=== PATIENT | female | born 1965 | race Caucasian/White ===

== ENCOUNTER 2017-02-10 16:01 | Inpatient (IN) | payer OTHER ==
--- NOTE | 2017-02-10 16:21 | PDOC ---
History of Present Illness <Tevin Raphael - Last Filed: 02/10/17 23:22> - General History Source: Patient Exam Limitations: Clinical Condition - History of Present Illness Initial Comments: 02/10/17 16:21 Patient is a limited historian and answers "yes" to most questions; majority of HPI obtained from nursing staff at [facility]. Patient is a 51 y.o. female with a PMH of Schizophrenia, HTN, AFib, CHF, s/p AICD, Hypothroidism and GERD who presents to our facility today from [facility] with a concern for LE DVT. Nursing staff notes that patient is currently recieving treatment for B/L LE cellulitis (currently on Vancomycin, failed Ceftriaxone therapy) and today on physical exam it was noted that the patient's LLE was cool to touch and patient left 1st toe was purple in color. Nursing staff also notes that patient has expressed some confusion ( including asking repeatedly whether she is ) over the last 24 hour period that is different from her baseline. Staff also notes h/o unwitnessed fall yesterday (02/09) after being asked about bruises appreciated on patient's B/L UE. <iLnda Covington - Last Filed: 02/11/17 10:42> - General Chief Complaint: Wound Infection Stated Complaint: POSSIBLE DVT Time Seen by Provider: 02/10/17 16:15 Past History <Tevin Raphael - Last Filed: 02/10/17 23:22> - Past Medical History Cardiac Disorders: Yes (a fib, hypertensive heart disease) Psychiatric Problems: Yes (bipolar,schizophrenic) Thyroid Disease: Yes (hypo) - Surgical History Abdominal Surgery: Yes ("some kind of tummy surgery") Cardiac Surgery: Yes (defibrillator) - Psycho/Social/Smoking Cessation Hx Suicidal Ideation: No Smoking History: Former smoker Have you smoked in the past 12 months: No Hx Alcohol Use: No Drug/Substance Use Hx: No Substance Use Type: None Hx Substance Use Treatment: No <Linda Covington - Last Filed: 02/11/17 10:42> - Past Medical History Allergies/Adverse Reactions: Allergies Allergy/AdvReac Type Severity Reaction Status Date / Time haloperidol Allergy Verified 02/10/17 16:05 risperidone Allergy Verified 02/10/17 16:05 Home Medications: Ambulatory Orders Levothyroxine [Synthroid -] 125 mcg PO DAILY 07/11/15 Metoprolol Succinate [Toprol XL -] 25 mg PO DAILY #30 tab.sr.24h 07/12/15 Acetaminophen [Tylenol] 650 mg PO QID PRN 02/10/17 Ammonium Lactate 1 ml TP BID 02/10/17 Betamethasone Valerate [Valisone] 1 applic TP DAILY 02/10/17 Divalproex Sodium [Depakote] 250 mg PO BID 02/10/17 Ergocalciferol (Vitamin D2) [Vitamin D2] 50,000 unit PO DAILY 02/10/17 Furosemide [Lasix -] 20 mg PO DAILY 02/10/17 Nystatin Cream [Mycostatin] 1 applic TP BID 02/10/17 Sertraline HCl [Zoloft] 25 mg PO DAILY 02/10/17 Topiramate [Topamax] 25 mg PO BID 02/10/17 Vancomycin [Vancocin] 500 mg IV DAILY 02/10/17 Review of Systems - Review of Systems Able to Perform ROS?: No Comments:: 02/11/17 09:49 Patient's clinical condition prevents proper ROS. Patient responds "yes" to all ROS questions. <Linda Covington - Last Filed: 02/11/17 10:42> *Physical Exam - Vital Signs Last Vital Signs Temp Pulse Resp BP Pulse Ox 97.3 F L 72 18 98/73 97 02/10/17 16:18 02/10/17 19:21 02/10/17 19:21 02/10/17 19:21 02/10/17 19:21 <Tevin Raphael - Last Filed: 02/10/17 23:22> - Physical Exam General Appearance: Yes: Nourished, Appropriately Dressed HEENT: positive: EOMI Neck: positive: Normal Thyroid, Supple Respiratory/Chest: positive: Lungs Clear, Normal Breath Sounds Cardiovascular: positive: S1, S2, Irregular Gastrointestinal/Abdominal: positive: Soft, Decreased BS Extremity: positive: Coldness (LLE cool to touch), Other (Delayed capillary refill; purple discoloration of L 1st phlange) Integumentary: positive: Bruising (B/L UE ecchymosis) Neurologic: positive: Alert, Disoriented (Patient A&O x 2, able to self-identify , identify she is at the hospital however is not able to correctly identify the date ), Other (Motor Strength 4/5 in UE B/L, patient not cooperative/clinical condition prevents evaluation of LE strength ) <Linda Covington - Last Filed: 02/11/17 10:42> ED Treatment Course - LABORATORY CBC & Chemistry Diagram: 02/10/17 17:35 02/10/17 18:53 - ADDITIONAL ORDERS Additional order review: Laboratory Results 02/10/17 02/10/17 02/10/17 18:53 18:30 17:40 INR PTT (Actin FS) Sodium 137 Cancelled Potassium 3.8 Cancelled Chloride 102 Cancelled Carbon Dioxide 23 Cancelled Anion Gap 12 Cancelled BUN 24 H D Cancelled Creatinine 0.8 D Cancelled Creat Clearance w eGFR > 60 Cancelled Random Glucose 72 L Cancelled Calcium 8.6 Cancelled Total Bilirubin 2.1 H D Cancelled AST 84 H D Cancelled ALT 32 D Cancelled Alkaline Phosphatase 181 H D Cancelled Total Protein 5.7 L D Cancelled Albumin 2.6 L D Cancelled Valproic Acid 54.269 02/10/17 17:19 INR 1.39 H PTT (Actin FS) 32.7 Sodium Potassium Chloride Carbon Dioxide Anion Gap BUN Creatinine Creat Clearance w eGFR Random Glucose Calcium Total Bilirubin AST ALT Alkaline Phosphatase Total Protein Albumin Valproic Acid 02/10/17 17:35 RBC 5.30 H D MCV 89.4 MCHC 31.5 L RDW 21.5 H D MPV 11.4 H Neutrophils % 72.9 D Lymphocytes % 9.0 D Monocytes % 17.2 H Eosinophils % 0.3 Basophils % 0.6 - RADIOLOGY Radiology Studies Ordered: Category Date Time Status ABDOMEN CTA AOR & BLE RUNOFF [CT] Stat CT Scan 02/10/17 20:12 Taken - Medications Given in the ED: ED Medications Discontinued Medications Generic Name Dose Route Start Last Admin Trade Name Freq PRN Reason Stop Dose Admin Heparin Sodium (Porcine) 5,000 unit 02/10/17 22:58 02/10/17 23:16 Heparin - IVPUSH 02/10/17 22:59 5,000 unit ONCE ONE Administration Sodium Chloride 500 mls @ 500 mls/hr 02/10/17 21:34 02/10/17 21:59 Normal Saline - IV 02/10/17 22:33 500 mls/hr ASDIR STA Administration <Ijeoma,Tevin - Last Filed: 02/10/17 23:22> - LABORATORY CBC & Chemistry Diagram: 02/11/17 04:00 02/11/17 04:00 <Linda Covington - Last Filed: 02/11/17 10:42> Medical Decision Making - Medical Decision Making 02/10/17 17:12 Patient is a 51 y.o. female who presents from extended care facility for concern for DVT. On PE, patient has L 5th phalanx purple discoloration, delayed cappillary refill and cool LLE. Moreover, patient appears confused, as per [facility], patient is not at mental baseline and has a h/o unwitnessed fall yesterday (02/09). PLAN 1. Doppler of B/L LE 2. CT Head 3. Depakote level - r/o possible seizure --> fall 02/10/17 18:50 Doppler (-) for DVT, CT Angio ordered. CT head, labs pending. Patient signed out to Dr. Raphael. <Linda Covington - Last Filed: 02/11/17 10:42> *DC/Admit/Observation/Transfer - Discharge Dispostion Admit: Yes <Tevin Raphael - Last Filed: 02/10/17 23:22> <Linda Covington - Last Filed: 02/11/17 10:42> Diagnosis at time of Disposition: Arterial insufficiency of lower extremity
[2017-02-10 17:29] LABS: BASOPHIL 0.6 % (0-2.0); EOSINOPHIL 0.3 % (0-4.5); MCH 28.2 pg (25.7-33.7); MCHC 31.5 g/dl (32.0-36.0); MEAN CELL VOLUME 89.4 fl (80-96); MEAN PLT VOLUME 11.4 fl (7.5-11.1); NEUTROPHILS 72.9 % (42.8-82.8); PLATELET COUNT 142 K/MM3 (134-434); RDW 21.5 % (11.6-15.6); WHITE BLOOD COUNT 6.2 K/mm3 (4.0-10.0)
[2017-02-10 17:41] LABS: INR 1.39 (0.82-1.09); PROTHROMBIN TIME (PATIENT) 15.4 SEC (9.98-11.88)
[2017-02-10 17:44] LABS: ACTIVATED PTT 32.7 SECONDS (26.9-34.4)
[2017-02-10 19:00] LABS: ANISOCYTOSIS 2+; HYPOCHROMIA 2+; PLATELET ESTIMATE DECREASED (NORMAL)
[2017-02-10 19:28] LABS: ALBUMIN 2.6 g/dl (3.4-5.0); ALK PHOS 181 U/L (45-117); ANION GAP 12 (8-16); BILIRUBIN,TOTAL 2.1 mg/dL (0.2-1.0); CALCIUM 8.6 mg/dL (8.5-10.1); CO2 23 mmol/L (21-32); CREATININE 0.8 mg/dL (0.55-1.02); GLUCOSE,RANDOM 72 mg/dL (74-106); SGOT/AST 84 U/L (15-37); SGPT/ALT 32 U/L (12-78); TOT PROT 5.7 g/dl (6.4-8.2)
[2017-02-10] MEDS ORDERED: SODIUM CHLORIDE 500 ML IV STA (21:34)
[2017-02-10] MEDS ORDERED: HEPARIN NA (PORCINE) 5,000 UNITS/ML 1ML VIAL IVPUSH ONE (22:58)
[2017-02-10] MEDS ORDERED: HEPARIN INFUSION - 500 ML IVPB SCH (23:00)
[2017-02-10] MEDS ORDERED: HEPARIN NA (PORCINE) 5,000 UNITS/ML 1ML VIAL ONE (23:12)
[2017-02-10] MEDS ORDERED: HEPARIN INFUSION - 500 ML IVPB ONE (23:12)
--- NOTE | 2017-02-11 00:22 | HP ---
Admitting History and Physical - Admission History of Present Illness: 51yo F from [facility], with history of Schizophrenia, hypothyroidism, dilated cardiomyopathy s/p AICD placement, A. fib, and HTN, who was sent to the ED due to complaint of leg pain and concern for DVT. Pt is poor historian and is almost non-verbal most likely due to her schizophrenia medication. She is also uncooperative with following orders, but is alert and not in distress. Pt had CT head in the ED which stated no acute intracranial pathology. CTA runoff was done as below. ER course notable for: 1) Head CT - Mod volume loss and mild chronic microvascular ischemic changes with no evidence of acute intracranial pathology 2) Duplex b/l legs - No evidence of DVT 3) Abdominal CTA runoff - official read pending; by my read - apparent R leg occlusions located in the proximal peroneal, anterior tibial and posterior tibial arteries, apparent L leg occlusions located in the mid anterior tibial artery, mid fibular artery and distal post. tibial artery 4) Heparin gtt initiated 5) Dr. Hoang of vascular surgery contacted 6) EKG - Atrial paced rhythm with appropriate ventricular response. 7) Valproic acid lvl WNL History Source: Medical Record Limitations to Obtaining History: Clinical Condition - Past Medical History Cardiovascular: Yes: AFIB, CHF, HTN Gastrointestinal: Yes: GERD ...LMP: 06/09/15 Psych: Yes: Bipolar, Schizophrenia Endocrine: Yes: Hypothyroidism - Past Surgical History Past Surgical History: Yes: AICD - Smoking History Smoking history: Former smoker Have you smoked in the past 12 months: No - Alcohol/Substance Use Hx Alcohol Use: No History of Substance Use: reports: None - Social History History of Recent Travel: No Home Medications - Allergies Allergies/Adverse Reactions: Allergies Allergy/AdvReac Type Severity Reaction Status Date / Time haloperidol Allergy Verified 02/10/17 16:05 risperidone Allergy Verified 02/10/17 16:05 - Home Medications Home Medications: Ambulatory Orders Levothyroxine [Synthroid -] 125 mcg PO DAILY 07/11/15 Metoprolol Succinate [Toprol XL -] 25 mg PO DAILY #30 tab.sr.24h 07/12/15 Acetaminophen [Tylenol] 650 mg PO QID PRN 02/10/17 Ammonium Lactate 1 ml TP BID 02/10/17 Betamethasone Valerate [Valisone] 1 applic TP DAILY 02/10/17 Divalproex Sodium [Depakote] 250 mg PO BID 02/10/17 Ergocalciferol (Vitamin D2) [Vitamin D2] 50,000 unit PO DAILY 02/10/17 Furosemide [Lasix -] 20 mg PO DAILY 02/10/17 Nystatin Cream [Mycostatin] 1 applic TP BID 02/10/17 Sertraline HCl [Zoloft] 25 mg PO DAILY 02/10/17 Topiramate [Topamax] 25 mg PO BID 02/10/17 Vancomycin [Vancocin] 500 mg IV DAILY 02/10/17 Physical Examination Vital Signs: Vital Signs Temperature 97.3 F L 02/10/17 16:18 Pulse Rate 72 02/10/17 19:21 Respiratory Rate 18 02/10/17 19:21 Blood Pressure 98/73 02/10/17 19:21 O2 Sat by Pulse Oximetry (%) 97 02/10/17 19:21 Constitutional: Yes: No Distress, Other (Slightly verbal with gaze that stares off) Eyes: Yes: Conjunctiva Clear, EOM Intact, PERRL Cardiovascular: Yes: Regular Rate and Rhythm. No: Murmur Respiratory: Yes: Regular, CTA Bilaterally. No: Rales, Rhonchi, SOB, Wheezes Gastrointestinal: Yes: Soft, Distention (slight), Hypoactive Bowel Sounds, Other (No bruits auscultated). No: Hepatomegaly, Splenomegaly, Tenderness Extremities: Yes: Other (B/l cool with R>L and extensive erythema bilaterally. Dorsalis pedis pulse very weak on L leg, not felt on R. Posterior tibial pulses not felt b/l. Cap refill >2seconds bilaterally. Bullae noted on anterior R leg without any discharge.) Neurological: Yes: Alert Psychiatric: Yes: Alert Imaging - Results Cat Scan: Image Reviewed EKG: Image Reviewed Assessment/Plan 51yo F with pmhx of 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 CTA runoff showing multiple occlusive areas in b/l arteries. Head CT acutely negative. 1) Arterial insufficiency --CTA shows multiple occlusions b/l --Distal b/l extremities cold, cap refill >2, and pulses absent with exception of trace weak L dorsalis pedis --Vascular surgery consulted --Heparin gtt continued --Follow PTT 2) Schizophrenia --Most likely catatonic state due to medication --Valproic acid level WNL --Pt is almost nonverbal and uncooperative, but is alert --Head CT negative for acute intracranial pathology --Continued home Depakote 250mg PO BID --Continued home Topamax 25mg PO qDaily --Will most likely need optimization with outpatient f/u 3) Dilated cardiomyopathy --S/P AICD working appropriately --Most recent Echo June 2016 --EF of 21% --Severe global hypokinesis --Mod dilated LV --Continued home Toprol XL 25mg PO qdaily --Continued home Lasix 20mg PO qdaily 4) Abdominal Distention --KUB ordered; will f/u --Hypoactive BS noted on exam --Most likely constipation 5) Atopic Dermatitis --Continued home nystatin cream for application on abdominal areas 6)Hypothyroidism --Continued home Synthroid 125mcg PO qDaily --TSH, Free T4 ordered for AM labs FEN: Fluids: None currently Electrolyte abnormalities: None Nutrition: NPO for now DISPO: Admit to M/S; follow with vascular for management plan Visit type - Emergency Visit Emergency Visit: Yes ED Registration Date: 02/10/17 Care time: The patient presented to the Emergency Department on the above date and was hospitalized for further evaluation of their emergent condition. - New Patient This patient is new to me today: Yes Date on this admission: 02/11/17 - Critical Care Critical Care patient: No
[2017-02-11] MEDS ORDERED: LORazepam 2 MG/ML SDV VIAL ONE ×2 (02:55→05:53)
--- NOTE | 2017-02-11 03:18 | RAPID ---
Physical Examination Vital Signs: Vital Signs Temperature 98.3 F 02/11/17 00:55 Pulse Rate 60 02/11/17 00:55 Respiratory Rate 16 02/11/17 00:55 Blood Pressure 98/60 02/11/17 00:55 O2 Sat by Pulse Oximetry (%) 96 02/11/17 01:04 Findings/Remarks: Overhead Rapid response @ 0300h Arrived on scene and was briefed by staff about patient exhibiting a generalized tonic-clonic seizure Pt was placed on NRB mask with pulse oximetry and BP recording vitals Ativan 2mg IVPush was administered to pt After 5 minutes patient's tonic-clonic manifestations ceased Pt was not responsive due to post-ictal state Pulse and breathing intact post-seizure Throughout pt's SpO2 was maintained at 94% and above with NRB mask Vitals stable throughout Pt maintaining airway throughout event History of seizures could not be ascertained from previous hospital notes; group home records will need to be parsed. Neurological: Yes: Seizure (Tonic-clonic motions in arms and legs. Facial nerve twitching noted.) Rapid Response - Rapid Response Assessment: 1) Generalized Tonic-clonic seizure --Ativan 2mg IVPush given during seizing event --Head CT noncontrast STAT ordered --Ativan 2mg IVPush PRN on standby if needed with transporting to radiology --Continuous cardiac monitoring and transfer to proper floor monitoring care ordered --F/U with group home records for previous history --Pt already on Depakote due to schizophrenia Will obtain Depakote level with AM labs --Holding heparin Gtt until Head CT comes back --IF CT negative for acute intracranial pathology once again will play back heparin gtt --If patient continues to have seizure events; will have a low index towards intubation to safely maintain airway in future
--- NOTE | 2017-02-11 03:25 | PN ---
Teaching Attending Note Name of Resident: Hugh Carvajal ATTENDING PHYSICIAN STATEMENT I saw and evaluated the patient. I reviewed the resident's note and discussed the case with the resident. I agree with the resident's findings and plan as documented. SUBJECTIVE: 51 year old female that presents from [facility] for evaluation of suspected DVT of LE . Has underlying bipolar disorder and schizophrenia and appears to be very poor historian. Her baseline cognitive status is not well described in available records. She complains of " pain everywhere" . No documented fever . Physical exam in the ED revealed decreased LE arterial pulses and CTA runoff showing multiple occlusive areas in b/l LE arteries. Vascular surgery was consulted and heparin drip initiated . PMH ischemic cardiomyopathy with severely reduced EF Afib HTN Bipolar Disorder Schitzophrenia Hypothyroidism AICD Active Medications Divalproex Sodium (Depakote -) 250 mg PO BID ANNA Ergocalciferol (Drisdol -) 50,000 unit PO DAILY ANNA Furosemide (Lasix -) 20 mg PO DAILY ANNA Heparin Sodium/Dextrose (Heparin Infusion -) 500 mls @ 20 mls/hr IVPB TITR ANNA ; 1,000 UNITS/HR PRN Reason: Protocol Last Admin: 02/10/17 23:16 Dose: 20 mls/hr Levothyroxine Sodium (Synthroid -) 125 mcg PO DAILY@0700 ANNA Lorazepam (Ativan Injection -) 2 mg IVPUSH Q6H PRN PRN Reason: seizure Stop: 02/12/17 09:59 Metoprolol Succinate (Toprol Xl -) 25 mg PO DAILY ANNA Non-Formulary Medication (Ammonium Lactate [Ammonium Lactate]) 1 ml TP BID ANNA Non-Formulary Medication (Betamethasone Valerate [Valisone 0.1% Lotion -]) 1 applic TP DAILY ANNA Nystatin (Mycostatin Ointment -) 1 applic TP BID ANNA Sertraline HCl (Zoloft -) 25 mg PO DAILY ANNA Topiramate (Topamax -) 25 mg PO BID ANNA OBJECTIVE: Vital Signs Temperature 98.3 F 02/11/17 00:55 Pulse Rate 60 02/11/17 00:55 Respiratory Rate 16 02/11/17 00:55 Blood Pressure 98/60 02/11/17 00:55 O2 Sat by Pulse Oximetry (%) 96 02/11/17 01:04 HEENT : perrl , OP dry CVS : S1 S2 + , no MRG , positive edema of LE and abdominal wall , 2 + RS : decreased AE b/l bases, no ronchi no rales ABD: distended, BS are + EXT : unable to palpate post tib pulses and below, b/l chronic LE ulcers and hypotrophic skin changes , peripheral cyanosis and mottling of b/l toes SKIN : b/l LE erythema, abdominal wall erythema, right groin fungal skin rash and maceration CBC, BMP 02/10/17 17:35 02/10/17 18:53 ECHO with severely reduced left ventricular systolic function. Severe global hypokinesis of the left ventricle, left ventricle is moderately dilated, left atrium is moderately dilated, mild to moderate tricuspid regurg, moderate pulmonary hypertension, no pericardial effusion. ASSESSMENT AND PLAN: 1. Acute B/L LE arterial occlusion - arterial embolic v/s thrombosis, patient with history of severe cardiomyopathy and AFIB that was not on anticoagulation - heparin drip initiated - vascular reperfusion per vascular surgery - ECHO 2. Ischemic cardiomyopathy with high risk of acute exacerbation in this clinical setting - I & O - c/w lasix - avoid fluid overload , needs negative balance considering edema - c/w metoprolol - ECHO - AICD interrogation 3. Bipolar disorder - low theraputic levels of depakote - increase depakote to TID and recheck levels . 4. Functional quadriplegia of unknown duration - PT when stable Addendum Rapid response called due to an episode of gen tonic clonic seizure at 3:00 on 2mg stat ativan was administered VS remained stable maintaining airway Heparin drip is placed on hold pending CT brain results will follow
[2017-02-11] MEDS ORDERED: MIDAZOLAM HCL 2 MG/2 ML SINGLE DOSE VIAL IVPUSH ONE ×2 (03:51→05:10)
[2017-02-11 04:07] LABS: ARTERIAL BLD GAS O2 SATURATION 81.8 % (90-98.9); ARTERIAL BLOOD GAS BASE EXCESS -4.7 meq/l (-2-2); ARTERIAL BLOOD GAS HCO3 24.6 meq/L (22-26)
[2017-02-11 04:08] LABS: ALLENS TEST POSITIVE; ART PUNCT SITE RIGHT BRACHIAL; ARTERIAL BLOOD GAS pH 7.21 (7.35-7.45); LPM/O2% 100%; PT. ON O2? YES; TYPE OF O2 NONREBREATHER
[2017-02-11 04:09] LABS: ARTERIAL BLOOD GAS PO2 60.3 mmHg (80-100)
--- NOTE | 2017-02-11 04:15 | CONSULT ---
Consult - text type - Consultation Consultation Note: PULM/CCM Pt seen and examined in ICU Hx obtained from medical record. CC: AMS, seizure HPI: Briefly Ms Dailey is a 51 y/o woman, resident on [facility] with hx of Schizophrenia, seizure disorder, HTN, AFib, CHF, s/p AICD/biV pacer, Hypothroidism and GERD who presented to ED yesterday with LE swelling and pain c /f DVT. In ED pt was awake but poorly responsive, only C/o pain everywhere. Was noted to have cool bilateral LE with very weak peripheral pulses, edema and poor cap refill-->CTA runoff showing multiple occlusive areas in b/l LE arteries. Vascular was consulted and there was tentative plan for surgery today. CT head was performed due to AMS which was without acute pathology. Labs were notable for new elevated Tbili and alk phos, low therapeutic VPA level , no WBC, normal h/H, and slightly elevate INR 1.3. She was admitted to floor. Over night [employer] was called when pt found having tonic-clonic sz. Was given Ativan 2mg with resolution, repeat head CT was again without apparent infarct or bleed (read pending). She was brought to ICU where she cont to have repeated sz, without regaining mental status c/w status epilepticus. She was not protecting her airway or having effective ventilation (7.2/60) and so was intubated. EEG was ordered. Neuro and cards were consulted. Abd US was ordered for elevated bilis. Past Medical History Cardio/Vascular AFIB,CHF,HTN Gastrointestinal GERD Psych Bipolar,Schizophrenia Endocrine Hypothyroidism Past Surgical History Past Surgical History AICD Smoking History Smoking history Former smoker Alcohol/Substance Use Hx Alcohol Use No History of Substance Use None Social History History of Recent Travel No Home Medications Medication Instructions Recorded Levothyroxine [Synthroid -] 125 mcg PO DAILY 07/11/15 Metoprolol Succinate [Toprol XL -] 25 mg PO DAILY #30 tab.sr.24h 07/12/15 Acetaminophen [Tylenol] 650 mg PO QID PRN 02/10/17 Ammonium Lactate 1 ml TP BID 02/10/17 Betamethasone Valerate [Valisone] 1 applic TP DAILY 02/10/17 Divalproex Sodium [Depakote] 250 mg PO BID 02/10/17 Ergocalciferol (Vitamin D2) 50,000 unit PO DAILY 02/10/17 [Vitamin D2] Furosemide [Lasix -] 20 mg PO DAILY 02/10/17 Nystatin Cream [Mycostatin] 1 applic TP BID 02/10/17 Sertraline HCl [Zoloft] 25 mg PO DAILY 02/10/17 Topiramate [Topamax] 25 mg PO BID 02/10/17 Vancomycin [Vancocin] 500 mg IV DAILY 02/10/17 Active Medications Divalproex Sodium (Depakote -) 250 mg PO BID [facility] Ergocalciferol (Drisdol -) 50,000 unit PO DAILY [facility] Fentanyl (Sublimaze Injection -) 100 mcg IVPUSH ONCE ONE Stop: 02/11/17 04:46 Furosemide (Lasix -) 20 mg PO DAILY [facility] Heparin Sodium/Dextrose (Heparin Infusion -) 500 mls @ 20 mls/hr IVPB TITR ANNA ; 1,000 UNITS/HR PRN Reason: Protocol Last Admin: 02/10/17 23:16 Dose: 20 mls/hr Levothyroxine Sodium (Synthroid -) 125 mcg PO DAILY@0700 [facility] Metoprolol Succinate (Toprol Xl -) 25 mg PO DAILY [facility] Midazolam HCl (Versed -) 2 mg IVPUSH ONCE ONE Stop: 02/11/17 03:52 Non-Formulary Medication (Ammonium Lactate [Ammonium Lactate]) 1 ml TP BID [facility] Non-Formulary Medication (Betamethasone Valerate [Valisone 0.1% Lotion -]) 1 applic TP DAILY [facility] Nystatin (Mycostatin Ointment -) 1 applic TP BID [facility] Sertraline HCl (Zoloft -) 25 mg PO DAILY [facility] Topiramate (Topamax -) 25 mg PO BID [facility] Vital Signs Temp 98.3 F 02/11/17 00:55 Pulse 60 02/11/17 00:55 Resp 16 02/11/17 00:55 BP 98/60 02/11/17 00:55 Pulse Ox 96 02/11/17 01:04 Intake & Output 02/10/17 02/10/17 02/11/17 11:59 23:59 11:59 Weight 87.997 kg Other: Voiding Method Diaper Height 5 ft 2 in Body Mass Index (BMI) 35.4 Weight Measurement Method Est/Stated by Patient ROS: unable due to clinical status CXR: enlarge cardiac silholette, no infiltrate, ETT in good position PE: Gen: chronically ill appearing mid age woman actively seizing HEENT: PERRL dilated at 6mm, R gaze deviation PULM: scattered crackles, no wheezes, equal rise with MV, AICD L chest CV: tachy, regular. ABD: obese, soft, +BS EXT: cool, discolored, blistered LE with doppler DP bilat, chronic changes c/w PAD NEURO: unconscious, seizing A/ 51 y/o woman with MMP (sz, CHF, psych) now in ICU with status epilepticus, respiratory failure, new hyperbilirubinemia P/ Neuro: status epilepticus -stat EEG -Neuro consult -versed bolus, gtt if more seizure -cont PO agents for now - intubated for airway protection -check ammonia level PULM:acute hypercapneic resp failure in setting of status epilepticus and medications -Full vent support, LTV vent strategies -vent bundle -wean fio2 and peep as tolerated -CXR clear, no infiltrate CV: dilated cardiomyopathy and CHF, AICD/pacer -serial trop -check BNP -diuresis when stabilized -daily EKG -cards consult -TFT GI: elevated alk phos and Tbili, suggestive of congestive hepatopathy -Abd US -repeat LFTs -NGT Vascular: PAD with occlusive findings on CTA -vascular Dr Hoang following -restart hep gtt, goal low therapeutic Prophy: pepcid, hep gtt Jesus Alberto Orourke ACNP [id number] 35min CCT, no including procedures. Critical Care Total Critical Care Time (in minutes): 35 Critical Care Statement: The care of this patient involved high complexity decision making to prevent further life threatening deterioration of the patient 's condition and/or to evaluate & treat vital organ system(s) failure or risk of failure.
[2017-02-11] MEDS ORDERED: MIDAZOLAM HCL 5 MG/1 ML Single Dose Vial ONE ×2 (04:25→04:32)
--- NOTE | 2017-02-11 04:39 | PROC ---
Intubation - Intubation Reason for Intubation: Respiratory Failure, Airway Protection Time of Intubation: 04:39 Intubation Method: orotracheal Blade used: Mac Tube Size (cm): 7.5 Tube position @ lip (cm): 21 Tube position confirmed by: Direct visualization, CO2 detector, Breath sounds Breath Sounds after Intubation: equal Post Intubation Xray: Yes (ordered)
[2017-02-11 04:51] LABS: BASOPHIL 0.5 % (0-2.0); EOSINOPHIL 0.3 % (0-4.5); MCH 28.5 pg (25.7-33.7); MCHC 31.8 g/dl (32.0-36.0); MEAN CELL VOLUME 89.4 fl (80-96); MEAN PLT VOLUME 10.3 fl (7.5-11.1); NEUTROPHILS 83.7 % (42.8-82.8); PLATELET COUNT 150 K/MM3 (134-434); WHITE BLOOD COUNT 5.3 K/mm3 (4.0-10.0)
[2017-02-11] MEDS ORDERED: ROCURONIUM BROMIDE 50 MG/5 ML VIAL IVPUSH ONE (04:52)
[2017-02-11 04:58] LABS: INR 1.32 (0.82-1.09); PROTHROMBIN TIME (PATIENT) 14.6 SEC (9.98-11.88)
[2017-02-11 05:07] LABS: ALBUMIN 3.1 g/dl (3.4-5.0); AMYLASE 87 U/L (25-115); ANION GAP 13 (8-16); BILIRUBIN,DIRECT 1.5 mg/dL (0.0-0.2); BILIRUBIN,TOTAL 2.4 mg/dL (0.2-1.0); CALCIUM 8.5 mg/dL (8.5-10.1); CO2 26 mmol/L (21-32); GLUCOSE,RANDOM 90 mg/dL (74-106); MAGNESIUM 2.1 mg/dL (1.8-2.4); PHOSPHOROUS 3.5 mg/dL (2.5-4.9); TOT PROT 6.6 g/dl (6.4-8.2)
[2017-02-11 05:10] LABS: CPK 83 IU/L (26-192); TROPONIN I < 0.02 ng/ml (0.00-0.05)
[2017-02-11] MEDS ORDERED: MIDAZOLAM HCL 5 MG/1 ML Single Dose Vial IVPUSH PRN (05:12)
[2017-02-11 05:20] LABS: ACTIVATED PTT 119.7 SECONDS (26.9-34.4)
[2017-02-11 05:31] LABS: ALLENS TEST POSITIVE; ART PUNCT SITE LEFT RADIAL; ARTERIAL BLD GAS O2 SATURATION 99.6 % (90-98.9); ARTERIAL BLOOD GAS BASE EXCESS -0.6 meq/l (-2-2); ARTERIAL BLOOD GAS HCO3 23.2 meq/L (22-26); ARTERIAL BLOOD GAS pH 7.43 (7.35-7.45); LPM/O2% 60%; PT. ON O2? YES; TYPE OF O2 MECH VENT
[2017-02-11 05:32] LABS: MECH. VENT. YES; PT'S TEMP 96.4; VENT RATE 20; VT/PRESS 400
[2017-02-11] MEDS ORDERED: DIVALPROEX SODIUM 250 MG TABLET E.C. (FP) PO SCH ×2 (06:00→10:00)
[2017-02-11] MEDS: MIDAZOLAM 100 MG in SODIUM CHLORIDE 100 ML IVPB SCH (06:33)
--- NOTE | 2017-02-11 06:41 | PROC ---
Central Line Insertion Indication: Poor Venous Access, Vasopressor Risks and Benefits Explained: Yes Consent on Chart: Yes (Mom by phone) Central Line: Triple Lumen Catheter Anesthesia: 1% Lidocaine Sterile Technique: Yes Ultrasound Guided Assistance: Yes Position: Right Internal Jugular Post Insertion: Yes: Bilateral Breath Sounds, Chest X-Ray Ordered Sterile Dressing Applied: Yes
[2017-02-11] MEDS ORDERED: levETIRAcetam 500 MG/5 ML INJECTION VIAL IVPB ONE (06:43)
[2017-02-11 06:52] VITALS: BMI 34.0
[2017-02-11] MEDS ORDERED: PNEUMOC 13-VAL CONJ-DIP CRM/PF 0.5 ML DISP.SYRIN IM ONE (06:52)
[2017-02-11] MEDS: NYSTATIN 100000 UNIT/GM TOPICAL OINTMENT 15 GM TUBE TP SCH ×3 (07:26→22:15)
[2017-02-11] MEDS ORDERED: POTASSIUM CHLORIDE 20 MEQ PREMIX IVPB 100 ML IVPB ONE (07:35)
--- NOTE | 2017-02-11 08:21 | CON.NEURO ---
Consult Consult Specialty:: NEUROLOGY-LILIYA PARIKH - History of Present Illness Chief Complaint: Status Epilepticus History of Present Illness: HPI: Ms Dailey is a 51 y/o woman, resident on [facility] with hx of Schizophrenia, seizure disorder, HTN, AFib, CHF, s/p AICD/biV pacer, Hypothroidism and GERD who presented to ED yesterday with LE swelling and pain c /f DVT. In ED pt was awake but poorly responsive, only C/o pain everywhere. Was noted to have cool bilateral LE with very weak peripheral pulses, edema and poor cap refill-->CTA runoff showing multiple occlusive areas in b/l LE arteries. Vascular was consulted and there was tentative plan for surgery today. CT head was performed due to AMS which was without acute pathology. Labs were notable for new elevated Tbili and alk phos, low therapeutic VPA level , no WBC, normal h/H, and slightly elevate INR 1.3. She was admitted to floor. Over night MOP MAKER was called when pt found having tonic-clonic sz. Was given Ativan 2mg with resolution, repeat head CT was again without apparent infarct or bleed (read pending). She was brought to ICU where she cont to have repeated sz, without regaining mental status c/w status epilepticus. She was not protecting her airway or having effective ventilation (7.2/60) and so was intubated. EEG was ordered. Neuro and cards were consulted. Abd US was ordered for elevated bilis. Pt. was given another total of 4 mgs of Ativan but without effect, she was than placed on Midazolam drip now at 5mg/hour. She is being loaded with Keppra 1000mg now and bering given Depakote thru her NGT. Also given Midazolam ivpx2. Pt. is unable to relate hx. Its not clear whether she has a hx. of seizures in the past as per ICU staff. Past Medical History Cardio/Vascular AFIB,CHF,HTN Gastrointestinal GERD Psych Bipolar,Schizophrenia Endocrine Hypothyroidism Past Surgical History Past Surgical History AICD - History Source History Provided By: Medical Record, Transfer Record Limitations to Obtaining History: Unresponsive - Past Medical History Cardio/Vascular: Yes: AFIB, CHF, HTN Gastrointestinal: Yes: GERD ...LMP: 06/09/15 Psych: Yes: Bipolar, Schizophrenia Endocrine: Yes: Hypothyroidism - Past Surgical History Past Surgical History: Yes: AICD - Alcohol/Substance Use Hx Alcohol Use: No History of Substance Use: reports: None - Smoking History Smoking history: Former smoker Have you smoked in the past 12 months: No - Social History History of Recent Travel: No Home Medications - Allergies Allergies/Adverse Reactions: Allergies Allergy/AdvReac Type Severity Reaction Status Date / Time haloperidol Allergy Verified 02/10/17 16:05 risperidone Allergy Verified 02/10/17 16:05 - Home Medications Home Medications: Ambulatory Orders Levothyroxine [Synthroid -] 125 mcg PO DAILY 07/11/15 Metoprolol Succinate [Toprol XL -] 25 mg PO DAILY #30 tab.sr.24h 07/12/15 Acetaminophen [Tylenol] 650 mg PO QID PRN 02/10/17 Ammonium Lactate 1 ml TP BID 02/10/17 Betamethasone Valerate [Valisone] 1 applic TP DAILY 02/10/17 Divalproex Sodium [Depakote] 250 mg PO BID 02/10/17 Ergocalciferol (Vitamin D2) [Vitamin D2] 50,000 unit PO DAILY 02/10/17 Furosemide [Lasix -] 20 mg PO DAILY 02/10/17 Nystatin Cream [Mycostatin] 1 applic TP BID 02/10/17 Sertraline HCl [Zoloft] 25 mg PO DAILY 02/10/17 Topiramate [Topamax] 25 mg PO BID 02/10/17 Vancomycin [Vancocin] 500 mg IV DAILY 02/10/17 Physical Exam-Neuro Vital Signs: Vital Signs Temperature 96.6 F L 02/11/17 06:14 Pulse Rate 70 02/11/17 07:00 Respiratory Rate 20 02/11/17 07:00 Blood Pressure 94/71 02/11/17 07:00 O2 Sat by Pulse Oximetry (%) 100 02/11/17 05:00 Labs: CBC, BMP 02/11/17 04:00 02/11/17 04:00 INR, PTT INR 1.32 (0.82-1.09) H 02/11/17 04:00 Fibrinogen 186.0 mg/dL (238-498) L 02/11/17 04:00 - Neuro Exam Level Of Consciousness: Yes: Comatose (Intubated/vented) Eyes: Yes: MAHAD (Eyes deviated tonically to the left, pupils- right 2 mm, reactive to light, left 3mm reactive to light.) Dominant Hand: Right Cranial Nerves II-XII Intact: No (Bilateral frontal rhythmic movements of eyebrow elevation.) DTR's: 0 Left Brachioradialis, 0 Right Brachioradialis, 0 Left Achilles, 0 Right Achilles, 1+ Left Bicep, 1+ Right Bicep, 1+ Left Tricep, 1+ Right Tricep Babinski: Present (Bilateral upgoing toes) Response to light touch: Abnormal (No response to deep pain in all 4 ext. and sternal rub(on Propophol)) Motor Strength: 0/5: Left Arm, Right Arm, Left Leg, Right Leg (Pt. is comatose, , has increased tone in both UEs somewhat.) Imaging - Results Chest X-ray: Report Reviewed (CT head x 2 last night without evidence of acute infarct/hge.) Assessment/Plan Pt. in convulsive SE, after vigorous treatment with benzodiazepines she remains in SE at this time given facial movements and eye deviation, there is likely a left frontal seizure focus driving eyes to right and or SE due to metabolic abn/ infection. Suggest: 1) Would cont. Midazolam infusion at 5mg/hr. 2) Keppra 1000mg IVSS X1 now(being given) and than 1000mg twice daily 3) D/C Depakote-would load with Depacon 1000mg ivss x1 now only and decide maintenance dose later. She has compromised hepatic function. May need to consider Phenobarbital if her status is not breaking. 4) EEG, Ammonia level Will follow with you, Thank you, Hailey Rush MD
[2017-02-11] MEDS: KCL 10 MEQ IVPB 100 ML IVPB SCH ×2 (08:28→09:29)
[2017-02-11] MEDS: LEVOTHYROXINE NA 125 MCG TABLET (FP) PO SCH (08:32)
[2017-02-11] MEDS ORDERED: PNEUMOCOCCAL 23 VACCINE 0.5 ML VIAL IM ONE (09:00)
[2017-02-11] MEDS ORDERED: VALPROATE SODIUM 500 MG/5 ML VIAL IVPB ONE (09:00)
[2017-02-11] MEDS ORDERED: SERTRALINE HCL 25 MG TABLET (FP) PO SCH (10:00)
[2017-02-11] MEDS ORDERED: AMMONIUM LACTATE TP SCH (10:00)
[2017-02-11] MEDS ORDERED: METOPROLOL SUCCINATE 25 MG TAB.SR.24H (FP) PO SCH (10:00)
[2017-02-11] MEDS ORDERED: TOPIRAMATE 25 MG TABLET (FP) PO SCH (10:00)
[2017-02-11] MEDS ORDERED: ERGOCALCIFEROL (VITAMIN D2) 50,000 UNIT CAPSULE (FP) PO SCH (10:00)
--- NOTE | 2017-02-11 10:45 | PN ---
Progress Note (short form) - Note Progress Note: Pt seen and examined by myself and Dr. perez, full consult to follow but pulses with doppler +2DP/PT b/l. May discontinue IV heparin.
--- NOTE | 2017-02-11 10:52 | EKG ---
Test Reason : Blood Pressure : / mmHG Vent. Rate : 073 BPM Atrial Rate : 073 BPM P-R Int : 160 ms QRS Dur : 142 ms QT Int : 518 ms P-R-T Axes : 058 -38 024 degrees QTc Int : 570 ms Atrial-sensed ventricular-paced rhythm Biventricular pacemaker detected ABNORMAL ECG WHEN COMPARED WITH ECG OF 11-JUL-2015 02:34, VENT. RATE HAS DECREASED BY 13 BPM Confirmed by IRENE APRIKH, RICO ([id number]) on 02/11/2017 10:52:36 AM Referred By: Confirmed By:RICO BONILLA MD
[2017-02-11] MEDS ORDERED: PT OWN MED DRAWER 7, Y5N ONE ×2 (11:47→13:02)
[2017-02-11] MEDS: FUROSEMIDE 20 MG TABLET (FP) PO SCH (12:44)
[2017-02-11] MEDS: METOPROLOL TARTRATE 25 MG TABLET (FP) PO SCH ×2 (13:35→22:14)
--- NOTE | 2017-02-11 13:56 | CON.CARD ---
Cardiology Consult (text) - Consultation Consultation Note: Made aware that patient's fastener technologist is Dr. Sanchez. Notified team and consult will be changed over to Dr. Sanchez.
--- NOTE | 2017-02-11 13:58 | CONSULT ---
- Consultation REQUESTING PROVIDER: Dr. Hoang CONSULT REQUEST: We have been asked to surgically evaluate this patient for lower ext pain/coolness. PCP:Marija Godinez HISTORY OF PRESENT ILLNESS: 51yo F from [facility] for the evulation of leg pain and possilbe DVT. Her lower ext were noted to be cool and a CTA was completed. She developed seizures and was intuated and placed on a versed drip. The pt was intubated at the time of exam and on sedation so the history was taken from the chart. Upon admission the patient was started on a IV heparin drip. PMHx: schizophrenia, hypotyroidism, dilated cardiomyopathy , a fib, HTN PSHx: AICD Home Medications Medication Instructions Recorded Levothyroxine [Synthroid -] 125 mcg PO DAILY 07/11/15 Metoprolol Succinate [Toprol XL -] 25 mg PO DAILY #30 tab.sr.24h 07/12/15 Acetaminophen [Tylenol] 650 mg PO QID PRN 02/10/17 Ammonium Lactate 1 ml TP BID 02/10/17 Betamethasone Valerate [Valisone] 1 applic TP DAILY 02/10/17 Divalproex Sodium [Depakote] 250 mg PO BID 02/10/17 Ergocalciferol (Vitamin D2) 50,000 unit PO DAILY 02/10/17 [Vitamin D2] Furosemide [Lasix -] 20 mg PO DAILY 02/10/17 Nystatin Cream [Mycostatin] 1 applic TP BID 02/10/17 Sertraline HCl [Zoloft] 25 mg PO DAILY 02/10/17 Topiramate [Topamax] 25 mg PO BID 02/10/17 Vancomycin [Vancocin] 500 mg IV DAILY 02/10/17 Allergies Allergy/AdvReac Type Severity Reaction Status Date / Time haloperidol Allergy Verified 02/10/17 16:05 risperidone Allergy Verified 02/10/17 16:05 REVIEW OF SYSTEMS: unable to obtain because of sedation/intubation PHYSICAL EXAM: GENERAL: nonarousable/intubated HEAD: Normal with no signs of trauma. NECK: Normal ROM, supple without lymphadenopathy, JVD, or masses. LUNGS: Clear to auscultation bilat anteriorly. No wheezes, and no crackles. HEART: Regular rate and rhythm. No murmurs ABDOMEN: Soft, nontender, not distended. MUSCULOSKELETAL:No bony deformities or tenderness. UPPER EXTREMITIES: 2+ pulses, warm, well-perfused. No cyanosis. Cap refill <2 seconds. No peripheral edema. LOWER EXTREMITIES: 2+ pulses DP/PT with doppler but not with palpation, toes cool to touch chronic venous stasis changes, cap refill slightly delayed. b/l without open skin areas. NEUROLOGICAL: non-arousable, seizure activity SKIN: Warm, dry, normal turgor, no rashes or lesions noted. Vital Signs Temperature 97.5 F L 02/11/17 13:00 Pulse Rate 76 02/11/17 13:00 Respiratory Rate 20 02/11/17 13:00 Blood Pressure 92/70 02/11/17 12:00 O2 Sat by Pulse Oximetry (%) 100 02/11/17 09:00 Lab Results WBC 5.3 K/mm3 (4.0-10.0) 02/11/17 04:00 RBC 5.51 M/mm3 (3.60-5.2) H 02/11/17 04:00 Hgb 15.7 GM/dL (10.7-15.3) H 02/11/17 04:00 Hct 49.3 % (32.4-45.2) H 02/11/17 04:00 MCV 89.4 fl (80-96) 02/11/17 04:00 MCHC 31.8 g/dl (32.0-36.0) L 02/11/17 04:00 RDW 21.0 % (11.6-15.6) H 02/11/17 04:00 Plt Count 150 K/MM3 (134-434) 02/11/17 04:00 Sodium 139 mmol/L (136-145) 02/11/17 04:00 Potassium 3.3 mmol/L (3.5-5.1) L 02/11/17 04:00 Chloride 100 mmol/L (98-107) 02/11/17 04:00 Carbon Dioxide 26 mmol/L (21-32) 02/11/17 04:00 Anion Gap 13 (8-16) 02/11/17 04:00 BUN 23 mg/dL (7-18) H 02/11/17 04:00 Creatinine 1.0 mg/dL (0.55-1.02) D 02/11/17 04:00 Random Glucose 90 mg/dL (74-106) D 02/11/17 04:00 Calcium 8.5 mg/dL (8.5-10.1) 02/11/17 04:00 INR 1.32 (0.82-1.09) H 02/11/17 04:00 CTA- 02/11: common femoral/SFA/Poplitel and three vessels open to the ankle Vascular study: No evidnece of DVT to b/l lower ext A/P: 51 yo female with no evidence of ischemia to lower limbs, she remains slightly hypotensive and when examined was on IV heparin with a PTT value of 119. CT scan without any evidence of ischemia and three vessel runoff to the ankle b/l. Duplex-no DVT Pt seen this am with Dr. Hoang and will no longer need IV heparin since distal pulses intact. No evidence of ischemia clinically or on CTA. Reconsut as needed. Visit type - Case Type Case Type: ED Admission - Emergency Emergency Visit: Yes ED Registration Date: 02/10/17 Care time: The patient presented to the Emergency Department on the above date and was hospitalized for further evaluation of their emergent condition. - New patient This patient is new to me today: Yes Date on this admission: 02/11/17 - Critical Care Critical Care patient: No
--- NOTE | 2017-02-11 14:06 | MSN ---
Progress Note (SOAP) - Subjective Chief Complaint: Seizures History of Present Illness: At present pt is no longer experiencing eye twitching, limb jerking, or other signs of seizure. She is nonverbal and no further subjective history could be obtained. - Current Medications Current Medications: Active Medications Betamethasone Valerate (Valisone 0.1% Cream -) 1 applic TP DAILY [facility] Chlorhexidine Gluconate (Hibiclens For Decolonization -) 1 applic TP HS ANNA Fentanyl (Sublimaze Injection -) 50 mcg IVPUSH Q1H PRN PRN Reason: PAIN Stop: 02/12/17 05:29 Furosemide (Lasix -) 20 mg PO DAILY [facility] Last Admin: 02/11/17 12:44 Dose: 20 mg Midazolam HCl 100 mg/ Sodium (Chloride) 100 mls @ 5 mls/hr IVPB TITR ANNA; 5 MG/ HR PRN Reason: Protocol Last Titration: 02/11/17 09:29 Dose: 6 mg/hr Lactic Acid (Lac-Hydrin 12) 1 applic TP DAILY PRN PRN Reason: WOUND CARE Levothyroxine Sodium (Synthroid -) 125 mcg PO DAILY@0700 [facility] Last Admin: 02/11/17 08:32 Dose: 125 mcg Metoprolol Tartrate (Lopressor -) 12.5 mg PO BID [facility] Last Admin: 02/11/17 13:35 Dose: 12.5 mg Midazolam HCl (Versed -) 5 mg IVPUSH Q1H PRN PRN Reason: AGITATION Mupirocin (Bactroban Ointment (For Decolonization) -) 1 applic NS BID [facility] Stop: 02/16/17 21:59 Nystatin (Mycostatin Ointment -) 1 applic TP BID [facility] Last Admin: 02/11/17 13:00 Dose: 1 applic - Objective Vital Signs: Vital Signs Temperature 97.5 F L 02/11/17 13:00 Pulse Rate 76 02/11/17 13:00 Respiratory Rate 20 02/11/17 13:00 Blood Pressure 92/70 02/11/17 12:00 O2 Sat by Pulse Oximetry (%) 100 02/11/17 09:00 Constitutional: Yes: Obese Eyes: Yes: WNL, Conjunctiva Clear HENT: Yes: WNL, Atraumatic, Normocephalic Neck: Yes: Supple, Trachea Midline Cardiovascular: Yes: Tachycardia. No: Pulse Irregular, Bruit, JVD, Murmur Respiratory: Yes: Intubated, Mechanically Ventilated. No: Cough, Rales, Rhonchi Gastrointestinal: Yes: Normal Bowel Sounds, Soft, Abdomen, Obese, Distention ...Rectal Exam: Yes: Deferred Genitourinary: Yes: Garcia Present Musculoskeletal: Yes: WNL Extremities: Yes: Other (B/L lower legs edematous and indurated with venous stasis changes. B/L feet are cool to touch with 1+ pulses heard on doppler, toes are pale but not cyanotic or necrotic. ) Peripheral Pulses WNL: No Peripheral Pulses: Left Doralis Pedis: 1+, Right Dorsalis Pedis: 1+ Wound/Incision: Yes: Other (Central line site CDI) Neurological: Yes: Seizure, Other (Pt nonresponsive, does not follow commands.) . No: Facial Droop, Tremors Psychiatric: Yes: Other (Pt nonresponsive, does not follow commands.) Labs Lab Results: CBC, BMP 02/11/17 04:00 02/11/17 04:00 Imaging - Results Chest X-ray: Report Reviewed, Image Reviewed Cat Scan: Report Reviewed, Image Reviewed Ultrasound: Report Reviewed EKG: Report Reviewed Assessment/Plan #Seizures - Pt no longer actively seizing at this time - Ativan for future episodes of status epilepticus. 1000mg Keppra loading dose given. Pt switched from Depakote to Depacon. Continue topamax. Per neuro recommendations, consider phenobarbital if current treatment fails. Avoid fosphenytoin due to elevated liver enzymes. - Neuro consult appreciated. - Await EEG results. Head CT normal. - Await UTox, prolactin, repeat lactate . #Arterial Insufficiency - Vascular consult appreciated. Vascular surgery does not believe patient needs immediate intervention, pulses are appreciated via doppler, no signs of acute limb ischemia. - DVT negative. CTA w runoff shows no stenotic lesions. #Schizophrenia/Bipolar disorder - Continue patient on Depacon. #Hypothyroidism - T4 was normal, TSH elevated at 47. May be euthyroid sick state. Repeat free T3 and T4. - Continue pt's normal dose of synthyroid #Dilated cardiomyopathy s/p AICD - Continue pt's home cardiac medications - Echo showed EF of 24%, compare to previous of 21%. - Cardio consult appreciated. #Transaminitis - Awaiting ammonia level - Await UTox #AFib - Continue ASA, otherwise no anticoagulation at present due to seizures and bleeding risk. #HTN - Continue Toprol.
[2017-02-11 15:05] LABS: URINE MARIJUANA THC NEGATIVE ng/ml (CUTOFF=50)
[2017-02-11] MEDS: HEPARIN NA (PORCINE) 5,000 UNITS/ML 1ML VIAL SQ SCH ×2 (15:53→22:14)
--- NOTE | 2017-02-11 16:21 | PN ---
Progress Note, Physician Chief Complaint: seizures History of Present Illness: Patient intubated and sedated on versed drip. Patient continues to have focal seizures while on versed. - Current Medication List Current Medications: Active Medications Betamethasone Valerate (Valisone 0.1% Cream -) 1 applic TP DAILY [facility] Chlorhexidine Gluconate (Hibiclens For Decolonization -) 1 applic TP HS [facility] Fentanyl (Sublimaze Injection -) 50 mcg IVPUSH Q1H PRN PRN Reason: PAIN Stop: 02/12/17 05:29 Furosemide (Lasix -) 20 mg PO DAILY [facility] Last Admin: 02/11/17 12:44 Dose: 20 mg Heparin Sodium (Porcine) (Heparin -) 5,000 unit SQ TID [facility] Last Admin: 02/11/17 15:53 Dose: 5,000 unit Midazolam HCl 100 mg/ Sodium (Chloride) 100 mls @ 5 mls/hr IVPB TITR ANNA; 5 MG/ HR PRN Reason: Protocol Last Titration: 02/11/17 09:29 Dose: 6 mg/hr Lactic Acid (Lac-Hydrin 12) 1 applic TP DAILY PRN PRN Reason: WOUND CARE Levetiracetam (Keppra Injection -) 1,000 mg IVPB BID [facility] Levothyroxine Sodium (Synthroid -) 125 mcg PO DAILY@0700 [facility] Last Admin: 02/11/17 08:32 Dose: 125 mcg Metoprolol Tartrate (Lopressor -) 12.5 mg PO BID [facility] Last Admin: 02/11/17 13:35 Dose: 12.5 mg Midazolam HCl (Versed -) 5 mg IVPUSH Q1H PRN PRN Reason: AGITATION Mupirocin (Bactroban Ointment (For Decolonization) -) 1 applic NS BID [facility] Stop: 02/16/17 21:59 Nystatin (Mycostatin Ointment -) 1 applic TP BID [facility] Last Admin: 02/11/17 13:00 Dose: 1 applic - Objective Vital Signs: Vital Signs Temperature 98.0 F 02/11/17 16:00 Pulse Rate 75 02/11/17 16:00 Respiratory Rate 20 02/11/17 16:00 Blood Pressure 88/69 02/11/17 16:00 O2 Sat by Pulse Oximetry (%) 100 02/11/17 09:00 Constitutional: Yes: Other (intubated and sedated) Eyes: Yes: Conjunctiva Clear, Other (pinpoint pupils reactive to light) HENT: Yes: Atraumatic, Normocephalic Neck: Yes: Supple, Trachea Midline Cardiovascular: Yes: Regular Rate and Rhythm, S1, S2. No: JVD, Gallop, Murmur, Rub Respiratory: Yes: Regular, CTA Bilaterally Gastrointestinal: Yes: Normal Bowel Sounds, Soft, Other (no grimace on abdominal palpation) Neurological: Yes: Other (unable to perform rocio to clinical status) Labs: CBC, BMP 02/11/17 04:00 02/11/17 04:00 INR, PTT INR 1.32 (0.82-1.09) H 02/11/17 04:00 Fibrinogen 186.0 mg/dL (238-498) L 02/11/17 04:00 Problem List - Problems (1) Chronic congestive heart failure Code(s): I50.9 - HEART FAILURE, UNSPECIFIED Qualifiers: Congestive heart failure type: unspecified congestive heart failure type Qualified Code(s): I50.9 - Heart failure, unspecified (2) Hypertension Code(s): I10 - ESSENTIAL (PRIMARY) HYPERTENSION Qualifiers: Hypertension type: essential hypertension Qualified Code(s): I10 - Essential (primary) hypertension (3) Schizophrenia, paranoid, chronic Code(s): F20.0 - PARANOID SCHIZOPHRENIA (4) Seizure Code(s): R56.9 - UNSPECIFIED CONVULSIONS (5) Rash Code(s): R21 - RASH AND OTHER NONSPECIFIC SKIN ERUPTION (6) Peripheral arterial disease Code(s): I73.9 - PERIPHERAL VASCULAR DISEASE, UNSPECIFIED Assessment/Plan 51 yo f brought down to the ICU in status epilepticus Neuro: -new onset seizure disorder; eitology unclear at this time -neurology onboard -loaded keppra 1g IV; will continue w/ 1g IV BID -loaded depacon 1g IV; maintanece dose to be decided -Versed gtt at 8mls/hr; titrate to control breakthrough focal seizures -consider phenobarbital if seizures persist -depakote lvl in am -f/u utox, ua, ucx -f/u EEG read Cardio: -PMH afib; in NSR currently -lopressor 12.5mg BID through NGT -PMH CHF s/p PPM -echo from today shows large left ventricle and global hypokinesis -careful with fluids -Consult dr chaudhry for cardio Abdominal: -Patient with elevated LFTs -f/u u/s abdomen FEN: -no fluids indicated at this time -potassium 3.3; repleted -NPO except meds PPTX: -Protonix 40mg IV -Hep SQ for DVT prophy Dispo: -continue to monitor in ICU -critical care time 60 mins Lines/tubes: -Right arm IV inserted 02/09 -Left EJ IV insterted 02/09 -baez inserted 02/11 -right CVC 02/11
--- NOTE | 2017-02-11 16:23 | PN ---
Physical Exam: SUBJECTIVE: Patient seen and examined Patient still intubated. She is currently on a versed drip. Patient has continuously seized while on the drip. OBJECTIVE: Vital Signs Period Temp Pulse Resp BP Sys/Centeno Pulse Ox Last 24 Hr 96.6 F-98.3 F 60-120 16-30 88-111/60-91 96-100 GENERAL: The patient is intubated and sedated with twitching of the face-- myoclonic HEAD: Normal with no signs of trauma. EYES: PERRL, extraocular movements intact, sclera anicteric, conjunctiva clear. No ptosis. ENT: oropharynx clear without exudates, moist mucous membranes. NECK: Trachea midline, full range of motion, supple. LUNGS: Breath sounds equal, clear to auscultation bilaterally, HEART: Regular rate and rhythm, S1, S2 without murmur, rub or gallop. ABDOMEN: Soft, nontender, nondistended, normoactive bowel sounds, no guarding, no rebound, no hepatosplenomegaly, no masses. EXTREMITIES: poor distal pulses on DP, cold feet, +DP pulses with doppler Laboratory Results - last 24 hr 02/11/17 02/11/17 02/11/17 03:31 04:00 04:00 WBC Cancelled Corrected WBC (auto) Cancelled RBC Cancelled Hgb Cancelled Hct Cancelled MCV Cancelled MCH Cancelled MCHC Cancelled RDW Cancelled Plt Count Cancelled MPV Cancelled Add Manual Diff Cancelled Neutrophils % Lymphocytes % Monocytes % Eosinophils % Basophils % Differential Comment Cancelled Platelet Estimate Cancelled Platelet Comment Cancelled Normal RBC Morphology Cancelled RBC Morphology Cancelled INR PTT (Actin FS) Cancelled Fibrinogen Puncture Site Patient Temperature ABG pH ABG pCO2 at Pt Temp ABG pO2 at Pt Temp ABG HCO3 ABG O2 Sat (Measured) ABG O2 Content ABG Base Excess Bob Test O2 Delivery Device Oxygen Flow Rate Vent Mode Vent Rate Mechanical Rate PEEP Pressure Support Vent Sodium Potassium Chloride Carbon Dioxide Anion Gap BUN Creatinine POC Glucometer [id number] Random Glucose Lactic Acid Calcium Phosphorus Magnesium Total Bilirubin Direct Bilirubin AST ALT Alkaline Phosphatase Ammonia Creatine Kinase Troponin I B-Natriuretic Peptide Total Protein Albumin Total Amylase TSH Free T4 Urine HCG, Qual Opiates Screen Methadone Screen Barbiturate Screen Phencyclidine Screen Ur Amphetamines Screen MDMA (Ecstasy) Screen Benzodiazepines Screen Cocaine Screen U Marijuana (THC) Screen 02/11/17 02/11/17 02/11/17 04:00 04:00 04:00 WBC Corrected WBC (auto) RBC Hgb Hct MCV MCH MCHC RDW Plt Count MPV Add Manual Diff Neutrophils % Lymphocytes % Monocytes % Eosinophils % Basophils % Differential Comment Platelet Estimate Platelet Comment Normal RBC Morphology RBC Morphology INR PTT (Actin FS) Fibrinogen Puncture Site Right brachial Patient Temperature ABG pH 7.21 L* ABG pCO2 at Pt Temp 63.6 H* ABG pO2 at Pt Temp 60.3 L ABG HCO3 24.6 ABG O2 Sat (Measured) 81.8 L ABG O2 Content 18.2 ABG Base Excess -4.7 L Bob Test Positive O2 Delivery Device Nonrebreather Oxygen Flow Rate 100% Vent Mode Vent Rate Mechanical Rate PEEP 0.0 Pressure Support Vent Sodium Cancelled Potassium Cancelled Chloride Cancelled Carbon Dioxide Cancelled Anion Gap Cancelled BUN Cancelled Creatinine Cancelled POC Glucometer Random Glucose Cancelled Lactic Acid Calcium Cancelled Phosphorus Magnesium Total Bilirubin Direct Bilirubin AST ALT Alkaline Phosphatase Ammonia Creatine Kinase Troponin I B-Natriuretic Peptide Total Protein Albumin Total Amylase TSH 47.00 H Free T4 1.24 Urine HCG, Qual Opiates Screen Methadone Screen Barbiturate Screen Phencyclidine Screen Ur Amphetamines Screen MDMA (Ecstasy) Screen Benzodiazepines Screen Cocaine Screen U Marijuana (THC) Screen 02/11/17 02/11/17 02/11/17 04:00 04:00 04:00 WBC 5.3 Corrected WBC (auto) RBC 5.51 H Hgb 15.7 H Hct 49.3 H MCV 89.4 MCH 28.5 MCHC 31.8 L RDW 21.0 H Plt Count 150 MPV 10.3 Add Manual Diff Neutrophils % 83.7 H Lymphocytes % 10.2 Monocytes % 5.3 Eosinophils % 0.3 Basophils % 0.5 Differential Comment Platelet Estimate Platelet Comment Normal RBC Morphology RBC Morphology INR PTT (Actin FS) Fibrinogen Puncture Site Patient Temperature ABG pH ABG pCO2 at Pt Temp ABG pO2 at Pt Temp ABG HCO3 ABG O2 Sat (Measured) ABG O2 Content ABG Base Excess Bob Test O2 Delivery Device Oxygen Flow Rate Vent Mode Vent Rate Mechanical Rate PEEP Pressure Support Vent Sodium 139 Potassium 3.3 L Chloride 100 Carbon Dioxide 26 Anion Gap 13 BUN 23 H Creatinine 1.0 D POC Glucometer Random Glucose 90 D Lactic Acid 2.4 H* Calcium 8.5 Phosphorus 3.5 Magnesium 2.1 Total Bilirubin Direct Bilirubin AST ALT Alkaline Phosphatase Ammonia Creatine Kinase 83 Troponin I < 0.02 B-Natriuretic Peptide Total Protein Albumin Total Amylase 87 TSH Free T4 Urine HCG, Qual Opiates Screen Methadone Screen Barbiturate Screen Phencyclidine Screen Ur Amphetamines Screen MDMA (Ecstasy) Screen Benzodiazepines Screen Cocaine Screen U Marijuana (THC) Screen 02/11/17 02/11/17 02/11/17 04:00 04:00 05:15 WBC Corrected WBC (auto) RBC Hgb Hct MCV MCH MCHC RDW Plt Count MPV Add Manual Diff Neutrophils % Lymphocytes % Monocytes % Eosinophils % Basophils % Differential Comment Platelet Estimate Platelet Comment Normal RBC Morphology RBC Morphology INR 1.32 H PTT (Actin FS) 119.7 H D Fibrinogen 186.0 L Puncture Site Left radial Patient Temperature 96.4 ABG pH 7.43 D ABG pCO2 at Pt Temp 35.2 D ABG pO2 at Pt Temp 123.0 H D ABG HCO3 23.2 ABG O2 Sat (Measured) 99.6 H* ABG O2 Content 20.1 ABG Base Excess -0.6 Bob Test Positive O2 Delivery Device Mech vent Oxygen Flow Rate 60% Vent Mode A/c Vent Rate 20 Mechanical Rate Yes PEEP 8.0 Pressure Support Vent 400 Sodium Potassium Chloride Carbon Dioxide Anion Gap BUN Creatinine POC Glucometer Random Glucose Lactic Acid Calcium Phosphorus Magnesium Total Bilirubin 2.4 H Direct Bilirubin 1.5 H AST 88 H ALT 35 Alkaline Phosphatase 197 H Ammonia Creatine Kinase Troponin I B-Natriuretic Peptide 2733.06 H Total Protein 6.6 Albumin 3.1 L Total Amylase TSH Free T4 Urine HCG, Qual Opiates Screen Methadone Screen Barbiturate Screen Phencyclidine Screen Ur Amphetamines Screen MDMA (Ecstasy) Screen Benzodiazepines Screen Cocaine Screen U Marijuana (THC) Screen 02/11/17 02/11/17 02/11/17 12:45 14:00 14:00 WBC Corrected WBC (auto) RBC Hgb Hct MCV MCH MCHC RDW Plt Count MPV Add Manual Diff Neutrophils % Lymphocytes % Monocytes % Eosinophils % Basophils % Differential Comment Platelet Estimate Platelet Comment Normal RBC Morphology RBC Morphology INR PTT (Actin FS) Fibrinogen Puncture Site Patient Temperature ABG pH ABG pCO2 at Pt Temp ABG pO2 at Pt Temp ABG HCO3 ABG O2 Sat (Measured) ABG O2 Content ABG Base Excess Bob Test O2 Delivery Device Oxygen Flow Rate Vent Mode Vent Rate Mechanical Rate PEEP Pressure Support Vent Sodium Potassium Chloride Carbon Dioxide Anion Gap BUN Creatinine POC Glucometer Random Glucose Lactic Acid 1.8 Calcium Phosphorus Magnesium Total Bilirubin Direct Bilirubin AST ALT Alkaline Phosphatase Ammonia 34.6 H Creatine Kinase Troponin I B-Natriuretic Peptide Total Protein Albumin Total Amylase TSH Free T4 Urine HCG, Qual Negative Opiates Screen Methadone Screen Barbiturate Screen Phencyclidine Screen Ur Amphetamines Screen MDMA (Ecstasy) Screen Benzodiazepines Screen Cocaine Screen U Marijuana (THC) Screen 02/11/17 14:00 WBC Corrected WBC (auto) RBC Hgb Hct MCV MCH MCHC RDW Plt Count MPV Add Manual Diff Neutrophils % Lymphocytes % Monocytes % Eosinophils % Basophils % Differential Comment Platelet Estimate Platelet Comment Normal RBC Morphology RBC Morphology INR PTT (Actin FS) Fibrinogen Puncture Site Patient Temperature ABG pH ABG pCO2 at Pt Temp ABG pO2 at Pt Temp ABG HCO3 ABG O2 Sat (Measured) ABG O2 Content ABG Base Excess Bob Test O2 Delivery Device Oxygen Flow Rate Vent Mode Vent Rate Mechanical Rate PEEP Pressure Support Vent Sodium Potassium Chloride Carbon Dioxide Anion Gap BUN Creatinine POC Glucometer Random Glucose Lactic Acid Calcium Phosphorus Magnesium Total Bilirubin Direct Bilirubin AST ALT Alkaline Phosphatase Ammonia Creatine Kinase Troponin I B-Natriuretic Peptide Total Protein Albumin Total Amylase TSH Free T4 Urine HCG, Qual Opiates Screen Negative Methadone Screen Negative Barbiturate Screen Negative Phencyclidine Screen Negative Ur Amphetamines Screen Negative MDMA (Ecstasy) Screen Negative Benzodiazepines Screen Positive Cocaine Screen Negative U Marijuana (THC) Screen Negative Active Medications Generic Name Dose Route Start Last Admin Trade Name Freq PRN Reason Stop Dose Admin Betamethasone Valerate 1 applic 02/12/17 10:00 Valisone 0.1% Cream - TP DAILY ANNA Chlorhexidine Gluconate 1 applic 02/11/17 22:00 Hibiclens For Decolonization - TP HS ANNA Fentanyl 50 mcg 02/11/17 05:18 Sublimaze Injection - IVPUSH 02/12/17 05:29 Q1H PRN PAIN Furosemide 20 mg 02/11/17 10:00 02/11/17 12:44 Lasix - PO 20 mg DAILY ANNA Administration Heparin Sodium (Porcine) 5,000 unit 02/11/17 14:30 02/11/17 15:53 Heparin - SQ 5,000 unit TID ANNA Administration Midazolam HCl 100 mg/ Sodium 100 mls @ 5 mls/hr 02/11/17 05:45 08/24/17 09:29 Chloride IVPB 6 mg/hr TITR ANNA Titration Protocol 5 MG/HR Lactic Acid 1 applic 02/11/17 13:05 Lac-Hydrin 12 TP DAILY PRN WOUND CARE Levetiracetam 1,000 mg 02/11/17 22:00 Keppra Injection - IVPB BID ANNA Levothyroxine Sodium 125 mcg 02/11/17 07:00 02/11/17 08:32 Synthroid - PO 125 mcg DAILY@0700 ANNA Administration Metoprolol Tartrate 12.5 mg 02/11/17 13:30 02/11/17 13:35 Lopressor - PO 12.5 mg BID ANNA Administration Midazolam HCl 5 mg 02/11/17 05:12 Versed - IVPUSH Q1H PRN AGITATION Mupirocin 1 applic 02/11/17 22:00 Bactroban Ointment (For Decolonization) - NS 02/16/17 21:59 BID ANNA Nystatin 1 applic 02/11/17 01:00 02/11/17 13:00 Mycostatin Ointment - TP 1 applic BID ANNA Administration ASSESSMENT/PLAN: 51yo F with pmhx of 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 CTA runoff showing multiple occlusive areas in b/l arteries. Head CT acutely negative. #New onset seizure disorder, 2/2 to unknown etiology -loaded keppra 1g IV; will continue w/ 1g IV BID -loaded depacon 1g IV; maintanece dose to be decided -Midazolam drip at 5mg/hr; titrate to control breakthrough focal seizures -Lacosamide 100 mg iv bid -Depakote level in the morning -ABG in the morning -Utox negative -f/u UA, ucx -f/u EEG -Neurology consulted, Dr. Rush # Arterial insufficiency --CTA shows patent vessels --Distal b/l extremities cold, cap refill >2, and pulses absent, but present with doppler --Vascular surgery consulted, Dr. Hoang --Heparin gtt stopped # Dilated cardiomyopathy --S/P AICD working appropriately --Most recent Echo June 2016 --EF of 21% --Severe global hypokinesis --Mod dilated LV --Continued home Toprol XL 12.5 mg po bid through ng --Cardiology consult Dr. Hoover/Daniel --Be careful with IVF # hx of Atrial Fibrilattion -Toporol xl 12.5 mg po bid through ng # Abdominal Distention with transaminitis --f/u u/s abdomen --repeat am labs # Atopic Dermatitis --Continued home nystatin cream for application on abdominal areas --Ammonium lactate lotion --Betamethasone 0.1% cream # Hypothyroidism --Continued home Synthroid 125mcg PO qDaily FEN: Fluids: None currently Electrolyte abnormalities: hypokalemia Nutrition: NPO ppx: -Heparin 5000 units sq tid -protonix drip Visit type - Emergency Visit Emergency Visit: Yes ED Registration Date: 02/10/17 Care time: The patient presented to the Emergency Department on the above date and was hospitalized for further evaluation of their emergent condition. - New Patient This patient is new to me today: Yes Date on this admission: 02/11/17 - Critical Care Critical Care patient: Yes Total Critical Care Time (in minutes): 45 Critical Care Statement: The care of this patient involved high complexity decision making to prevent further life threatening deterioration of the patient 's condition and/or to evaluate & treat vital organ system(s) failure or risk of failure.
[2017-02-11] MEDS ORDERED: Lacosamide 200 MG/20 ML VIAL IVPB ONE (16:45)
--- NOTE | 2017-02-11 16:53 | PN ---
Teaching Attending Note Name of Resident: Jamey Mckeon ATTENDING PHYSICIAN STATEMENT I saw and evaluated the patient. I reviewed the resident's note and discussed the case with the resident. I agree with the resident's findings and plan as documented. SUBJECTIVE:intubated OBJECTIVE: Last Vital Signs Temp Pulse Resp BP Pulse Ox 98.0 F 75 20 88/69 100 02/11/17 16:00 02/11/17 16:00 02/11/17 16:00 02/11/17 16:00 02/11/17 09:00 Intake & Output 02/08/17 02/09/17 02/10/17 02/11/17 23:59 23:59 23:59 23:59 Intake Total 15 Output Total 400 Balance -385 Weight 194 lb 186 lb 6.4 oz General mycolonic twitching of the face CV S1 S2 + no murmur Lungs Coarse breath sounds anteriorly Abdomen soft NT/nD Extremities feet cool. +DP pulse B/L with doppler ASSESSMENT AND PLAN: 51yo F with PMH schizphrenia, hypothyroid, dilated cardiomyopathy s/p AICD, HTN and afib presented to the ER with B/L LE pain and concern for acute arterial ischemia. 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 1. Status epileptics-transferred to MICU. continuing to have myotonic twitching. loaded with keppra and now depakene infusing. will increase versed ggt to suppress. EEG. utox pending. neuro consulted on board. will need MRI once medically stable for imaging. will need to consider LP. 2. Acute Respiratory failure- intubated for airway protection. vent management per MICU. 3. acute arterial ischemia- pre-pendleton reading for CTA showing no flow B/L. pulses are appreciated with doppler. toes are not discolored as initially reported. d/ w vascular surgery who agrees. will d/c heparin ggt 4. Elevated TSH- likely sick euthyroid syndrome. T4 WNL. T3 pending. 5. lactic acidosis- due to tonic activity. on IVF. repeat 6. Hypotension- no longer hypotensive. was on levophed. now off pressors. monitor closely. 7. Cardiomyopathy s/p AICD- no signs of volume overload. echo pending. cardio consulted 8. Transaminitis- will need to monitor while on depakene. likely due to hypoperfusion. monitor. 9. MICU monitoring The care of this patient involved high complexity decision making to prevent further life threatening deterioration of the patient's condition and/or to evaluate & treat vital organ system(s) failure or risk of failure. 42 minutes critical care time
[2017-02-11] MEDS ORDERED: PROPOFOL 100 ML ONE (17:54)
[2017-02-11] MEDS ORDERED: VASOPRESSIN 20 UNITS/ML VIAL IV ONE (17:55)
[2017-02-11] MEDS: PROPOFOL 100 ML IVPB SCH (18:13)
[2017-02-11] MEDS ORDERED: NOREPINEPHRINE BITARTRATE 4 MG/4 ML ML IV ONE (18:15)
[2017-02-11 18:43] LABS: URINE APPEARANCE SLCLOUDY; URINE BILIRUBIN NEGATIVE (NEGATIVE); URINE BLOOD 2+ (NEGATIVE); URINE COLOR AMBER; URINE GLUCOSE (UA) NEGATIVE (NEGATIVE); URINE KETONE 1+ (NEGATIVE); URINE LEUK ESTERASE NEGATIVE (NEGATIVE); URINE NITRITE NEGATIVE (NEGATIVE); URINE UROBILINOGEN 4.0 E.U/dl mg/dL (0.2-1.0)
[2017-02-11 18:49] LABS: URINE PROTEIN 1+ (NEGATIVE)
[2017-02-11 18:51] LABS: CALCIUM OXALATE CRYSTALS FEW /hpf (NONE SEEN); URINE MUCUS RARE; URINE RBC 10 /hpf (0-3); URINE WBC 6 /hpf (3-5)
[2017-02-11] MEDS: NOREPINEPHRINE BITARTRATE 4,000 MCG in DEXTROSE 5%-WATER - 496 ML IV SCH (19:03)
--- NOTE | 2017-02-11 19:11 | CONSULT ---
Consult - text type - Consultation Consultation Note: Cardiology 51 y/o woman, resident on [facility] with hx of Schizophrenia, seizure disorder , HTN, CHF, s/p AICD/biV pacer, Hypothroidism and GERD who presented to ED yesterday with LE swelling and pain c/f DVT. In ED pt was awake but poorly responsive, only C/o pain everywhere. Was noted to have cool bilateral LE with very weak peripheral pulses, edema and poor cap refill-->CTA runoff showing multiple occlusive areas in b/l LE arteries. Vascular was consulted and there was tentative plan for surgery today. Over night COMMUNICATIONS FIELD TECHNICIAN was called when pt found having tonic-clonic sz. She was brought to ICU where she continued to have repeated sz, without regaining mental status c/w status epilepticus. She was intubated. Past Medical History CHF, HTN; GERD; Bipolar, Schizophrenia; Hypothyroidism PE: BP 100/70 to 90/65 NSR; v-paced normal cardiac exam distant breath sounds abdomen soft leg edema and erythema CXR CHF EKG AsVp, PVC's Impression: seizures; status epilepticus intubated vascular emergency severe non-ischemic cardiomyopathy; C recently normal coronaries BiV-ICD acute mild systolic CHF shock-hypotensive, needs to be further evaluated; lactate mildly elevated Rec: Diurese when BP stabilizes, as tolerated serial troponins continued cardiac follow-up BP to be monitored closely, for pressor support
[2017-02-11] MEDS ORDERED: Lacosamide 200 MG/20 ML VIAL IVPB SCH (22:00)
[2017-02-11] MEDS ORDERED: levETIRAcetam 500 MG/5 ML INJECTION VIAL IVPB SCH (22:00)
[2017-02-11] MEDS: CHLORHEXIDINE GLUCONATE 4% CLEANSER FOR DECOLONIZATION TP SCH (22:14)
[2017-02-11] MEDS: MUPIROCIN 2% TOPICAL OINTMENT FOR DECOLONIZATION NS SCH (23:06)
[2017-02-12] MEDS: Lacosamide 200 MG/20 ML VIAL IVPB SCH ×2 (00:28→09:03)
[2017-02-12] MEDS: MIDAZOLAM 100 MG in SODIUM CHLORIDE 100 ML IVPB SCH ×2 (01:13→21:49)
[2017-02-12] MEDS ORDERED: NOREPINEPHRINE BITARTRATE 4 MG/4 ML ML IV ONE ×3 (01:50→21:11)
[2017-02-12] MEDS ORDERED: Lacosamide 200 MG/20 ML VIAL IVPB SCH (04:00)
[2017-02-12] MEDS: PROPOFOL 100 ML IVPB SCH ×2 (04:00→19:00)
[2017-02-12] MEDS: HEPARIN NA (PORCINE) 5,000 UNITS/ML 1ML VIAL SQ SCH ×3 (06:11→21:13)
[2017-02-12 06:13] LABS: BASOPHIL 0.1 % (0-2.0); MCH 28.7 pg (25.7-33.7); MCHC 32.7 g/dl (32.0-36.0); MEAN CELL VOLUME 87.8 fl (80-96); MEAN PLT VOLUME 10.3 fl (7.5-11.1); NEUTROPHILS 82.1 % (42.8-82.8); PLATELET COUNT 148 K/MM3 (134-434); RDW 20.6 % (11.6-15.6); WHITE BLOOD COUNT 5.9 K/mm3 (4.0-10.0)
[2017-02-12] MEDS: LEVOTHYROXINE NA 125 MCG TABLET (FP) PO SCH (06:14)
[2017-02-12 06:25] LABS: INR 1.22 (0.82-1.09); PROTHROMBIN TIME (PATIENT) 13.5 SEC (9.98-11.88)
[2017-02-12 06:43] LABS: ALBUMIN 2.5 g/dl (3.4-5.0); ANION GAP 12 (8-16); BILIRUBIN,TOTAL 1.9 mg/dL (0.2-1.0); CALCIUM 8.3 mg/dL (8.5-10.1); CO2 26 mmol/L (21-32); CREATININE 0.9 mg/dL (0.55-1.02); GLUCOSE,RANDOM 96 mg/dL (74-106); PHOSPHOROUS 3.1 mg/dL (2.5-4.9); SGOT/AST 68 U/L (15-37); SGPT/ALT 24 U/L (12-78); TOT PROT 5.4 g/dl (6.4-8.2)
[2017-02-12 06:44] LABS: ALK PHOS 150 U/L (45-117)
[2017-02-12 07:44] LABS: ARTERIAL BLOOD GAS HCO3 23.2 meq/L (22-26)
[2017-02-12 07:45] LABS: ALLENS TEST POSITIVE; ART PUNCT SITE RIGHT RADIAL; LPM/O2% 60%; MECH. VENT. ESPRIT; PT. ON O2? YES; TYPE OF O2 MEC.VENT; VT/PRESS 400
[2017-02-12 07:46] LABS: ARTERIAL BLOOD GAS pH 7.49 (7.35-7.45); VENT RATE 20
[2017-02-12] MEDS ORDERED: PROPOFOL 100 ML ONE (08:39)
[2017-02-12] MEDS: levETIRAcetam 500 MG/5 ML INJECTION VIAL IVPB SCH ×2 (09:04→21:12)
[2017-02-12] MEDS: METOPROLOL TARTRATE 25 MG TABLET (FP) PO SCH (09:05)
[2017-02-12] MEDS: FUROSEMIDE 20 MG TABLET (FP) PO SCH (09:05)
--- NOTE | 2017-02-12 09:08 | PN ---
Progress Note, Physician Chief Complaint: SE History of Present Illness: Ms Dailey is a 51 y/o woman, resident on [facility] with hx of Schizophrenia, seizure disorder, HTN, AFib, CHF, s/p AICD/biV pacer, Hypothroidism and GERD who presented to ED yesterday with LE swelling and pain c/f DVT. In ED pt was awake but poorly responsive, only C/o pain everywhere. Was noted to have cool bilateral LE with very weak peripheral pulses, edema and poor cap refill-->CTA runoff showing multiple occlusive areas in b/l LE arteries. VASCULAR W/U -VE FOR dvt. F/U: Pt s/p int/ sedation ; on MV; last seizure yesterday pm. PE: Pupils round symmetric , sluggish reaction to LT , face symmetric , no gaze preference ; exts flaccid , no spasticity. A/P: #? New onset seizure w SE , last seizure yesterday pm ;ON KEPPRA 1000 MG BID, VERSED, PROPOFOL , VIMPAT 100 MG BID ; was loaded w depacone , depakote level 56.9 . -increase keppra 1500 mg bid -start depacone 500 mg bid -latanya off propofol and versed gradually if stable per critical care -conside loading w phenobarbital if continues seizing -will reevaluate off sedation -SEIZURE PRECAUTIONS -NEUROCHECK q4 hours -repeat EEG # h/o afib , now SNR ECHO : dilated CMP , EF 21% Health maintenance per primary team . Solomon Rebolledo M.D. - Current Medication List Current Medications: Active Medications Betamethasone Valerate (Valisone 0.1% Cream -) 1 applic TP DAILY ANNA Chlorhexidine Gluconate (Hibiclens For Decolonization -) 1 applic TP HS ANNA Last Admin: 02/11/17 22:14 Dose: 1 applic Furosemide (Lasix -) 20 mg PO DAILY ANNA Last Admin: 02/11/17 12:44 Dose: 20 mg Heparin Sodium (Porcine) (Heparin -) 5,000 unit SQ TID ANNA Last Admin: 02/12/17 06:11 Dose: 5,000 unit Midazolam HCl 100 mg/ Sodium (Chloride) 100 mls @ 5 mls/hr IVPB TITR ANNA; 5 MG/ HR PRN Reason: Protocol Last Titration: 02/12/17 09:02 Dose: 0 mg/hr Pantoprazole Sodium (Protonix 40mg Ivpb (Pre-Docked)) 100 mls @ 200 mls/hr IVPB DAILY [facility] Norepinephrine Bitartrate 4, (000 mcg/ Dextrose) 500 mls @ 37.5 mls/hr IV TITR ANNA; 5 MCG/MIN PRN Reason: Protocol Last Admin: 02/11/17 19:03 Dose: 37.5 mls/hr Propofol (Diprivan -) 100 mls @ 2.537 mls/hr IVPB TITR ANNA; 5 MCG/KG/MIN PRN Reason: Protocol Last Titration: 02/12/17 09:02 Dose: 0 mcg/kg/min Lacosamide (Vimpat Injection -) 100 mg IVPB BID [facility] Last Admin: 02/12/17 00:28 Dose: 100 mg Lactic Acid (Lac-Hydrin 12) 1 applic TP DAILY PRN PRN Reason: WOUND CARE Levetiracetam (Keppra Injection -) 1,500 mg IVPB BID [facility] Levothyroxine Sodium (Synthroid -) 125 mcg PO DAILY@0700 [facility] Last Admin: 02/12/17 06:14 Dose: 125 mcg Metoprolol Tartrate (Lopressor -) 12.5 mg PO BID [facility] Last Admin: 02/11/17 22:14 Dose: Not Given Midazolam HCl (Versed -) 5 mg IVPUSH Q1H PRN PRN Reason: AGITATION Mupirocin (Bactroban Ointment (For Decolonization) -) 1 applic NS BID [facility] Stop: 02/16/17 21:59 Last Admin: 02/11/17 23:06 Dose: 1 applic Nystatin (Mycostatin Ointment -) 1 applic TP BID [facility] Last Admin: 02/11/17 22:15 Dose: 1 applic Valproate Sodium (Depacon Injection -) 500 mg IVPB BID [facility] - Objective Vital Signs: Vital Signs Temperature 99 F 02/12/17 07:00 Pulse Rate 92 H 02/12/17 07:00 Respiratory Rate 20 02/12/17 07:00 Blood Pressure 95/66 02/12/17 07:00 O2 Sat by Pulse Oximetry (%) 100 02/11/17 22:00 Labs: CBC, BMP 02/12/17 05:20 02/12/17 05:20 INR, PTT INR 1.22 (0.82-1.09) H 02/12/17 05:20 Fibrinogen 186.0 mg/dL (238-498) L 02/11/17 04:00
[2017-02-12] MEDS: PANTOPRAZOLE SODIUM 100 ML IVPB SCH (09:48)
[2017-02-12] MEDS: VALPROATE SODIUM 500 MG/5 ML VIAL IVPB SCH ×2 (09:48→21:12)
[2017-02-12] MEDS: MUPIROCIN 2% TOPICAL OINTMENT FOR DECOLONIZATION NS SCH ×2 (09:58→21:17)
[2017-02-12] MEDS: NYSTATIN 100000 UNIT/GM TOPICAL OINTMENT 15 GM TUBE TP SCH ×2 (09:59→21:22)
[2017-02-12] MEDS: AMMONIUM LACTATE 12% LOTION 225 GM BOTTLE TP PRN ×2 (10:03→21:21)
--- NOTE | 2017-02-12 10:57 | PN ---
Physical Exam: SUBJECTIVE: Patient seen and examined Patient currently intubated. Patient stopped seizing yesterday OBJECTIVE: Vital Signs Period Temp Pulse Resp BP Sys/Cneteno Pulse Ox Last 24 Hr 97.5 F-99.6 F 72-97 14-24 81-109/57-78 60-100 GENERAL: The patient is intubated and sedated with twitching of the face-- myoclonic HEAD: Normal with no signs of trauma. EYES: PERRL, extraocular movements intact, sclera anicteric, conjunctiva clear. No ptosis. ENT: oropharynx clear without exudates, moist mucous membranes. NECK: Trachea midline, full range of motion, supple. LUNGS: Breath sounds equal, clear to auscultation bilaterally, HEART: Regular rate and rhythm, S1, S2 without murmur, rub or gallop. ABDOMEN: Soft, nontender, nondistended, normoactive bowel sounds, no guarding, no rebound, no hepatosplenomegaly, no masses. EXTREMITIES: poor distal pulses on DP, cold feet, +DP pulses with doppler Laboratory Results - last 24 hr 02/11/17 02/11/17 02/11/17 12:25 12:45 14:00 WBC RBC Hgb Hct MCV MCH MCHC RDW Plt Count MPV Neutrophils % Lymphocytes % Monocytes % Eosinophils % Basophils % INR PTT (Actin FS) Puncture Site ABG pH ABG pCO2 at Pt Temp ABG pO2 at Pt Temp ABG HCO3 ABG O2 Sat (Measured) ABG O2 Content ABG Base Excess Bob Test O2 Delivery Device Oxygen Flow Rate Vent Mode Vent Rate Mechanical Rate PEEP Pressure Support Vent Sodium Potassium Chloride Carbon Dioxide Anion Gap BUN Creatinine Creat Clearance w eGFR Random Glucose Lactic Acid 1.8 Calcium Phosphorus Magnesium Total Bilirubin AST ALT Alkaline Phosphatase Ammonia Total Protein Albumin Urine Color Cassie Urine Appearance Slcloudy Urine pH 5.0 Ur Specific [place] 1.010 Urine Protein 1+ H Urine Glucose (UA) Negative Urine Ketones 1+ H Urine Blood 2+ H Urine Nitrite Negative Urine Bilirubin Negative Urine Urobilinogen 4.0 e.u/dl H Ur Leukocyte Esterase Negative Urine RBC 10 Urine WBC 6 Calcium Oxalate Crystal Few Urine Mucus Rare Urine HCG, Qual Negative Opiates Screen Methadone Screen Barbiturate Screen Valproic Acid Phencyclidine Screen Ur Amphetamines Screen MDMA (Ecstasy) Screen Benzodiazepines Screen Cocaine Screen U Marijuana (THC) Screen 02/11/17 02/11/17 02/12/17 14:00 14:00 05:20 WBC RBC Hgb Hct MCV MCH MCHC RDW Plt Count MPV Neutrophils % Lymphocytes % Monocytes % Eosinophils % Basophils % INR PTT (Actin FS) Puncture Site ABG pH ABG pCO2 at Pt Temp ABG pO2 at Pt Temp ABG HCO3 ABG O2 Sat (Measured) ABG O2 Content ABG Base Excess Bob Test O2 Delivery Device Oxygen Flow Rate Vent Mode Vent Rate Mechanical Rate PEEP Pressure Support Vent Sodium Potassium Chloride Carbon Dioxide Anion Gap BUN Creatinine Creat Clearance w eGFR Random Glucose Lactic Acid Calcium Phosphorus Magnesium Total Bilirubin AST ALT Alkaline Phosphatase Ammonia 34.6 H Total Protein Albumin Urine Color Urine Appearance Urine pH Ur Specific [place] Urine Protein Urine Glucose (UA) Urine Ketones Urine Blood Urine Nitrite Urine Bilirubin Urine Urobilinogen Ur Leukocyte Esterase Urine RBC Urine WBC Calcium Oxalate Crystal Urine Mucus Urine HCG, Qual Opiates Screen Negative Methadone Screen Negative Barbiturate Screen Negative Valproic Acid 65.960 Phencyclidine Screen Negative Ur Amphetamines Screen Negative MDMA (Ecstasy) Screen Negative Benzodiazepines Screen Positive Cocaine Screen Negative U Marijuana (THC) Screen Negative 02/12/17 02/12/17 02/12/17 05:20 05:20 05:20 WBC 5.9 RBC 4.57 Hgb 13.1 D Hct 40.1 D MCV 87.8 MCH 28.7 MCHC 32.7 RDW 20.6 H Plt Count 148 MPV 10.3 Neutrophils % 82.1 Lymphocytes % 8.4 Monocytes % 9.4 Eosinophils % 0.0 D Basophils % 0.1 INR PTT (Actin FS) 28.5 D Puncture Site ABG pH ABG pCO2 at Pt Temp ABG pO2 at Pt Temp ABG HCO3 ABG O2 Sat (Measured) ABG O2 Content ABG Base Excess Bob Test O2 Delivery Device Oxygen Flow Rate Vent Mode Vent Rate Mechanical Rate PEEP Pressure Support Vent Sodium 137 Potassium 3.5 Chloride 99 Carbon Dioxide 26 Anion Gap 12 BUN 22 H Creatinine 0.9 Creat Clearance w eGFR > 60 Random Glucose 96 Lactic Acid Calcium 8.3 L Phosphorus 3.1 Magnesium 2.0 Total Bilirubin 1.9 H D AST 68 H D ALT 24 D Alkaline Phosphatase 150 H D Ammonia Total Protein 5.4 L Albumin 2.5 L Urine Color Urine Appearance Urine pH Ur Specific [place] Urine Protein Urine Glucose (UA) Urine Ketones Urine Blood Urine Nitrite Urine Bilirubin Urine Urobilinogen Ur Leukocyte Esterase Urine RBC Urine WBC Calcium Oxalate Crystal Urine Mucus Urine HCG, Qual Opiates Screen Methadone Screen Barbiturate Screen Valproic Acid Phencyclidine Screen Ur Amphetamines Screen MDMA (Ecstasy) Screen Benzodiazepines Screen Cocaine Screen U Marijuana (THC) Screen 02/12/17 02/12/17 02/12/17 05:20 05:20 07:35 WBC RBC Hgb Hct MCV MCH MCHC RDW Plt Count MPV Neutrophils % Lymphocytes % Monocytes % Eosinophils % Basophils % INR 1.22 H PTT (Actin FS) Puncture Site Right radial ABG pH 7.49 H ABG pCO2 at Pt Temp 30.6 L ABG pO2 at Pt Temp 162.0 H* ABG HCO3 23.2 ABG O2 Sat (Measured) 100.0 H* ABG O2 Content 18.4 ABG Base Excess 1.0 Bob Test Positive O2 Delivery Device Mec.vent Oxygen Flow Rate 60% Vent Mode A/c Vent Rate 20 Mechanical Rate Esprit PEEP 8.0 Pressure Support Vent 400 Sodium Potassium Chloride Carbon Dioxide Anion Gap BUN Creatinine Creat Clearance w eGFR Random Glucose Lactic Acid 2.0 Calcium Phosphorus Magnesium Total Bilirubin AST ALT Alkaline Phosphatase Ammonia Total Protein Albumin Urine Color Urine Appearance Urine pH Ur Specific [place] Urine Protein Urine Glucose (UA) Urine Ketones Urine Blood Urine Nitrite Urine Bilirubin Urine Urobilinogen Ur Leukocyte Esterase Urine RBC Urine WBC Calcium Oxalate Crystal Urine Mucus Urine HCG, Qual Opiates Screen Methadone Screen Barbiturate Screen Valproic Acid Phencyclidine Screen Ur Amphetamines Screen MDMA (Ecstasy) Screen Benzodiazepines Screen Cocaine Screen U Marijuana (THC) Screen Active Medications Generic Name Dose Route Start Last Admin Trade Name Sanjuana PRN Reason Stop Dose Admin Betamethasone Valerate 1 applic 02/12/17 10:00 Valisone 0.1% Cream - TP DAILY ANNA Chlorhexidine Gluconate 1 applic 02/11/17 22:00 02/11/17 22:14 Hibiclens For Decolonization - TP 1 applic HS ANNA Administration Furosemide 20 mg 02/11/17 10:00 02/12/17 09:05 Lasix - PO 20 mg DAILY ANNA Administration Heparin Sodium (Porcine) 5,000 unit 02/11/17 14:30 02/12/17 06:11 Heparin - SQ 5,000 unit TID ANNA Administration Midazolam HCl 100 mg/ Sodium 100 mls @ 5 mls/hr 02/11/17 05:45 02/12/17 09:11 Chloride IVPB 6 mg/hr TITR ANNA Titration Protocol 5 MG/HR Pantoprazole Sodium 100 mls @ 200 mls/hr 02/12/17 10:00 02/12/17 09:48 Protonix 40mg Ivpb (Pre-Docked) IVPB 200 mls/hr DAILY ANNA Administration Norepinephrine Bitartrate 4, 500 mls @ 37.5 mls/hr 02/11/17 18:00 02/11/17 19: 03 000 mcg/ Dextrose IV 37.5 mls/hr TITR ANNA Administration Protocol 5 MCG/MIN Propofol 100 mls @ 2.537 mls/hr 02/11/17 18:00 02/12/17 09:02 Diprivan - IVPB 0 mcg/kg/min TITR ANNA Titration Protocol 5 MCG/KG/MIN Lacosamide 100 mg 02/12/17 00:00 02/12/17 09:03 Vimpat Injection - IVPB 100 mg BID ANNA Administration Lactic Acid 1 applic 02/11/17 13:05 02/12/17 10:03 Lac-Hydrin 12 TP 1 applic DAILY PRN Administration WOUND CARE Levetiracetam 1,500 mg 02/12/17 09:01 02/12/17 09:04 Keppra Injection - IVPB 1,500 mg BID ANNA Administration Levothyroxine Sodium 125 mcg 02/11/17 07:00 02/12/17 06:14 Synthroid - PO 125 mcg DAILY@0700 ANNA Administration Metoprolol Tartrate 12.5 mg 02/11/17 13:30 02/12/17 09:05 Lopressor - PO 12.5 mg BID ANNA Administration Midazolam HCl 5 mg 02/11/17 05:12 Versed - IVPUSH Q1H PRN AGITATION Mupirocin 1 applic 02/11/17 22:00 02/12/17 09:58 Bactroban Ointment (For Decolonization) - NS 02/16/17 21:59 1 applic BID ANNA Administration Nystatin 1 applic 02/11/17 01:00 02/12/17 09:59 Mycostatin Ointment - TP 1 applic BID ANNA Administration Valproate Sodium 500 mg 02/12/17 10:00 02/12/17 09:48 Depacon Injection - IVPB 500 mg BID ANNA Administration ASSESSMENT/PLAN: 51yo F with pmhx of 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 CTA runoff showing multiple occlusive areas in b/l arteries. Head CT acutely negative. #New onset seizure disorder, 2/2 to unknown etiology -Currently seizure free -Increased keppra to 1500 mg BID -Increase depacone 500 mg bid -Versed drip stopped -Lacosamide 100 mg iv bid -Utox negative -UA negative -First EEG suggests metabolic encephalopathy -Will consider MRI brain once stable and possible LP -IF PATIENT SEIZES, CONSIDER PHENOBARBITAL -Neurology consulted, Dr. Rush #Acute respiratory failure -Intubated for airway protection -Continue vent support per ICU # Arterial insufficiency --CTA shows patent vessels --Distal b/l extremities cold, cap refill >2, and pulses absent, but present with doppler --Vascular surgery consulted, Dr. Hoang --Heparin gtt stopped # Dilated cardiomyopathy --S/P AICD working appropriately --Most recent Echo June 2016 --EF of 21% --Severe global hypokinesis --Mod dilated LV --Echo reveals thrombus in RV. Will discuss with cardio regarding KAN --Continued home Toprol XL 12.5 mg po bid through ng --Cardiology consult Dr. Hoover/Daniel --Be careful with IVF # hx of Atrial Fibrillation -Toporol xl 12.5 mg po bid through ng # Abdominal Distention with transaminitis --continue to monitor # Atopic Dermatitis --Continued home nystatin cream for application on abdominal areas --Ammonium lactate lotion --Betamethasone 0.1% cream # Hypothyroidism --Continued home Synthroid 125mcg PO qDaily FEN: Fluids: None currently Electrolyte abnormalities: hypokalemia Nutrition: NPO ppx: -Heparin 5000 units sq tid -protonix drip Visit type - Emergency Visit Emergency Visit: Yes ED Registration Date: 02/10/17 Care time: The patient presented to the Emergency Department on the above date and was hospitalized for further evaluation of their emergent condition. - New Patient This patient is new to me today: No - Critical Care Critical Care patient: Yes Total Critical Care Time (in minutes): 45 Critical Care Statement: The care of this patient involved high complexity decision making to prevent further life threatening deterioration of the patient 's condition and/or to evaluate & treat vital organ system(s) failure or risk of failure.
[2017-02-12] MEDS: BETAMETHASONE VALERATE 0.1% CREAM 15 GM TUBE TP SCH (11:29)
--- NOTE | 2017-02-12 11:40 | PN ---
Teaching Attending Note Name of Resident: Bala Herndon ATTENDING PHYSICIAN STATEMENT I saw and evaluated the patient. I reviewed the resident's note and discussed the case with the resident. I agree with the resident's findings and plan as documented. SUBJECTIVE: Pt seen and examined in the ICU. Remains intubated, sedated on propofol, versed gtts. On levophed gtt for hemodynamic support. No further seizure activity noted today. OBJECTIVE: Last Vital Signs Temp Pulse Resp BP Pulse Ox 99 F 93 H 14 95/66 100 02/12/17 07:00 02/12/17 09:35 02/12/17 10:44 02/12/17 07:00 02/12/17 10:43 Intake & Output 02/09/17 02/10/17 02/11/17 02/12/17 23:59 23:59 23:59 23:59 Intake Total 833.5 1366.4 Output Total 400 300 Balance 433.5 1066.4 Weight 194 lb 186 lb 6.4 oz 193 lb 9.6 oz Gen: intubated, sedated Heart: RRR Lung: scattered rhonchi Abd: soft, nontender Ext: + edema CBC, BMP 02/12/17 05:20 02/12/17 05:20 Active Medications Betamethasone Valerate (Valisone 0.1% Cream -) 1 applic TP DAILY ANNA Last Admin: 02/12/17 11:29 Dose: 1 applic Chlorhexidine Gluconate (Hibiclens For Decolonization -) 1 applic TP HS ANNA Last Admin: 02/11/17 22:14 Dose: 1 applic Furosemide (Lasix -) 20 mg PO DAILY ANNA Last Admin: 02/12/17 09:05 Dose: 20 mg Heparin Sodium (Porcine) (Heparin -) 5,000 unit SQ TID ANNA Last Admin: 02/12/17 06:11 Dose: 5,000 unit Midazolam HCl 100 mg/ Sodium (Chloride) 100 mls @ 5 mls/hr IVPB TITR ANNA; 5 MG/ HR PRN Reason: Protocol Last Titration: 02/12/17 09:11 Dose: 6 mg/hr Pantoprazole Sodium (Protonix 40mg Ivpb (Pre-Docked)) 100 mls @ 200 mls/hr IVPB DAILY ANNA Last Admin: 02/12/17 09:48 Dose: 200 mls/hr Norepinephrine Bitartrate 4, (000 mcg/ Dextrose) 500 mls @ 37.5 mls/hr IV TITR ANNA; 5 MCG/MIN PRN Reason: Protocol Last Admin: 02/11/17 19:03 Dose: 37.5 mls/hr Propofol (Diprivan -) 100 mls @ 2.537 mls/hr IVPB TITR ANNA; 5 MCG/KG/MIN PRN Reason: Protocol Last Titration: 02/12/17 09:02 Dose: 0 mcg/kg/min Lacosamide (Vimpat Injection -) 100 mg IVPB BID [facility] Last Admin: 02/12/17 09:03 Dose: 100 mg Lactic Acid (Lac-Hydrin 12) 1 applic TP DAILY PRN PRN Reason: WOUND CARE Last Admin: 02/12/17 10:03 Dose: 1 applic Levetiracetam (Keppra Injection -) 1,500 mg IVPB BID [facility] Last Admin: 02/12/17 09:04 Dose: 1,500 mg Levothyroxine Sodium (Synthroid -) 125 mcg PO DAILY@0700 [facility] Last Admin: 02/12/17 06:14 Dose: 125 mcg Metoprolol Tartrate (Lopressor -) 12.5 mg PO BID [facility] Last Admin: 02/12/17 09:05 Dose: 12.5 mg Midazolam HCl (Versed -) 5 mg IVPUSH Q1H PRN PRN Reason: AGITATION Mupirocin (Bactroban Ointment (For Decolonization) -) 1 applic NS BID [facility] Stop: 02/16/17 21:59 Last Admin: 02/12/17 09:58 Dose: 1 applic Nystatin (Mycostatin Ointment -) 1 applic TP BID [facility] Last Admin: 02/12/17 09:59 Dose: 1 applic Valproate Sodium (Depacon Injection -) 500 mg IVPB BID [facility] Last Admin: 02/12/17 09:48 Dose: 500 mg ASSESSMENT AND PLAN: Status Epileptics Acute Respiratory Failure Acute on Chronic Systolic Heart Failure Lactic Acidosis resolved s/p ICD Elevated LFTs Hypothyroidism - antiepileptics per neuro - titrate levophed gtt to maintain MAP >65 - f/u EEG - lighten sedation if no seizure activity noted on EEG - start enteral feeds - resume lasix when hemodynamically stable - DVT/GI prophylaxis - continue ICU monitoring critical care time spent in reviewing chart, evaluating patient and formulating plan 35 min
--- NOTE | 2017-02-12 13:59 | PN ---
Teaching Attending Note Name of Resident: Adrianna Mera ATTENDING PHYSICIAN STATEMENT I saw and evaluated the patient. I reviewed the resident's note and discussed the case with the resident. I agree with the resident's findings and plan as documented. SUBJECTIVE:intubated/sedated OBJECTIVE: Last Vital Signs Temp Pulse Resp BP Pulse Ox 98.5 F 89 14 104/79 100 02/12/17 13:09 02/12/17 13:09 02/12/17 13:09 02/12/17 13:09 02/12/17 10:43 Intake & Output 02/09/17 02/10/17 02/11/17 02/12/17 23:59 23:59 23:59 23:59 Intake Total 833.5 1366.4 Output Total 400 300 Balance 433.5 1066.4 Weight 194 lb 186 lb 6.4 oz 193 lb 9.6 oz General intubated/sedated CV S1 S2 + no murmur Lungs Coarse breath sounds anteriorly Abdomen soft NT/nD Extremities warm extremities. +DP pulse B/L with doppler ASSESSMENT AND PLAN: 51yo F with PMH schizphrenia, hypothyroid, dilated cardiomyopathy s/p AICD, HTN and afib presented to the ER with B/L LE pain and concern for acute arterial ischemia. [employer] called for status epilepticus where pt was intubated for airway protection on versed ggt. 1. Status epileptics-seizure free since 1699. titrate antieleptics as recommended by neuro. will attempt to titrate down propofol and other sedating medication. EEG showing encephalopathy. will need to consider MRI brain when medically stable for transport. consider LP to r/o encephalitis. 2. acute respiratory failure- intubated for protection of airway. cont full vent support. management per ICU 3. acute arterial ischemia- reading corrected no signs of arterial thrombus. 4. Elevated TSH- likely sick euthyroid syndrome. T4 WNL. T3 pending. 5. lactic acidosis- due to tonic activity. resolved 6. Cardiac thrombus- seen on AICD wire in RV. do not expect to be infectious but cannot r/o, d/w cardio about KAN 7. Hypotension- on levo. titrate to MAP >65. 8. Cardiomyopathy s/p AICD- no signs of volume overload. cardio consulted 9. Transaminitis- likely due to hypoperfusion. will need to monitor while on depakene. monitor. 10. MICU monitoring The care of this patient involved high complexity decision making to prevent further life threatening deterioration of the patient's condition and/or to evaluate & treat vital organ system(s) failure or risk of failure. 45 minutes critical care time
[2017-02-12 14:10] LABS: URINE APPEARANCE SLCLOUDY; URINE BILIRUBIN NEGATIVE (NEGATIVE); URINE BLOOD 1+ (NEGATIVE); URINE COLOR YELLOW; URINE GLUCOSE (UA) NEGATIVE (NEGATIVE); URINE KETONE NEGATIVE (NEGATIVE); URINE LEUK ESTERASE NEGATIVE (NEGATIVE); URINE NITRITE NEGATIVE (NEGATIVE); URINE PROTEIN NEGATIVE (NEGATIVE)
[2017-02-12 14:14] LABS: CALCIUM OXALATE CRYSTALS RARE /hpf (NONE SEEN); GRANULAR CASTS 1 /lpf; URINE HYALINE CAST 3 /lpf; URINE MUCUS RARE; URINE RBC 5 /hpf (0-3); URINE WBC 3 /hpf (3-5)
[2017-02-12] MEDS: KCL 10 MEQ IVPB 100 ML IVPB SCH ×3 (15:16→18:38)
--- NOTE | 2017-02-12 16:09 | PN ---
Progress Note, Physician Chief Complaint: seizures History of Present Illness: Patient intubated and sedated on versed drip. Patient continued to have breakthrough focal seizures overnight requiring administration of propofol. - Current Medication List Current Medications: Active Medications Betamethasone Valerate (Valisone 0.1% Cream -) 1 applic TP DAILY [facility] Last Admin: 02/12/17 11:29 Dose: 1 applic Chlorhexidine Gluconate (Hibiclens For Decolonization -) 1 applic TP HS [facility] Last Admin: 02/11/17 22:14 Dose: 1 applic Furosemide (Lasix -) 20 mg PO DAILY [facility] Last Admin: 02/12/17 09:05 Dose: 20 mg Heparin Sodium (Porcine) (Heparin -) 5,000 unit SQ TID [facility] Last Admin: 02/12/17 13:33 Dose: 5,000 unit Pantoprazole Sodium (Protonix 40mg Ivpb (Pre-Docked)) 100 mls @ 200 mls/hr IVPB DAILY [facility] Last Admin: 02/12/17 09:48 Dose: 200 mls/hr Norepinephrine Bitartrate 4, (000 mcg/ Dextrose) 500 mls @ 37.5 mls/hr IV TITR ANNA; 5 MCG/MIN PRN Reason: Protocol Last Admin: 02/11/17 19:03 Dose: 37.5 mls/hr Propofol (Diprivan -) 100 mls @ 2.537 mls/hr IVPB TITR ANNA; 5 MCG/KG/MIN PRN Reason: Protocol Last Titration: 02/12/17 11:00 Dose: 15 mcg/kg/min Potassium Chloride (Potassium Chloride 10 Meq Premix Ivpb -) 100 mls @ 100 mls/ hr IVPB Q60M [facility] Stop: 02/12/17 17:59 Last Admin: 02/12/17 15:16 Dose: 100 mls/hr Lacosamide (Vimpat Injection -) 100 mg IVPB BID [facility] Last Admin: 02/12/17 09:03 Dose: 100 mg Lactic Acid (Lac-Hydrin 12) 1 applic TP DAILY PRN PRN Reason: WOUND CARE Last Admin: 02/12/17 10:03 Dose: 1 applic Levetiracetam (Keppra Injection -) 1,500 mg IVPB BID [facility] Last Admin: 02/12/17 09:04 Dose: 1,500 mg Levothyroxine Sodium (Synthroid -) 125 mcg PO DAILY@0700 [facility] Last Admin: 02/12/17 06:14 Dose: 125 mcg Metoprolol Tartrate (Lopressor -) 12.5 mg PO BID [facility] Last Admin: 02/12/17 09:05 Dose: 12.5 mg Midazolam HCl (Versed -) 5 mg IVPUSH Q1H PRN PRN Reason: AGITATION Mupirocin (Bactroban Ointment (For Decolonization) -) 1 applic NS BID [facility] Stop: 02/16/17 21:59 Last Admin: 02/12/17 09:58 Dose: 1 applic Nystatin (Mycostatin Ointment -) 1 applic TP BID [facility] Last Admin: 02/12/17 09:59 Dose: 1 applic Valproate Sodium (Depacon Injection -) 500 mg IVPB BID [facility] Last Admin: 02/12/17 09:48 Dose: 500 mg - Objective Vital Signs: Vital Signs Temperature 98.5 F 02/12/17 13:09 Pulse Rate 89 02/12/17 13:09 Respiratory Rate 14 02/12/17 14:12 Blood Pressure 104/79 02/12/17 13:09 O2 Sat by Pulse Oximetry (%) 100 02/12/17 10:43 Constitutional: Yes: Other (intubated and sedated) HENT: Yes: Atraumatic, Normocephalic Neck: Yes: Supple, Trachea Midline Cardiovascular: Yes: Regular Rate and Rhythm, S1, S2. No: JVD, Gallop, Murmur, Rub Respiratory: Yes: Regular, Mechanically Ventilated, Rhonchi (scattered in all lung tapia) Gastrointestinal: Yes: Normal Bowel Sounds, Soft. No: Distention, Tenderness Neurological: Yes: Other (unable to assess secondary to clinical status) Labs: CBC, BMP 02/12/17 05:20 02/12/17 05:20 INR, PTT INR 1.22 (0.82-1.09) H 02/12/17 05:20 Fibrinogen 186.0 mg/dL (238-498) L 02/11/17 04:00 Problem List - Problems (1) Chronic congestive heart failure Code(s): I50.9 - HEART FAILURE, UNSPECIFIED Qualifiers: Congestive heart failure type: unspecified congestive heart failure type Qualified Code(s): I50.9 - Heart failure, unspecified (2) Hypertension Code(s): I10 - ESSENTIAL (PRIMARY) HYPERTENSION Qualifiers: Hypertension type: essential hypertension Qualified Code(s): I10 - Essential (primary) hypertension (3) Schizophrenia, paranoid, chronic Code(s): F20.0 - PARANOID SCHIZOPHRENIA (4) Seizure Code(s): R56.9 - UNSPECIFIED CONVULSIONS (5) Rash Code(s): R21 - RASH AND OTHER NONSPECIFIC SKIN ERUPTION (6) Peripheral arterial disease Code(s): I73.9 - PERIPHERAL VASCULAR DISEASE, UNSPECIFIED Assessment/Plan 51 yo f brought down to the ICU in status epilepticus Neuro: -new onset seizure disorder; eitology unclear at this time -neurology onboard -keppra increased to 1.5g IV BID -depacone 500mg IV BID -d/c'd versed drip as per neurology -consider phenobarbital if seizures persist as per neurology -depakote lvl WNL -utox negative -ua and ucx negative -repeat ua and utox; urine appears cloudy in baez bag -EEG shows nonspecific findings which may arise from vascular or encephalopathic process Abdominal: -Patient with elevated LFTs -u/s abdomen shows echogenic liver and ascites -ammonia mildly elevated to 34.6 FEN: -no fluids indicated at this time -potassium 3.5 today; repleted -NPO except meds PPTX: -Protonix 40mg IV -Hep SQ for DVT prophy Dispo: -continue to monitor in ICU -critical care time 60 mins Lines/tubes: -Right arm IV inserted 02/09 -baez inserted 02/11 -right CVC 02/11
--- NOTE | 2017-02-12 16:15 | EKG ---
Test Reason : Blood Pressure : / mmHG Vent. Rate : 120 BPM Atrial Rate : 120 BPM P-R Int : 000 ms QRS Dur : 138 ms QT Int : 360 ms P-R-T Axes : 041 147 067 degrees QTc Int : 508 ms Ventricular-paced rhythm Biventricular pacemaker detected ABNORMAL ECG Confirmed by MD KAITLYN, MICHELL ([id number]) on 02/12/2017 4:15:21 PM Referred By: Confirmed By:MICHELL SAHNI MD
[2017-02-12] MEDS ORDERED: MAGNESIUM SULF 50% (8.12 MEQ/2 ML-1 GM VIAL) IVPB ONE (18:36)
[2017-02-12] MEDS ORDERED: MAGNESIUM SULF 50% (8.12 MEQ/2 ML-1 GM VIAL) ONE (18:40)
--- NOTE | 2017-02-12 19:07 | PN ---
Progress Note (short form) - Note Progress Note: At 1800, the patient was noted to have be tachycardic at 104, up from 84 several minutes previously. Patient was seen and examined at bedside. Patient is intubated and sedated in no acute distress. Palpable pulses are felt in bilateral extremities. Her blood pressure is stable at 110/78 (MAP 89). Stat EKG was ordered which revealed an abnormality compared to the prior. Stat labs were ordered (CBC, CMP, Mag, Phos, troponins, ABG). Will replete lytes accordingly. Spoke to evaluation analyst; EKG may be suggestive of PVCs within the ventricularly paced rhythm. Suggested giving small push of 150mg amiodarone if patient continues to have runs of this arrhythmia. Spoke to neurologist, suggested possibility that vimpat can incite an arrhythmia - discontinued vimpat.
[2017-02-12] MEDS ORDERED: MIDAZOLAM 100 MG in SODIUM CHLORIDE 100 ML IVPB SCH (19:30)
[2017-02-12] MEDS: NOREPINEPHRINE BITARTRATE 4,000 MCG in DEXTROSE 5%-WATER - 496 ML IV SCH (19:30)
--- NOTE | 2017-02-12 19:47 | PN ---
Progress Note (short form) - Note Progress Note: CC: cardiomyopathy S: covering for patient's ob nurse Dr. Sanchez. patient started on levophed overnight for hypotension on sedation. Per nursing had recurrence of seizure today when sedation decreased. Increasing ectopy on telemetry. Current Medications Betamethasone Valerate (Valisone 0.1% Cream -) 1 applic TP DAILY [facility] Last Admin: 02/12/17 11:29 Dose: 1 applic Chlorhexidine Gluconate (Hibiclens For Decolonization -) 1 applic TP HS [facility] Last Admin: 02/11/17 22:14 Dose: 1 applic Heparin Sodium (Porcine) (Heparin -) 5,000 unit SQ TID [facility] Last Admin: 02/12/17 13:33 Dose: 5,000 unit Pantoprazole Sodium (Protonix 40mg Ivpb (Pre-Docked)) 100 mls @ 200 mls/hr IVPB DAILY [facility] Last Admin: 02/12/17 09:48 Dose: 200 mls/hr Norepinephrine Bitartrate 4, (000 mcg/ Dextrose) 500 mls @ 37.5 mls/hr IV TITR ANNA; 5 MCG/MIN PRN Reason: Protocol Last Admin: 02/11/17 19:03 Dose: 37.5 mls/hr Propofol (Diprivan -) 100 mls @ 2.537 mls/hr IVPB TITR ANNA; 5 MCG/KG/MIN PRN Reason: Protocol Last Titration: 02/12/17 11:00 Dose: 15 mcg/kg/min Lacosamide (Vimpat Injection -) 100 mg IVPB BID [facility] Last Admin: 02/12/17 09:03 Dose: 100 mg Lactic Acid (Lac-Hydrin 12) 1 applic TP DAILY PRN PRN Reason: WOUND CARE Last Admin: 02/12/17 10:03 Dose: 1 applic Levetiracetam (Keppra Injection -) 1,500 mg IVPB BID [facility] Last Admin: 02/12/17 09:04 Dose: 1,500 mg Levothyroxine Sodium (Synthroid -) 125 mcg PO DAILY@0700 [facility] Last Admin: 02/12/17 06:14 Dose: 125 mcg Midazolam HCl (Versed -) 5 mg IVPUSH Q1H PRN PRN Reason: AGITATION Mupirocin (Bactroban Ointment (For Decolonization) -) 1 applic NS BID [facility] Stop: 02/16/17 21:59 Last Admin: 02/12/17 09:58 Dose: 1 applic Nystatin (Mycostatin Ointment -) 1 applic TP BID [facility] Last Admin: 02/12/17 09:59 Dose: 1 applic Valproate Sodium (Depacon Injection -) 500 mg IVPB BID [facility] Last Admin: 02/12/17 09:48 Dose: 500 mg Vital Signs - 24 hr 02/11/17 02/11/17 02/11/17 20:00 20:31 21:00 Temperature 99 F 99.2 F Pulse Rate 97 H 96 H Respiratory 20 20 20 Rate Blood Pressure 109/78 106/75 O2 Sat by Pulse 100 Oximetry (%) 02/11/17 02/11/17 02/11/17 22:00 22:31 23:00 Temperature 99.2 F 99.3 F Pulse Rate 95 H 94 H Respiratory 20 20 20 Rate Blood Pressure 105/75 105/73 O2 Sat by Pulse 100 Oximetry (%) 02/12/17 02/12/17 02/12/17 00:00 00:44 01:00 Temperature 99.5 F Pulse Rate 94 H 94 H Respiratory 18 20 20 Rate Blood Pressure 104/71 102/71 O2 Sat by Pulse Oximetry (%) 02/12/17 02/12/17 02/12/17 02:00 02:42 03:00 Temperature 99.5 F 99.6 F Pulse Rate 94 H 93 H Respiratory 20 20 20 Rate Blood Pressure 103/69 102/70 O2 Sat by Pulse Oximetry (%) 02/12/17 02/12/17 02/12/17 04:00 05:00 05:24 Temperature 99.6 F Pulse Rate 93 H 94 H Respiratory 20 20 20 Rate Blood Pressure 103/71 101/67 O2 Sat by Pulse Oximetry (%) 02/12/17 02/12/17 02/12/17 06:00 07:00 08:00 Temperature 99 F 99 F Pulse Rate 94 H 92 H 91 H Respiratory 20 20 14 Rate Blood Pressure 90/68 95/66 96/64 O2 Sat by Pulse Oximetry (%) 02/12/17 02/12/17 02/12/17 09:00 09:35 10:00 Temperature 98.9 F Pulse Rate 93 H 93 H Respiratory 16 20 20 Rate Blood Pressure 97/68 O2 Sat by Pulse 100 Oximetry (%) 02/12/17 02/12/17 02/12/17 10:43 10:44 11:46 Temperature Pulse Rate Respiratory 14 16 Rate Blood Pressure O2 Sat by Pulse 100 Oximetry (%) 02/12/17 02/12/17 02/12/17 13:09 14:12 16:00 Temperature 98.5 F Pulse Rate 89 84 Respiratory 14 14 14 Rate Blood Pressure 104/79 96/76 O2 Sat by Pulse Oximetry (%) Intake & Output 02/10/17 02/11/17 02/12/17 02/13/17 07:59 07:59 07:59 07:59 Intake Total 15 2184.9 1817.3 Output Total 200 500 600 Balance -185 1684.9 1217.3 Weight 186 lb 6.4 oz 193 lb 9.6 oz CVP checked at bedside --> 13. intubated, sedated jvd tds, neck supple mechanical breath sounds, ventilated RRR nl s1, s2, + s3 + bs soft nt nd obese diffuse dependent edema to abdomen and UE erythema/venous stasis changes of LE + dp/pt no jaundice, diaphoresis no carotid bruits CBC, BMP 02/12/17 05:20 02/12/17 05:20 Laboratory Tests 02/11/17 02/11/17 02/11/17 04:00 04:00 04:00 INR PTT (Actin FS) Fibrinogen ABG pH ABG pCO2 at Pt Temp ABG pO2 at Pt Temp Lactic Acid Total Bilirubin AST ALT Alkaline Phosphatase Ammonia Troponin I < 0.02 B-Natriuretic Peptide Albumin TSH 47.00 H Free T4 1.24 02/11/17 02/11/17 02/11/17 04:00 04:00 12:45 INR PTT (Actin FS) 119.7 H D Fibrinogen 186.0 L ABG pH ABG pCO2 at Pt Temp ABG pO2 at Pt Temp Lactic Acid 1.8 Total Bilirubin 2.4 H AST ALT Alkaline Phosphatase Ammonia Troponin I B-Natriuretic Peptide 2733.06 H Albumin TSH Free T4 02/11/17 02/12/17 02/12/17 14:00 05:20 05:20 INR 1.22 H PTT (Actin FS) Fibrinogen ABG pH ABG pCO2 at Pt Temp ABG pO2 at Pt Temp Lactic Acid Total Bilirubin 1.9 H D AST 68 H D ALT 24 D Alkaline Phosphatase 150 H D Ammonia 34.6 H Troponin I B-Natriuretic Peptide Albumin 2.5 L TSH Free T4 02/12/17 07:35 INR PTT (Actin FS) Fibrinogen ABG pH 7.49 H ABG pCO2 at Pt Temp 30.6 L ABG pO2 at Pt Temp 162.0 H* Lactic Acid Total Bilirubin AST ALT Alkaline Phosphatase Ammonia Troponin I B-Natriuretic Peptide Albumin TSH Free T4 EKG 02/10 AsVp, PVC's tele: AsVp. intermittent ectopy/pvc's sometimes in bigeminal pattern. per her ob nurse had [facility] 10/2016 --> nl cors echo here: Severe lv dilation, sev reduced LV fn (global). mod rv dilation. mod RV dysfunction. RV pacing wire. 2.8 x 1.2 cm density in apex of RV. --> discussed with Dr. Sanchez. bright echo density at the tip of pacing wire present on prior office echo. mod annelise. 1+ mr. mod tr. rvsp 30-40. trvial pericardial effusion. + pleural effusion. CTA: pulmonary congestion, small left pleural effusion. large volume ascites. extensive subcutaneous edema/anasarca. CTA --> + arterial flow to Le. head ct no acute pathology 51 y/o woman, resident on [facility] with hx of biventricular cardiomyopathy s/ p bivICD, htn, afib (per report only), Schizophrenia, seizure disorder, Hypothroidism and GERD who presented to ED with LE swelling, coolness to touch and diminshed pulses as well as lethargy. Hospital course has been complicated by seizure/status epilepticus requiring intubation for airway protection and sedation. nonischemic biventricular cardiomyopathy s/p bivICD - patient p/w with lethargy, LE edema, cool skin, poor distal pulses, pulmonary edema, large volume ascites and anasarca noted on ct scan, --> concerning for decompensated biventricular heart failure. cvp checked today 02/12 - . - currently getting ionotropy from levophed with improvement in lft's. Given tenous clinical status, would continue levophed for now and not switch to milrinone at this time since lft's improving and patient is now warm on exam. Would give trial of IV lasix for diuresis. Close monitoring of bp, cr - holding bb and acei due to hypotension. - patient with increasing ectopy on tele. Aggressive lyte repletion. - CE's were negative on admit and according to her ob nurse recent LHC showed normal cors - according to her ob nurse her ICD was recently interrogated 10/2016. Note, echo here shows density in RV apex (couldn't exclude veg or thrombus). Discussed with Dr. Sanchez and patient had similarly described density on prior echo at his office, likely artifact from RV lead. However, if clinical concern for endocarditis or emboli arises will have low threshold to better visualize with KAN. seizure disorder - ongoing management per neuro/icu. Remains intubated and sedated for airway protection - head ct x 2 without acute pathology. afib - noted on fpc chart, but patient not on AC. In SR here. Will have to clarify with Dr. Sanchez when he returns. For now, if no evidence of afib/ flutter on tele, will not start AC. hypothyroid - mgm't of thyroid abnormalities per pmd. cct 40 min
[2017-02-12 19:50] LABS: BASOPHIL 0.3 % (0-2.0); EOSINOPHIL 0.1 % (0-4.5); MCH 28.4 pg (25.7-33.7); MCHC 32.1 g/dl (32.0-36.0); MEAN CELL VOLUME 88.4 fl (80-96); NEUTROPHILS 80.8 % (42.8-82.8); WHITE BLOOD COUNT 5.8 K/mm3 (4.0-10.0)
[2017-02-12 20:21] LABS: ALBUMIN 2.5 g/dl (3.4-5.0); ANION GAP 10 (8-16); BILIRUBIN,TOTAL 1.8 mg/dL (0.2-1.0); CALCIUM 8.1 mg/dL (8.5-10.1); CO2 26 mmol/L (21-32); CREATININE 0.9 mg/dL (0.55-1.02); GLUCOSE,RANDOM 110 mg/dL (74-106); MAGNESIUM 1.9 mg/dL (1.8-2.4); PHOSPHOROUS 2.9 mg/dL (2.5-4.9); SGOT/AST 80 U/L (15-37); SGPT/ALT 27 U/L (12-78); TOT PROT 5.9 g/dl (6.4-8.2)
[2017-02-12 20:22] LABS: ALK PHOS 166 U/L (45-117)
[2017-02-12] MEDS ORDERED: FUROSEMIDE 40 MG/4 ML INJECTABLE VIAL IVPUSH ONE (20:35)
[2017-02-12 20:47] LABS: ANISOCYTOSIS 2+; MACROCYTOSIS 1+; MEAN PLT VOLUME 10.1 fl (7.5-11.1); PLATELET COUNT 139 K/MM3 (134-434); PLATELET ESTIMATE ADEQUATE (NORMAL); POIKILOCYTOSIS 1+
[2017-02-12 20:48] LABS: OVALOCYTE 1+; TEAR DROP CELLS 1+
[2017-02-12] MEDS: CHLORHEXIDINE GLUCONATE 4% CLEANSER FOR DECOLONIZATION TP SCH (21:19)
[2017-02-12 21:24] LABS: ARTERIAL BLD GAS O2 SATURATION 99.1 % (90-98.9); ARTERIAL BLOOD GAS BASE EXCESS -0.2 meq/l (-2-2); ARTERIAL BLOOD GAS HCO3 23.7 meq/L (22-26); ARTERIAL BLOOD GAS pH 7.41 (7.35-7.45)
[2017-02-12 21:25] LABS: ALLENS TEST POSITIVE; ART PUNCT SITE RIGHT RADIAL
[2017-02-12 21:26] LABS: LPM/O2% 40%; MECH. VENT. YES; PT. ON O2? YES; TYPE OF O2 MECH VENT; VENT RATE 14; VT/PRESS 400
[2017-02-12] MEDS: FENTANYL INJECTION 500 MCG in DEXTROSE 5%-WATER - 90 ML IJ SCH (22:30)
[2017-02-13] MEDS ORDERED: NOREPINEPHRINE BITARTRATE 4 MG/4 ML ML IV ONE ×4 (01:19→23:48)
[2017-02-13] MEDS: MIDAZOLAM 100 MG in SODIUM CHLORIDE 100 ML IVPB SCH ×2 (02:00→21:40)
[2017-02-13] MEDS: FENTANYL INJECTION 500 MCG in DEXTROSE 5%-WATER - 90 ML IJ SCH ×2 (04:00→22:30)
[2017-02-13] MEDS ORDERED: LORazepam 2 MG/ML SDV VIAL ONE (05:20)
[2017-02-13 06:05] LABS: BASOPHIL 0.3 % (0-2.0); EOSINOPHIL 0.1 % (0-4.5); MCH 28.8 pg (25.7-33.7); MCHC 32.4 g/dl (32.0-36.0); MEAN CELL VOLUME 88.7 fl (80-96); NEUTROPHILS 81.4 % (42.8-82.8); PLATELET COUNT 140 K/MM3 (134-434); RDW 20.8 % (11.6-15.6); WHITE BLOOD COUNT 5.4 K/mm3 (4.0-10.0)
[2017-02-13 06:06] LABS: FREE T3 0.8 pg/mL (2.0-4.4)
--- NOTE | 2017-02-13 06:12 | PN ---
Progress Note (short form) - Note Progress Note: sedated/intubated Current Medications Generic Name Dose Route Start Last Admin Trade Name Edinq PRN Reason Stop Dose Admin Betamethasone Valerate 1 applic 02/12/17 10:00 02/12/17 11:29 Valisone 0.1% Cream - TP 1 applic DAILY [facility] Administration Chlorhexidine Gluconate 1 applic 02/11/17 22:00 02/12/17 21:19 Hibiclens For Decolonization - TP 1 applic HS [facility] Administration Heparin Sodium (Porcine) 5,000 unit 02/11/17 14:30 02/12/17 21:13 Heparin - SQ 5,000 unit TID [facility] Administration Pantoprazole Sodium 100 mls @ 200 mls/hr 02/12/17 10:00 02/12/17 09:48 Protonix 40mg Ivpb (Pre-Docked) IVPB 200 mls/hr DAILY [facility] Administration Norepinephrine Bitartrate 4, 500 mls @ 37.5 mls/hr 02/11/17 18:00 02/12/17 19: 30 000 mcg/ Dextrose IV 75 mls/hr TITR ANNA Administration Protocol 5 MCG/MIN Midazolam HCl 100 mg/ Sodium 100 mls @ 12 mls/hr 02/12/17 21:44 02/12/17 21:49 Chloride IVPB 12 mls/hr TITR ANNA Administration Protocol 12 MG/HR Fentanyl 500 mcg/ Dextrose 100 mls @ 10 mls/hr 02/12/17 22:30 02/12/17 23:00 IJ 100 mcg/hr TITR ANNA Titration 50 MCG/HR Lactic Acid 1 applic 02/11/17 13:05 02/12/17 21:21 Lac-Hydrin 12 TP 1 applic DAILY PRN Administration WOUND CARE Levetiracetam 1,500 mg 02/12/17 09:01 02/12/17 21:12 Keppra Injection - IVPB 1,500 mg BID [facility] Administration Levothyroxine Sodium 125 mcg 02/11/17 07:00 02/12/17 06:14 Synthroid - PO 125 mcg DAILY@0700 [facility] Administration Mupirocin 1 applic 02/11/17 22:00 02/12/17 21:17 Bactroban Ointment (For Decolonization) - NS 02/16/17 21:59 1 applic BID [facility] Administration Nystatin 1 applic 02/11/17 01:00 02/12/17 21:22 Mycostatin Ointment - TP 1 applic BID [facility] Administration Valproate Sodium 500 mg 02/12/17 10:00 02/12/17 21:12 Depacon Injection - IVPB 500 mg BID [facility] Administration Last Vital Signs Temp Pulse Resp BP Pulse Ox 98.9 F 87 14 94/62 100 02/13/17 02:00 02/13/17 02:00 02/13/17 05:07 02/13/17 02:00 02/12/17 22:00 Intake & Output 02/10/17 02/11/17 02/12/17 02/13/17 23:59 23:59 23:59 23:59 Intake Total 833.5 3859.7 Output Total 400 1500 Balance 433.5 2359.7 Weight 194 lb 186 lb 6.4 oz 193 lb 9.6 oz General intubated/sedated CV S1 S2 +s3 no murmur Lungs CTA B/L no whezing/rales/rhonchi anteriorly Abdomen soft NT +distention. Extremities warm extremities. +DP pulse B/L with doppler CBCD WBC 5.4 K/mm3 (4.0-10.0) 02/13/17 05:15 RBC 4.49 M/mm3 (3.60-5.2) 02/13/17 05:15 Hgb 12.9 GM/dL (10.7-15.3) 02/13/17 05:15 Hct 39.8 % (32.4-45.2) 02/13/17 05:15 MCV 88.7 fl (80-96) 02/13/17 05:15 MCHC 32.4 g/dl (32.0-36.0) 02/13/17 05:15 RDW 20.8 % (11.6-15.6) H 02/13/17 05:15 Plt Count 140 K/MM3 (134-434) 02/13/17 05:15 MPV 10.0 fl (7.5-11.1) 02/13/17 05:15 CMP Sodium 136 mmol/L (136-145) 02/12/17 18:45 Potassium 4.0 mmol/L (3.5-5.1) 02/12/17 18:45 Chloride 100 mmol/L (98-107) 02/12/17 18:45 Carbon Dioxide 26 mmol/L (21-32) 02/12/17 18:45 Anion Gap 10 (8-16) 02/12/17 18:45 BUN 18 mg/dL (7-18) 02/12/17 18:45 Creatinine 0.9 mg/dL (0.55-1.02) 02/12/17 18:45 Creat Clearance w eGFR > 60 (>60) 02/12/17 18:45 Calcium 8.1 mg/dL (8.5-10.1) L 02/12/17 18:45 Total Bilirubin 1.8 mg/dL (0.2-1.0) H 02/12/17 18:45 AST 80 U/L (15-37) H 02/12/17 18:45 ALT 27 U/L (12-78) 02/12/17 18:45 Alkaline Phosphatase 166 U/L (45-117) H 02/12/17 18:45 Total Protein 5.9 g/dl (6.4-8.2) L 02/12/17 18:45 Albumin 2.5 g/dl (3.4-5.0) L 02/12/17 18:45 ASSESSMENT AND PLAN: 51yo F with PMH schizphrenia, hypothyroid, dilated cardiomyopathy s/p AICD, HTN and afib presented to the ER with B/L LE pain and concern for acute arterial ischemia. MILK VENDOR called for status epilepticus where pt was intubated for airway protection 1. Status epileptics-sedation titrated down yesterday.seizure like activity noted and versed titrated up. propofol being held. on antieleptics per neuro. unclear enciting factor for seizure. will need to obtain MRI once medically stable. consider LP 2. acute respiratory failure- intubated for protection of airway. cont full vent support. management per ICU 3. Ventricular bigeminy- possible induced from vimpat vs propofol. on levo. avoid QT prolonging medications. cardio on board. 4. Elevated TSH- likely sick euthyroid syndrome. T4 normal T3 very low indicating may not be sick euthyroid. will repeat TSH, increase synthroid dose. 5. lactic acidosis- due to tonic activity. resolved 6. Cardiac thrombus- seen on AICD wire in RV. report from cottage attendant pt had same finding on last echo. low suspicion for infectious. no signs of embolic disease. will monitor for now. consider KAN if necessary 7.Shock with organ failure- on levo 15mcg. may need to add 2nd pressor. monitor BP closely. titrate to MAP >65. 8. Cardiomyopathy s/p AICD- cardiac enzymes neg. wide complex tachycardia on monitor. on levo. received lasix 40mg IVP once yesterday. echo reviewed. cardio on board. 9. MICU monitoring The care of this patient involved high complexity decision making to prevent further life threatening deterioration of the patient's condition and/or to evaluate & treat vital organ system(s) failure or risk of failure. 48 minutes critical care time Visit type - Emergency Visit Emergency Visit: Yes ED Registration Date: 02/10/17 Care time: The patient presented to the Emergency Department on the above date and was hospitalized for further evaluation of their emergent condition. - New Patient This patient is new to me today: No - Critical Care Critical Care patient: Yes Total Critical Care Time (in minutes): 43 Critical Care Statement: The care of this patient involved high complexity decision making to prevent further life threatening deterioration of the patient 's condition and/or to evaluate & treat vital organ system(s) failure or risk of failure. - Discharge Referral Referred to [facility] Med P.C.: No
[2017-02-13 06:21] LABS: ALBUMIN 2.5 g/dl (3.4-5.0); ANION GAP 8 (8-16); CALCIUM 7.7 mg/dL (8.5-10.1); CO2 28 mmol/L (21-32); GLUCOSE,RANDOM 151 mg/dL (74-106); PHOSPHOROUS 2.9 mg/dL (2.5-4.9); SGOT/AST 75 U/L (15-37); SGPT/ALT 23 U/L (12-78)
[2017-02-13 06:24] LABS: ALK PHOS 155 U/L (45-117); BILIRUBIN,TOTAL 1.8 mg/dL (0.2-1.0); CREATININE 0.9 mg/dL (0.55-1.02); TOT PROT 5.6 g/dl (6.4-8.2)
[2017-02-13] MEDS: HEPARIN NA (PORCINE) 5,000 UNITS/ML 1ML VIAL SQ SCH ×3 (06:34→21:22)
[2017-02-13] MEDS ORDERED: PT OWN MED DRAWER 7, Y5N ONE (08:44)
--- NOTE | 2017-02-13 08:54 | PN ---
Progress Note (short form) - Note Progress Note: PULM/CCM SUBJECTIVE: Pt seen and examined in the ICU. -Propofol stopped due to dysrhythmia -agitated but no seizing this morning OBJECTIVE: Vital Signs Temp 98.9 F 02/13/17 06:00 Pulse 108 H 02/13/17 06:00 Resp 14 02/13/17 07:33 BP 99/80 02/13/17 06:00 Pulse Ox 100 02/12/17 22:00 Intake & Output 02/12/17 02/12/17 02/13/17 11:59 23:59 11:59 Intake Total 1366.4 2493.3 1270 Output Total 300 1200 1100 Balance 1066.4 1293.3 170 Weight 87.815 kg 88.224 kg Intake: IV 1136.4 1383.3 900 Versed - 100 mg In Normal 144 48 Saline - 100 ml @ 5 MG/ HR 5 mls/hr IVPB TITR [facility] Rx#:[id number] Levophed - 4,000 Mcg In 900 1200 638 D5w - 496 ml @ 5 MCG/MIN 37.5 mls/hr IV TITR [facility] Rx#:[id number] Diprivan - 100 ml @ 5 MCG 92.4 69.3 /KG/MIN 2.537 mls/hr IVPB TITR [facility] Rx#:[id number] Versed - 100 mg In Normal 36 102 Saline - 100 ml @ 12 MG/ HR 12 mls/hr IVPB TITR [facility] Rx#:[id number] Fentanyl 30 160 IVPB 200 850 0 Tube Feeding 100 210 Tube Irrigant 30 160 160 Output: Urine 300 1200 1100 Garcia 300 1200 1100 Other: Voiding Method Indwelling Catheter Indwelling Catheter Bowel Movement No No No Weight Measurement Method Built in [facility] Built in [facility] Gen: intubated, moderately sedated, intermittently agitated HEENT: pinpoint, reactive Heart: RRR Lung: scattered rhonchi Abd: soft, + BS Ext: pitting edema, chronic PAD/venous stasis changes Neuro: CHILDS x4 to pain, does not tract or follow commands CBC, BMP 02/13/17 05:15 02/13/17 05:15 Active Medications Betamethasone Valerate (Valisone 0.1% Cream -) 1 applic TP DAILY [facility] Last Admin: 02/12/17 11:29 Dose: 1 applic Chlorhexidine Gluconate (Hibiclens For Decolonization -) 1 applic TP HS [facility] Last Admin: 02/12/17 21:19 Dose: 1 applic Heparin Sodium (Porcine) (Heparin -) 5,000 unit SQ TID [facility] Last Admin: 02/13/17 06:34 Dose: 5,000 unit Pantoprazole Sodium (Protonix 40mg Ivpb (Pre-Docked)) 100 mls @ 200 mls/hr IVPB DAILY [facility] Last Admin: 02/12/17 09:48 Dose: 200 mls/hr Norepinephrine Bitartrate 4, (000 mcg/ Dextrose) 500 mls @ 37.5 mls/hr IV TITR ANNA; 5 MCG/MIN PRN Reason: Protocol Last Titration: 02/13/17 04:30 Dose: 15 mcg/min Midazolam HCl 100 mg/ Sodium (Chloride) 100 mls @ 12 mls/hr IVPB TITR ANNA; 12 MG/HR PRN Reason: Protocol Last Titration: 02/13/17 05:00 Dose: 15 mg/hr Fentanyl 500 mcg/ Dextrose 100 mls @ 10 mls/hr IJ TITR ANNA PRN Reason: 50 MCG/HR Last Admin: 02/13/17 04:00 Dose: 20 mls/hr Lactic Acid (Lac-Hydrin 12) 1 applic TP DAILY PRN PRN Reason: WOUND CARE Last Admin: 02/12/17 21:21 Dose: 1 applic Levetiracetam (Keppra Injection -) 1,500 mg IVPB BID [facility] Last Admin: 02/12/17 21:12 Dose: 1,500 mg Levothyroxine Sodium (Synthroid -) 150 mcg PO DAILY@0700 [facility] Mupirocin (Bactroban Ointment (For Decolonization) -) 1 applic NS BID [facility] Stop: 02/16/17 21:59 Last Admin: 02/12/17 21:17 Dose: 1 applic Nystatin (Mycostatin Ointment -) 1 applic TP BID [facility] Last Admin: 02/12/17 21:22 Dose: 1 applic Valproate Sodium (Depacon Injection -) 500 mg IVPB BID [facility] Last Admin: 02/12/17 21:12 Dose: 500 mg ASSESSMENT AND PLAN: Status Epileptics Acute Respiratory Failure Acute on Chronic Systolic Heart Failure Lactic Acidosis resolved s/p ICD Elevated LFTs Hypothyroidism - antiepileptics per neuro, off propofol, remains on versed gtt, keppra po - if can get extubated would pursue MRI - titrate levophed gtt to maintain MAP >65 - repeat EEG PRN - cont enteral feeds - cont synthroid, repeat TSH next week - resume lasix when hemodynamically stable - DVT/GI prophylaxis - continue ICU monitoring Jesus Alberto Orourke ANCP [id number] 35min CCT
[2017-02-13] MEDS: VALPROATE SODIUM 500 MG/5 ML VIAL IVPB SCH ×3 (09:07→22:00)
[2017-02-13] MEDS: levETIRAcetam 500 MG/5 ML INJECTION VIAL IVPB SCH ×2 (09:07→21:23)
[2017-02-13] MEDS: PANTOPRAZOLE SODIUM 100 ML IVPB SCH (09:07)
[2017-02-13] MEDS: MUPIROCIN 2% TOPICAL OINTMENT FOR DECOLONIZATION NS SCH ×2 (09:08→21:22)
[2017-02-13] MEDS: LEVOTHYROXINE NA 150 MCG TABLET PO SCH (09:08)
[2017-02-13] MEDS: BETAMETHASONE VALERATE 0.1% CREAM 15 GM TUBE TP SCH (09:09)
[2017-02-13] MEDS: NYSTATIN 100000 UNIT/GM TOPICAL OINTMENT 15 GM TUBE TP SCH ×2 (09:09→22:00)
[2017-02-13] MEDS: AMMONIUM LACTATE 12% LOTION 225 GM BOTTLE TP PRN (09:09)
--- NOTE | 2017-02-13 12:05 | PN ---
Progress Note, Physician Chief Complaint: seizures, altered mental status History of Present Illness: Ms Dailey is a 51 y/o woman, resident on [facility] with hx of Schizophrenia, HTN , AFib, CHF, s/p AICD/biV pacer, Hypothroidism and GERD who presented to ED yesterday with LE swelling and pain c/f DVT. In ED pt was awake but poorly responsive, only C/o pain everywhere. Was noted to have cool bilateral LE with very weak peripheral pulses, edema and poor cap refill-->CTA runoff showing multiple occlusive areas in b/l LE arteries. Vascular was consulted and there was tentative plan for surgery today. CT head was performed due to AMS which was without acute pathology. Labs were notable for new elevated Tbili and alk phos, low therapeutic VPA level, no WBC, normal h/H, and slightly elevate INR 1.3. She was admitted to floor. Over night BOOT LINER MAKER was called when pt found having tonic-clonic sz. Was given Ativan 2mg with resolution, repeat head CT was again without apparent infarct or bleed (read pending). She was brought to ICU where she cont to have repeated sz, without regaining mental status c/w status epilepticus. She was not protecting her airway or having effective ventilation ( 7.2/60) and so was intubated. EEG was ordered. Neuro and cards were consulted. Abd US was ordered for elevated bilis. Pt. was given another total of 4 mgs of Ativan but without effect, she was than placed on Midazolam drip now at 5mg/ hour. She is being loaded with Keppra 1000mg now and bering given Depakote thru her NGT. Also given Midazolam ivpx2. Pt. is unable to relate hx. Its not clear whether she has a hx. of seizures in the past as per ICU staff. Initially she was assumed to have epilepsy based on her outpatient medications, but her daughter is not aware of a seizure history. Since admission she hsa been given Vimpat and this was stopped when she developed an arrhythmia. She is also on IV Valproate 500 BID and her last level was only about 65. She continues to display intermittent jerking movements and has not returned to normal consciousness though EEGs have failed to show seizure activity. - Current Medication List Current Medications: Active Medications Betamethasone Valerate (Valisone 0.1% Cream -) 1 applic TP DAILY [facility] Last Admin: 02/13/17 09:09 Dose: 1 applic Chlorhexidine Gluconate (Hibiclens For Decolonization -) 1 applic TP HS [facility] Last Admin: 02/12/17 21:19 Dose: 1 applic Heparin Sodium (Porcine) (Heparin -) 5,000 unit SQ TID [facility] Last Admin: 02/13/17 06:34 Dose: 5,000 unit Pantoprazole Sodium (Protonix 40mg Ivpb (Pre-Docked)) 100 mls @ 200 mls/hr IVPB DAILY [facility] Last Admin: 02/13/17 09:07 Dose: 200 mls/hr Norepinephrine Bitartrate 4, (000 mcg/ Dextrose) 500 mls @ 37.5 mls/hr IV TITR ANNA; 5 MCG/MIN PRN Reason: Protocol Last Titration: 02/13/17 04:30 Dose: 15 mcg/min Midazolam HCl 100 mg/ Sodium (Chloride) 100 mls @ 12 mls/hr IVPB TITR ANNA; 12 MG/HR PRN Reason: Protocol Last Titration: 02/13/17 05:00 Dose: 15 mg/hr Fentanyl 500 mcg/ Dextrose 100 mls @ 10 mls/hr IJ TITR ANNA PRN Reason: 50 MCG/HR Last Admin: 02/13/17 04:00 Dose: 20 mls/hr Lactic Acid (Lac-Hydrin 12) 1 applic TP DAILY PRN PRN Reason: WOUND CARE Last Admin: 02/13/17 09:09 Dose: 1 applic Levetiracetam (Keppra Injection -) 1,500 mg IVPB BID [facility] Last Admin: 02/13/17 09:07 Dose: 1,500 mg Levothyroxine Sodium (Synthroid -) 150 mcg PO DAILY@0700 [facility] Last Admin: 02/13/17 09:08 Dose: 150 mcg Mupirocin (Bactroban Ointment (For Decolonization) -) 1 applic NS BID [facility] Stop: 02/16/17 21:59 Last Admin: 02/13/17 09:08 Dose: 1 applic Nystatin (Mycostatin Ointment -) 1 applic TP BID [facility] Last Admin: 02/13/17 09:09 Dose: 1 applic Valproate Sodium (Depacon Injection -) 500 mg IVPB BID [facility] Last Admin: 02/13/17 09:07 Dose: 500 mg - Objective Vital Signs: Vital Signs Temperature 98.9 F 02/13/17 06:00 Pulse Rate 106 H 02/13/17 10:19 Respiratory Rate 14 02/13/17 11:51 Blood Pressure 100/78 02/13/17 08:00 O2 Sat by Pulse Oximetry (%) 98 02/13/17 10:20 Neurological: Yes: Other (Patient intubated, eyes deviated upwards, intermittent jerking of various body parts, no purposeful or semipurposeful movmenets noted.) Labs: CBC, BMP 02/13/17 05:15 02/13/17 05:15 INR, PTT INR 1.22 (0.82-1.09) H 02/12/17 05:20 Fibrinogen 186.0 mg/dL (238-498) L 02/11/17 04:00 Problem List - Problems (1) Seizure Assessment/Plan: Does not appeared to be controlled at this point. Her valproic acid level is on the low therapeutic side, so could increase dose ot 500 q 8 after 1 gram load. Code(s): R56.9 - UNSPECIFIED CONVULSIONS
[2017-02-13] MEDS ORDERED: VALPROATE SODIUM 500 MG/5 ML VIAL IVPB ONE (12:11)
--- NOTE | 2017-02-13 16:29 | PN ---
Progress Note (short form) - Note Progress Note: CC: cardiomyopathy S: covering for patient's neurosurgery physician Dr. Sanchez. last night patient appeared to be in persistent bigeminy. Pvc's with very broad abnormal t wave. lytes/pH wnl. concern for qt prolongation --> weaned off propofol due to its qt prolonging properties --> resolution of bigeminy. received 40 mg IV lasix yesterday, but remains net positive. Current Medications Betamethasone Valerate (Valisone 0.1% Cream -) 1 applic TP DAILY ANNA Last Admin: 02/13/17 09:09 Dose: 1 applic Chlorhexidine Gluconate (Hibiclens For Decolonization -) 1 applic TP HS ANNA Last Admin: 02/12/17 21:19 Dose: 1 applic Furosemide (Lasix Injection -) 80 mg IVPUSH BID@0600,1400 ANNA Furosemide (Lasix Injection -) 80 mg IVPUSH ONCE ONE Stop: 02/13/17 22:01 Heparin Sodium (Porcine) (Heparin -) 5,000 unit SQ TID ANNA Last Admin: 02/13/17 13:02 Dose: 5,000 unit Pantoprazole Sodium (Protonix 40mg Ivpb (Pre-Docked)) 100 mls @ 200 mls/hr IVPB DAILY ANNA Last Admin: 02/13/17 09:07 Dose: 200 mls/hr Norepinephrine Bitartrate 4, (000 mcg/ Dextrose) 500 mls @ 37.5 mls/hr IV TITR ANNA; 5 MCG/MIN PRN Reason: Protocol Last Titration: 02/13/17 04:30 Dose: 15 mcg/min Midazolam HCl 100 mg/ Sodium (Chloride) 100 mls @ 12 mls/hr IVPB TITR ANNA; 12 MG/HR PRN Reason: Protocol Last Titration: 02/13/17 05:00 Dose: 15 mg/hr Fentanyl 500 mcg/ Dextrose 100 mls @ 10 mls/hr IJ TITR ANNA PRN Reason: 50 MCG/HR Last Admin: 02/13/17 04:00 Dose: 20 mls/hr Lactic Acid (Lac-Hydrin 12) 1 applic TP DAILY PRN PRN Reason: WOUND CARE Last Admin: 02/13/17 09:09 Dose: 1 applic Levetiracetam (Keppra Injection -) 1,500 mg IVPB BID ANNA Last Admin: 02/13/17 09:07 Dose: 1,500 mg Levothyroxine Sodium (Synthroid -) 150 mcg PO DAILY@0700 [facility] Last Admin: 02/13/17 09:08 Dose: 150 mcg Mupirocin (Bactroban Ointment (For Decolonization) -) 1 applic NS BID [facility] Stop: 02/16/17 21:59 Last Admin: 02/13/17 09:08 Dose: 1 applic Nystatin (Mycostatin Ointment -) 1 applic TP BID [facility] Last Admin: 02/13/17 09:09 Dose: 1 applic Valproate Sodium (Depacon Injection -) 500 mg IVPB BID [facility] Last Admin: 02/13/17 09:07 Dose: 500 mg Valproate Sodium (Depacon Injection -) 500 mg IVPB Q8H [facility] Vital Signs - 24 hr 02/12/17 02/12/17 02/12/17 18:00 18:32 19:00 Temperature 98.3 F Pulse Rate 104 H 105 H 105 H Respiratory 14 14 14 Rate Blood Pressure 110/76 110/78 O2 Sat by Pulse 100 Oximetry (%) 02/12/17 02/12/17 02/12/17 19:30 20:00 20:34 Temperature 98.5 F Pulse Rate 105 H 105 H Respiratory 17 14 Rate Blood Pressure 115/87 110/82 O2 Sat by Pulse Oximetry (%) 02/12/17 02/12/17 02/12/17 21:00 22:00 23:30 Temperature 98.8 F 99.2 F Pulse Rate 103 H 109 H Respiratory 14 15 14 Rate Blood Pressure 115/87 113/86 O2 Sat by Pulse 100 Oximetry (%) 02/13/17 02/13/17 02/13/17 00:00 01:00 02:00 Temperature 99.3 F 99.2 F 98.9 F Pulse Rate 91 H 89 87 Respiratory 14 14 14 Rate Blood Pressure 99/71 95/70 94/62 O2 Sat by Pulse Oximetry (%) 02/13/17 02/13/17 02/13/17 02:30 03:00 04:00 Temperature 98.7 F Pulse Rate 87 96 H Respiratory 14 14 15 Rate Blood Pressure 91/67 111/88 O2 Sat by Pulse Oximetry (%) 02/13/17 02/13/17 02/13/17 04:30 05:07 06:00 Temperature 98.9 F Pulse Rate 99 H 108 H Respiratory 14 14 Rate Blood Pressure 88/68 99/80 O2 Sat by Pulse Oximetry (%) 02/13/17 02/13/17 02/13/17 07:33 08:00 09:00 Temperature Pulse Rate 110 H Respiratory 14 14 14 Rate Blood Pressure 100/78 O2 Sat by Pulse Oximetry (%) 02/13/17 02/13/17 02/13/17 10:00 10:19 10:20 Temperature Pulse Rate 103 H 106 H Respiratory 19 14 Rate Blood Pressure 99/70 O2 Sat by Pulse 98 98 Oximetry (%) 02/13/17 02/13/17 02/13/17 11:51 12:00 14:05 Temperature 98.3 F Pulse Rate 102 H Respiratory 14 20 14 Rate Blood Pressure 100/76 O2 Sat by Pulse Oximetry (%) 02/13/17 14:21 Temperature Pulse Rate 99 H Respiratory 20 Rate Blood Pressure 94/71 O2 Sat by Pulse Oximetry (%) Intake & Output 02/11/17 02/12/17 02/13/17 02/14/17 07:59 07:59 07:59 07:59 Intake Total 15 2184.9 3763.3 Output Total 712 775 0279 700 Balance -185 1684.9 1463.3 -700 Weight 186 lb 6.4 oz 193 lb 9.6 oz 194 lb 8 oz CVP checked at bedside --> 13. intubated, sedated jvd tds, neck supple mechanical breath sounds, ventilated RRR nl s1, s2, + s3 + bs soft nt nd obese diffuse dependent edema to abdomen and UE erythema/venous stasis changes of LE + dp/pt no jaundice, diaphoresis no carotid bruits CBC, BMP 02/13/17 05:15 02/13/17 05:15 EKG 02/10 AsVp, PVC's tele: AsVp. intermittent ectopy/pvc's sometimes in bigeminal pattern. per her neurosurgery physician had [place] 10/2016 --> nl cors echo here: Severe lv dilation, sev reduced LV fn (global). mod rv dilation. mod RV dysfunction. RV pacing wire. 2.8 x 1.2 cm density in apex of RV. --> discussed with Dr. Sanchez. bright echo density at the tip of pacing wire present on prior office echo. mod annelise. 1+ mr. mod tr. rvsp 30-40. trvial pericardial effusion. + pleural effusion. CTA: pulmonary congestion, small left pleural effusion. large volume ascites. extensive subcutaneous edema/anasarca. CTA --> + arterial flow to [place]. head ct no acute pathology 51 y/o woman, resident on [facility] with hx of biventricular cardiomyopathy s/ p bivICD, htn, afib (per report only), Schizophrenia, seizure disorder, Hypothroidism and GERD who presented to ED with LE swelling, coolness to touch and diminshed pulses as well as lethargy. Hospital course has been complicated by seizure/status epilepticus requiring intubation for airway protection and sedation. nonischemic biventricular cardiomyopathy s/p bivICD - holding bb and acei due to hypotension. - CE's were negative on admit and according to her neurosurgery physician recent LHC showed normal cors - 02/12 patient p/w with lethargy, LE edema, cool skin, poor distal pulses, pulmonary edema, large volume ascites and anasarca noted on ct scan, --> concerning for decompensated biventricular heart failure. cvp checked 02/12 - --> getting ionotropy from levophed with improvement in lft's. Given tenous clinical status, continued levophed rather than switching to milrinone since lft's improving and patient warm on exam. Started trial of IV lasix for diuresis 02/12. - 02/13. overnight propofol stopped due to increasing ectopy and concern for qt prolongation --> improvement in ectopy. patient's remaines net positive on lasix 40 mg IV daily. Will uptitrate lasix to 80 mg IV bid. s/p bivICD - according to her neurosurgery physician her ICD was recently interrogated 10/2016. - 02/12 with increasing ectopy throughout the day leading to sustained ventricular bigeminy with very broad abnormal t wave (no nsvt). concern for qt prolongation --> propofol weaned overnight with resolution of arrhythmia. RV echo density noted on echo - Echo here shows density in RV apex (couldn't exclude veg or thrombus). Discussed with Dr. Sanchez and patient had similarly described density on prior echo at his office, likely artifact from RV lead. However, if clinical concern for infection/endocarditis or emboli arises will have low threshold to better visualize with KAN. seizure disorder/status epilepticus - ongoing management per neuro/icu. Remains intubated and sedated. Avoid propofol due to qt prolonging properties. - head ct x 2 without acute pathology. afib - diagnosis documented on custodial chart, but patient not on AC and in SR here (? accuracy of diagnosis). Will have to clarify with Dr. Sanchez when he returns. For now, if no evidence of afib/flutter on tele, will not start AC. hypothyroid - mgm't of thyroid abnormalities per pmd. cct 40 min
[2017-02-13] MEDS: FUROSEMIDE 40 MG/4 ML INJECTABLE VIAL IVPUSH SCH (16:31)
[2017-02-13] MEDS: NOREPINEPHRINE BITARTRATE 4,000 MCG in DEXTROSE 5%-WATER - 496 ML IV SCH (18:16)
[2017-02-13] MEDS: CHLORHEXIDINE GLUCONATE 4% CLEANSER FOR DECOLONIZATION TP SCH (21:23)
[2017-02-13] MEDS ORDERED: FUROSEMIDE 40 MG/4 ML INJECTABLE VIAL IVPUSH ONE (22:00)
[2017-02-13] MEDS ORDERED: POTASSIUM CHLORIDE ORAL LIQUID 20 MEQ/15 ML NGT ONE (23:45)
[2017-02-13] MEDS ORDERED: NOREPINEPHRINE BITARTRATE 8,000 MCG in DEXTROSE 5%-WATER - 496 ML IV SCH (23:45)
[2017-02-13] MEDS: NOREPINEPHRINE BITARTRATE 8,000 MCG in DEXTROSE 5%-WATER - 492 ML IV SCH (23:50)
[2017-02-14] MEDS ORDERED: POTASSIUM CHLORIDE ORAL LIQUID 20 MEQ/15 ML ONE (00:12)
[2017-02-14] MEDS: HEPARIN NA (PORCINE) 5,000 UNITS/ML 1ML VIAL SQ SCH ×3 (06:07→21:16)
[2017-02-14] MEDS: FUROSEMIDE 40 MG/4 ML INJECTABLE VIAL IVPUSH SCH ×2 (06:07→14:18)
[2017-02-14 06:08] LABS: MCH 28.6 pg (25.7-33.7); MCHC 32.3 g/dl (32.0-36.0); MEAN CELL VOLUME 88.5 fl (80-96); MEAN PLT VOLUME 9.7 fl (7.5-11.1); PLATELET COUNT 112 K/MM3 (134-434); RDW 20.9 % (11.6-15.6); WHITE BLOOD COUNT 5.8 K/mm3 (4.0-10.0)
[2017-02-14] MEDS: VALPROATE SODIUM 500 MG/5 ML VIAL IVPB SCH ×3 (06:08→21:16)
[2017-02-14 06:21] LABS: INR 1.17 (0.82-1.09); PROTHROMBIN TIME (PATIENT) 12.9 SEC (9.98-11.88)
[2017-02-14 06:34] LABS: ALBUMIN 2.4 g/dl (3.4-5.0); ANION GAP 8 (8-16); CALCIUM 7.5 mg/dL (8.5-10.1); CO2 33 mmol/L (21-32); CREATININE 0.7 mg/dL (0.55-1.02); GLUCOSE,RANDOM 63 mg/dL (74-106); MAGNESIUM 1.7 mg/dL (1.8-2.4); PHOSPHOROUS 1.7 mg/dL (2.5-4.9); SGOT/AST 74 U/L (15-37); SGPT/ALT 24 U/L (12-78)
[2017-02-14 06:35] LABS: ALK PHOS 156 U/L (45-117); BILIRUBIN,TOTAL 1.5 mg/dL (0.2-1.0); TOT PROT 5.5 g/dl (6.4-8.2)
--- NOTE | 2017-02-14 07:39 | PN ---
Progress Note (short form) - Note Progress Note: sedated/intubated Current Medications Generic Name Dose Route Start Last Admin Trade Name Sanjuana PRN Reason Stop Dose Admin Betamethasone Valerate 1 applic 02/12/17 10:00 02/13/17 09:09 Valisone 0.1% Cream - TP 1 applic DAILY ANNA Administration Chlorhexidine Gluconate 1 applic 02/11/17 22:00 02/13/17 21:23 Hibiclens For Decolonization - TP 1 applic HS ANNA Administration Furosemide 80 mg 02/13/17 16:30 02/14/17 06:07 Lasix Injection - IVPUSH 80 mg BID@0600,1400 ANNA Administration Heparin Sodium (Porcine) 5,000 unit 02/11/17 14:30 02/14/17 06:07 Heparin - SQ 5,000 unit TID ANNA Administration Pantoprazole Sodium 100 mls @ 200 mls/hr 02/12/17 10:00 02/13/17 09:07 Protonix 40mg Ivpb (Pre-Docked) IVPB 200 mls/hr DAILY ANNA Administration Midazolam HCl 100 mg/ Sodium 100 mls @ 12 mls/hr 02/12/17 21:44 02/13/17 21:40 Chloride IVPB 15 mls/hr TITR ANNA Administration Protocol 12 MG/HR Fentanyl 500 mcg/ Dextrose 100 mls @ 10 mls/hr 02/12/17 22:30 02/13/17 22:30 IJ 20 mls/hr TITR ANNA Administration 50 MCG/HR Norepinephrine Bitartrate 8, 500 mls @ 18.75 mls/hr 02/13/17 23:50 02/14/17 02: 33 000 mcg/ Dextrose IV 25 mcg/min TITR ANNA Titration Protocol 5 MCG/MIN Lactic Acid 1 applic 02/11/17 13:05 02/13/17 09:09 Lac-Hydrin 12 TP 1 applic DAILY PRN Administration WOUND CARE Levetiracetam 1,500 mg 02/12/17 09:01 02/13/17 21:23 Keppra Injection - IVPB 1,500 mg BID ANNA Administration Levothyroxine Sodium 150 mcg 02/13/17 07:00 02/13/17 09:08 Synthroid - PO 150 mcg DAILY@0700 ANNA Administration Mupirocin 1 applic 02/11/17 22:00 02/13/17 21:22 Bactroban Ointment (For Decolonization) - NS 02/16/17 21:59 1 applic BID ANNA Administration Nystatin 1 applic 02/11/17 01:00 02/13/17 22:00 Mycostatin Ointment - TP 1 applic BID ANNA Administration Valproate Sodium 500 mg 02/12/17 10:00 02/13/17 21:22 Depacon Injection - IVPB 500 mg BID ANNA Administration Valproate Sodium 500 mg 02/13/17 22:00 02/14/17 06:08 Depacon Injection - IVPB 500 mg Q8H ANNA Administration Last Vital Signs Temp Pulse Resp BP Pulse Ox 99.5 F 84 14 90/72 100 02/14/17 02:00 02/14/17 06:00 02/14/17 07:27 02/14/17 06:00 02/13/17 20:06 Intake & Output 02/11/17 02/12/17 02/13/17 02/14/17 23:59 23:59 23:59 23:59 Intake Total 833.5 3859.7 4366 881.8 Output Total 400 1500 3100 3500 Balance 433.5 2359.7 1266 -2618.2 Weight 186 lb 6.4 oz 193 lb 9.6 oz 194 lb 8 oz 196 lb 3.382 oz General intubated/sedated CV S1 S2 +s3 no murmur Lungs CTA B/L no whezing/rales/rhonchi anteriorly Abdomen soft NT +distention +fluid wave Extremities warm extremities.1+ pitting edema B/L CBCD WBC 5.8 K/mm3 (4.0-10.0) 02/14/17 05:15 RBC 4.34 M/mm3 (3.60-5.2) 02/14/17 05:15 Hgb 12.4 GM/dL (10.7-15.3) 02/14/17 05:15 Hct 38.4 % (32.4-45.2) 02/14/17 05:15 MCV 88.5 fl (80-96) 02/14/17 05:15 MCHC 32.3 g/dl (32.0-36.0) 02/14/17 05:15 RDW 20.9 % (11.6-15.6) H 02/14/17 05:15 Plt Count 112 K/MM3 (134-434) L 02/14/17 05:15 MPV 9.7 fl (7.5-11.1) 02/14/17 05:15 CMP Sodium 142 mmol/L (136-145) 02/14/17 05:15 Potassium 3.0 mmol/L (3.5-5.1) L 02/14/17 05:15 Chloride 101 mmol/L (98-107) 02/14/17 05:15 Carbon Dioxide 33 mmol/L (21-32) H 02/14/17 05:15 Anion Gap 8 (8-16) 02/14/17 05:15 BUN 9 mg/dL (7-18) D 02/14/17 05:15 Creatinine 0.7 mg/dL (0.55-1.02) D 02/14/17 05:15 Creat Clearance w eGFR > 60 (>60) 02/14/17 05:15 Calcium 7.5 mg/dL (8.5-10.1) L 02/14/17 05:15 Total Bilirubin 1.5 mg/dL (0.2-1.0) H 02/14/17 05:15 AST 74 U/L (15-37) H 02/14/17 05:15 ALT 24 U/L (12-78) 02/14/17 05:15 Alkaline Phosphatase 156 U/L (45-117) H 02/14/17 05:15 Total Protein 5.5 g/dl (6.4-8.2) L 02/14/17 05:15 Albumin 2.4 g/dl (3.4-5.0) L 02/14/17 05:15 Microbiology 02/10/17 16:47 Blood Culture - Preliminary Blood - Peripheral Venous NO GROWTH OBTAINED AFTER 72 HOURS, INCUBATION TO CONTINUE FOR 2 DAYS. 02/10/17 16:47 Blood Culture - Preliminary Blood - Peripheral Venous NO GROWTH OBTAINED AFTER 72 HOURS, INCUBATION TO CONTINUE FOR 2 DAYS. 02/11/17 04:00 Blood Culture - Preliminary Blood - Peripheral Venous NO GROWTH OBTAINED AFTER 72 HOURS, INCUBATION TO CONTINUE FOR 2 DAYS. 02/11/17 04:00 Blood Culture - Preliminary Blood - Peripheral Venous NO GROWTH OBTAINED AFTER 72 HOURS, INCUBATION TO CONTINUE FOR 2 DAYS. ASSESSMENT AND PLAN: 51yo F with PMH schizphrenia, hypothyroid, dilated cardiomyopathy s/p AICD, HTN and afib presented to the ER with B/L LE pain and concern for acute arterial ischemia. [facility] called for status epilepticus where pt was intubated for airway protection 1. Status epileptics- was reported to have myotonic twitching of the face and extremities. no longer noted. antielptics titrated up. on versed and fentynl. cont antileptic management per neuro. will need to obtain MRI once medically stable. consider LP 2. acute respiratory failure- intubated for protection of airway. cont full vent support. management per ICU 3. Ventricular bigeminy- possible induced from vimpat vs propofol. on levo. avoid QT prolonging medications. cardio on board. 4. Elevated TSH- likely sick euthyroid syndrome. T4 normal T3 very low indicating may not be sick euthyroid. repeat TSH is lower, may have not been complaint with medications. on higher synthroid dose. 5. shock-neurogenic vs cardiogenic. gross volume overload. on levo 15mcg. vaso started this morning. diuresis with lasix 80mg BID IV per cardio. unable to hold sedation due to seizure activity. lactic acidosis resolved. CVP 15 6. Hypophosphatemia- Kphos 7. Hypokalemia- Kphos, potassium riders 8. Hypomagenesemia- Mg 2g 9. Cardiac thrombus- seen on AICD wire in RV. report from [facility] pt had same finding on last echo. low suspicion for infectious. no signs of embolic disease. will monitor for now. consider KAN if necessary 10. Transaminitis- likely due to hypoperfusion. will need to monitor while on depakene. monitor. 11. MICU monitoring. poor overall prognosis The care of this patient involved high complexity decision making to prevent further life threatening deterioration of the patient's condition and/or to evaluate & treat vital organ system(s) failure or risk of failure. 45 minutes critical care time Visit type - Emergency Visit Emergency Visit: Yes ED Registration Date: 02/10/17 Care time: The patient presented to the Emergency Department on the above date and was hospitalized for further evaluation of their emergent condition. - New Patient This patient is new to me today: No - Critical Care Critical Care patient: Yes Total Critical Care Time (in minutes): 38 Critical Care Statement: The care of this patient involved high complexity decision making to prevent further life threatening deterioration of the patient 's condition and/or to evaluate & treat vital organ system(s) failure or risk of failure. - Discharge Referral Referred to [facility] Med [facility].: No
[2017-02-14] MEDS ORDERED: MAGNESIUM SULF 50% (8.12 MEQ/2 ML-1 GM VIAL) IVPB ONE (07:40)
[2017-02-14] MEDS ORDERED: POTASSIUM PHOSPHATE 30 MM in SODIUM CHLORIDE 250 ML IVPB ONE ×2 (07:40→09:00)
--- NOTE | 2017-02-14 07:42 | PN ---
Progress Note (short form) - Note Progress Note: Seen and examined in ICU Remains intubated and sedated with versed 15mg/hr and fentanyl 100mcg/hr NE 15mcg/min Received lasix per cardiology -2.6liters Low grade fever 99.6 This AM notable eye twitching, w/ left hand and bilateral flapping of feet c/f seizure activity Increased AEDs per neurology Current Medications Betamethasone Valerate (Valisone 0.1% Cream -) 1 applic TP DAILY ANNA Last Admin: 02/13/17 09:09 Dose: 1 applic Chlorhexidine Gluconate (Hibiclens For Decolonization -) 1 applic TP HS ANNA Last Admin: 02/13/17 21:23 Dose: 1 applic Furosemide (Lasix Injection -) 80 mg IVPUSH BID@0600,1400 ANNA Last Admin: 02/14/17 06:07 Dose: 80 mg Heparin Sodium (Porcine) (Heparin -) 5,000 unit SQ TID ANNA Last Admin: 02/14/17 06:07 Dose: 5,000 unit Pantoprazole Sodium (Protonix 40mg Ivpb (Pre-Docked)) 100 mls @ 200 mls/hr IVPB DAILY ANNA Last Admin: 02/13/17 09:07 Dose: 200 mls/hr Midazolam HCl 100 mg/ Sodium (Chloride) 100 mls @ 12 mls/hr IVPB TITR ANNA; 12 MG/HR PRN Reason: Protocol Last Admin: 02/13/17 21:40 Dose: 15 mls/hr Fentanyl 500 mcg/ Dextrose 100 mls @ 10 mls/hr IJ TITR ANNA PRN Reason: 50 MCG/HR Last Admin: 02/13/17 22:30 Dose: 20 mls/hr Norepinephrine Bitartrate 8, (000 mcg/ Dextrose) 500 mls @ 18.75 mls/hr IV TITR ANNA; 5 MCG/MIN PRN Reason: Protocol Last Titration: 02/14/17 02:33 Dose: 25 mcg/min Lactic Acid (Lac-Hydrin 12) 1 applic TP DAILY PRN PRN Reason: WOUND CARE Last Admin: 02/13/17 09:09 Dose: 1 applic Levetiracetam (Keppra Injection -) 1,500 mg IVPB BID ANNA Last Admin: 02/13/17 21:23 Dose: 1,500 mg Levothyroxine Sodium (Synthroid -) 150 mcg PO DAILY@0700 [facility] Last Admin: 02/13/17 09:08 Dose: 150 mcg Mupirocin (Bactroban Ointment (For Decolonization) -) 1 applic NS BID [facility] Stop: 02/16/17 21:59 Last Admin: 02/13/17 21:22 Dose: 1 applic Nystatin (Mycostatin Ointment -) 1 applic TP BID [facility] Last Admin: 02/13/17 22:00 Dose: 1 applic Valproate Sodium (Depacon Injection -) 500 mg IVPB BID [facility] Last Admin: 02/13/17 21:22 Dose: 500 mg Valproate Sodium (Depacon Injection -) 500 mg IVPB Q8H [facility] Last Admin: 02/14/17 06:08 Dose: 500 mg Vital Signs Period Temp Pulse Resp BP Sys/Centeno Pulse Ox Last 24 Hr 98.2 F-99.5 F 79-110 14-20 73-110/50-83 98-100 Intake & Output 02/11/17 02/12/17 02/13/17 02/14/17 23:59 23:59 23:59 23:59 Intake Total 833.5 3859.7 4366 881.8 Output Total 400 1500 3100 3500 Balance 433.5 2359.7 1266 -2618.2 Weight 84.55 kg 87.815 kg 88.224 kg 89 kg Exam: intubated Neuro: RASS -4, PERRL, 2mm, not following commands, abnormal twitching of eyes, left hand and bilat feet CV: irr, irr paced Pulm: diminished in bases Abd: obese, soft hypoactive bowel sounds Ext: +4 edema upper and LE CBCD WBC 5.8 K/mm3 (4.0-10.0) 02/14/17 05:15 RBC 4.34 M/mm3 (3.60-5.2) 02/14/17 05:15 Hgb 12.4 GM/dL (10.7-15.3) 02/14/17 05:15 Hct 38.4 % (32.4-45.2) 02/14/17 05:15 MCV 88.5 fl (80-96) 02/14/17 05:15 MCHC 32.3 g/dl (32.0-36.0) 02/14/17 05:15 RDW 20.9 % (11.6-15.6) H 02/14/17 05:15 Plt Count 112 K/MM3 (134-434) L 02/14/17 05:15 MPV 9.7 fl (7.5-11.1) 02/14/17 05:15 CMP Sodium 142 mmol/L (136-145) 02/14/17 05:15 Potassium 3.0 mmol/L (3.5-5.1) L 02/14/17 05:15 Chloride 101 mmol/L (98-107) 02/14/17 05:15 Carbon Dioxide 33 mmol/L (21-32) H 02/14/17 05:15 Anion Gap 8 (8-16) 02/14/17 05:15 BUN 9 mg/dL (7-18) D 02/14/17 05:15 Creatinine 0.7 mg/dL (0.55-1.02) D 02/14/17 05:15 Creat Clearance w eGFR > 60 (>60) 02/14/17 05:15 Random Glucose 63 mg/dL (74-106) L D 02/14/17 05:15 Calcium 7.5 mg/dL (8.5-10.1) L 02/14/17 05:15 Total Bilirubin 1.5 mg/dL (0.2-1.0) H 02/14/17 05:15 AST 74 U/L (15-37) H 02/14/17 05:15 ALT 24 U/L (12-78) 02/14/17 05:15 Alkaline Phosphatase 156 U/L (45-117) H 02/14/17 05:15 Total Protein 5.5 g/dl (6.4-8.2) L 02/14/17 05:15 Albumin 2.4 g/dl (3.4-5.0) L 02/14/17 05:15 CARDIAC ENZYMES Creatine Kinase 83 IU/L (26-192) 02/11/17 04:00 Troponin I < 0.02 ng/ml (0.00-0.05) 02/12/17 18:45 ASSESSMENT AND PLAN: Status Epileptics Acute Respiratory Failure Acute on Chronic Systolic Heart Failure Lactic Acidosis resolved s/p ICD Elevated LFTs Hypothyroidism - antiepileptics per neuro, off propofol, remains on versed gtt, keppra po - Daily interuption of sedation - Daily breathing trials once hemodynamically improved - if can get extubated would pursue MRI - titrate levophed gtt to maintain MAP >65 - add vasopressin @ 2.4 units/hr - send sputum culture given low grade fever - repeat EEG PRN - cont enteral feeds - cont synthroid, repeat TSH next week - lasix as tolerated by BP - DVT/GI prophylaxis - continue ICU monitoring Boerem ACNP Pulm/CCM CCT: 35m
[2017-02-14] MEDS: LEVOTHYROXINE NA 150 MCG TABLET PO SCH (08:36)
[2017-02-14] MEDS ORDERED: VASOPRESSIN 20 UNITS/ML VIAL IV ONE ×2 (08:58→21:30)
[2017-02-14] MEDS: VASOPRESSIN 50 UNITS in SODIUM CHLORIDE 97.5 ML IVPB SCH (09:50)
[2017-02-14] MEDS: levETIRAcetam 500 MG/5 ML INJECTION VIAL IVPB SCH ×2 (10:04→21:16)
[2017-02-14] MEDS: PANTOPRAZOLE SODIUM 100 ML IVPB SCH (10:04)
[2017-02-14] MEDS: MUPIROCIN 2% TOPICAL OINTMENT FOR DECOLONIZATION NS SCH ×2 (10:04→21:18)
[2017-02-14] MEDS: BETAMETHASONE VALERATE 0.1% CREAM 15 GM TUBE TP SCH (10:05)
[2017-02-14] MEDS: NYSTATIN 100000 UNIT/GM TOPICAL OINTMENT 15 GM TUBE TP SCH ×2 (10:05→21:19)
--- NOTE | 2017-02-14 10:41 | PN ---
Progress Note, Physician Chief Complaint: seizures, altered mental status History of Present Illness: Ms Dailey is a 51 y/o woman, resident on [facility] with hx of Schizophrenia, HTN , AFib, CHF, s/p AICD/biV pacer, Hypothroidism and GERD who presented to ED yesterday with LE swelling and pain c/f DVT. In ED pt was awake but poorly responsive, only C/o pain everywhere. Was noted to have cool bilateral LE with very weak peripheral pulses, edema and poor cap refill-->CTA runoff showing multiple occlusive areas in b/l LE arteries. Vascular was consulted and there was tentative plan for surgery today. CT head was performed due to AMS which was without acute pathology. Labs were notable for new elevated Tbili and alk phos, low therapeutic VPA level, no WBC, normal h/H, and slightly elevate INR 1.3. She was admitted to floor. Over night [facility]ERMAN was called when pt found having tonic-clonic sz. Was given Ativan 2mg with resolution, repeat head CT was again without apparent infarct or bleed (read pending). She was brought to ICU where she cont to have repeated sz, without regaining mental status c/w status epilepticus. She was not protecting her airway or having effective ventilation ( 7.2/60) and so was intubated. EEG was ordered. Neuro and cards were consulted. Abd US was ordered for elevated bilis. Pt. was given another total of 4 mgs of Ativan but without effect, she was than placed on Midazolam drip now at 5mg/ hour. She is being loaded with Keppra 1000mg now and bering given Depakote thru her NGT. Also given Midazolam ivpx2. Pt. is unable to relate hx. Its not clear whether she has a hx. of seizures in the past as per ICU staff. Initially she was assumed to have epilepsy based on her outpatient medications, but her daughter is not aware of a seizure history. Since admission she hsa been given Vimpat and this was stopped when she developed an arrhythmia. She is also on IV Valproate 500 BID and her last level was only about 65. Less jerking than yesterday since increasing her valproate. - Current Medication List Current Medications: Active Medications Betamethasone Valerate (Valisone 0.1% Cream -) 1 applic TP DAILY ANNA Last Admin: 02/14/17 10:05 Dose: 1 applic Chlorhexidine Gluconate (Hibiclens For Decolonization -) 1 applic TP HS ANNA Last Admin: 02/13/17 21:23 Dose: 1 applic Furosemide (Lasix Injection -) 80 mg IVPUSH BID@0600,1400 ANNA Last Admin: 02/14/17 06:07 Dose: 80 mg Heparin Sodium (Porcine) (Heparin -) 5,000 unit SQ TID ANNA Last Admin: 02/14/17 06:07 Dose: 5,000 unit Pantoprazole Sodium (Protonix 40mg Ivpb (Pre-Docked)) 100 mls @ 200 mls/hr IVPB DAILY ANNA Last Admin: 02/14/17 10:04 Dose: 200 mls/hr Midazolam HCl 100 mg/ Sodium (Chloride) 100 mls @ 12 mls/hr IVPB TITR ANNA; 12 MG/HR PRN Reason: Protocol Last Admin: 02/13/17 21:40 Dose: 15 mls/hr Fentanyl 500 mcg/ Dextrose 100 mls @ 10 mls/hr IJ TITR ANNA PRN Reason: 50 MCG/HR Last Admin: 02/13/17 22:30 Dose: 20 mls/hr Norepinephrine Bitartrate 8, (000 mcg/ Dextrose) 500 mls @ 18.75 mls/hr IV TITR ANNA; 5 MCG/MIN PRN Reason: Protocol Last Titration: 02/14/17 02:33 Dose: 25 mcg/min Vasopressin 50 units/ Sodium (Chloride) 100 mls @ 4.8 mls/hr IVPB ASDIR ANNA PRN Reason: 2.4 UNITS/HR Last Admin: 02/14/17 09:50 Dose: 4.8 mls/hr Potassium Phosphate 30 mm/ (Sodium Chloride) 260 mls @ 62.5 mls/hr IVPB ONCE ONE Stop: 02/14/17 13:09 Last Admin: 02/14/17 09:10 Dose: 62.5 mls/hr Potassium Chloride (Potassium Chloride 20 Meq Premix Ivpb -) 100 mls @ 100 mls/ hr IVPB Q1H ANNA Stop: 02/14/17 15:59 Lactic Acid (Lac-Hydrin 12) 1 applic TP DAILY PRN PRN Reason: WOUND CARE Last Admin: 02/13/17 09:09 Dose: 1 applic Levetiracetam (Keppra Injection -) 1,500 mg IVPB BID [facility] Last Admin: 02/14/17 10:04 Dose: 1,500 mg Levothyroxine Sodium (Synthroid -) 150 mcg PO DAILY@0700 [facility] Last Admin: 02/14/17 08:36 Dose: 150 mcg Mupirocin (Bactroban Ointment (For Decolonization) -) 1 applic NS BID [facility] Stop: 02/16/17 21:59 Last Admin: 02/14/17 10:04 Dose: 1 applic Nystatin (Mycostatin Ointment -) 1 applic TP BID [facility] Last Admin: 02/14/17 10:05 Dose: 1 applic Valproate Sodium (Depacon Injection -) 500 mg IVPB Q8H [facility] Last Admin: 02/14/17 06:08 Dose: 500 mg - Objective Vital Signs: Vital Signs Temperature 99.5 F 02/14/17 02:00 Pulse Rate 96 H 02/14/17 09:50 Respiratory Rate 14 02/14/17 07:27 Blood Pressure 100/71 02/14/17 09:50 O2 Sat by Pulse Oximetry (%) 100 02/13/17 20:06 Neurological: Yes: Other (eyes no longer tonically deviated upwards. No jerking movements noted, but no response to verbal or tactile stimulation either) Labs: CBC, BMP 02/14/17 05:15 02/14/17 05:15 INR, PTT INR 1.17 (0.82-1.09) H 02/14/17 05:15 Fibrinogen 186.0 mg/dL (238-498) L 02/11/17 04:00 Problem List - Problems (1) Seizure Assessment/Plan: Seems better after valproate load and increased dose. F/U level tomorrow. Whether her mental status will improve is unclear. It may be that her seizures were secondary to another event, and given her severe cardiac disease and need for pressors, there may have been some hypoxic injury which may sock turner to be irreversible. Will have to see how she does over time. Dr. Rush covering Wednesday. Code(s): R56.9 - UNSPECIFIED CONVULSIONS
[2017-02-14] MEDS ORDERED: POTASSIUM CHLORIDE ORAL LIQUID 20 MEQ/15 ML PO SCH (13:00)
--- NOTE | 2017-02-14 13:08 | PN ---
Progress Note (short form) - Note Progress Note: CC: cardiomyopathy S: covering for patient's certified driver examiner Dr. Sanchez. uptitrated diuretic regimen yesterday to lasix 80 mg IV bid, but remained slightly net positive in the late evening. Discussed with nursing --> CVP measured at 15 at that time. Recommended double concentrating drips and did not hold morning lasix dose. this morning net negative, platelet drop noted. Current Medications Betamethasone Valerate (Valisone 0.1% Cream -) 1 applic TP DAILY ANNA Last Admin: 02/14/17 10:05 Dose: 1 applic Chlorhexidine Gluconate (Hibiclens For Decolonization -) 1 applic TP HS ANNA Last Admin: 02/13/17 21:23 Dose: 1 applic Furosemide (Lasix Injection -) 80 mg IVPUSH BID@0600,1400 ANNA Last Admin: 02/14/17 14:18 Dose: 80 mg Heparin Sodium (Porcine) (Heparin -) 5,000 unit SQ TID ANNA Last Admin: 02/14/17 14:18 Dose: 5,000 unit Pantoprazole Sodium (Protonix 40mg Ivpb (Pre-Docked)) 100 mls @ 200 mls/hr IVPB DAILY ANNA Last Admin: 02/14/17 10:04 Dose: 200 mls/hr Midazolam HCl 100 mg/ Sodium (Chloride) 100 mls @ 12 mls/hr IVPB TITR ANNA; 12 MG/HR PRN Reason: Protocol Last Admin: 02/13/17 21:40 Dose: 15 mls/hr Fentanyl 500 mcg/ Dextrose 100 mls @ 10 mls/hr IJ TITR ANNA PRN Reason: 50 MCG/HR Last Admin: 02/13/17 22:30 Dose: 20 mls/hr Norepinephrine Bitartrate 8, (000 mcg/ Dextrose) 500 mls @ 18.75 mls/hr IV TITR ANNA; 5 MCG/MIN PRN Reason: Protocol Last Titration: 02/14/17 02:33 Dose: 25 mcg/min Vasopressin 50 units/ Sodium (Chloride) 100 mls @ 4.8 mls/hr IVPB ASDIR ANNA PRN Reason: 2.4 UNITS/HR Last Admin: 02/14/17 09:50 Dose: 4.8 mls/hr Milrinone Lactate/Dextrose (Milrinone 20mg/100ml Ivpb -) 100 mls @ 10.013 mls/ hr IVPB TITR ANNA PRN Reason: 0.375 MCG/KG/MIN Last Admin: 02/14/17 14:57 Dose: 10.013 mls/hr Lactic Acid (Lac-Hydrin 12) 1 applic TP DAILY PRN PRN Reason: WOUND CARE Last Admin: 02/13/17 09:09 Dose: 1 applic Levetiracetam (Keppra Injection -) 1,500 mg IVPB BID [facility] Last Admin: 02/14/17 10:04 Dose: 1,500 mg Levothyroxine Sodium (Synthroid -) 150 mcg PO DAILY@0700 [facility] Last Admin: 02/14/17 08:36 Dose: 150 mcg Mupirocin (Bactroban Ointment (For Decolonization) -) 1 applic NS BID [facility] Stop: 02/16/17 21:59 Last Admin: 02/14/17 10:04 Dose: 1 applic Nystatin (Mycostatin Ointment -) 1 applic TP BID [facility] Last Admin: 02/14/17 10:05 Dose: 1 applic Potassium Chloride (Potassium Chloride Oral Liquid) 40 meq PO Q6H [facility] Stop: 02/15/17 02:31 Last Admin: 02/14/17 14:36 Dose: 40 meq Valproate Sodium (Depacon Injection -) 500 mg IVPB Q8H [facility] Last Admin: 02/14/17 14:24 Dose: 500 mg Vital Signs - 24 hr 02/13/17 02/13/17 02/13/17 17:05 18:00 18:16 Temperature Pulse Rate 100 H 100 H Respiratory 16 14 Rate Blood Pressure 110/83 110/83 O2 Sat by Pulse Oximetry (%) 02/13/17 02/13/17 02/13/17 19:22 19:39 20:00 Temperature Pulse Rate 96 H Respiratory 14 14 Rate Blood Pressure 108/80 O2 Sat by Pulse 99 Oximetry (%) 02/13/17 02/13/17 02/13/17 20:06 22:00 23:50 Temperature 99.4 F Pulse Rate 97 H 92 H Respiratory 14 15 Rate Blood Pressure 99/70 93/68 O2 Sat by Pulse 100 Oximetry (%) 02/14/17 02/14/17 02/14/17 00:00 00:11 02:00 Temperature 99.5 F Pulse Rate 97 H 79 Respiratory 14 14 14 Rate Blood Pressure 93/68 79/50 O2 Sat by Pulse Oximetry (%) 02/14/17 02/14/17 02/14/17 02:33 03:05 04:00 Temperature Pulse Rate 86 81 Respiratory 14 14 Rate Blood Pressure 73/50 88/69 O2 Sat by Pulse Oximetry (%) 02/14/17 02/14/17 02/14/17 05:25 06:00 07:27 Temperature Pulse Rate 84 Respiratory 14 14 14 Rate Blood Pressure 90/72 O2 Sat by Pulse Oximetry (%) 02/14/17 02/14/17 02/14/17 08:00 09:00 09:50 Temperature 99.9 F H Pulse Rate 97 H 96 H Respiratory 14 14 Rate Blood Pressure 105/73 100/71 O2 Sat by Pulse 99 Oximetry (%) 02/14/17 02/14/17 02/14/17 10:00 10:05 11:40 Temperature 99.8 F H Pulse Rate 87 83 Respiratory 14 15 14 Rate Blood Pressure 91/58 O2 Sat by Pulse 99 Oximetry (%) Intake & Output 02/12/17 02/13/17 02/14/17 02/15/17 07:59 07:59 07:59 07:59 Intake Total 2184.9 3763.3 3977.8 Output Total 500 2300 5500 800 Balance 1684.9 1463.3 -1522.2 -800 Weight 193 lb 9.6 oz 194 lb 8 oz 196 lb 3.382 oz CVP checked at bedside intubated, sedated jvd tds, neck supple mechanical breath sounds, ventilated RRR nl s1, s2, + s3 + bs soft nt nd obese diffuse dependent edema to abdomen and UE erythema/venous stasis changes of LE, warm + dp/pt no jaundice, diaphoresis no carotid bruits CBC, BMP 02/14/17 05:15 02/14/17 05:15 Laboratory Tests 02/13/17 02/14/17 05:15 05:15 Magnesium 1.7 L Total Bilirubin 1.5 H Direct Bilirubin 1.0 H D AST 74 H ALT 24 Alkaline Phosphatase 156 H TSH 18.70 H D EKG 02/10 AsVp, PVC's tele: AsVp. 1 brief episode of nsvt. per her certified driver examiner had [facility] 10/2016 --> nl cors echo here: Severe lv dilation, sev reduced LV fn (global). mod rv dilation. mod RV dysfunction. RV pacing wire. 2.8 x 1.2 cm density in apex of RV. --> discussed with Dr. Sanchez. bright echo density at the tip of pacing wire present on prior office echo. mod annelise. 1+ mr. mod tr. rvsp 30-40. trvial pericardial effusion. + pleural effusion. CTA: pulmonary congestion, small left pleural effusion. large volume ascites. extensive subcutaneous edema/anasarca. CTA --> + arterial flow to Le. head ct no acute pathology repeat cxr 02/14: improvement in congestive changes. dense left base persists. Assessment: 51 y/o woman, resident on [facility] with hx of biventricular cardiomyopathy s/ p bivICD, htn, afib (per report only), Schizophrenia, seizure disorder, Hypothroidism and GERD who presented to ED with LE swelling, coolness to touch and diminshed pulses as well as lethargy. Hospital course has been complicated by seizure/status epilepticus requiring intubation for airway protection and sedation. nonischemic biventricular cardiomyopathy s/p bivICD - holding bb and acei due to hypotension. - CE's were negative on admit and according to her certified driver examiner recent C showed normal cors - 02/12 patient p/w with lethargy, LE edema, cool skin, poor distal pulses, pulmonary edema, large volume ascites and anasarca noted on ct scan, --> concerning for decompensated biventricular heart failure. cvp checked 02/12 - 13 --> getting ionotropy from levophed with improvement in lft's. Given tenous clinical status, continued levophed rather than switching to milrinone since lft's improving and patient warm on exam. Started trial of IV lasix for diuresis 02/12. - 02/13. overnight propofol stopped due to increasing ectopy and concern for qt prolongation --> improvement in ectopy. patient's remained net positive, lasix was increased to 80 mg IV bid. Late evening cvp remained elevated at 15 and patient still not net negative. Drips were double concentrated. - PLAN FOR 02/14: overnight vasopressin was added. sedation was weaned and levophed weaned off today. Patient finally net negative this am. BP still running low. CVP remains elevated at 13 --> will start milrinone for decompensated heart failure. Patient still may have superimposed vasodilating pathology, con't pressor support for now. If patient continues to require extensive pressor support on milrinone would pursue further infectious evaluation. Con't lasix 80 mg IV bid with aggressive electrolyte repletion ( congestion improving on cxr, lfts improving, cr stable). double concentrate drips when possible. s/p bivICD - according to her certified driver examiner her ICD was recently interrogated 10/2016. - 02/12 with increasing ectopy throughout the day leading to sustained ventricular bigeminy with very broad abnormal t wave (no nsvt). concern for qt prolongation --> propofol weaned overnight with resolution of arrhythmia. RV echo density noted on echo - Echo here shows density in RV apex (couldn't exclude veg or thrombus). Discussed with Dr. Sanchez and patient had similarly described density on prior echo at his office, likely artifact from RV lead. However, if clinical concern for infection/endocarditis or emboli arises will have low threshold to better visualize with KAN. LE edema - persistent erythema of LE with bullous formation. monitor for superimposed infection. seizure disorder/status epilepticus - ongoing management per neuro/icu. Remains intubated and sedated. Avoid propofol due to qt prolonging properties. - head ct x 2 without acute pathology. afib - diagnosis documented on [facility] chart, but patient not on AC and in SR here (? accuracy of diagnosis). Will have to clarify with Dr. Sanchez when he returns. For now, if no evidence of afib/flutter on tele, will not start AC. hypothyroid - mgm't of thyroid abnormalities per pmd. cct 40 min
[2017-02-14] MEDS ORDERED: DOBUTAMINE HCL 250,000 MCG in SODIUM CHLORIDE 230 ML IV SCH (13:15)
[2017-02-14] MEDS ORDERED: POTASSIUM CHLORIDE 20 MEQ PREMIX IVPB 100 ML IVPB SCH (14:00)
[2017-02-14] MEDS ORDERED: KCL 20 MEQ PREMIX BAG 100 ML IVPB SCH (14:00)
[2017-02-14] MEDS ORDERED: MILRINONE 20MG/100ML IVPB - 100 ML IVPB SCH (14:30)
[2017-02-14] MEDS ORDERED: DOBUTAMINE 250 MG/D5W - 250 ML ONE (14:35)
[2017-02-14] MEDS: POTASSIUM CHLORIDE ORAL LIQUID 20 MEQ/15 ML PO SCH ×2 (14:36→21:16)
[2017-02-14] MEDS: MILRINONE 20MG/100ML IVPB - 100 ML IVPB SCH (17:23)
[2017-02-14] MEDS: CHLORHEXIDINE GLUCONATE 4% CLEANSER FOR DECOLONIZATION TP SCH (21:16)
--- NOTE | 2017-02-14 21:42 | EKG ---
Test Reason : Blood Pressure : / mmHG Vent. Rate : 106 BPM Atrial Rate : 106 BPM P-R Int : 120 ms QRS Dur : 176 ms QT Int : 380 ms P-R-T Axes : 065 113 -81 degrees QTc Int : 504 ms Biventricular pacemaker detected Ventricular-paced rhythm WITH FREQUENT PREMATURE VENTRICULAR COMPLEXES IN A PATTERN OF BIGEMINY RIGHT AXIS DEVIATION ABNORMAL T WAVE MORHPHOLOGY ABNORMAL ECG WHEN COMPARED WITH ECG OF 11-FEB-2017 03:34, PREMATURE VENTRICULAR COMPLEXES ARE NOW PRESENT Confirmed by MENDOZA OLGUIN MD ([id number]) on 02/14/2017 9:42:10 PM Referred By: Confirmed By:MENDOZA OLGUIN MD
[2017-02-15] MEDS: MILRINONE 20MG/100ML IVPB - 100 ML IVPB SCH ×2 (01:00→13:17)
[2017-02-15] MEDS ORDERED: LORazepam 2 MG/ML SDV VIAL ONE (01:07)
[2017-02-15] MEDS: MIDAZOLAM 100 MG in SODIUM CHLORIDE 100 ML IVPB SCH ×5 (01:30→22:21)
[2017-02-15] MEDS: FENTANYL INJECTION 500 MCG in DEXTROSE 5%-WATER - 90 ML IJ SCH ×4 (01:30→13:13)
[2017-02-15] MEDS: VASOPRESSIN 50 UNITS in SODIUM CHLORIDE 97.5 ML IVPB SCH ×3 (02:00→17:41)
[2017-02-15] MEDS: POTASSIUM CHLORIDE ORAL LIQUID 20 MEQ/15 ML PO SCH (02:14)
[2017-02-15] MEDS: NOREPINEPHRINE BITARTRATE 8,000 MCG in DEXTROSE 5%-WATER - 492 ML IV SCH ×5 (02:56→22:23)
[2017-02-15] MEDS ORDERED: NOREPINEPHRINE BITARTRATE 4 MG/4 ML ML IV ONE ×3 (03:52→21:17)
[2017-02-15] MEDS ORDERED: PT OWN MED DRAWER 7, Y5N ONE (06:00)
[2017-02-15 06:13] LABS: ALBUMIN 2.6 g/dl (3.4-5.0); ALK PHOS 162 U/L (45-117); ANION GAP 5 (8-16); BILIRUBIN,TOTAL 1.4 mg/dL (0.2-1.0); CALCIUM 7.9 mg/dL (8.5-10.1); CO2 36 mmol/L (21-32); CREATININE 0.8 mg/dL (0.55-1.02); GLUCOSE,RANDOM 212 mg/dL (74-106); PHOSPHOROUS 1.7 mg/dL (2.5-4.9); SGOT/AST 81 U/L (15-37); SGPT/ALT 23 U/L (12-78); TOT PROT 6.1 g/dl (6.4-8.2)
[2017-02-15] MEDS: VALPROATE SODIUM 500 MG/5 ML VIAL IVPB SCH ×3 (06:14→22:21)
[2017-02-15] MEDS: HEPARIN NA (PORCINE) 5,000 UNITS/ML 1ML VIAL SQ SCH ×3 (06:15→22:22)
[2017-02-15] MEDS: FUROSEMIDE 40 MG/4 ML INJECTABLE VIAL IVPUSH SCH ×2 (06:15→14:10)
[2017-02-15] MEDS: LEVOTHYROXINE NA 150 MCG TABLET PO SCH (06:15)
[2017-02-15 07:24] LABS: ARTERIAL BLD GAS O2 SATURATION 97.9 % (90-98.9); ARTERIAL BLOOD GAS BASE EXCESS 6.3 meq/l (-2-2); ARTERIAL BLOOD GAS HCO3 32.2 meq/L (22-26); ARTERIAL BLOOD GAS pH 7.39 (7.35-7.45)
[2017-02-15 07:25] LABS: ALLENS TEST POSITIVE; ART PUNCT SITE RIGHT RADIAL; LPM/O2% 40%; MECH. VENT. Y; PT. ON O2? YES; TYPE OF O2 VENT; VENT RATE 14; VT/PRESS 400
--- NOTE | 2017-02-15 08:59 | PN ---
Progress Note, Physician Chief Complaint: chf History of Present Illness: intubated/sedated appears calm, no sz activity noted - Current Medication List Current Medications: Active Medications Betamethasone Valerate (Valisone 0.1% Cream -) 1 applic TP DAILY ANNA Last Admin: 02/14/17 10:05 Dose: 1 applic Chlorhexidine Gluconate (Hibiclens For Decolonization -) 1 applic TP HS ANNA Last Admin: 02/14/17 21:16 Dose: 1 applic Furosemide (Lasix Injection -) 80 mg IVPUSH BID@0600,1400 ANNA Last Admin: 02/15/17 06:15 Dose: 80 mg Heparin Sodium (Porcine) (Heparin -) 5,000 unit SQ TID ANNA Last Admin: 02/15/17 06:15 Dose: 5,000 unit Pantoprazole Sodium (Protonix 40mg Ivpb (Pre-Docked)) 100 mls @ 200 mls/hr IVPB DAILY [facility] Last Admin: 02/14/17 10:04 Dose: 200 mls/hr Midazolam HCl 100 mg/ Sodium (Chloride) 100 mls @ 12 mls/hr IVPB TITR ANNA; 12 MG/HR PRN Reason: Protocol Last Admin: 02/15/17 02:53 Dose: Not Given Fentanyl 500 mcg/ Dextrose 100 mls @ 10 mls/hr IJ TITR ANNA PRN Reason: 50 MCG/HR Last Admin: 02/15/17 06:45 Dose: 20 mls/hr Norepinephrine Bitartrate 8, (000 mcg/ Dextrose) 500 mls @ 18.75 mls/hr IV TITR ANNA; 5 MCG/MIN PRN Reason: Protocol Last Admin: 02/15/17 03:00 Dose: 37.5 mls/hr Vasopressin 50 units/ Sodium (Chloride) 100 mls @ 4.8 mls/hr IVPB ASDIR ANNA PRN Reason: 2.4 UNITS/HR Last Admin: 02/15/17 06:44 Dose: 4.8 mls/hr Milrinone Lactate/Dextrose (Milrinone 20mg/100ml Ivpb -) 100 mls @ 8.01 mls/hr IVPB TITR ANNA PRN Reason: 0.3 MCG/KG/MIN Last Admin: 02/15/17 01:00 Dose: 8.01 mls/hr Lactic Acid (Lac-Hydrin 12) 1 applic TP DAILY PRN PRN Reason: WOUND CARE Last Admin: 02/13/17 09:09 Dose: 1 applic Levetiracetam (Keppra Injection -) 1,500 mg IVPB BID [facility] Last Admin: 02/14/17 21:16 Dose: 1,500 mg Levothyroxine Sodium (Synthroid -) 150 mcg PO DAILY@0700 [facility] Last Admin: 02/15/17 06:15 Dose: 150 mcg Mupirocin (Bactroban Ointment (For Decolonization) -) 1 applic NS BID [facility] Stop: 02/16/17 21:59 Last Admin: 02/14/17 21:18 Dose: 1 applic Nystatin (Mycostatin Ointment -) 1 applic TP BID [facility] Last Admin: 02/14/17 21:19 Dose: 1 applic Valproate Sodium (Depacon Injection -) 500 mg IVPB Q8H [facility] Last Admin: 02/15/17 06:14 Dose: 500 mg - Objective Vital Signs: Vital Signs Temperature 99.5 F 02/15/17 08:26 Pulse Rate 121 H 02/15/17 08:26 Respiratory Rate 16 02/15/17 08:26 Blood Pressure 106/81 02/15/17 08:26 O2 Sat by Pulse Oximetry (%) 100 02/14/17 22:00 Constitutional: Yes: Well Nourished, No Distress, Calm Cardiovascular: Yes: Regular Rate and Rhythm, Gallop (? S3), S1, S2. No: JVD ( very tds exam), Murmur Respiratory: Yes: Regular, Diminished (L base). No: Accessory Muscle Use, Rales , Wheezes Extremities: No: Cool Edema: Yes (1-2+ pretib) Neurological: No: Alert, Oriented, Seizure Psychiatric: No: Agitated Labs: CBC, BMP 02/14/17 05:15 02/15/17 05:30 INR, PTT INR 1.17 (0.82-1.09) H 02/14/17 05:15 Fibrinogen 186.0 mg/dL (238-498) L 02/11/17 04:00 - ....Imaging EKG: Other (tele: sinus tach As/Able Bodied Watchman-->converts to WCT that appears to be sinus tach with aberrant conduction) Assessment/Plan [facility] 10/2016 --> nl cors (verbal report from dr sanchez) Echo here: Severe lv dilation, sev reduced LV fn (global). mod rv dilation. mod RV dysfunction. RV pacing wire. 2.8 x 1.2 cm density in apex of RV (per discussion with Dr. Sanchez, bright echodensity at the tip of pacing wire was present on prior office echo). mod tr. rvsp 30-40. trivial pericardial effusion. + pleural effusion. CTA: pulmonary congestion, small left pleural effusion. large volume ascites. extensive subcutaneous edema/anasarca. CTA --> + arterial flow to LE. CT head: no acute pathology repeat cxr 02/14: improvement in congestive changes. dense left base persists. Assessment: 51 y/o woman, resident on [facility] with hx of biventricular cardiomyopathy s/ p bivICD, htn, afib (per report only), Schizophrenia, seizure disorder, Hypothroidism and GERD who presented to ED with LE swelling, coolness to touch and diminshed pulses as well as lethargy. Hospital course has been complicated by seizure/status epilepticus requiring intubation for airway protection and sedation. acute on chronic syst CHF, nonischemic biventricular cardiomyopathy s/p bivICD, cardiogenic shock - holding bb and acei due to hypotension. - CE's were negative on admit and according to her filing writer recent LHC showed normal cors - 02/12 BNP 2700, patient p/w with lethargy, LE edema, cool skin, poor distal pulses, pulmonary edema, large volume ascites and anasarca noted on ct scan, -- > concerning for decompensated biventricular heart failure. cvp 13 --> Started trial of IV lasix for diuresis 02/12, milrinone deferred at that time ( pt was on levophed). - 02/13: overnight propofol stopped due to increasing ectopy and concern for qt prolongation --> improvement in ectopy. patient's remained net positive, lasix was increased to 80 mg IV bid. Late evening cvp remained elevated at 15 and patient still not net negative. Drips were double concentrated. vasopressin added for recurrent hypotension (to 70s). - 02/14: levophed weaned off today. Patient finally net negative this am. BP still running low. CVP remains elevated at 13 --> started milrinone for decompensated heart failure. Patient still may have superimposed vasodilating pathology, con't pressor support for now. Con't lasix 80 mg IV bid with aggressive electrolyte repletion (congestion improving on cxr, lfts improving, cr stable). double concentrate drips when possible. - 02/15: CXR improved vs 02/13, L lung not well seen due to ICD and marked cardiomegaly obscuring L base. BP down to 70s again early am today, remains on high dose pressors (vasopressin 2.4 units/hour, levo 9 mcg). CVP has improved to 10 (from 17 initially) with diuresis plus milrinone (0.3 mcg/kg/min). vigorous UOP yesterday (8L). - in absence of signs of sepsis, this is likely low cardiac output/cardiogenic shock (wbc and temp curve consistently normal here, mult BCX's negative)-- though cannot exclude med effect from midazolam gtt, previously propafol gtt ( of note, initially BP 90s--first time 80s was 2-3 hrs after tonic-clonic sz/ intubation with meds on board) - cannot use dopamine given marked sinus tachy will not tolerate - for now, given pt is peripherally warm, CVP improved and renal fx stable, will continue combination of inotropic support with milrinone plus vasoconstricting pressors as doing--hope to be able to continue to effect aggressive diuresis and stop milrinone shortly wide complex tachycardia: - suspect tele represents sinus tach, initially with Bi-V pacing, then with loss of Bi-V pacing and pt conduction with [place] bundle branch block QRS (note 02/10 ekg shows Bi-V pacing with a fusion beat btw paced and conducted beats, showing a wide QRS with [place] conduction) - doubt sustained VT on tele - has ICD protection - CHF optimization and med regimen as doing - per dr sanchez, ICD was recently interrogated 10/2016 with no remarkable findings then. - 02/12 with increasing ectopy throughout the day leading to sustained ventricular bigeminy with very broad abnormal t wave (no nsvt). concern for qt prolongation --> propofol weaned overnight with resolution of arrhythmia. - electrolyte repletion to usual targets RV echo density noted on echo - Echo here shows density in RV apex (couldn't exclude veg or thrombus). Discussed with Dr. Sanchez and patient had similarly described density on prior echo at his office, likely artifact from RV lead. However, if clinical concern for infection/endocarditis or emboli arises will have low threshold to better visualize with KAN. seizure disorder/status epilepticus - ongoing management per neuro/icu. Remains intubated and sedated. Avoid propofol due to qt prolonging properties. - head ct x 2 without acute pathology. afib - diagnosis documented on retirement chart, but patient not on AC and in SR here (? accuracy of diagnosis)--will defer to Dr. Sanchez who is her treating outpatient filing writer. For now, if no evidence of afib/flutter on tele, will not start AC. hypothyroid - TSH improving from 47 to 18--mgm't of thyroid abnormalities per pmd. est crit care time in mgmt of potentially life-threatening conditions = 39 min
[2017-02-15] MEDS: levETIRAcetam 500 MG/5 ML INJECTION VIAL IVPB SCH ×2 (09:46→22:22)
[2017-02-15] MEDS: PANTOPRAZOLE SODIUM 100 ML IVPB SCH (09:46)
[2017-02-15] MEDS: MUPIROCIN 2% TOPICAL OINTMENT FOR DECOLONIZATION NS SCH ×2 (09:50→22:20)
[2017-02-15] MEDS: NYSTATIN 100000 UNIT/GM TOPICAL OINTMENT 15 GM TUBE TP SCH (09:50)
[2017-02-15] MEDS ORDERED: PHENobarbital SODIUM 130 MG/1 ML VIAL IV ONE (11:30)
--- NOTE | 2017-02-15 12:23 | PN ---
Teaching Attending Note Name of Resident: Bala Herndon ATTENDING PHYSICIAN STATEMENT I saw and evaluated the patient. I reviewed the resident's note and discussed the case with the resident. I agree with the resident's findings and plan as documented. SUBJECTIVE:sedated/intubated OBJECTIVE: Last Vital Signs Temp Pulse Resp BP Pulse Ox 99.5 F 113 H 15 103/73 115 H 02/15/17 08:26 02/15/17 12:00 02/15/17 11:11 02/15/17 12:00 02/15/17 09:46 Intake & Output 02/12/17 02/13/17 02/14/17 02/15/17 23:59 23:59 23:59 23:59 Intake Total 3859.7 4366 2297.2 2113.6 Output Total 1500 3100 8000 400 Balance 2359.7 1266 -5702.8 1713.6 Weight 193 lb 9.6 oz 194 lb 8 oz 196 lb 3.382 oz 163 lb 4 oz General sedated CV S1 S2 S3 no murmur Lungs coarse breath sounds anteriorly Abdomen soft +distended Extremities 2+pitting edema ASSESSMENT AND PLAN: 51yo F with PMH schizophrenia, hypothyroid, dilated cardiomyopathy s/p AICD, HTN and afib presented to the ER with B/L LE pain and concern for acute arterial ischemia. [employer] called for status epilepticus where pt was intubated for airway protection 1. Status epileptics- was reported to have myotonic twitching of the face and extremities this morning. no longer noted. antielptics titrated up. on versed and fentaynl. cont antileptic management per neuro. will need to obtain MRI once medically stable. consider LP 2. acute respiratory failure- intubated for protection of airway. cont full vent support. management per ICU 3. Ventricular bigeminy- possible induced from vimpat vs propofol. on levo. avoid QT prolonging medications. cardio on board. 4. Elevated TSH- T4 normal T3 very low indicating may not be sick euthyroid. repeat TSH is lower, may have not been complaint with medications. on higher synthroid dose. 5. shock-neurogenic vs cardiogenic. aggressive diuresis. on levo 15mcg, vaso. milrinone ggt. 30lb weight loss. net negative. CVP decreased. cont per cardio. . 6. Hypophosphatemia- Kphos 7. Hypokalemia- resolved 8. Hypomagenesemia- resolved 9. Cardiac thrombus- seen on AICD wire in RV. report from aircraft refueller pt had same finding on last echo. low suspicion for infectious. no signs of embolic disease. will monitor for now. consider KAN if necessary 10. Transaminitis- likely due to hypoperfusion. currently stable. will need to monitor while on depakene. monitor. 11. MICU monitoring. poor overall prognosis The care of this patient involved high complexity decision making to prevent further life threatening deterioration of the patient's condition and/or to evaluate & treat vital organ system(s) failure or risk of failure. 45 minutes critical care time
[2017-02-15 12:32] LABS: MCHC 31.2 g/dl (32.0-36.0); MEAN CELL VOLUME 89.8 fl (80-96); PLATELET COUNT 90 K/MM3 (134-434); RDW 20.5 % (11.6-15.6); WHITE BLOOD COUNT 6.9 K/mm3 (4.0-10.0)
[2017-02-15 12:57] LABS: ALBUMIN 2.7 g/dl (3.4-5.0); ANION GAP 6 (8-16); BILIRUBIN,TOTAL 1.5 mg/dL (0.2-1.0); CALCIUM 8.1 mg/dL (8.5-10.1); CO2 37 mmol/L (21-32); CREATININE 0.7 mg/dL (0.55-1.02); GLUCOSE,RANDOM 142 mg/dL (74-106); SGPT/ALT 23 U/L (12-78); TOT PROT 6.4 g/dl (6.4-8.2)
[2017-02-15 12:58] LABS: ALK PHOS 160 U/L (45-117)
[2017-02-15 13:07] LABS: SGOT/AST 89 U/L (15-37)
--- NOTE | 2017-02-15 13:19 | PN ---
Teaching Attending Note Name of Resident: Donal Lal ATTENDING PHYSICIAN STATEMENT I saw and evaluated the patient. I reviewed the resident's note and discussed the case with the resident. I agree with the resident's findings and plan as documented. SUBJECTIVE: Pt seen and examined in the ICU. Continues to seize despite high dose versed gtt , depakote, keppra. Remains intubated. On milrinone, levophed, vasopressin gtts. OBJECTIVE: Last Vital Signs Temp Pulse Resp BP Pulse Ox 99.5 F 113 H 15 103/73 115 H 02/15/17 08:26 02/15/17 12:00 02/15/17 11:11 02/15/17 12:00 02/15/17 09:46 Intake & Output 02/12/17 02/13/17 02/14/17 02/15/17 23:59 23:59 23:59 23:59 Intake Total 3859.7 4366 2297.2 2113.6 Output Total 1500 3100 8000 400 Balance 2359.7 1266 -5702.8 1713.6 Weight 193 lb 9.6 oz 194 lb 8 oz 196 lb 3.382 oz 163 lb 4 oz Gen: iintubated, sedated Heart: tachycardic, regular Lung: decreased breath sounds at the bases Abd: soft, nontender Ext: + edema CBC, BMP 02/15/17 10:32 02/15/17 10:32 Active Medications Betamethasone Valerate (Valisone 0.1% Cream -) 1 applic TP DAILY [facility] Last Admin: 02/14/17 10:05 Dose: 1 applic Chlorhexidine Gluconate (Hibiclens For Decolonization -) 1 applic TP HS [facility] Last Admin: 02/14/17 21:16 Dose: 1 applic Furosemide (Lasix Injection -) 80 mg IVPUSH BID@0600,1400 [facility] Last Admin: 02/15/17 06:15 Dose: 80 mg Heparin Sodium (Porcine) (Heparin -) 5,000 unit SQ TID [facility] Last Admin: 02/15/17 06:15 Dose: 5,000 unit Pantoprazole Sodium (Protonix 40mg Ivpb (Pre-Docked)) 100 mls @ 200 mls/hr IVPB DAILY [facility] Last Admin: 02/15/17 09:46 Dose: 200 mls/hr Midazolam HCl 100 mg/ Sodium (Chloride) 100 mls @ 12 mls/hr IVPB TITR ANNA; 12 MG/HR PRN Reason: Protocol Last Admin: 02/15/17 09:20 Dose: 15 mls/hr Fentanyl 500 mcg/ Dextrose 100 mls @ 10 mls/hr IJ TITR ANNA PRN Reason: 50 MCG/HR Last Admin: 02/15/17 13:13 Dose: 20 mls/hr Norepinephrine Bitartrate 8, (000 mcg/ Dextrose) 500 mls @ 18.75 mls/hr IV TITR ANNA; 5 MCG/MIN PRN Reason: Protocol Last Admin: 02/15/17 08:51 Dose: 37.5 mls/hr Vasopressin 50 units/ Sodium (Chloride) 100 mls @ 4.8 mls/hr IVPB ASDIR ANNA PRN Reason: 2.4 UNITS/HR Last Admin: 02/15/17 06:44 Dose: 4.8 mls/hr Milrinone Lactate/Dextrose (Milrinone 20mg/100ml Ivpb -) 100 mls @ 8.01 mls/hr IVPB TITR ANNA PRN Reason: 0.3 MCG/KG/MIN Last Admin: 02/15/17 01:00 Dose: 8.01 mls/hr Lactic Acid (Lac-Hydrin 12) 1 applic TP DAILY PRN PRN Reason: WOUND CARE Last Admin: 02/13/17 09:09 Dose: 1 applic Levetiracetam (Keppra Injection -) 1,500 mg IVPB BID [facility] Last Admin: 02/15/17 09:46 Dose: 1,500 mg Levothyroxine Sodium (Synthroid -) 150 mcg PO DAILY@0700 [facility] Last Admin: 02/15/17 06:15 Dose: 150 mcg Mupirocin (Bactroban Ointment (For Decolonization) -) 1 applic NS BID [facility] Stop: 02/16/17 21:59 Last Admin: 02/15/17 09:50 Dose: 1 applic Nystatin (Mycostatin Ointment -) 1 applic TP BID [facility] Last Admin: 02/15/17 09:50 Dose: 1 applic Phenobarbital (Phenobarbital Injection -) 100 mg IV BID [facility] Valproate Sodium (Depacon Injection -) 500 mg IVPB Q8H [facility] Last Admin: 02/15/17 06:14 Dose: 500 mg ASSESSMENT AND PLAN: Status Epileptics Acute Respiratory Failure Acute on Chronic Systolic Heart Failure Lactic Acidosis resolved s/p ICD Elevated LFTs Hypothyroidism - antiepileptics per neuro - start phenobarbital - titrate levophed, vasopressin gtt to maintain MAP >65 - continue lasix IV, milrinone gtt - f/u EEG - lighten sedation if no seizure activity noted on EEG - will need repeat CT head when more stable - enteral feeds - DVT/GI prophylaxis - continue ICU monitoring - poor overall prognosis critical care time spent in reviewing chart, evaluating patient and formulating plan 40 min
[2017-02-15] MEDS: BETAMETHASONE VALERATE 0.1% CREAM 15 GM TUBE TP SCH (13:35)
--- NOTE | 2017-02-15 13:49 | PN ---
Physical Exam: SUBJECTIVE: Patient seen and examined. Hypotensive episode last night around 2am in tghe mid-70's corrected with Levophed and vasopressin.. Patient still seizing, started on phenobarbital with close monitoring of vital and titration of levophed and vasopressin OBJECTIVE: Vital Signs Period Temp Pulse Resp BP Sys/Centeno Pulse Ox Last 24 Hr 98.4 F-99.7 F 97-126 12-20 72-119/53-92 98-115 GENERAL: The patient is intubated, sedated, frequents and intermittent focal seizures of the lower face HEAD: Normal with no signs of trauma. EYES: PERRL, eyes rolled back, pupils unresponsive to light LUNGS: mechanical breath sounds, ventilated HEART: Regular rate and rhythm, S1, S2 without murmur, rub or gallop. ABDOMEN: Soft, obese abdomen, normoactive bowel sounds EXTREMITIES: erythematous, indurated lower extremeties bilaterally. NEUROLOGICAL: actively seizing SKIN: anansarca Laboratory Results - last 24 hr 02/14/17 02/15/17 02/15/17 20:56 05:30 07:20 WBC RBC Hgb Hct MCV MCH MCHC RDW Plt Count MPV Anticoagulation Therapy Y Puncture Site Right radial ABG pH 7.39 ABG pCO2 at Pt Temp 55.0 H D ABG pO2 at Pt Temp 105.0 H ABG HCO3 32.2 H ABG O2 Sat (Measured) 97.9 ABG O2 Content 16.1 ABG Base Excess 6.3 H Bob Test Positive O2 Delivery Device Vent Oxygen Flow Rate 40% Vent Mode A/c Vent Rate 14 Mechanical Rate Y PEEP 6.0 Pressure Support Vent 400 Sodium 142 Potassium 4.1 D Chloride 101 Carbon Dioxide 36 H Anion Gap 5 L BUN 12 D Creatinine 0.8 Creat Clearance w eGFR POC Glucometer [id number] Random Glucose 212 H D Calcium 7.9 L Phosphorus 1.7 L Magnesium 2.0 Total Bilirubin 1.4 H Direct Bilirubin 1.0 H AST 81 H ALT 23 Alkaline Phosphatase 162 H Total Protein 6.1 L Albumin 2.6 L Valproic Acid 02/15/17 02/15/17 02/15/17 10:32 10:32 10:32 WBC 6.9 RBC 4.06 Hgb 11.4 Hct 36.5 MCV 89.8 MCH 28.0 MCHC 31.2 L RDW 20.5 H Plt Count 90 L MPV 10.0 Anticoagulation Therapy Puncture Site ABG pH ABG pCO2 at Pt Temp ABG pO2 at Pt Temp ABG HCO3 ABG O2 Sat (Measured) ABG O2 Content ABG Base Excess Bob Test O2 Delivery Device Oxygen Flow Rate Vent Mode Vent Rate Mechanical Rate PEEP Pressure Support Vent Sodium 140 Potassium 4.0 Chloride 97 L Carbon Dioxide 37 H Anion Gap 6 L BUN 11 Creatinine 0.7 Creat Clearance w eGFR > 60 POC Glucometer Random Glucose 142 H D Calcium 8.1 L Phosphorus 2.0 L Magnesium 2.0 Total Bilirubin 1.5 H Direct Bilirubin AST 89 H ALT 23 Alkaline Phosphatase 160 H Total Protein 6.4 Albumin 2.7 L Valproic Acid 104.182 H Active Medications Generic Name Dose Route Start Last Admin Trade Name Edinq PRN Reason Stop Dose Admin Betamethasone Valerate 1 applic 02/12/17 10:00 02/14/17 10:05 Valisone 0.1% Cream - TP 1 applic DAILY ANNA Administration Chlorhexidine Gluconate 1 applic 02/11/17 22:00 02/14/17 21:16 Hibiclens For Decolonization - TP 1 applic HS ANNA Administration Furosemide 80 mg 02/13/17 16:30 02/15/17 06:15 Lasix Injection - IVPUSH 80 mg BID@0600,1400 ANNA Administration Heparin Sodium (Porcine) 5,000 unit 02/11/17 14:30 02/15/17 06:15 Heparin - SQ 5,000 unit TID ANNA Administration Pantoprazole Sodium 100 mls @ 200 mls/hr 02/12/17 10:00 02/15/17 09:46 Protonix 40mg Ivpb (Pre-Docked) IVPB 200 mls/hr DAILY ANNA Administration Midazolam HCl 100 mg/ Sodium 100 mls @ 12 mls/hr 02/12/17 21:44 02/15/17 09:20 Chloride IVPB 15 mls/hr TITR ANNA Administration Protocol 12 MG/HR Fentanyl 500 mcg/ Dextrose 100 mls @ 10 mls/hr 02/12/17 22:30 02/15/17 13:13 IJ 20 mls/hr TITR ANNA Administration 50 MCG/HR Norepinephrine Bitartrate 8, 500 mls @ 18.75 mls/hr 02/13/17 23:50 02/15/17 08: 51 000 mcg/ Dextrose IV 37.5 mls/hr TITR ANNA Administration Protocol 5 MCG/MIN Vasopressin 50 units/ Sodium 100 mls @ 4.8 mls/hr 02/14/17 07:45 02/15/17 06:44 Chloride IVPB 4.8 mls/hr ASDIR ANNA Administration 2.4 UNITS/HR Milrinone Lactate/Dextrose 100 mls @ 8.01 mls/hr 02/14/17 17:15 02/15/17 13:17 Milrinone 20mg/100ml Ivpb - IVPB 8.01 mls/hr TITR ANNA Administration 0.3 MCG/KG/MIN Lactic Acid 1 applic 02/11/17 13:05 02/13/17 09:09 Lac-Hydrin 12 TP 1 applic DAILY PRN Administration WOUND CARE Levetiracetam 1,500 mg 02/12/17 09:01 02/15/17 09:46 Keppra Injection - IVPB 1,500 mg BID ANNA Administration Levothyroxine Sodium 150 mcg 02/13/17 07:00 02/15/17 06:15 Synthroid - PO 150 mcg DAILY@0700 ANNA Administration Mupirocin 1 applic 02/11/17 22:00 02/15/17 09:50 Bactroban Ointment (For Decolonization) - NS 02/16/17 21:59 1 applic BID ANNA Administration Nystatin 1 applic 02/11/17 01:00 02/15/17 09:50 Mycostatin Ointment - TP 1 applic BID ANNA Administration Phenobarbital 100 mg 02/15/17 22:00 Phenobarbital Injection - IV BID ANNA Valproate Sodium 500 mg 02/13/17 22:00 02/15/17 06:14 Depacon Injection - IVPB 500 mg Q8H ANNA Administration ASSESSMENT/PLAN: 51F with pmh of biventricular cardiomyopathy s/p bivICD, HTN, afib, schizophrenia, seizure disorder, hypothyroidism and GERD followed in [facility] ICU for status epilepticus. Neuro: Status Epilepticus: continue Keppra and Valproate per Neurology. However seizure still ongoing. Start phenobarbital 100mg iv BID while titrating pressors and closely monitoring BP. F/U EEG and Neuro consult. Perform CT head when seizing is controlled. Cardio: Hypotension and Acute on chronic systolic heart failure: titrate levophed ( currently at 500mls @37.5mls/hour) and Vasopressin (100 mls @ 4.8 mls/hr) with goal to maintain MAP >65. Continue Milrinone 20mg for inotropy. Respiratory:Keep on current ventilation settings until seizure is controlled. Fentanyl + midazolam for sedation. GI: enteral feeds Endocrine: hypothyroidism: Keep levothyroxine dose. DVT/GI prophylaxis. Soc: Talk with family about poor prognosis, likely negative outcome? Visit type - Emergency Visit Emergency Visit: No - New Patient This patient is new to me today: Yes Date on this admission: 02/15/17 - Critical Care Critical Care patient: Yes Total Critical Care Time (in minutes): 60 Critical Care Statement: The care of this patient involved high complexity decision making to prevent further life threatening deterioration of the patient 's condition and/or to evaluate & treat vital organ system(s) failure or risk of failure.
[2017-02-15] MEDS ORDERED: POTASSIUM PHOSPHATE 30 MM in SODIUM CHLORIDE 250 ML IVPB ONE (15:00)
[2017-02-15] MEDS ORDERED: VASOPRESSIN 20 UNITS/ML VIAL IV ONE (17:21)
--- NOTE | 2017-02-15 18:37 | PN ---
Physical Exam: SUBJECTIVE: Patient seen and examined at bedside. Intubated and sedated. Patient continues to have seizure activity despite current antiepileptics OBJECTIVE: Vital Signs Period Temp Pulse Resp BP Sys/Centeno Pulse Ox Last 24 Hr 98.4 F-99.5 F 97-126 14-20 72-119/53-92 98-115 GENERAL: The patient is awake, alert, and fully oriented, in no acute distress. HEAD: Normal with no signs of trauma. EYES: PERRL, sclera anicteric, conjunctiva clear. NECK: Trachea midline, full range of motion, supple. LUNGS: Breath sounds equal, clear to auscultation bilaterally. decreased breath sounds at the bases. no wheezes, no crackles, no accessory muscle use. HEART: Regular rate and rhythm, S1, S2 without murmur, rub or gallop. ABDOMEN: Soft, no grimace in response to palpation, nondistended, normoactive bowel sounds, no guarding, no rebound. NEUROLOGICAL: unable to assess due to clinical status Laboratory Results - last 24 hr 02/14/17 02/15/17 02/15/17 20:56 05:30 07:20 WBC RBC Hgb Hct MCV MCH MCHC RDW Plt Count MPV Anticoagulation Therapy Y Puncture Site Right radial ABG pH 7.39 ABG pCO2 at Pt Temp 55.0 H D ABG pO2 at Pt Temp 105.0 H ABG HCO3 32.2 H ABG O2 Sat (Measured) 97.9 ABG O2 Content 16.1 ABG Base Excess 6.3 H Bob Test Positive O2 Delivery Device Vent Oxygen Flow Rate 40% Vent Mode A/c Vent Rate 14 Mechanical Rate Y PEEP 6.0 Pressure Support Vent 400 Sodium 142 Potassium 4.1 D Chloride 101 Carbon Dioxide 36 H Anion Gap 5 L BUN 12 D Creatinine 0.8 Creat Clearance w eGFR POC Glucometer 186.67524 Random Glucose 212 H D Lactic Acid Calcium 7.9 L Phosphorus 1.7 L Magnesium 2.0 Total Bilirubin 1.4 H Direct Bilirubin 1.0 H AST 81 H ALT 23 Alkaline Phosphatase 162 H Total Protein 6.1 L Albumin 2.6 L Valproic Acid 02/15/17 02/15/17 02/15/17 10:32 10:32 10:32 WBC 6.9 RBC 4.06 Hgb 11.4 Hct 36.5 MCV 89.8 MCH 28.0 MCHC 31.2 L RDW 20.5 H Plt Count 90 L MPV 10.0 Anticoagulation Therapy Puncture Site ABG pH ABG pCO2 at Pt Temp ABG pO2 at Pt Temp ABG HCO3 ABG O2 Sat (Measured) ABG O2 Content ABG Base Excess Bob Test O2 Delivery Device Oxygen Flow Rate Vent Mode Vent Rate Mechanical Rate PEEP Pressure Support Vent Sodium 140 Potassium 4.0 Chloride 97 L Carbon Dioxide 37 H Anion Gap 6 L BUN 11 Creatinine 0.7 Creat Clearance w eGFR > 60 POC Glucometer Random Glucose 142 H D Lactic Acid 2.2 H* Calcium 8.1 L Phosphorus 2.0 L Magnesium 2.0 Total Bilirubin 1.5 H Direct Bilirubin AST 89 H ALT 23 Alkaline Phosphatase 160 H Total Protein 6.4 Albumin 2.7 L Valproic Acid 02/15/17 10:32 WBC RBC Hgb Hct MCV MCH MCHC RDW Plt Count MPV Anticoagulation Therapy Puncture Site ABG pH ABG pCO2 at Pt Temp ABG pO2 at Pt Temp ABG HCO3 ABG O2 Sat (Measured) ABG O2 Content ABG Base Excess Bob Test O2 Delivery Device Oxygen Flow Rate Vent Mode Vent Rate Mechanical Rate PEEP Pressure Support Vent Sodium Potassium Chloride Carbon Dioxide Anion Gap BUN Creatinine Creat Clearance w eGFR POC Glucometer Random Glucose Lactic Acid Calcium Phosphorus Magnesium Total Bilirubin Direct Bilirubin AST ALT Alkaline Phosphatase Total Protein Albumin Valproic Acid 104.182 H Active Medications Generic Name Dose Route Start Last Admin Trade Name Freq PRN Reason Stop Dose Admin Betamethasone Valerate 1 applic 02/12/17 10:00 02/15/17 13:35 Valisone 0.1% Cream - TP 1 applic DAILY ANNA Administration Chlorhexidine Gluconate 1 applic 02/11/17 22:00 02/14/17 21:16 Hibiclens For Decolonization - TP 1 applic HS ANNA Administration Furosemide 80 mg 02/13/17 16:30 02/15/17 14:10 Lasix Injection - IVPUSH 80 mg BID@0600,1400 ANNA Administration Heparin Sodium (Porcine) 5,000 unit 02/11/17 14:30 02/15/17 14:10 Heparin - SQ 5,000 unit TID ANNA Administration Pantoprazole Sodium 100 mls @ 200 mls/hr 02/12/17 10:00 02/15/17 09:46 Protonix 40mg Ivpb (Pre-Docked) IVPB 200 mls/hr DAILY ANNA Administration Midazolam HCl 100 mg/ Sodium 100 mls @ 12 mls/hr 02/12/17 21:44 02/15/17 15:15 Chloride IVPB 15 mls/hr TITR ANNA Administration Protocol 12 MG/HR Fentanyl 500 mcg/ Dextrose 100 mls @ 10 mls/hr 02/12/17 22:30 02/15/17 18:19 IJ 100 mcg/hr TITR ANNA Titration 50 MCG/HR Norepinephrine Bitartrate 8, 500 mls @ 18.75 mls/hr 02/13/17 23:50 02/15/17 18: 05 000 mcg/ Dextrose IV 6 mcg/min TITR ANNA Titration Protocol 5 MCG/MIN Vasopressin 50 units/ Sodium 100 mls @ 4.8 mls/hr 02/14/17 07:45 02/15/17 17:41 Chloride IVPB 4.8 mls/hr ASDIR ANNA Administration 2.4 UNITS/HR Milrinone Lactate/Dextrose 100 mls @ 8.01 mls/hr 02/14/17 17:15 02/15/17 13:17 Milrinone 20mg/100ml Ivpb - IVPB 8.01 mls/hr TITR ANNA Administration 0.3 MCG/KG/MIN Potassium Phosphate 30 mm/ 260 mls @ 62.5 mls/hr 02/15/17 15:00 02/15/17 17:40 Sodium Chloride IVPB 02/15/17 19:09 62.5 mls/hr ONCE ONE Administration Lactic Acid 1 applic 02/11/17 13:05 02/13/17 09:09 Lac-Hydrin 12 TP 1 applic DAILY PRN Administration WOUND CARE Levetiracetam 1,500 mg 02/12/17 09:01 02/15/17 09:46 Keppra Injection - IVPB 1,500 mg BID ANNA Administration Levothyroxine Sodium 150 mcg 02/13/17 07:00 02/15/17 06:15 Synthroid - PO 150 mcg DAILY@0700 ANNA Administration Mupirocin 1 applic 02/11/17 22:00 02/15/17 09:50 Bactroban Ointment (For Decolonization) - NS 02/16/17 21:59 1 applic BID ANNA Administration Nystatin 1 applic 02/11/17 01:00 02/15/17 09:50 Mycostatin Ointment - TP 1 applic BID ANNA Administration Phenobarbital 100 mg 02/15/17 22:00 Phenobarbital Injection - IV BID ANNA Valproate Sodium 500 mg 02/13/17 22:00 02/15/17 14:12 Depacon Injection - IVPB 500 mg Q8H ANNA Administration ASSESSMENT/PLAN: 51yo F with pmhx of 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 CTA runoff showing multiple occlusive areas in b/l arteries. Head CT acutely negative. #New onset seizure disorder, 2/2 to unknown etiology -continue keppra to 1500 mg BID -continue depacone 500 mg bid -Versed GTT -Lacosamide 100 mg iv bid -added phenobarbital 100mg IV BID -First EEG suggests metabolic encephalopathy; follow up repeat EEG -The make and model of the patient's pacemaker in not MRI compatible -Consider LP -F/u neurology reconsult #Shock 2/2 neurogenic vs cardiogenic etiology -Milrinone GTT -Levophed GTT -Vasopressin GTT #Acute respiratory failure -Intubated for airway protection -Continue vent support per ICU # Arterial insufficiency --CTA shows patent vessels --Distal b/l extremities cold, cap refill >2, and pulses absent, but present with doppler --Vascular surgery consulted, Dr. Hoang # Dilated cardiomyopathy --S/P AICD working appropriately --Most recent Echo June 2016 --EF of 21% --Severe global hypokinesis --Mod dilated LV --Echo reveals thrombus in RV. Will discuss with cardio regarding KAN -home toprolol held due to hypotension --Be careful with IVF # hx of Atrial Fibrillation -monitor off beta blockers # Abdominal Distention with transaminitis --continue to monitor # Atopic Dermatitis --Continued home nystatin cream for application on abdominal areas --Ammonium lactate lotion --Betamethasone 0.1% cream # Hypothyroidism --Continued home Synthroid 125mcg PO qDaily FEN: Fluids: None currently Electrolyte abnormalities: hypokalemia Nutrition: NPO ppx: -Heparin 5000 units sq tid -protonix 40 IV daily Problem List - Problems (1) Chronic congestive heart failure Code(s): I50.9 - HEART FAILURE, UNSPECIFIED Qualifiers: Congestive heart failure type: unspecified congestive heart failure type Qualified Code(s): I50.9 - Heart failure, unspecified (2) Hypertension Code(s): I10 - ESSENTIAL (PRIMARY) HYPERTENSION Qualifiers: Hypertension type: essential hypertension Qualified Code(s): I10 - Essential (primary) hypertension (3) Schizophrenia, paranoid, chronic Code(s): F20.0 - PARANOID SCHIZOPHRENIA (4) Seizure Code(s): R56.9 - UNSPECIFIED CONVULSIONS (5) Rash Code(s): R21 - RASH AND OTHER NONSPECIFIC SKIN ERUPTION (6) Peripheral arterial disease Code(s): I73.9 - PERIPHERAL VASCULAR DISEASE, UNSPECIFIED Visit type - Emergency Visit Emergency Visit: Yes ED Registration Date: 02/10/17 Care time: The patient presented to the Emergency Department on the above date and was hospitalized for further evaluation of their emergent condition. - New Patient This patient is new to me today: No - Critical Care Critical Care patient: Yes Total Critical Care Time (in minutes): 40 Critical Care Statement: The care of this patient involved high complexity decision making to prevent further life threatening deterioration of the patient 's condition and/or to evaluate & treat vital organ system(s) failure or risk of failure.
--- NOTE | 2017-02-15 19:05 | EKG ---
Test Reason : Blood Pressure : / mmHG Vent. Rate : 105 BPM Atrial Rate : 208 BPM P-R Int : 000 ms QRS Dur : 172 ms QT Int : 384 ms P-R-T Axes : 066 114 -79 degrees QTc Int : 507 ms ventricular-paced complexes RIGHT AXIS DEVIATION NON-SPECIFIC INTRA-VENTRICULAR CONDUCTION BLOCK ABNORMAL ECG WHEN COMPARED WITH ECG OF 12-FEB-2017 18:02, LIKELY NO SIGNIFICANT CHANGES WERE SEEN Confirmed by GEOVANY PARIKH, DAVE ([id number]) on 02/15/2017 7:05:25 PM Referred By: Confirmed By:DAVE ARMENTA MD
--- NOTE | 2017-02-15 20:44 | PN ---
Progress Note, Physician History of Present Illness: HPI: Ms Dailey all through last night and this morning had facial 'twitching" movements of face, these were similar to movements which were thought to be seizures- pt. was in convulsive Se. I requested loading with Phenobarbital 300mg i/v over 30 minutesx 1-since as per nursing staff she has had no movements at all. O/E Pt. is comnatose with eyes closed, no response to pain. Eyes are midline with 3mm bilat. pupils, reactive to light and Dolls eye movements/corneal reflexes are present. No movements tp pain in all 4 extremities. toesare bilaterally upgoing. VPA level 104(this mornings level).. Plan: 1) Phenobarbital 100mg i/vss, bid 2) Cont. Depacon/ Keppra at current doses 3) Barbiturate level in the morning. Hailey Rush MD - Current Medication List Current Medications: Active Medications Betamethasone Valerate (Valisone 0.1% Cream -) 1 applic TP DAILY [facility] Last Admin: 02/15/17 13:35 Dose: 1 applic Chlorhexidine Gluconate (Hibiclens For Decolonization -) 1 applic TP HS ANNA Last Admin: 02/14/17 21:16 Dose: 1 applic Furosemide (Lasix Injection -) 80 mg IVPUSH BID@0600,1400 [facility] Last Admin: 02/15/17 14:10 Dose: 80 mg Heparin Sodium (Porcine) (Heparin -) 5,000 unit SQ TID [facility] Last Admin: 02/15/17 14:10 Dose: 5,000 unit Pantoprazole Sodium (Protonix 40mg Ivpb (Pre-Docked)) 100 mls @ 200 mls/hr IVPB DAILY [facility] Last Admin: 02/15/17 09:46 Dose: 200 mls/hr Midazolam HCl 100 mg/ Sodium (Chloride) 100 mls @ 12 mls/hr IVPB TITR ANNA; 12 MG/HR PRN Reason: Protocol Last Admin: 02/15/17 15:15 Dose: 15 mls/hr Fentanyl 500 mcg/ Dextrose 100 mls @ 10 mls/hr IJ TITR ANNA PRN Reason: 50 MCG/HR Last Titration: 02/15/17 18:19 Dose: 100 mcg/hr Norepinephrine Bitartrate 8, (000 mcg/ Dextrose) 500 mls @ 18.75 mls/hr IV TITR ANNA; 5 MCG/MIN PRN Reason: Protocol Last Titration: 02/15/17 18:05 Dose: 6 mcg/min Vasopressin 50 units/ Sodium (Chloride) 100 mls @ 4.8 mls/hr IVPB ASDIR ANNA PRN Reason: 2.4 UNITS/HR Last Admin: 02/15/17 17:41 Dose: 4.8 mls/hr Milrinone Lactate/Dextrose (Milrinone 20mg/100ml Ivpb -) 100 mls @ 8.01 mls/hr IVPB TITR ANNA PRN Reason: 0.3 MCG/KG/MIN Last Admin: 02/15/17 13:17 Dose: 8.01 mls/hr Lactic Acid (Lac-Hydrin 12) 1 applic TP DAILY PRN PRN Reason: WOUND CARE Last Admin: 02/13/17 09:09 Dose: 1 applic Levetiracetam (Keppra Injection -) 1,500 mg IVPB BID [facility] Last Admin: 02/15/17 09:46 Dose: 1,500 mg Levothyroxine Sodium (Synthroid -) 150 mcg PO DAILY@0700 [facility] Last Admin: 02/15/17 06:15 Dose: 150 mcg Mupirocin (Bactroban Ointment (For Decolonization) -) 1 applic NS BID [facility] Stop: 02/16/17 21:59 Last Admin: 02/15/17 09:50 Dose: 1 applic Nystatin (Mycostatin Ointment -) 1 applic TP BID [facility] Last Admin: 02/15/17 09:50 Dose: 1 applic Phenobarbital (Phenobarbital Injection -) 100 mg IV BID [facility] Valproate Sodium (Depacon Injection -) 500 mg IVPB Q8H [facility] Last Admin: 02/15/17 14:12 Dose: 500 mg - Objective Vital Signs: Vital Signs Temperature 98.9 F 02/15/17 17:34 Pulse Rate 102 H 02/15/17 20:00 Respiratory Rate 18 02/15/17 20:00 Blood Pressure 80/54 02/15/17 20:00 O2 Sat by Pulse Oximetry (%) 99 02/15/17 19:56 Labs: CBC, BMP 02/15/17 10:32 02/15/17 10:32 INR, PTT INR 1.17 (0.82-1.09) H 02/14/17 05:15 Fibrinogen 186.0 mg/dL (238-498) L 02/11/17 04:00
[2017-02-15] MEDS ORDERED: MILRINONE 20MG/100ML IVPB - 100 ML IVPB ONE (21:17)
[2017-02-15] MEDS: CHLORHEXIDINE GLUCONATE 4% CLEANSER FOR DECOLONIZATION TP SCH (22:22)
[2017-02-15] MEDS: PHENobarbital SODIUM 130 MG/1 ML VIAL IV SCH (22:22)
[2017-02-16] MEDS: NOREPINEPHRINE BITARTRATE 8,000 MCG in DEXTROSE 5%-WATER - 492 ML IV SCH ×3 (00:03→23:56)
[2017-02-16] MEDS: MILRINONE 20MG/100ML IVPB - 100 ML IVPB SCH (00:04)
[2017-02-16] MEDS: NYSTATIN 100000 UNIT/GM TOPICAL OINTMENT 15 GM TUBE TP SCH ×3 (00:04→21:37)
[2017-02-16] MEDS: FENTANYL INJECTION 500 MCG in DEXTROSE 5%-WATER - 90 ML IJ SCH ×4 (00:05→23:55)
[2017-02-16] MEDS ORDERED: PT OWN MED DRAWER 7, Y5N ONE ×2 (02:40→21:28)
[2017-02-16] MEDS: VALPROATE SODIUM 500 MG/5 ML VIAL IVPB SCH ×3 (05:23→21:36)
[2017-02-16] MEDS: HEPARIN NA (PORCINE) 5,000 UNITS/ML 1ML VIAL SQ SCH ×3 (05:23→21:35)
[2017-02-16] MEDS: FUROSEMIDE 40 MG/4 ML INJECTABLE VIAL IVPUSH SCH ×2 (05:24→14:10)
[2017-02-16] MEDS: LEVOTHYROXINE NA 150 MCG TABLET PO SCH (06:07)
[2017-02-16 06:51] LABS: BASOPHIL 0.6 % (0-2.0); EOSINOPHIL 0.5 % (0-4.5); MCH 28.6 pg (25.7-33.7); MCHC 31.6 g/dl (32.0-36.0); MEAN CELL VOLUME 90.5 fl (80-96); MEAN PLT VOLUME 10.3 fl (7.5-11.1); NEUTROPHILS 83.3 % (42.8-82.8); PLATELET COUNT 75 K/MM3 (134-434); RDW 20.6 % (11.6-15.6); WHITE BLOOD COUNT 6.9 K/mm3 (4.0-10.0)
[2017-02-16 07:27] LABS: ALBUMIN 2.5 g/dl (3.4-5.0); ALK PHOS 150 U/L (45-117); ANION GAP 5 (8-16); BILIRUBIN,TOTAL 1.2 mg/dL (0.2-1.0); CALCIUM 7.9 mg/dL (8.5-10.1); CO2 38 mmol/L (21-32); CREATININE 0.7 mg/dL (0.55-1.02); GLUCOSE,RANDOM 159 mg/dL (74-106); MAGNESIUM 1.8 mg/dL (1.8-2.4); PHOSPHOROUS 2.5 mg/dL (2.5-4.9); SGOT/AST 79 U/L (15-37); SGPT/ALT 20 U/L (12-78); TOT PROT 6.1 g/dl (6.4-8.2)
--- NOTE | 2017-02-16 08:02 | PN ---
Physical Exam: SUBJECTIVE: Patient seen and examined. Started on Phenobarbital at 22:22, as per Neurology. Vital signs stable overnight, no hypotension, some tachycardia this morning.Seem to have temporarily controlled her facial twitching overnight , but those have resume this morning on examination. EEG done yesterday: Abnormal EEg due to presence of diffuse slowing, burst suppression pattern and epileptiform activity. Patient tachy in the 130's and increasing, stopped Milrinone which dropped rate to 119. OBJECTIVE: Vital Signs Period Temp Pulse Resp BP Sys/Centeno Pulse Ox Last 24 Hr 98.9 F-99.5 F 102-121 14-18 80-115/53-99 98-115 GENERAL: The patient is intubated and sedated with twitching of the face-- myoclonic HEAD: Normal with no signs of trauma. EYES: Eyes midline, open, 3mm b/l pupils reactive to light ENT: oropharynx dry NECK: Trachea midline, full range of motion, supple. LUNGS: mechanical Breath sounds HEART: Regular rate and rhythm, S1, S2 without murmur, rub or gallop. ABDOMEN: Soft, nontender, nondistended, normoactive bowel sounds, no guarding, no rebound, no hepatosplenomegaly, no masses. EXTREMITIES: poor pulses, healing laceration on right-sided big toe Laboratory Results - last 24 hr 02/15/17 02/15/17 02/15/17 10:32 10:32 10:32 WBC 6.9 RBC 4.06 Hgb 11.4 Hct 36.5 MCV 89.8 MCH 28.0 MCHC 31.2 L RDW 20.5 H Plt Count 90 L MPV 10.0 Neutrophils % Lymphocytes % Monocytes % Eosinophils % Basophils % Sodium 140 Potassium 4.0 Chloride 97 L Carbon Dioxide 37 H Anion Gap 6 L BUN 11 Creatinine 0.7 Creat Clearance w eGFR > 60 Random Glucose 142 H D Lactic Acid 2.2 H* Calcium 8.1 L Phosphorus 2.0 L Magnesium 2.0 Total Bilirubin 1.5 H AST 89 H ALT 23 Alkaline Phosphatase 160 H Total Protein 6.4 Albumin 2.7 L Valproic Acid 02/15/17 02/16/17 02/16/17 10:32 05:30 05:30 WBC 6.9 RBC 3.79 Hgb 10.8 Hct 34.3 MCV 90.5 MCH 28.6 MCHC 31.6 L RDW 20.6 H Plt Count 75 L MPV 10.3 Neutrophils % 83.3 H Lymphocytes % 8.6 Monocytes % 7.0 Eosinophils % 0.5 D Basophils % 0.6 Sodium 139 Potassium 4.1 Chloride 96 L Carbon Dioxide 38 H Anion Gap 5 L BUN 15 D Creatinine 0.7 Creat Clearance w eGFR > 60 Random Glucose 159 H Lactic Acid Calcium 7.9 L Phosphorus 2.5 D Magnesium 1.8 Total Bilirubin 1.2 H AST 79 H ALT 20 Alkaline Phosphatase 150 H Total Protein 6.1 L Albumin 2.5 L Valproic Acid 104.182 H Active Medications Generic Name Dose Route Start Last Admin Trade Name Freq PRN Reason Stop Dose Admin Betamethasone Valerate 1 applic 02/12/17 10:00 02/15/17 13:35 Valisone 0.1% Cream - TP 1 applic DAILY ANNA Administration Chlorhexidine Gluconate 1 applic 02/11/17 22:00 02/15/17 22:22 Hibiclens For Decolonization - TP 1 applic HS ANNA Administration Furosemide 80 mg 02/13/17 16:30 02/16/17 05:24 Lasix Injection - IVPUSH 80 mg BID@0600,1400 ANNA Administration Heparin Sodium (Porcine) 5,000 unit 02/11/17 14:30 02/16/17 05:23 Heparin - SQ 5,000 unit TID ANNA Administration Pantoprazole Sodium 100 mls @ 200 mls/hr 02/12/17 10:00 02/15/17 09:46 Protonix 40mg Ivpb (Pre-Docked) IVPB 200 mls/hr DAILY ANNA Administration Midazolam HCl 100 mg/ Sodium 100 mls @ 12 mls/hr 02/12/17 21:44 02/15/17 22:21 Chloride IVPB 15 mls/hr TITR ANNA Administration Protocol 12 MG/HR Fentanyl 500 mcg/ Dextrose 100 mls @ 10 mls/hr 02/12/17 22:30 02/16/17 00:05 IJ 20 mls/hr TITR ANNA Administration 50 MCG/HR Norepinephrine Bitartrate 8, 500 mls @ 18.75 mls/hr 02/13/17 23:50 02/16/17 00: 03 000 mcg/ Dextrose IV Not Given TITR ANNA Protocol 5 MCG/MIN Vasopressin 50 units/ Sodium 100 mls @ 4.8 mls/hr 02/14/17 07:45 02/15/17 17:41 Chloride IVPB 4.8 mls/hr ASDIR ANNA Administration 2.4 UNITS/HR Milrinone Lactate/Dextrose 100 mls @ 8.01 mls/hr 02/14/17 17:15 02/16/17 00:04 Milrinone 20mg/100ml Ivpb - IVPB 8.01 mls/hr TITR ANNA Administration 0.3 MCG/KG/MIN Lactic Acid 1 applic 02/11/17 13:05 02/13/17 09:09 Lac-Hydrin 12 TP 1 applic DAILY PRN Administration WOUND CARE Levetiracetam 1,500 mg 02/12/17 09:01 02/15/17 22:22 Keppra Injection - IVPB 1,500 mg BID ANNA Administration Levothyroxine Sodium 150 mcg 02/13/17 07:00 02/16/17 06:07 Synthroid - PO 150 mcg DAILY@0700 ANNA Administration Mupirocin 1 applic 02/11/17 22:00 02/15/17 22:20 Bactroban Ointment (For Decolonization) - NS 02/16/17 21:59 1 applic BID ANNA Administration Nystatin 1 applic 02/11/17 01:00 02/16/17 00:04 Mycostatin Ointment - TP 1 applic BID ANNA Administration Phenobarbital 100 mg 02/15/17 22:00 02/15/17 22:22 Phenobarbital Injection - IV 100 mg BID ANNA Administration Valproate Sodium 500 mg 02/13/17 22:00 02/16/17 05:23 Depacon Injection - IVPB 500 mg Q8H ANNA Administration ASSESSMENT/PLAN: 51yo F with PMH schizophrenia, hypothyroid, dilated cardiomyopathy s/p AICD, HTN and afib presented to the ER with B/L LE pain and concern for acute arterial ischemia. BEEF PUSHER called for status epilepticus where pt was intubated for airway protection Neuro - Status epileptics- continued myotonic twitching of the face and extremities this morning. Started on 100mg Phenobarb last night, second dose due this morning. As per Neuro: Continue Depakote 500mg BID/[id number] BID at current doses. Check barbiturate level this am. Mri not possible due to AICD model. consider LP Resp - Intubated for airway protection: Vent setting rate14, Tidal volume 400, PEEP : 6, on versed GTT and Fentanyl 500mcg Cardio - Continue diuresis with Lasix, continue pressors susanne 15mcg, vaso. milrinone ggt - Mixed Venous Blood gas 22 sat 80% indicative of cardiogenic shock as opposed to potential septic shock. No further changes in meds at this time. MICU monitoring. poor overall prognosis Visit type - Emergency Visit Emergency Visit: No - New Patient This patient is new to me today: No - Critical Care Critical Care patient: Yes Total Critical Care Time (in minutes): 30 Critical Care Statement: The care of this patient involved high complexity decision making to prevent further life threatening deterioration of the patient 's condition and/or to evaluate & treat vital organ system(s) failure or risk of failure.
[2017-02-16] MEDS: PHENobarbital SODIUM 130 MG/1 ML VIAL IV SCH ×2 (09:00→21:37)
[2017-02-16 09:38] LABS: ANISOCYTOSIS 2+; MACROCYTOSIS FEW; MICROCYTOSIS 1+
[2017-02-16 09:39] LABS: OVALOCYTE 1+; TEAR DROP CELLS 1+
[2017-02-16] MEDS: PANTOPRAZOLE SODIUM 100 ML IVPB SCH (09:53)
[2017-02-16] MEDS: BETAMETHASONE VALERATE 0.1% CREAM 15 GM TUBE TP SCH (09:54)
[2017-02-16] MEDS: levETIRAcetam 500 MG/5 ML INJECTION VIAL IVPB SCH ×2 (09:57→21:36)
[2017-02-16] MEDS: MUPIROCIN 2% TOPICAL OINTMENT FOR DECOLONIZATION NS SCH (10:00)
--- NOTE | 2017-02-16 10:36 | PN ---
Progress Note, Physician Chief Complaint: seizures, altered mental status History of Present Illness: Ms Dailey is a 51 y/o woman, resident on [facility] with hx of Schizophrenia, HTN , AFib, CHF, s/p AICD/biV pacer, Hypothroidism and GERD who presented to ED yesterday with LE swelling and pain c/f DVT. In ED pt was awake but poorly responsive, only C/o pain everywhere. Was noted to have cool bilateral LE with very weak peripheral pulses, edema and poor cap refill-->CTA runoff showing multiple occlusive areas in b/l LE arteries. Vascular was consulted and there was tentative plan for surgery today. CT head was performed due to AMS which was without acute pathology. Labs were notable for new elevated Tbili and alk phos, low therapeutic VPA level, no WBC, normal h/H, and slightly elevate INR 1.3. She was admitted to floor. Over night [employer] was called when pt found having tonic-clonic sz. Was given Ativan 2mg with resolution, repeat head CT was again without apparent infarct or bleed (read pending). She was brought to ICU where she cont to have repeated sz, without regaining mental status c/w status epilepticus. She was not protecting her airway or having effective ventilation ( 7.2/60) and so was intubated. EEG was ordered. Neuro and cards were consulted. Abd US was ordered for elevated bilis. Pt. was given another total of 4 mgs of Ativan but without effect, she was than placed on Midazolam drip now at 5mg/ hour. She is being loaded with Keppra 1000mg now and bering given Depakote thru her NGT. Also given Midazolam ivpx2. Pt. is unable to relate hx. Its not clear whether she has a hx. of seizures in the past as per ICU staff. Initially she was assumed to have epilepsy based on her outpatient medications, but her daughter is not aware of a seizure history. Since admission she hsa been given Vimpat and this was stopped when she developed an arrhythmia. On IV valproate, with increasing doses she is calmer, but still not alert. - Current Medication List Current Medications: Active Medications Betamethasone Valerate (Valisone 0.1% Cream -) 1 applic TP DAILY ANNA Last Admin: 02/16/17 09:54 Dose: 1 applic Chlorhexidine Gluconate (Hibiclens For Decolonization -) 1 applic TP HS ANNA Last Admin: 02/15/17 22:22 Dose: 1 applic Furosemide (Lasix Injection -) 80 mg IVPUSH BID@0600,1400 [facility] Last Admin: 02/16/17 05:24 Dose: 80 mg Heparin Sodium (Porcine) (Heparin -) 5,000 unit SQ TID [facility] Last Admin: 02/16/17 05:23 Dose: 5,000 unit Pantoprazole Sodium (Protonix 40mg Ivpb (Pre-Docked)) 100 mls @ 200 mls/hr IVPB DAILY [facility] Last Admin: 02/16/17 09:53 Dose: 200 mls/hr Midazolam HCl 100 mg/ Sodium (Chloride) 100 mls @ 12 mls/hr IVPB TITR ANNA; 12 MG/HR PRN Reason: Protocol Last Admin: 02/15/17 22:21 Dose: 15 mls/hr Fentanyl 500 mcg/ Dextrose 100 mls @ 10 mls/hr IJ TITR ANNA PRN Reason: 50 MCG/HR Last Admin: 02/16/17 00:05 Dose: 20 mls/hr Norepinephrine Bitartrate 8, (000 mcg/ Dextrose) 500 mls @ 18.75 mls/hr IV TITR ANAN; 5 MCG/MIN PRN Reason: Protocol Last Titration: 02/16/17 09:10 Dose: 6 mcg/min Vasopressin 50 units/ Sodium (Chloride) 100 mls @ 4.8 mls/hr IVPB ASDIR ANNA PRN Reason: 2.4 UNITS/HR Last Admin: 02/15/17 17:41 Dose: 4.8 mls/hr Milrinone Lactate/Dextrose (Milrinone 20mg/100ml Ivpb -) 100 mls @ 8.01 mls/hr IVPB TITR ANNA PRN Reason: 0.3 MCG/KG/MIN Last Admin: 02/16/17 00:04 Dose: 8.01 mls/hr Lactic Acid (Lac-Hydrin 12) 1 applic TP DAILY PRN PRN Reason: WOUND CARE Last Admin: 02/13/17 09:09 Dose: 1 applic Levetiracetam (Keppra Injection -) 1,500 mg IVPB BID [facility] Last Admin: 02/16/17 09:57 Dose: 1,500 mg Levothyroxine Sodium (Synthroid -) 150 mcg PO DAILY@0700 [facility] Last Admin: 02/16/17 06:07 Dose: 150 mcg Mupirocin (Bactroban Ointment (For Decolonization) -) 1 applic NS BID [facility] Stop: 02/16/17 21:59 Last Admin: 02/16/17 10:00 Dose: 1 applic Nystatin (Mycostatin Ointment -) 1 applic TP BID [facility] Last Admin: 02/16/17 00:04 Dose: 1 applic Phenobarbital (Phenobarbital Injection -) 100 mg IV BID [facility] Last Admin: 02/16/17 09:00 Dose: 100 mg Valproate Sodium (Depacon Injection -) 500 mg IVPB Q8H [facility] Last Admin: 02/16/17 05:23 Dose: 500 mg - Objective Vital Signs: Vital Signs Temperature 99.2 F 02/16/17 06:00 Pulse Rate 119 H 02/16/17 10:00 Respiratory Rate 14 02/16/17 10:00 Blood Pressure 109/90 02/16/17 09:10 O2 Sat by Pulse Oximetry (%) 95 02/16/17 09:51 Neurological: Yes: Other (Eyes midposition, reactive, unresponsive. No evidence of seizure activity today) Labs: CBC, BMP 02/16/17 05:30 02/16/17 05:30 INR, PTT INR 1.17 (0.82-1.09) H 02/14/17 05:15 Fibrinogen 186.0 mg/dL (238-498) L 02/11/17 04:00 Problem List - Problems (1) Seizure Assessment/Plan: Seems better after valproate load and increased dose. F/U level tomorrow. Whether her mental status will improve is unclear. It may be that her seizures were secondary to another event, and given her severe cardiac disease and need for pressors, there may have been some hypoxic injury which may pipe turner to be irreversible. Will have to see how she does over time. Dr. Wilks covering tomorrow. If appropriate, can try to reduce fentanyl. Code(s): R56.9 - UNSPECIFIED CONVULSIONS
[2017-02-16] MEDS: MIDAZOLAM 100 MG in SODIUM CHLORIDE 100 ML IVPB SCH ×3 (11:02→23:54)
[2017-02-16 12:04] LABS: VENOUS BLOOD GAS HCO3 35.6 meq/L (19-25); VENOUS PH 7.35 (7.32-7.42)
--- NOTE | 2017-02-16 12:16 | PN ---
Teaching Attending Note Name of Resident: Donal Lal ATTENDING PHYSICIAN STATEMENT I saw and evaluated the patient. I reviewed the resident's note and discussed the case with the resident. I agree with the resident's findings and plan as documented. SUBJECTIVE: Pt seen and examined in the ICU. Remains intubated, sedated. Still with seizure activity despite phenobarbital. Some VF/VT this AM, milrinone gtt stopped. OBJECTIVE: Last Vital Signs Temp Pulse Resp BP Pulse Ox 98.4 F 114 H 14 92/71 95 02/16/17 10:00 02/16/17 11:15 02/16/17 11:51 02/16/17 11:15 02/16/17 09:51 Intake & Output 02/13/17 02/14/17 02/15/17 02/16/17 23:59 23:59 23:59 23:59 Intake Total 4366 2297.2 3577.7 2343.6 Output Total 3100 8000 2300 250 Balance 1266 -5702.8 1277.7 2093.6 Weight 194 lb 8 oz 196 lb 3.382 oz 163 lb 4 oz 189 lb 2 oz Gen: intubated, sedated Heart: tachycardic, regular Lung: scattered rhonchi Abd: soft, nontender Ext: decreasing edema, erythema CBC, BMP 02/16/17 05:30 02/16/17 05:30 Active Medications Betamethasone Valerate (Valisone 0.1% Cream -) 1 applic TP DAILY [facility] Last Admin: 02/16/17 09:54 Dose: 1 applic Chlorhexidine Gluconate (Hibiclens For Decolonization -) 1 applic TP HS [facility] Last Admin: 02/15/17 22:22 Dose: 1 applic Furosemide (Lasix Injection -) 80 mg IVPUSH BID@0600,1400 [facility] Last Admin: 02/16/17 05:24 Dose: 80 mg Heparin Sodium (Porcine) (Heparin -) 5,000 unit SQ TID [facility] Last Admin: 02/16/17 05:23 Dose: 5,000 unit Pantoprazole Sodium (Protonix 40mg Ivpb (Pre-Docked)) 100 mls @ 200 mls/hr IVPB DAILY [facility] Last Admin: 02/16/17 09:53 Dose: 200 mls/hr Midazolam HCl 100 mg/ Sodium (Chloride) 100 mls @ 12 mls/hr IVPB TITR ANNA; 12 MG/HR PRN Reason: Protocol Last Admin: 02/16/17 11:02 Dose: 15 mls/hr Fentanyl 500 mcg/ Dextrose 100 mls @ 10 mls/hr IJ TITR ANNA PRN Reason: 50 MCG/HR Last Admin: 02/16/17 11:15 Dose: 20 mls/hr Norepinephrine Bitartrate 8, (000 mcg/ Dextrose) 500 mls @ 18.75 mls/hr IV TITR ANNA; 5 MCG/MIN PRN Reason: Protocol Last Titration: 02/16/17 11:15 Dose: 5 mcg/min Vasopressin 50 units/ Sodium (Chloride) 100 mls @ 4.8 mls/hr IVPB ASDIR ANNA PRN Reason: 2.4 UNITS/HR Last Admin: 02/15/17 17:41 Dose: 4.8 mls/hr Milrinone Lactate/Dextrose (Milrinone 20mg/100ml Ivpb -) 100 mls @ 8.01 mls/hr IVPB TITR ANNA PRN Reason: 0.3 MCG/KG/MIN Last Admin: 02/16/17 00:04 Dose: 8.01 mls/hr Lactic Acid (Lac-Hydrin 12) 1 applic TP DAILY PRN PRN Reason: WOUND CARE Last Admin: 02/13/17 09:09 Dose: 1 applic Levetiracetam (Keppra Injection -) 1,500 mg IVPB BID [facility] Last Admin: 02/16/17 09:57 Dose: 1,500 mg Levothyroxine Sodium (Synthroid -) 150 mcg PO DAILY@0700 [facility] Last Admin: 02/16/17 06:07 Dose: 150 mcg Mupirocin (Bactroban Ointment (For Decolonization) -) 1 applic NS BID [facility] Stop: 02/16/17 21:59 Last Admin: 02/16/17 10:00 Dose: 1 applic Nystatin (Mycostatin Ointment -) 1 applic TP BID [facility] Last Admin: 02/16/17 00:04 Dose: 1 applic Phenobarbital (Phenobarbital Injection -) 100 mg IV BID [facility] Last Admin: 02/16/17 09:00 Dose: 100 mg Valproate Sodium (Depacon Injection -) 500 mg IVPB Q8H [facility] Last Admin: 02/16/17 05:23 Dose: 500 mg ASSESSMENT AND PLAN: Status Epileptics Acute Respiratory Failure Acute on Chronic Systolic Heart Failure Cardiogenic vs Septic Shock Lactic Acidosis resolved s/p ICD Elevated LFTs Hypothyroidism - antiepileptics per neuro - monitor phenobarbital levels - titrate levophed, vasopressin gtt to maintain MAP >65 - continue lasix IV - send SvO2, resume inotrope if low - send cortisol level, although pt not bradycardic or hypothermic on presentation and Free T4 within normal limits - f/u EEG - lighten sedation if no seizure activity noted on EEG - will need repeat CT head when more stable - enteral feeds - DVT/GI prophylaxis - continue ICU monitoring - poor overall prognosis critical care time spent in reviewing chart, evaluating patient and formulating plan 40 min
--- NOTE | 2017-02-16 12:50 | PN ---
Teaching Attending Note Name of Resident: Bala Herndon ATTENDING PHYSICIAN STATEMENT I saw and evaluated the patient. I reviewed the resident's note and discussed the case with the resident. I agree with the resident's findings and plan as documented. SUBJECTIVE: Patient is sedated on vent. She is having intermittent seizures. OBJECTIVE: Vital Signs Period Temp Pulse Resp BP Sys/Centeno Pulse Ox Last 24 Hr 98.4 F-99.4 F 102-132 14-18 80-115/54-99 95-100 HEART: S1S2, tachycardic LUNGS: Bilateral rhonchi ABDOMEN: Soft, non-distended, normal BS EXTREMITIES: 1+ edema of legs and arms ASSESSMENT AND PLAN: This is a 51 year old woman with a history of schizophrenia, hypothyroidism, dilated cardiomyopathy, AICD, HTN, atrial fib who presented to the ER with bilateral leg pain. 1. Status epilepticus - Continues to have seizures - Currently on Phenobarbital, Versed, Keppra, Depacon - EEG pending 2. Acute hypoxic respiratory failure - Remains on vent 3. Arrhythmias - Wide complex tachycardia and possible VT/VF noted - Milrinone discontinued - AICD interrogation 4. Hypothyroidism - On Synthroid 5. Cardiogenic shock - Continue Levophed, Vasopressin 6. Acute and chronic systolic heart failure - Continue IV Lasix 7. Hypophosphatemia - Improved 8. Hypokalemia - Improved 9. Hypomagnesemia - Improved 10. Thrombocytopenia - Check HIT antibodies 11. Nutrition - Continue Jevity 1.5 via NGT 12. Stress ulcer prophylaxis - On Protonix 11. DVT prophylaxis - On heparin subq Critical Care Total Critical Care Time (in minutes): 35 Critical Care Statement: The care of this patient involved high complexity decision making to prevent further life threatening deterioration of the patient 's condition and/or to evaluate & treat vital organ system(s) failure or risk of failure.
--- NOTE | 2017-02-16 13:11 | PN ---
Progress Note (short form) - Note Progress Note: Chief Complaint: chf History of Present Illness: possible episode of VF/VT this morning, will have to confirm with ICD interrogation --> Milrinone drip stopped, continues on levophed and vasopressin. Seizure activity persists. Platelets continue to trend down. Current Medications Betamethasone Valerate (Valisone 0.1% Cream -) 1 applic TP DAILY ANNA Last Admin: 02/16/17 09:54 Dose: 1 applic Chlorhexidine Gluconate (Hibiclens For Decolonization -) 1 applic TP HS ANNA Last Admin: 02/15/17 22:22 Dose: 1 applic Furosemide (Lasix Injection -) 80 mg IVPUSH BID@0600,1400 ANNA Last Admin: 02/16/17 05:24 Dose: 80 mg Heparin Sodium (Porcine) (Heparin -) 5,000 unit SQ TID ANNA Last Admin: 02/16/17 05:23 Dose: 5,000 unit Pantoprazole Sodium (Protonix 40mg Ivpb (Pre-Docked)) 100 mls @ 200 mls/hr IVPB DAILY [facility] Last Admin: 02/16/17 09:53 Dose: 200 mls/hr Midazolam HCl 100 mg/ Sodium (Chloride) 100 mls @ 12 mls/hr IVPB TITR ANNA; 12 MG/HR PRN Reason: Protocol Last Admin: 02/16/17 11:02 Dose: 15 mls/hr Fentanyl 500 mcg/ Dextrose 100 mls @ 10 mls/hr IJ TITR ANNA PRN Reason: 50 MCG/HR Last Admin: 02/16/17 11:15 Dose: 20 mls/hr Norepinephrine Bitartrate 8, (000 mcg/ Dextrose) 500 mls @ 18.75 mls/hr IV TITR ANNA; 5 MCG/MIN PRN Reason: Protocol Last Titration: 02/16/17 11:15 Dose: 5 mcg/min Vasopressin 50 units/ Sodium (Chloride) 100 mls @ 4.8 mls/hr IVPB ASDIR ANNA PRN Reason: 2.4 UNITS/HR Last Admin: 02/15/17 17:41 Dose: 4.8 mls/hr Milrinone Lactate/Dextrose (Milrinone 20mg/100ml Ivpb -) 100 mls @ 8.01 mls/hr IVPB TITR ANNA PRN Reason: 0.3 MCG/KG/MIN Last Admin: 02/16/17 00:04 Dose: 8.01 mls/hr Lactic Acid (Lac-Hydrin 12) 1 applic TP DAILY PRN PRN Reason: WOUND CARE Last Admin: 02/13/17 09:09 Dose: 1 applic Levetiracetam (Keppra Injection -) 1,500 mg IVPB BID [facility] Last Admin: 02/16/17 09:57 Dose: 1,500 mg Levothyroxine Sodium (Synthroid -) 150 mcg PO DAILY@0700 [facility] Last Admin: 02/16/17 06:07 Dose: 150 mcg Mupirocin (Bactroban Ointment (For Decolonization) -) 1 applic NS BID [facility] Stop: 02/16/17 21:59 Last Admin: 02/16/17 10:00 Dose: 1 applic Nystatin (Mycostatin Ointment -) 1 applic TP BID [facility] Last Admin: 02/16/17 00:04 Dose: 1 applic Phenobarbital (Phenobarbital Injection -) 100 mg IV BID [facility] Last Admin: 02/16/17 09:00 Dose: 100 mg Valproate Sodium (Depacon Injection -) 500 mg IVPB Q8H [facility] Last Admin: 02/16/17 05:23 Dose: 500 mg Vital Signs - 24 hr 02/15/17 02/15/17 02/15/17 13:32 13:42 14:19 Temperature Pulse Rate 112 H 110 H Respiratory 15 15 Rate Blood Pressure 106/76 92/66 O2 Sat by Pulse Oximetry (%) 02/15/17 02/15/17 02/15/17 15:00 16:00 16:40 Temperature Pulse Rate 112 H 111 H Respiratory 16 16 14 Rate Blood Pressure 99/75 93/81 O2 Sat by Pulse Oximetry (%) 02/15/17 02/15/17 02/15/17 17:34 17:36 17:41 Temperature 98.9 F Pulse Rate 109 H 111 H Respiratory 16 Rate Blood Pressure 114/82 114/82 O2 Sat by Pulse 100 Oximetry (%) 02/15/17 02/15/17 02/15/17 18:00 18:05 18:31 Temperature Pulse Rate 108 H 108 H Respiratory 16 16 Rate Blood Pressure 90/63 90/63 O2 Sat by Pulse 100 Oximetry (%) 02/15/17 02/15/17 02/15/17 19:00 19:56 20:00 Temperature Pulse Rate 102 H Respiratory 15 18 Rate Blood Pressure 80/54 O2 Sat by Pulse 99 Oximetry (%) 02/15/17 02/15/17 02/15/17 21:00 21:30 22:00 Temperature 99 F Pulse Rate 109 H 114 H Respiratory 14 16 14 Rate Blood Pressure 89/66 97/83 O2 Sat by Pulse Oximetry (%) 02/15/17 02/15/17 02/16/17 22:23 23:00 00:00 Temperature Pulse Rate 116 H 116 H 118 H Respiratory 14 14 Rate Blood Pressure 97/83 94/71 94/72 O2 Sat by Pulse Oximetry (%) 02/16/17 02/16/17 02/16/17 00:34 01:00 02:00 Temperature 99.4 F Pulse Rate 118 H 118 H Respiratory 14 14 16 Rate Blood Pressure 109/99 99/70 O2 Sat by Pulse Oximetry (%) 02/16/17 02/16/17 02/16/17 03:00 03:22 04:00 Temperature Pulse Rate 120 H 118 H Respiratory 14 14 14 Rate Blood Pressure 115/74 94/66 O2 Sat by Pulse Oximetry (%) 02/16/17 02/16/17 02/16/17 05:00 06:00 06:34 Temperature 99.2 F Pulse Rate 118 H 118 H Respiratory 14 14 14 Rate Blood Pressure 107/82 108/81 O2 Sat by Pulse Oximetry (%) 02/16/17 02/16/17 02/16/17 07:00 08:00 09:00 Temperature Pulse Rate 118 H 123 H 132 H Respiratory 14 16 14 Rate Blood Pressure 102/70 100/73 109/90 O2 Sat by Pulse 95 Oximetry (%) 02/16/17 02/16/17 02/16/17 09:10 09:51 10:00 Temperature 98.4 F Pulse Rate 132 H 119 H 118 H Respiratory 14 14 Rate Blood Pressure 109/90 97/70 O2 Sat by Pulse 95 Oximetry (%) 02/16/17 02/16/17 02/16/17 11:00 11:15 11:51 Temperature Pulse Rate 116 H 114 H Respiratory 14 Rate Blood Pressure 92/71 92/71 O2 Sat by Pulse Oximetry (%) 02/16/17 12:00 Temperature Pulse Rate 112 H Respiratory Rate Blood Pressure 86/66 O2 Sat by Pulse Oximetry (%) Intake & Output 02/14/17 02/15/17 02/16/17 02/17/17 07:59 07:59 07:59 07:59 Intake Total 3977.8 3529.0 3807.7 Output Total 5500 4900 2150 Balance -1522.2 -1371.0 1657.7 Weight 196 lb 3.382 oz 163 lb 4 oz 189 lb 2 oz Constitutional: Yes: Well Nourished, No Distress, Calm Cardiovascular: Yes: Regular Rate and Rhythm, Gallop (? S3), S1, S2. No: JVD ( very tds exam), Murmur Respiratory: Yes: Regular, Diminished (L base). No: Accessory Muscle Use, Rales , Wheezes Extremities: No: Cool Edema: Yes (1-2+ pretib) Neurological: No: Alert, Oriented, Seizure Psychiatric: No: Agitated Labs: CBC, BMP 02/16/17 05:30 02/16/17 05:30 - ....Imaging EKG: Other (tele: sinus tach As/Exhibit Preparator--> episode of chaotic ventricular rhythm. converts to WCT without clear discernable p waves) Assessment/Plan [facility] 10/2016 --> nl cors (verbal report from dr sanchez) Echo here: Severe lv dilation, sev reduced LV fn (global). mod rv dilation. mod RV dysfunction. RV pacing wire. 2.8 x 1.2 cm density in apex of RV (per discussion with Dr. Sanchez, bright echodensity at the tip of pacing wire was present on prior office echo). mod tr. rvsp 30-40. trivial pericardial effusion. + pleural effusion. CTA: pulmonary congestion, small left pleural effusion. large volume ascites. extensive subcutaneous edema/anasarca. CTA --> + arterial flow to LE. CT head: no acute pathology repeat cxr 02/14: improvement in congestive changes. dense left base persists. Assessment: 51 y/o woman, resident on [facility] with hx of biventricular cardiomyopathy s/ p bivICD, htn, afib (per report only), Schizophrenia, seizure disorder, Hypothroidism and GERD who presented to ED with LE swelling, coolness to touch and diminshed pulses as well as lethargy. Hospital course has been complicated by seizure/status epilepticus requiring intubation for airway protection and sedation. acute on chronic syst CHF, nonischemic biventricular cardiomyopathy s/p bivICD, cardiogenic shock - holding bb and acei due to hypotension. - CE's were negative on admit and according to her ash [employer] boiler recent [facility] showed normal cors - 02/12 BNP 2700, patient p/w with lethargy, LE edema, cool skin, poor distal pulses, pulmonary edema, large volume ascites and anasarca noted on ct scan, -- > concerning for decompensated biventricular heart failure. cvp 13 --> Started trial of IV lasix for diuresis 02/12, milrinone deferred at that time ( pt was on levophed). - 02/13: overnight propofol stopped due to increasing ectopy and concern for qt prolongation --> improvement in ectopy. patient's remained net positive, lasix was increased to 80 mg IV bid. Late evening cvp remained elevated at 15 and patient still not net negative. Drips were double concentrated. vasopressin added for recurrent hypotension (to 70s). - 02/14: levophed weaned off today. Patient finally net negative this am. BP still running low. CVP remains elevated at 13 --> started milrinone for decompensated heart failure. Patient still may have superimposed vasodilating pathology, con't pressor support for now. Con't lasix 80 mg IV bid with aggressive electrolyte repletion (congestion improving on cxr, lfts improving, cr stable). double concentrate drips when possible. - 02/15: CXR improved vs 02/13, L lung not well seen due to ICD and marked cardiomegaly obscuring L base. BP down to 70s again early am today, remains on high dose pressors (vasopressin 2.4 units/hour, levo 9 mcg). CVP has improved to 10 (from 17 initially) with diuresis plus milrinone (0.3 mcg/kg/min). vigorous UOP yesterday (8L). - 02/16: Concern for episode of VF/VT on telemetry. ?ICD shock. Milrinone drip stopped. Remains on levophed which also can exacerbate cardiac arrhythmias. Sent SvO2 to clarify hemodynamics, cardiogenic vs. vasodilatory. SVO2 80% per report so OK to leave off milrinone. Still getting augmentation of contractility from levophed. Remains net positive today, CVP 14 per report, but SVO2 is not low and overall edema improving --> will not uptitrate diuretics. - in absence of signs of sepsis, this is likely low cardiac output/cardiogenic shock (wbc and temp curve consistently normal here, mult BCX's negative)-- though cannot exclude med effect from midazolam gtt, previously propafol gtt ( of note, initially BP 90s--first time 80s was 2-3 hrs after tonic-clonic sz/ intubation with meds on board) wide complex tachycardia: - suspect tele represents sinus tach, initially with Bi-V pacing, then with loss of Bi-V pacing and pt conduction with nooksack bundle branch block QRS (note 02/10 ekg shows Bi-V pacing with a fusion beat btw paced and conducted beats, showing a wide QRS with nooksack conduction) - doubt sustained VT on tele - has ICD protection - CHF optimization and med regimen as doing - per dr sanchez, ICD was recently interrogated 10/2016 with no remarkable findings then. - 02/12 with increasing ectopy throughout the day leading to sustained ventricular bigeminy with very broad abnormal t wave (no nsvt). concern for qt prolongation --> propofol weaned overnight with resolution of arrhythmia. - electrolyte repletion to usual targets - 02/16: ICD interrogation to confirm rhythm RV echo density noted on echo - Echo here shows density in RV apex (couldn't exclude veg or thrombus). Discussed with Dr. Sanchez and patient had similarly described density on prior echo at his office, likely artifact from RV lead. However, if clinical concern for infection/endocarditis or emboli arises will have low threshold to better visualize with KAN. - 02/16: discussed with icu/neuro. currently still no suspicion for infectious etiology. seizure disorder/status epilepticus - ongoing management per neuro/icu. Remains intubated and sedated. Avoid propofol due to qt prolonging properties. - head ct x 2 without acute pathology. afib - diagnosis documented on skilled nursing chart, but patient not on AC and in SR here (? accuracy of diagnosis)--will defer to Dr. Sanchez who is her treating outpatient ash kier boiler. For now, if no evidence of afib/flutter on tele, will not start AC. hypothyroid - TSH improving from 47 to 18--mgm't of thyroid abnormalities per pmd. est crit care time in mgmt of potentially life-threatening conditions = 39 min
[2017-02-16] MEDS ORDERED: VASOPRESSIN 20 UNITS/ML VIAL IV ONE (15:13)
[2017-02-16] MEDS: VASOPRESSIN 50 UNITS in SODIUM CHLORIDE 97.5 ML IVPB SCH ×2 (15:15→15:19)
--- NOTE | 2017-02-16 17:09 | EKG ---
Test Reason : Blood Pressure : / mmHG Vent. Rate : 119 BPM Atrial Rate : 119 BPM P-R Int : 134 ms QRS Dur : 128 ms QT Int : 358 ms P-R-T Axes : 058 134 060 degrees QTc Int : 503 ms Atrial-sensed ventricular-paced rhythm Biventricular pacemaker detected ABNORMAL ECG WHEN COMPARED WITH ECG OF 12-FEB-2017 18:03, VENT. RATE HAS INCREASED BY 14 BPM CLI Confirmed by ANGIE JAMES MD ([id number]) on 02/16/2017 5:09:09 PM Referred By: JOSÉ MIGUEL BUSCH Confirmed By:ANGIE JAMES MD
[2017-02-16] MEDS ORDERED: NOREPINEPHRINE BITARTRATE 4 MG/4 ML ML IV ONE ×2 (18:05→21:07)
--- NOTE | 2017-02-16 20:16 | PN ---
Physical Exam: SUBJECTIVE: Patient seen and examined at bedside. Patient intubated and sedated. seizures are largely controlled on current regimen, but patient still has breakthrough seizures upon any stimulus. possible episode of VF/VT today causing fire of ICD. ICD to be interrogated OBJECTIVE: Vital Signs Period Temp Pulse Resp BP Sys/Centeno Pulse Ox Last 24 Hr 98.4 F-99.5 F 109-132 13-20 82-115/62-99 95-100 GENERAL: The patient is awake, alert, and fully oriented, in no acute distress. HEAD: Normal with no signs of trauma. NECK: Trachea midline, full range of motion, supple. LUNGS: Breath sounds equal, clear to auscultation bilaterally, no wheezes, no crackles, no accessory muscle use. HEART: Regular rate and rhythm, S1, S2. Gallop heard in aortic region ABDOMEN: firm, no grimace on palpation, nondistended, hypoactive bowel sounds, no guarding, no rebound. EXTREMITIES: 2+ pulses, warm, well-perfused, no edema. NEUROLOGICAL: unable to assess due to patient's clinical status Laboratory Results - last 24 hr 02/16/17 02/16/17 02/16/17 05:30 05:30 11:50 WBC 6.9 RBC 3.79 Hgb 10.8 Hct 34.3 MCV 90.5 MCH 28.6 MCHC 31.6 L RDW 20.6 H Plt Count 75 L MPV 10.3 Neutrophils % 83.3 H Lymphocytes % 8.6 Monocytes % 7.0 Eosinophils % 0.5 D Basophils % 0.6 Anisocytosis 2+ Microcytosis 1+ Macrocytosis Few Tear Drop Cells 1+ Ovalocytes 1+ VBG pH 7.35 POC VBG pCO2 65.7 H* POC VBG pO2 49.6 H Mixed VBG HCO3 35.6 H Sodium 139 Potassium 4.1 Chloride 96 L Carbon Dioxide 38 H Anion Gap 5 L BUN 15 D Creatinine 0.7 Creat Clearance w eGFR > 60 Random Glucose 159 H Calcium 7.9 L Phosphorus 2.5 D Magnesium 1.8 Total Bilirubin 1.2 H AST 79 H ALT 20 Alkaline Phosphatase 150 H Total Protein 6.1 L Albumin 2.5 L Active Medications Generic Name Dose Route Start Last Admin Trade Name Freq PRN Reason Stop Dose Admin Betamethasone Valerate 1 applic 02/12/17 10:00 02/16/17 09:54 Valisone 0.1% Cream - TP 1 applic DAILY ANNA Administration Chlorhexidine Gluconate 1 applic 02/11/17 22:00 02/15/17 22:22 Hibiclens For Decolonization - TP 1 applic HS ANNA Administration Furosemide 80 mg 02/13/17 16:30 02/16/17 14:10 Lasix Injection - IVPUSH 80 mg BID@0600,1400 ANNA Administration Heparin Sodium (Porcine) 5,000 unit 02/11/17 14:30 02/16/17 14:09 Heparin - SQ 5,000 unit TID ANNA Administration Pantoprazole Sodium 100 mls @ 200 mls/hr 02/12/17 10:00 02/16/17 09:53 Protonix 40mg Ivpb (Pre-Docked) IVPB 200 mls/hr DAILY ANNA Administration Midazolam HCl 100 mg/ Sodium 100 mls @ 12 mls/hr 02/12/17 21:44 02/16/17 17:37 Chloride IVPB 15 mls/hr TITR ANNA Administration Protocol 12 MG/HR Fentanyl 500 mcg/ Dextrose 100 mls @ 10 mls/hr 02/12/17 22:30 02/16/17 16:25 IJ 20 mls/hr TITR ANNA Administration 50 MCG/HR Norepinephrine Bitartrate 8, 500 mls @ 18.75 mls/hr 02/13/17 23:50 02/16/17 18: 09 000 mcg/ Dextrose IV 18.75 mls/hr TITR ANNA Administration Protocol 5 MCG/MIN Vasopressin 50 units/ Sodium 100 mls @ 4.8 mls/hr 02/14/17 07:45 02/16/17 15:19 Chloride IVPB 4.8 mls/hr ASDIR ANNA Administration 2.4 UNITS/HR Lactic Acid 1 applic 02/11/17 13:05 02/13/17 09:09 Lac-Hydrin 12 TP 1 applic DAILY PRN Administration WOUND CARE Levetiracetam 1,500 mg 02/12/17 09:01 02/16/17 09:57 Keppra Injection - IVPB 1,500 mg BID ANNA Administration Levothyroxine Sodium 150 mcg 02/13/17 07:00 02/16/17 06:07 Synthroid - PO 150 mcg DAILY@0700 ANNA Administration Mupirocin 1 applic 02/11/17 22:00 02/16/17 10:00 Bactroban Ointment (For Decolonization) - NS 02/16/17 21:59 1 applic BID ANNA Administration Nystatin 1 applic 02/11/17 01:00 02/16/17 14:09 Mycostatin Ointment - TP 1 applic BID ANNA Administration Phenobarbital 100 mg 02/15/17 22:00 02/16/17 09:00 Phenobarbital Injection - IV 100 mg BID ANNA Administration Valproate Sodium 500 mg 02/13/17 22:00 02/16/17 14:09 Depacon Injection - IVPB 500 mg Q8H ANNA Administration ASSESSMENT/PLAN: 51yo F with pmhx of 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 Admitted to ICU in status epilepticus #New onset seizure disorder, 2/2 to unknown etiology -continue keppra to 1500 mg BID -continue depacone 500 mg bid -Versed GTT -Lacosamide 100 mg iv bid -added phenobarbital 100mg IV BID -repeat EEG shows epileptiform activity -The make and model of the patient's pacemaker are not MRI compatible -Consider LP -F/u neurology reconsult #Shock 2/2 neurogenic vs cardiogenic etiology -Milrinone GTT stopped -Levophed GTT -Vasopressin GTT #Acute respiratory failure -Intubated for airway protection -Continue vent support per ICU # Arterial insufficiency --CTA shows patent vessels --Distal b/l extremities cold, cap refill >2, and pulses absent, but present with doppler --Vascular surgery consulted, Dr. Hoang # Dilated cardiomyopathy -S/P AICD working appropriately; to be interrogated following fire today -Echo reveals thrombus in RV. -home toprolol held due to hypotension -Be careful with IVF # Abdominal Distention with transaminitis -continue to monitor # Atopic Dermatitis -Continued home nystatin cream for application on abdominal areas -Ammonium lactate lotion -Betamethasone 0.1% cream # Hypothyroidism -Continued home Synthroid 125mcg PO qDaily FEN: Fluids: None currently Electrolyte abnormalities: hypokalemia Nutrition: NPO ppx: -Heparin 5000 units sq tid -protonix 40 IV daily Dispo: -continue to monitor in ICU. Poor overall prognosis. Problem List - Problems (1) Chronic congestive heart failure Code(s): I50.9 - HEART FAILURE, UNSPECIFIED Qualifiers: Congestive heart failure type: unspecified congestive heart failure type Qualified Code(s): I50.9 - Heart failure, unspecified (2) Hypertension Code(s): I10 - ESSENTIAL (PRIMARY) HYPERTENSION Qualifiers: Hypertension type: essential hypertension Qualified Code(s): I10 - Essential (primary) hypertension (3) Schizophrenia, paranoid, chronic Code(s): F20.0 - PARANOID SCHIZOPHRENIA (4) Seizure Code(s): R56.9 - UNSPECIFIED CONVULSIONS (5) Rash Code(s): R21 - RASH AND OTHER NONSPECIFIC SKIN ERUPTION (6) Peripheral arterial disease Code(s): I73.9 - PERIPHERAL VASCULAR DISEASE, UNSPECIFIED Visit type - Emergency Visit Emergency Visit: Yes ED Registration Date: 02/10/17 Care time: The patient presented to the Emergency Department on the above date and was hospitalized for further evaluation of their emergent condition. - New Patient This patient is new to me today: No - Critical Care Critical Care patient: Yes Total Critical Care Time (in minutes): 35 Critical Care Statement: The care of this patient involved high complexity decision making to prevent further life threatening deterioration of the patient 's condition and/or to evaluate & treat vital organ system(s) failure or risk of failure.
[2017-02-16] MEDS: CHLORHEXIDINE GLUCONATE 4% CLEANSER FOR DECOLONIZATION TP SCH (21:36)
[2017-02-17] MEDS: VALPROATE SODIUM 500 MG/5 ML VIAL IVPB SCH ×3 (06:13→22:29)
[2017-02-17] MEDS: HEPARIN NA (PORCINE) 5,000 UNITS/ML 1ML VIAL SQ SCH ×3 (06:14→22:29)
[2017-02-17] MEDS: FUROSEMIDE 40 MG/4 ML INJECTABLE VIAL IVPUSH SCH ×2 (06:17→14:47)
[2017-02-17] MEDS: LEVOTHYROXINE NA 150 MCG TABLET PO SCH (06:18)
[2017-02-17] MEDS: MIDAZOLAM 100 MG in SODIUM CHLORIDE 100 ML IVPB SCH ×2 (06:19→20:30)
[2017-02-17] MEDS: FENTANYL INJECTION 500 MCG in DEXTROSE 5%-WATER - 90 ML IJ SCH ×2 (06:19→22:00)
[2017-02-17 06:41] LABS: MCH 29.1 pg (25.7-33.7); MCHC 31.8 g/dl (32.0-36.0); MEAN CELL VOLUME 91.5 fl (80-96); MEAN PLT VOLUME 12.1 fl (7.5-11.1); RDW 20.6 % (11.6-15.6); WHITE BLOOD COUNT 5.3 K/mm3 (4.0-10.0)
[2017-02-17 06:54] LABS: ALBUMIN 2.5 g/dl (3.4-5.0); ANION GAP 7 (8-16); CALCIUM 7.9 mg/dL (8.5-10.1); CO2 36 mmol/L (21-32); GLUCOSE,RANDOM 117 mg/dL (74-106); MAGNESIUM 1.9 mg/dL (1.8-2.4); PHOSPHOROUS 2.9 mg/dL (2.5-4.9); SGOT/AST 77 U/L (15-37); SGPT/ALT 21 U/L (12-78)
[2017-02-17 06:57] LABS: ALK PHOS 135 U/L (45-117); BILIRUBIN,TOTAL 1.7 mg/dL (0.2-1.0); TOT PROT 5.9 g/dl (6.4-8.2)
[2017-02-17 08:23] LABS: PLATELET COMMENT2 FEW LARGE PLTS; PLATELET ESTIMATE DECREASED (NORMAL)
[2017-02-17] MEDS: PHENobarbital SODIUM 130 MG/1 ML VIAL IV SCH ×2 (09:00→22:29)
[2017-02-17] MEDS: BETAMETHASONE VALERATE 0.1% CREAM 15 GM TUBE TP SCH (09:01)
[2017-02-17] MEDS: PANTOPRAZOLE SODIUM 100 ML IVPB SCH (09:01)
[2017-02-17] MEDS: NYSTATIN 100000 UNIT/GM TOPICAL OINTMENT 15 GM TUBE TP SCH ×2 (09:02→22:30)
[2017-02-17] MEDS ORDERED: BENZOIN/ALOE VERA/STORAX/TOLU 58 ML BOTTLE ONE (10:24)
[2017-02-17] MEDS: levETIRAcetam 500 MG/5 ML INJECTION VIAL IVPB SCH ×2 (10:51→22:30)
--- NOTE | 2017-02-17 11:29 | PN ---
Physical Exam: SUBJECTIVE: Patient seen and examined in ICU at bedside. She is still mechanically ventilated and sedated. No overnight events but still has episodes of seizures. OBJECTIVE: Vital Signs Period Temp Pulse Resp BP Sys/Centeno Pulse Ox Last 24 Hr 98.5 F-99.5 F 112-117 13-20 82-104/62-79 92-100 GENERAL: The patient is on mechanical ventilation, sedated. HEAD: Normal with no signs of trauma. EYES: extraocular movements not assessed, not following commands, sclera anicteric, conjunctiva clear. ENT: moist mucous membranes NECK: Trachea midline, full range of motion, supple, no neck stiffness. LUNGS: Breath sounds equal, coarse breath sounds, no wheezes, no crackles, no accessory muscle use. HEART: Regular rate and rhythm, S1, S2, gallop present. ABDOMEN: Soft, distended, no grimacing when palpated, hypoactive bowel sounds, no guarding, no rebound. EXTREMITIES: 1+ pulses, warm, well-perfused, 1+ edema, redness and multiple bullae in LE B/L. NEUROLOGICAL: No facial asymmetry, sedated. SKIN: Warm, dry, rash in LE B/L, cracked skin on plantar right toe Laboratory Results - last 24 hr 02/16/17 02/17/17 02/17/17 11:50 05:20 05:20 WBC 5.3 RBC 4.04 Hgb 11.8 Hct 36.9 MCV 91.5 MCH 29.1 MCHC 31.8 L RDW 20.6 H Plt Count Lab Assistant MPV 12.1 H D Platelet Estimate Decreased Platelet Comment Few large plts VBG pH 7.35 POC VBG pCO2 65.7 H* POC VBG pO2 49.6 H Mixed VBG HCO3 35.6 H Sodium 136 Potassium 4.7 Chloride 93 L Carbon Dioxide 36 H Anion Gap 7 L BUN 23 H D Creatinine 1.0 D Creat Clearance w eGFR 58.69 Random Glucose 117 H D Calcium 7.9 L Phosphorus 2.9 Magnesium 1.9 Total Bilirubin 1.7 H D AST 77 H ALT 21 Alkaline Phosphatase 135 H Total Protein 5.9 L Albumin 2.5 L Active Medications Generic Name Dose Route Start Last Admin Trade Name Freq PRN Reason Stop Dose Admin Betamethasone Valerate 1 applic 02/12/17 10:00 02/17/17 09:01 Valisone 0.1% Cream - TP 1 applic DAILY ANNA Administration Chlorhexidine Gluconate 1 applic 02/11/17 22:00 02/16/17 21:36 Hibiclens For Decolonization - TP 1 applic HS ANNA Administration Furosemide 80 mg 02/13/17 16:30 02/17/17 06:17 Lasix Injection - IVPUSH 80 mg BID@0600,1400 ANNA Administration Heparin Sodium (Porcine) 5,000 unit 02/11/17 14:30 02/17/17 06:14 Heparin - SQ 5,000 unit TID ANNA Administration Pantoprazole Sodium 100 mls @ 200 mls/hr 02/12/17 10:00 02/17/17 09:01 Protonix 40mg Ivpb (Pre-Docked) IVPB 200 mls/hr DAILY ANNA Administration Midazolam HCl 100 mg/ Sodium 100 mls @ 12 mls/hr 02/12/17 21:44 02/17/17 06:19 Chloride IVPB 15 mls/hr TITR ANNA Administration Protocol 12 MG/HR Fentanyl 500 mcg/ Dextrose 100 mls @ 10 mls/hr 02/12/17 22:30 02/17/17 10:51 IJ 100 mcg/hr TITR ANNA Titration 50 MCG/HR Norepinephrine Bitartrate 8, 500 mls @ 18.75 mls/hr 02/13/17 23:50 02/16/17 23: 56 000 mcg/ Dextrose IV Not Given TITR ANNA Protocol 5 MCG/MIN Vasopressin 50 units/ Sodium 100 mls @ 4.8 mls/hr 02/14/17 07:45 02/16/17 15:19 Chloride IVPB 4.8 mls/hr ASDIR ANNA Administration 2.4 UNITS/HR Lactic Acid 1 applic 02/11/17 13:05 02/13/17 09:09 Lac-Hydrin 12 TP 1 applic DAILY PRN Administration WOUND CARE Levetiracetam 1,500 mg 02/12/17 09:01 02/17/17 10:51 Keppra Injection - IVPB 1,500 mg BID ANNA Administration Levothyroxine Sodium 150 mcg 02/13/17 07:00 02/17/17 06:18 Synthroid - PO 150 mcg DAILY@0700 ANNA Administration Nystatin 1 applic 02/11/17 01:00 02/17/17 09:02 Mycostatin Ointment - TP 1 applic BID ANNA Administration Phenobarbital 100 mg 02/15/17 22:00 02/17/17 09:00 Phenobarbital Injection - IV 100 mg BID ANNA Administration Valproate Sodium 500 mg 02/13/17 22:00 02/17/17 06:13 Depacon Injection - IVPB 500 mg Q8H ANNA Administration ASSESSMENT/PLAN: 51 y/o woman with significant PMH of biventricular cardiomyopathy, ICD, HTN, A.Fib, Schizophrenia, seizure disorder, hypothroidism, GERD who presented to the hospital due to diminished pulses in LE, s/p fall and confusion. Hospital course has been complicated by status epilepticus that required intubation and admission to ICU. Neurology: seizure disorder;continue keppra to 1500 mg BID, depacone 500 mg bid and phenobarbital 100mg IV BID barbiturate level is pending Neurology consulted, low suspicion for meningitis or infectious proocess, LP not recommended continue Fentanyl and Versed GTT repeated EEG showed epileptiform activity daily vacation sedation Cardiology: cardiac shock, continue two pressors: Levophed GTT and Vasopressin GTT biventriculat dilated cardiomyopathy, ICD was interrogated, no pathology was reported f/u cardiology recommendations Arterial insufficiency in lower extremities: CTA shows patent vessels Distal b/l extremities cold, pulses weak, f/u with Dr. Fan recommendations Pulmonary: Acute respiratory failure; on mechanical ventilation, GI: Abdominal Distention with transaminitis continue Pantoprazole Endo: elevated TSH, the pt is on Synthroid, cont. added Cortisol to morning labs and Heparin abs to check for HIT, platelets increased today Skin: rash in lower extremities cont Nystatin cream and Bethametasone F/E/N; None/No/NPO DVT PPX; Heparin 5000 units sq tid GI PPX: protonix 40 IV daily Dispo: continue to monitor in ICU. Called Palliative care team and will discuss the goals of care with family. Problem List - Problems (1) Rash Code(s): R21 - RASH AND OTHER NONSPECIFIC SKIN ERUPTION (2) Seizure Code(s): R56.9 - UNSPECIFIED CONVULSIONS (3) Sepsis Code(s): A41.9 - SEPSIS, UNSPECIFIED ORGANISM (4) AICD (automatic cardioverter/defibrillator) present Code(s): Z95.810 - PRESENCE OF AUTOMATIC (IMPLANTABLE) CARDIAC DEFIBRILLATOR (5) Hypertension Code(s): I10 - ESSENTIAL (PRIMARY) HYPERTENSION Qualifiers: Hypertension type: essential hypertension Qualified Code(s): I10 - Essential (primary) hypertension (6) Hypothyroidism Code(s): E03.9 - HYPOTHYROIDISM, UNSPECIFIED Qualifiers: Hypothyroidism type: unspecified Qualified Code(s): E03.9 - Hypothyroidism, unspecified (7) Schizophrenia, paranoid, chronic Code(s): F20.0 - PARANOID SCHIZOPHRENIA (8) Cardiomyopathy Code(s): I42.9 - CARDIOMYOPATHY, UNSPECIFIED Visit type - Emergency Visit Emergency Visit: Yes ED Registration Date: 02/10/17 Care time: The patient presented to the Emergency Department on the above date and was hospitalized for further evaluation of their emergent condition. - New Patient This patient is new to me today: No - Critical Care Critical Care patient: Yes Total Critical Care Time (in minutes): 40 Critical Care Statement: The care of this patient involved high complexity decision making to prevent further life threatening deterioration of the patient 's condition and/or to evaluate & treat vital organ system(s) failure or risk of failure.
--- NOTE | 2017-02-17 11:44 | PN ---
Teaching Attending Note Name of Resident: Nereyda Cristina ATTENDING PHYSICIAN STATEMENT I saw and evaluated the patient. I reviewed the resident's note and discussed the case with the resident. I agree with the resident's findings and plan as documented. SUBJECTIVE: Pt seen and examined in the ICU. Remains intubated, sedated on levophed and vasopressin gtts. Still with intermittent seizures. OBJECTIVE: Last Vital Signs Temp Pulse Resp BP Pulse Ox 99.2 F 115 H 16 85/75 100 02/17/17 06:00 02/17/17 11:00 02/17/17 11:00 02/17/17 11:00 02/17/17 09:23 Intake & Output 02/14/17 02/15/17 02/16/17 02/17/17 23:59 23:59 23:59 23:59 Intake Total 2297.2 3577.7 4459.3 2078.8 Output Total 8000 2300 700 150 Balance -5702.8 1277.7 3759.3 1928.8 Weight 196 lb 3.382 oz 163 lb 4 oz 189 lb 2 oz 193 lb 7 oz Gen: intubated, sedated Heart: tachycardic, regular Lung: decreased breath sounds at the bases Abd: soft, nontender Ext: + edema CBC, BMP 02/17/17 05:20 02/17/17 05:20 Active Medications Betamethasone Valerate (Valisone 0.1% Cream -) 1 applic TP DAILY [facility] Last Admin: 02/17/17 09:01 Dose: 1 applic Chlorhexidine Gluconate (Hibiclens For Decolonization -) 1 applic TP HS [facility] Last Admin: 02/16/17 21:36 Dose: 1 applic Furosemide (Lasix Injection -) 80 mg IVPUSH BID@0600,1400 [facility] Last Admin: 02/17/17 06:17 Dose: 80 mg Heparin Sodium (Porcine) (Heparin -) 5,000 unit SQ TID [facility] Last Admin: 02/17/17 06:14 Dose: 5,000 unit Pantoprazole Sodium (Protonix 40mg Ivpb (Pre-Docked)) 100 mls @ 200 mls/hr IVPB DAILY [facility] Last Admin: 02/17/17 09:01 Dose: 200 mls/hr Midazolam HCl 100 mg/ Sodium (Chloride) 100 mls @ 12 mls/hr IVPB TITR ANNA; 12 MG/HR PRN Reason: Protocol Last Admin: 02/17/17 06:19 Dose: 15 mls/hr Fentanyl 500 mcg/ Dextrose 100 mls @ 10 mls/hr IJ TITR ANNA PRN Reason: 50 MCG/HR Last Titration: 02/17/17 10:51 Dose: 100 mcg/hr Norepinephrine Bitartrate 8, (000 mcg/ Dextrose) 500 mls @ 18.75 mls/hr IV TITR ANNA; 5 MCG/MIN PRN Reason: Protocol Last Admin: 02/16/17 23:56 Dose: Not Given Vasopressin 50 units/ Sodium (Chloride) 100 mls @ 4.8 mls/hr IVPB ASDIR ANNA PRN Reason: 2.4 UNITS/HR Last Admin: 02/16/17 15:19 Dose: 4.8 mls/hr Lactic Acid (Lac-Hydrin 12) 1 applic TP DAILY PRN PRN Reason: WOUND CARE Last Admin: 02/13/17 09:09 Dose: 1 applic Levetiracetam (Keppra Injection -) 1,500 mg IVPB BID [facility] Last Admin: 02/17/17 10:51 Dose: 1,500 mg Levothyroxine Sodium (Synthroid -) 150 mcg PO DAILY@0700 [facility] Last Admin: 02/17/17 06:18 Dose: 150 mcg Nystatin (Mycostatin Ointment -) 1 applic TP BID [facility] Last Admin: 02/17/17 09:02 Dose: 1 applic Phenobarbital (Phenobarbital Injection -) 100 mg IV BID [facility] Last Admin: 02/17/17 09:00 Dose: 100 mg Valproate Sodium (Depacon Injection -) 500 mg IVPB Q8H [facility] Last Admin: 02/17/17 06:13 Dose: 500 mg ASSESSMENT AND PLAN: Status Epileptics Acute Respiratory Failure Acute on Chronic Systolic Heart Failure Cardiogenic vs Septic Shock Lactic Acidosis resolved s/p ICD Elevated LFTs Hypothyroidism Thrombocytopenia - antiepileptics per neuro - monitor phenobarbital levels - titrate levophed, vasopressin gtt to maintain MAP >65 - continue lasix IV - send cortisol level, although pt not bradycardic or hypothermic on presentation and Free T4 within normal limits - f/u EEG - lighten sedation if no seizure activity noted on EEG - will need repeat CT head when more stable - f/u HIT Ab, consider hematology consult - enteral feeds - DVT/GI prophylaxis - continue ICU monitoring - poor overall prognosis - discuss with family goals of care, pt will need tracheostomy if they wish to continue care critical care time spent in reviewing chart, evaluating patient and formulating plan 40 min
[2017-02-17] MEDS ORDERED: VASOPRESSIN 20 UNITS/ML VIAL IV ONE (11:52)
--- NOTE | 2017-02-17 12:06 | PN ---
Progress Note (short form) - Note Progress Note: Progress Note: Chief Complaint: chf History of Present Illness: continues on levophed and vasopressin. bp still low. no overnight events Current Medications Generic Name Dose Route Start Last Admin Trade Name Frejohnathan PRN Reason Stop Dose Admin Betamethasone Valerate 1 applic 02/12/17 10:00 02/17/17 09:01 Valisone 0.1% Cream - TP 1 applic DAILY ANNA Administration Chlorhexidine Gluconate 1 applic 02/11/17 22:00 02/16/17 21:36 Hibiclens For Decolonization - TP 1 applic HS ANNA Administration Furosemide 80 mg 02/13/17 16:30 02/17/17 06:17 Lasix Injection - IVPUSH 80 mg BID@0600,1400 ANNA Administration Heparin Sodium (Porcine) 5,000 unit 02/11/17 14:30 02/17/17 06:14 Heparin - SQ 5,000 unit TID ANNA Administration Pantoprazole Sodium 100 mls @ 200 mls/hr 02/12/17 10:00 02/17/17 09:01 Protonix 40mg Ivpb (Pre-Docked) IVPB 200 mls/hr DAILY ANNA Administration Midazolam HCl 100 mg/ Sodium 100 mls @ 12 mls/hr 02/12/17 21:44 02/17/17 06:19 Chloride IVPB 15 mls/hr TITR ANNA Administration Protocol 12 MG/HR Fentanyl 500 mcg/ Dextrose 100 mls @ 10 mls/hr 02/12/17 22:30 02/17/17 10:51 IJ 100 mcg/hr TITR ANNA Titration 50 MCG/HR Norepinephrine Bitartrate 8, 500 mls @ 18.75 mls/hr 02/13/17 23:50 02/16/17 23: 56 000 mcg/ Dextrose IV Not Given TITR ANNA Protocol 5 MCG/MIN Vasopressin 50 units/ Sodium 100 mls @ 4.8 mls/hr 02/14/17 07:45 02/16/17 15:19 Chloride IVPB 4.8 mls/hr ASDIR ANNA Administration 2.4 UNITS/HR Lactic Acid 1 applic 02/11/17 13:05 02/13/17 09:09 Lac-Hydrin 12 TP 1 applic DAILY PRN Administration WOUND CARE Levetiracetam 1,500 mg 02/12/17 09:01 02/17/17 10:51 Keppra Injection - IVPB 1,500 mg BID ANNA Administration Levothyroxine Sodium 150 mcg 02/13/17 07:00 02/17/17 06:18 Synthroid - PO 150 mcg DAILY@0700 ANNA Administration Nystatin 1 applic 02/11/17 01:00 02/17/17 09:02 Mycostatin Ointment - TP 1 applic BID ANNA Administration Phenobarbital 100 mg 02/15/17 22:00 02/17/17 09:00 Phenobarbital Injection - IV 100 mg BID ANNA Administration Valproate Sodium 500 mg 02/13/17 22:00 02/17/17 06:13 Depacon Injection - IVPB 500 mg Q8H ANNA Administration Vital Signs Temp 99.2 F 02/17/17 06:00 Pulse 115 H 02/17/17 11:00 Resp 15 02/17/17 11:44 BP 85/75 02/17/17 11:00 Pulse Ox 100 02/17/17 09:23 Intake & Output 02/16/17 02/17/17 02/17/17 23:59 11:59 23:59 Intake Total 2115.7 2078.8 Output Total 450 150 Balance 1665.7 1928.8 Weight 193 lb 7 oz Intake: IV 705.7 718.8 Versed - 100 mg In Normal 179 180 Saline - 100 ml @ 12 MG/ HR 12 mls/hr IVPB TITR ANNA Rx#:[id number] Levophed - 8,000 Mcg In 238.7 270 D5w - 492 ml @ 5 MCG/MIN 18.75 mls/hr IV TITR ANNA Rx#:[id number] Pitressin - 50 Units In 28.8 Normal Saline - 97.5 ml @ 2.4 UNITS/HR 4.8 mls/hr IVPB ASDIR ANNA Rx#: [id number] Milrinone 20Mg/100Ml Ivpb 50 - 100 ml @ 0.3 MCG/KG/ MIN 8.01 mls/hr IVPB TITR ANNA Rx#:[id number] Fentanyl 238 240 IVPB 400 400 Tube Feeding 660 660 Tube Irrigant 350 300 Output: Urine 450 150 Garcia 450 150 Other: Voiding Method Indwelling Catheter Indwelling Catheter Bowel Movement No Weight Measurement Method Built in [facility] Constitutional: Yes: Well Nourished, No Distress, Calm Cardiovascular: Yes: Regular Rate and Rhythm, Gallop (? S3), S1, S2. No: JVD ( very tds exam), Murmur Respiratory: Yes: cta bl anteriorly. intubated on vent Extremities: No: Cool Edema: Yes (1-2+ pretib) Neurological: sedated, intubated Psychiatric: No: Agitated no jaundice diaphoresis abd nd pos bs Labs: Laboratory Last Values WBC 5.3 K/mm3 (4.0-10.0) 02/17/17 05:20 Corrected WBC (auto) Cancelled 02/11/17 04:00 RBC 4.04 M/mm3 (3.60-5.2) 02/17/17 05:20 Hgb 11.8 GM/dL (10.7-15.3) 02/17/17 05:20 Hct 36.9 % (32.4-45.2) 02/17/17 05:20 MCV 91.5 fl (80-96) 02/17/17 05:20 MCH 29.1 pg (25.7-33.7) 02/17/17 05:20 MCHC 31.8 g/dl (32.0-36.0) L 02/17/17 05:20 RDW 20.6 % (11.6-15.6) H 02/17/17 05:20 Plt Count Fresh Food Manager 02/17/17 05:20 MPV 12.1 fl (7.5-11.1) H D 02/17/17 05:20 Add Manual Diff Cancelled 02/11/17 04:00 Neutrophils % 83.3 % (42.8-82.8) H 02/16/17 05:30 Lymphocytes % 8.6 % (8-40) 02/16/17 05:30 Monocytes % 7.0 % (3.8-10.2) 02/16/17 05:30 Eosinophils % 0.5 % (0-4.5) D 02/16/17 05:30 Basophils % 0.6 % (0-2.0) 02/16/17 05:30 Differential Comment Cancelled 02/11/17 04:00 Hypochromia 2+ 02/10/17 17:35 Platelet Estimate Decreased (NORMAL) 02/17/17 05:20 Platelet Comment Slt plt clumping 02/17/17 05:20 Platelet Comment Few large plts 02/17/17 05:20 Normal RBC Morphology Cancelled 02/11/17 04:00 RBC Morphology 02/12/17 18:45 Poikilocytosis 1+ 02/12/17 18:45 Anisocytosis 2+ 02/16/17 05:30 Microcytosis 1+ 02/16/17 05:30 Macrocytosis Few 02/16/17 05:30 Tear Drop Cells 1+ 02/16/17 05:30 Ovalocytes 1+ 02/16/17 05:30 INR 1.17 (0.82-1.09) H 02/14/17 05:15 PTT (Actin FS) 28.5 SECONDS (26.9-34.4) D 02/12/17 05:20 Fibrinogen 186.0 mg/dL (238-498) L 02/11/17 04:00 Anticoagulation Therapy Y 02/15/17 07:20 Puncture Site Right radial 02/15/17 07:20 Patient Temperature 96.4 02/11/17 05:15 ABG pH 7.39 (7.35-7.45) 02/15/17 07:20 ABG pCO2 at Pt Temp 55.0 mmHg (35-45) H D 02/15/17 07:20 ABG pO2 at Pt Temp 105.0 mmHg (80-100) H 02/15/17 07:20 ABG HCO3 32.2 meq/L (22-26) H 02/15/17 07:20 ABG O2 Sat (Measured) 97.9 % (90-98.9) 02/15/17 07:20 ABG O2 Content 16.1 % vol (15-22) 02/15/17 07:20 ABG Base Excess 6.3 meq/l (-2-2) H 02/15/17 07:20 Bob Test Positive 02/15/17 07:20 VBG pH 7.35 (7.32-7.42) 02/16/17 11:50 POC VBG pCO2 65.7 mmHg (38-52) H* 02/16/17 11:50 POC VBG pO2 49.6 mmHg (28-48) H 02/16/17 11:50 Mixed VBG HCO3 35.6 meq/L (19-25) H 02/16/17 11:50 O2 Delivery Device Vent 02/15/17 07:20 Oxygen Flow Rate 40% 02/15/17 07:20 Vent Mode A/c 02/15/17 07:20 Vent Rate 14 02/15/17 07:20 Mechanical Rate Y 02/15/17 07:20 PEEP 6.0 cmH2O 02/15/17 07:20 Pressure Support Vent 400 02/15/17 07:20 Sodium 136 mmol/L (136-145) 02/17/17 05:20 Potassium 4.7 mmol/L (3.5-5.1) 02/17/17 05:20 Chloride 93 mmol/L (98-107) L 02/17/17 05:20 Carbon Dioxide 36 mmol/L (21-32) H 02/17/17 05:20 Anion Gap 7 (8-16) L 02/17/17 05:20 BUN 23 mg/dL (7-18) H D 02/17/17 05:20 Creatinine 1.0 mg/dL (0.55-1.02) D 02/17/17 05:20 Creat Clearance w eGFR 58.69 (>60) 02/17/17 05:20 POC Glucometer 186.23880 UNITS (()) 02/14/17 20:56 Random Glucose 117 mg/dL (74-106) H D 02/17/17 05:20 Lactic Acid 2.2 mmol/L (0.4-2.0) H* 02/15/17 10:32 Calcium 7.9 mg/dL (8.5-10.1) L 02/17/17 05:20 Phosphorus 2.9 mg/dL (2.5-4.9) 02/17/17 05:20 Magnesium 1.9 mg/dL (1.8-2.4) 02/17/17 05:20 Total Bilirubin 1.7 mg/dL (0.2-1.0) H D 02/17/17 05:20 Direct Bilirubin 1.0 mg/dL (0.0-0.2) H 02/15/17 05:30 AST 77 U/L (15-37) H 02/17/17 05:20 ALT 21 U/L (12-78) 02/17/17 05:20 Alkaline Phosphatase 135 U/L (45-117) H 02/17/17 05:20 Ammonia 34.6 umol/L (11-32) H 02/11/17 14:00 Creatine Kinase 83 IU/L (26-192) 02/11/17 04:00 Troponin I < 0.02 ng/ml (0.00-0.05) 02/12/17 18:45 B-Natriuretic Peptide 2733.06 pg/ml (5-125) H 02/11/17 04:00 Total Protein 5.9 g/dl (6.4-8.2) L 02/17/17 05:20 Albumin 2.5 g/dl (3.4-5.0) L 02/17/17 05:20 Total Amylase 87 U/L (25-115) 02/11/17 04:00 TSH 18.70 uIU/ml (0.358-3.74) H D 02/13/17 05:15 Free T4 1.24 ng/dl (0.76-1.46) 02/11/17 04:00 Free T3 0.8 pg/ml (2.0-4.4) L 02/12/17 05:20 Total T3 43.00 ng/dl (71-180) L 02/12/17 05:20 Urine Color Yellow 02/12/17 12:30 Urine Appearance Slcloudy 02/12/17 12:30 Urine pH 6.0 (5.0-8.0) 02/12/17 12:30 Ur Specific [place] 1.010 (1.005-1.025) 02/12/17 12:30 Urine Protein Negative (NEGATIVE) 02/12/17 12:30 Urine Glucose (UA) Negative (NEGATIVE) 02/12/17 12:30 Urine Ketones Negative (NEGATIVE) 02/12/17 12:30 Urine Blood 1+ (NEGATIVE) H 02/12/17 12:30 Urine Nitrite Negative (NEGATIVE) 02/12/17 12:30 Urine Bilirubin Negative (NEGATIVE) 02/12/17 12:30 Urine Urobilinogen 2.0 mg/dL (0.2-1.0) H 02/12/17 12:30 Ur Leukocyte Esterase Negative (NEGATIVE) 02/12/17 12:30 Urine RBC 5 /hpf (0-3) 02/12/17 12:30 Urine WBC 3 /hpf (3-5) 02/12/17 12:30 Calcium Oxalate Crystal Rare /hpf (NONE SEEN) 02/12/17 12:30 Hyaline Casts 3 /lpf 02/12/17 12:30 Granular Casts 1 /lpf 02/12/17 12:30 Urine Mucus Rare 02/12/17 12:30 Urine HCG, Qual Negative 02/11/17 14:00 Opiates Screen Negative ng/ml (QMPCSF=399) 02/11/17 14:00 Methadone Screen Negative ng/ml (XPDHHX=096) 02/11/17 14:00 Acetaminophen 3.145 ug/ml (10.0-30.0) L 02/13/17 05:15 Barbiturate Screen Negative ng/ml (JKATWJ=404) 02/11/17 14:00 Valproic Acid 104.182 ug/ml (50-100) H 02/15/17 10:32 Phencyclidine Screen Negative ng/ml (CUTOFF=25) 02/11/17 14:00 Ur Amphetamines Screen Negative ng/ml (PNZQEM=381) 02/11/17 14:00 MDMA (Ecstasy) Screen Negative ng/ml (HBVJRJ=496) 02/11/17 14:00 Benzodiazepines Screen Positive ng/ml (HBTCSW=772) 02/11/17 14:00 Cocaine Screen Negative ng/ml (SVEEWF=025) 02/11/17 14:00 U Marijuana (THC) Screen Negative ng/ml (CUTOFF=50) 02/11/17 14:00 tele: sr, sinus tachy, as-vpaced [facility] 10/2016 --> nl cors (verbal report from dr sanchez) Echo 01/2017: Severe lv dilation, sev reduced LV fn (global). mod rv dilation. mod RV dysfunction. RV pacing wire. 2.8 x 1.2 cm density in apex of RV (per discussion with Dr. Sanchez, bright echodensity at the tip of pacing wire was present on prior office echo). mod tr. rvsp 30-40. trivial pericardial effusion. + pleural effusion. CTA: pulmonary congestion, small left pleural effusion. large volume ascites. extensive subcutaneous edema/anasarca. CTA --> + arterial flow to LE. CT head: no acute pathology repeat cxr 02/14: improvement in congestive changes. dense left base persists. a/p: 51 y/o woman, resident on [facility] with hx of biventricular cardiomyopathy s/ p bivICD, htn, afib (per report only), Schizophrenia, seizure disorder, Hypothroidism and GERD who presented to ED with LE swelling, coolness to touch and diminshed pulses as well as lethargy. Hospital course has been complicated by seizure/status epilepticus requiring intubation for airway protection and sedation. acute on chronic syst CHF, nonischemic biventricular cardiomyopathy s/p bivICD, cardiogenic shock - holding bb and acei due to hypotension. - CE's were negative on admit and according to her chipper recent LHC showed normal cors - 02/12 BNP 2700, patient p/w with lethargy, LE edema, cool skin, poor distal pulses, pulmonary edema, large volume ascites and anasarca noted on ct scan, -- > concerning for decompensated biventricular heart failure. cvp 13 --> Started trial of IV lasix for diuresis 02/12, milrinone deferred at that time ( pt was on levophed). - 02/13: overnight propofol stopped due to increasing ectopy and concern for qt prolongation --> improvement in ectopy. patient's remained net positive, lasix was increased to 80 mg IV bid. Late evening cvp remained elevated at 15 and patient still not net negative. Drips were double concentrated. vasopressin added for recurrent hypotension (to 70s). - 02/14: levophed weaned off today. Patient finally net negative this am. BP still running low. CVP remains elevated at 13 --> started milrinone for decompensated heart failure. Patient still may have superimposed vasodilating pathology, con't pressor support for now. Con't lasix 80 mg IV bid with aggressive electrolyte repletion (congestion improving on cxr, lfts improving, cr stable). double concentrate drips when possible. - 02/15: CXR improved vs 02/13, L lung not well seen due to ICD and marked cardiomegaly obscuring L base. BP down to 70s again early am today, remains on high dose pressors (vasopressin 2.4 units/hour, levo 9 mcg). CVP has improved to 10 (from 17 initially) with diuresis plus milrinone (0.3 mcg/kg/min). vigorous UOP yesterday (8L). - 02/16: Concern for episode of VF/VT on telemetry-->ICD interrogated: No VT/VF events. Was informed that biV pacing programmed to stop at HR's above 130 which explains change in rhythm. Although 130's is still below lower detection limit for VT so cannot exclude intermittent slow VT. Milrinone drip stopped. Sent SvO2 to clarify hemodynamics, cardiogenic vs. vasodilatory. SVO2 80% per report so OK to leave off milrinone. Still getting augmentation of contractility from levophed. Remains net positive today, CVP 14 per report, but SVO2 is not low and overall edema improving --> will not uptitrate diuretics. -02/17: cont current iv lasix and pressor support - in absence of signs of sepsis, this is likely low cardiac output/cardiogenic shock (wbc and temp curve consistently normal here, mult BCX's negative)-- though cannot exclude med effect from midazolam gtt, previously propafol gtt ( of note, initially BP 90s--first time 80s was 2-3 hrs after tonic-clonic sz/ intubation with meds on board) wide complex tachycardia: - suspect tele represents sinus tach, initially with Bi-V pacing, then with loss of Bi-V pacing and pt conduction with [place]om[place] tribe bundle branch block QRS (note 02/10 ekg shows Bi-V pacing with a fusion beat btw paced and conducted beats, showing a wide QRS with chick[place] conduction) - doubt sustained VT on tele - has ICD protection - CHF optimization and med regimen as doing - per dr sanchez, ICD was recently interrogated 10/2016 with no remarkable findings then. - 02/12 with increasing ectopy throughout the day leading to sustained ventricular bigeminy with very broad abnormal t wave (no nsvt). concern for qt prolongation --> propofol weaned overnight with resolution of arrhythmia. - electrolyte repletion to usual targets - 02/16: ICD interrogated: No VT/VF events. Was informed that biV pacing programmed to stop at HR's above 130 which explains change in rhythm. RV echo density noted on echo - Echo here shows density in RV apex (couldn't exclude veg or thrombus). Discussed with Dr. Sanchez and patient had similarly described density on prior echo at his office, likely artifact from RV lead. However, if clinical concern for infection/endocarditis or emboli arises will have low threshold to better visualize with KAN. -currently no suspicion for infectious etiology. seizure disorder/status epilepticus - ongoing management per neuro/icu. Remains intubated and sedated. Avoid propofol due to qt prolonging properties. - head ct x 2 without acute pathology. afib - diagnosis documented on residential chart, but patient not on AC and in SR here (? accuracy of diagnosis)--will defer to Dr. Sanchez who is her treating outpatient chipper. For now, if no evidence of afib/flutter on tele, will not start AC. est cct 36 mins
[2017-02-17] MEDS: VASOPRESSIN 50 UNITS in SODIUM CHLORIDE 97.5 ML IVPB SCH (12:11)
--- NOTE | 2017-02-17 17:17 | PDOC ---
Attending Attestation - Resident Resident Name: Bisi [place] - ED Attending Attestation I have performed the following: I have examined & evaluated the patient, The case was reviewed & discussed with the resident, I agree w/resident's findings & plan, Exceptions are as noted - HPI HPI: 02/17/17 17:11 pt seen and evaluated on arrival on 02/10/17. this attending note is being documented post admission. pt is a 51 y/o female with schizophrenia, dm, seizure disorder from [facility] reffered to the ED for b/l leg swelling, and b/l foot pain and discoloration after having been treated with iv vanco for b/l LEs cellulitis - Physicial Exam PE: 02/17/17 17:13 on evaluation on 02/10/17 pt awake, slow to repond, c/o diffuse pain nc, atr perrla mmm rrr cta abd-sft, nt, nd +1 LEs edema b/l with erythema terminating at the ankle level b/l + extensive pallor with cyanosis and purple discoloration to feet b/l, cool to touch; DP/TP are not palpable b/l; cap refill is delayed b/o + 2.5 cm healing laceration to volar aspect of r. great toe poplateal pulses: + 1 b/l - Medical Decision Making 02/17/17 17:17 51 y/o female with multiple comorbidites presented with b/l cool, pale, discolored LEs at the level below the ankles c/w arterial insuf. CTA with run off showed no flow below the level of the ankles. vascular was consulted, heparin initiated, pt admitted for further eval.
[2017-02-17] MEDS: NOREPINEPHRINE BITARTRATE 8,000 MCG in DEXTROSE 5%-WATER - 492 ML IV SCH ×2 (17:56→18:55)
--- NOTE | 2017-02-17 18:14 | PN ---
Physical Exam: SUBJECTIVE: Patient seen and examined. No change in clinical status. Patient had event overnight where she went into possible VT/VF and returned to sinus rhythm after her pacemaker fired. PPM/ICD was interrogated and showed no events. Patient remained in her baseline rhythm for the remainder of the night. OBJECTIVE: Vital Signs Period Temp Pulse Resp BP Sys/Centeno Pulse Ox Last 24 Hr 98.6 F-99.5 F 111-117 14-18 75-93/6-78 92-100 GENERAL: The patient is intubated and sedated. HEAD: Normal with no signs of trauma. NECK: Trachea midline, full range of motion, supple. LUNGS: Breath sounds equal, clear to auscultation bilaterally, no wheezes, no crackles, no accessory muscle use. HEART: Regular rate and rhythm, S1, S2 without murmur, rub or gallop. ABDOMEN: Soft, nontender, nondistended, normoactive bowel sounds, no guarding, no rebound, no hepatosplenomegaly, no masses. EXTREMITIES: 2+ pulses, warm, well-perfused, +2 pitting edema bilaterally. NEUROLOGICAL: unable to obtain due to clinical status SKIN: Warm, dry, normal turgor, chronic skin changes seen on both lower extremities. Laboratory Results - last 24 hr 02/15/17 02/17/17 02/17/17 10:32 05:20 05:20 WBC 5.3 RBC 4.04 Hgb 11.8 Hct 36.9 MCV 91.5 MCH 29.1 MCHC 31.8 L RDW 20.6 H Plt Count Scrubber Machine Tender MPV 12.1 H D Platelet Estimate Decreased Platelet Comment Few large plts Sodium 136 Potassium 4.7 Chloride 93 L Carbon Dioxide 36 H Anion Gap 7 L BUN 23 H D Creatinine 1.0 D Creat Clearance w eGFR 58.69 Random Glucose 117 H D Calcium 7.9 L Phosphorus 2.9 Magnesium 1.9 Total Bilirubin 1.7 H D AST 77 H ALT 21 Alkaline Phosphatase 135 H Total Protein 5.9 L Albumin 2.5 L Levetiracetam 78.4 H Active Medications Generic Name Dose Route Start Last Admin Trade Name Freq PRN Reason Stop Dose Admin Betamethasone Valerate 1 applic 02/12/17 10:00 02/17/17 09:01 Valisone 0.1% Cream - TP 1 applic DAILY ANNA Administration Chlorhexidine Gluconate 1 applic 02/11/17 22:00 02/16/17 21:36 Hibiclens For Decolonization - TP 1 applic HS ANNA Administration Furosemide 80 mg 02/13/17 16:30 02/17/17 14:47 Lasix Injection - IVPUSH 80 mg BID@0600,1400 ANNA Administration Heparin Sodium (Porcine) 5,000 unit 02/11/17 14:30 02/17/17 14:48 Heparin - SQ 5,000 unit TID ANNA Administration Pantoprazole Sodium 100 mls @ 200 mls/hr 02/12/17 10:00 02/17/17 09:01 Protonix 40mg Ivpb (Pre-Docked) IVPB 200 mls/hr DAILY ANNA Administration Midazolam HCl 100 mg/ Sodium 100 mls @ 12 mls/hr 02/12/17 21:44 02/17/17 12:43 Chloride IVPB 15 mg/hr TITR ANNA Titration Protocol 12 MG/HR Fentanyl 500 mcg/ Dextrose 100 mls @ 10 mls/hr 02/12/17 22:30 02/17/17 16:54 IJ 100 mcg/hr TITR ANNA Titration 50 MCG/HR Norepinephrine Bitartrate 8, 500 mls @ 18.75 mls/hr 02/13/17 23:50 02/17/17 17: 56 000 mcg/ Dextrose IV 30 mls/hr TITR ANNA Administration Protocol 5 MCG/MIN Vasopressin 50 units/ Sodium 100 mls @ 4.8 mls/hr 02/14/17 07:45 02/17/17 12:11 Chloride IVPB 4.8 mls/hr ASDIR ANNA Administration 2.4 UNITS/HR Lactic Acid 1 applic 02/11/17 13:05 02/13/17 09:09 Lac-Hydrin 12 TP 1 applic DAILY PRN Administration WOUND CARE Levetiracetam 1,500 mg 02/12/17 09:01 02/17/17 10:51 Keppra Injection - IVPB 1,500 mg BID ANNA Administration Levothyroxine Sodium 150 mcg 02/13/17 07:00 02/17/17 06:18 Synthroid - PO 150 mcg DAILY@0700 ANNA Administration Nystatin 1 applic 02/11/17 01:00 02/17/17 09:02 Mycostatin Ointment - TP 1 applic BID ANNA Administration Phenobarbital 100 mg 02/15/17 22:00 02/17/17 09:00 Phenobarbital Injection - IV 100 mg BID ANNA Administration Valproate Sodium 500 mg 02/13/17 22:00 02/17/17 14:47 Depacon Injection - IVPB 500 mg Q8H ANNA Administration ASSESSMENT/PLAN: 51yo F with pmhx of 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 Admitted to ICU in status epilepticus #New onset seizure disorder, 2/2 to unknown etiology -continue keppra to 1500 mg BID -continue depacone 500 mg bid -Versed GTT -Lacosamide 100 mg iv bid -added phenobarbital 100mg IV BID -repeat EEG shows epileptiform activity -The make and model of the patient's pacemaker are not MRI compatible #Shock 2/2 neurogenic vs cardiogenic etiology -Levophed GTT -Vasopressin GTT #Acute respiratory failure -Intubated for airway protection -Continue vent support per ICU # Arterial insufficiency -CTA shows patent vessels -Distal b/l extremities cold, cap refill >2, and pulses absent, but present with doppler # Dilated cardiomyopathy -S/P AICD working appropriately; to be interrogated following fire today -Echo reveals thrombus in RV. -home toprolol held due to hypotension -Be careful with IVF # Abdominal Distention with transaminitis -continue to monitor # Atopic Dermatitis -Continued home nystatin cream for application on abdominal areas -Ammonium lactate lotion -Betamethasone 0.1% cream # Hypothyroidism -Continued home Synthroid 125mcg PO qDaily FEN: Fluids: None currently Electrolyte abnormalities: hypokalemia Nutrition: NPO ppx: -Heparin 5000 units sq tid -protonix 40 IV daily Dispo: -continue to monitor in ICU. Poor overall prognosis. Problem List - Problems (1) Chronic congestive heart failure Code(s): I50.9 - HEART FAILURE, UNSPECIFIED Qualifiers: Congestive heart failure type: unspecified congestive heart failure type Qualified Code(s): I50.9 - Heart failure, unspecified (2) Hypertension Code(s): I10 - ESSENTIAL (PRIMARY) HYPERTENSION Qualifiers: Hypertension type: essential hypertension Qualified Code(s): I10 - Essential (primary) hypertension (3) Schizophrenia, paranoid, chronic Code(s): F20.0 - PARANOID SCHIZOPHRENIA (4) Seizure Code(s): R56.9 - UNSPECIFIED CONVULSIONS (5) Rash Code(s): R21 - RASH AND OTHER NONSPECIFIC SKIN ERUPTION (6) Peripheral arterial disease Code(s): I73.9 - PERIPHERAL VASCULAR DISEASE, UNSPECIFIED Visit type - Emergency Visit Emergency Visit: Yes ED Registration Date: 02/10/17 Care time: The patient presented to the Emergency Department on the above date and was hospitalized for further evaluation of their emergent condition. - New Patient This patient is new to me today: No - Critical Care Critical Care patient: Yes Total Critical Care Time (in minutes): 35 Critical Care Statement: The care of this patient involved high complexity decision making to prevent further life threatening deterioration of the patient 's condition and/or to evaluate & treat vital organ system(s) failure or risk of failure.
[2017-02-17] MEDS ORDERED: NOREPINEPHRINE BITARTRATE 4 MG/4 ML ML IV ONE (18:31)
--- NOTE | 2017-02-17 18:59 | PN ---
Progress Note (short form) - Note Progress Note: Ms Dailey is a 51 y/o woman, resident on [facility] with hx of Schizophrenia, HTN , AFib, CHF, s/p AICD/biV pacer, Hypothroidism and GERD who presented to ED yesterday with LE swelling and pain c/f DVT. In ED pt was awake but poorly responsive, only C/o pain everywhere. Was noted to have cool bilateral LE with very weak peripheral pulses, edema and poor cap refill-->CTA runoff showing multiple occlusive areas in b/l LE arteries. Vascular was consulted and there was tentative plan for surgery today. CT head was performed due to AMS which was without acute pathology. Labs were notable for new elevated Tbili and alk phos, low therapeutic VPA level, no WBC, normal h/H, and slightly elevate INR 1.3. She was admitted to floor. Over night LITERATURE TEACHER was called when pt found having tonic-clonic sz. Was given Ativan 2mg with resolution, repeat head CT was again without apparent infarct or bleed (read pending). She was brought to ICU where she cont to have repeated sz, without regaining mental status c/w status epilepticus. She was not protecting her airway or having effective ventilation ( 7.2/60) and so was intubated. EEG was ordered. Neuro and cards were consulted. Abd US was ordered for elevated bilis. Pt. was given another total of 4 mgs of Ativan but without effect, she was than placed on Midazolam drip now at 15mg/ hour. She is being loaded with Keppra 1000mg now and bering given Depakote thru her NGT. Also given Midazolam ivpx2. Pt. is unable to relate hx. Its not clear whether she has a hx. of seizures in the past as per ICU staff. Initially she was assumed to have epilepsy based on her outpatient medications, but her daughter is not aware of a seizure history. Since admission she hsa been given Vimpat and this was stopped when she developed an arrhythmia. On IV valproate, with increasing doses she is calmer, but still not alert. Current AED regimen Midazolam drip 15mg/hr, Phenobarbital 100mg bid, VPA 500mg q8hrs, Levitarecetam 1500mg bid.. EEG 02/15 with epileptiform activity, burst suppression and diffuse slowing. As per nursing she had 5 episides today lasting minutes of "facial twitching ".Patient had event overnight where she went into possible VT/VF and returned to sinus rhythm after her pacemaker fired. PPM/ICD was interrogated and showed no events. Patient remained in her baseline rhythm for the remainder of the night. O/E comatose, eyes midline, periodically and spontaneously arms attain decerebrate posturing lasting for 2 minutes with tremulousness of both arms and extension of legs. A&P Pt. likely in SE, the decerebrate posturing is likely not gen. seizures. Would cont. current AED regimen except increase Levitarecetam to 2000mg bid. Her metabolic/cardiac status is likely perpetuating status epilepticus.
--- NOTE | 2017-02-17 19:54 | PN ---
Teaching Attending Note Name of Resident: Bala Herndon ATTENDING PHYSICIAN STATEMENT I saw and evaluated the patient. I reviewed the resident's note and discussed the case with the resident. I agree with the resident's findings and plan as documented. SUBJECTIVE: Patient unresponsive. Still having seizure activity. OBJECTIVE: Vital Signs Period Temp Pulse Resp BP Sys/Centeno Pulse Ox Last 24 Hr 98.6 F-99.9 F 111-117 14-18 75-93/6-78 92-100 HEART: S1S2, tachycardic LUNGS: Bilateral rhonchi ABDOMEN: Soft, distended, normal BS EXTREMITIES: 1+ edema of legs and arms ASSESSMENT AND PLAN: This is a 51 year old woman with a history of schizophrenia, hypothyroidism, dilated cardiomyopathy, AICD, HTN, atrial fib who presented to the ER with bilateral leg pain. 1. Status epilepticus - Continues to have seizures - Currently on Phenobarbital, Versed, Keppra, Depacon - EEG shows diffuse slowing, burst suppression pattern, epileptiform activity 2. Acute hypoxic respiratory failure - Remains on vent 3. Arrhythmias - Milrinone discontinued - AICD interrogation reveals no evidence VF/VT 4. Hypothyroidism - On Synthroid 5. Cardiogenic shock - Continue Levophed, Vasopressin 6. Acute and chronic systolic heart failure - Continue IV Lasix 7. Hypophosphatemia - Improved 8. Hypokalemia - Improved 9. Hypomagnesemia - Improved 10. Thrombocytopenia - HIT antibodies pending 11. Nutrition - Continue Jevity 1.5 via NGT 12. Stress ulcer prophylaxis - On Protonix 13. DVT prophylaxis - On heparin subq Critical Care Total Critical Care Time (in minutes): 30 Critical Care Statement: The care of this patient involved high complexity decision making to prevent further life threatening deterioration of the patient 's condition and/or to evaluate & treat vital organ system(s) failure or risk of failure.
[2017-02-17] MEDS: CHLORHEXIDINE GLUCONATE 4% CLEANSER FOR DECOLONIZATION TP SCH (22:30)
[2017-02-18] MEDS ORDERED: PT OWN MED DRAWER 7, Y5N ONE (06:01)
[2017-02-18] MEDS: FUROSEMIDE 40 MG/4 ML INJECTABLE VIAL IVPUSH SCH ×2 (06:11→14:40)
[2017-02-18] MEDS: VALPROATE SODIUM 500 MG/5 ML VIAL IVPB SCH ×3 (06:11→22:09)
[2017-02-18] MEDS: NOREPINEPHRINE BITARTRATE 8,000 MCG in DEXTROSE 5%-WATER - 492 ML IV SCH ×2 (06:11→19:00)
[2017-02-18] MEDS: HEPARIN NA (PORCINE) 5,000 UNITS/ML 1ML VIAL SQ SCH ×2 (06:12→14:40)
[2017-02-18] MEDS: LEVOTHYROXINE NA 150 MCG TABLET PO SCH (06:12)
[2017-02-18 07:02] LABS: MCH 28.5 pg (25.7-33.7); MCHC 31.5 g/dl (32.0-36.0); MEAN CELL VOLUME 90.6 fl (80-96); MEAN PLT VOLUME 11.6 fl (7.5-11.1); RDW 20.4 % (11.6-15.6); WHITE BLOOD COUNT 6.3 K/mm3 (4.0-10.0)
[2017-02-18] MEDS: FENTANYL INJECTION 500 MCG in DEXTROSE 5%-WATER - 90 ML IJ SCH (07:22)
[2017-02-18 07:28] LABS: ALBUMIN 2.5 g/dl (3.4-5.0); ANION GAP 8 (8-16); BILIRUBIN,TOTAL 2.1 mg/dL (0.2-1.0); CALCIUM 7.9 mg/dL (8.5-10.1); CO2 34 mmol/L (21-32); CREATININE 1.5 mg/dL (0.55-1.02); GLUCOSE,RANDOM 132 mg/dL (74-106); SGOT/AST 368 U/L (15-37); SGPT/ALT 93 U/L (12-78)
[2017-02-18 07:29] LABS: ALK PHOS 132 U/L (45-117)
[2017-02-18 08:28] LABS: PLATELET COUNT 96 K/MM3 (134-434)
[2017-02-18 08:29] LABS: PLATELET COMMENT2 MOD LARGE PLTS; PLATELET ESTIMATE DECREASED (NORMAL)
[2017-02-18] MEDS ORDERED: VASOPRESSIN 20 UNITS/ML VIAL IV ONE ×2 (08:37→20:47)
[2017-02-18] MEDS ORDERED: NOREPINEPHRINE BITARTRATE 4 MG/4 ML ML IV ONE ×2 (08:37→20:47)
--- NOTE | 2017-02-18 08:56 | PN ---
Progress Note (short form) - Note Progress Note: HPI : 02/11/17 : 51 y/o woman, resident on [facility] with hx of Schizophrenia, HTN, AFib, CHF, s/p AICD/biV pacer, Hypothroidism and GERD who presented to ED yesterday with LE swelling and pain c/f DVT. In ED pt was awake but poorly responsive, only C/o pain everywhere. Was noted to have cool bilateral LE with very weak peripheral pulses, edema and poor cap refill-->CTA runoff showing multiple occlusive areas in b/l LE arteries. Vascular was consulted and there was tentative plan for surgery today. CT head was performed due to AMS which was without acute pathology. Labs were notable for new elevated Tbili and alk phos, low therapeutic VPA level, no WBC, normal h/H, and slightly elevate INR 1.3. She was admitted to floor. Over night JEWELRY SORTER was called when pt found having tonic- clonic sz. Was given Ativan 2mg with resolution, repeat head CT was again without apparent infarct or bleed (read pending). She was brought to ICU where she cont to have repeated sz, without regaining mental status c/w status epilepticus. She was not protecting her airway or having effective ventilation ( 7.2/60) and so was intubated. EEG was ordered. Neuro and cards were consulted. Abd US was ordered for elevated bilis. Pt. was given another total of 4 mgs of Ativan but without effect, she was than placed on Midazolam drip now at 15mg/ hour. initiially loaded with Keppra 1000mg now and bering given Depakote thru her NGT. Also given Midazolam ivpx2. Pt. is unable to relate hx. Its not clear whether she has a hx. of seizures in the past as per ICU staff. Initially she was assumed to have epilepsy based on her outpatient medications, but her daughter is not aware of a seizure history. Since admission she hsa been given Vimpat and this was stopped when she developed an arrhythmia. On IV valproate, with increasing doses she is calmer, but still not alert. Current AED regimen Midazolam drip 15mg/hr, Phenobarbital 100mg bid, VPA 500mg q8hrs, Levitarecetam 1500mg bid. EEG 02/15 with epileptiform activity, burst suppression and diffuse slowing. 02/17/17 : As per nursing she had 5 episides today lasting minutes of "facial twitching". Patient remained in her baseline rhythm for the remainder of the night. FU today : 02/18/17 : in keppra since yesterday, no facial twitching noted; BP remains low on BP support and sedation. Vital Signs Temperature 98.8 F 02/18/17 06:00 Pulse Rate 116 H 02/18/17 07:00 Respiratory Rate 14 02/18/17 07:36 Blood Pressure 84/67 02/18/17 07:00 O2 Sat by Pulse Oximetry (%) 100 02/17/17 22:00 CBCD WBC 6.3 K/mm3 (4.0-10.0) 02/18/17 05:20 RBC 4.37 M/mm3 (3.60-5.2) 02/18/17 05:20 Hgb 12.4 GM/dL (10.7-15.3) 02/18/17 05:20 Hct 39.5 % (32.4-45.2) 02/18/17 05:20 MCV 90.6 fl (80-96) 02/18/17 05:20 MCHC 31.5 g/dl (32.0-36.0) L 02/18/17 05:20 RDW 20.4 % (11.6-15.6) H 02/18/17 05:20 Plt Count 96 K/MM3 (134-434) L D 02/18/17 05:20 MPV 11.6 fl (7.5-11.1) H 02/18/17 05:20 CMP Sodium 135 mmol/L (136-145) L 02/18/17 05:20 Potassium 5.2 mmol/L (3.5-5.1) H 02/18/17 05:20 Chloride 93 mmol/L (98-107) L 02/18/17 05:20 Carbon Dioxide 34 mmol/L (21-32) H 02/18/17 05:20 Anion Gap 8 (8-16) 02/18/17 05:20 BUN 39 mg/dL (7-18) H D 02/18/17 05:20 Creatinine 1.5 mg/dL (0.55-1.02) H D 02/18/17 05:20 Creat Clearance w eGFR 36.76 (>60) 02/18/17 05:20 Calcium 7.9 mg/dL (8.5-10.1) L 02/18/17 05:20 Total Bilirubin 2.1 mg/dL (0.2-1.0) H D 02/18/17 05:20 AST 368 U/L (15-37) H D 02/18/17 05:20 ALT 93 U/L (12-78) H D 02/18/17 05:20 Alkaline Phosphatase 132 U/L (45-117) H 02/18/17 05:20 Total Protein 6.0 g/dl (6.4-8.2) L 02/18/17 05:20 Albumin 2.5 g/dl (3.4-5.0) L 02/18/17 05:20 C T HD : 02/11/17 Impression. No evidence of acute intracranial hemorrhage, edema , midline shift, mass effect, or skull fracture. No CT evidence of acute territorial ischemic changes. O/E comatose, eyes midline, scleral icterus, R >L, pupils 2mm, 14/14 on vent , limited dolls, + corneals, neck supple, no twitching in exe A&P ASSESSMENT/PLAN: 51 y/o woman with significant PMH of biventricular cardiomyopathy, ICD, HTN, A.Fib, Schizophrenia, seizure disorder, hypothroidism, GERD who presented to the hospital due to diminished pulses in LE, s/p fall and confusion. Hospital course has been complicated by status epilepticus that required intubation and admission to ICU. being treated for cardiac shock, elevated LFTS continues to seize as per team, eye rolling, exe tremor and occ posturing cont Levitarecetam to 2000mg bid, Phenobabrb 100BID and depakote 500TID, on versed drip depakote can be inc though LFTS already high --can give extra PRN dose 500 keppra max dose, and versed and phenobarb limited by low BP FU levels phenobarb and depakote vimpat caused arrhythmia needs repeat HD CT when stable , repeat EEG no febrile, wbc stable, neck supple, so less likely meningitis , though encephalitis part of differential for intractable seziure ; can TAP if no coag/ cardiac contrindications, check HSV titers Dr Wilks
[2017-02-18] MEDS: VASOPRESSIN 50 UNITS in SODIUM CHLORIDE 97.5 ML IVPB SCH (10:49)
[2017-02-18] MEDS: NYSTATIN 100000 UNIT/GM TOPICAL OINTMENT 15 GM TUBE TP SCH ×2 (10:50→22:11)
[2017-02-18] MEDS: levETIRAcetam 500 MG/5 ML INJECTION VIAL IVPB SCH ×2 (10:50→22:09)
[2017-02-18] MEDS: PHENobarbital SODIUM 130 MG/1 ML VIAL IV SCH ×2 (10:51→22:08)
[2017-02-18] MEDS: AMMONIUM LACTATE 12% LOTION 225 GM BOTTLE TP PRN (10:52)
[2017-02-18] MEDS: PANTOPRAZOLE SODIUM 100 ML IVPB SCH (10:52)
[2017-02-18] MEDS: BETAMETHASONE VALERATE 0.1% CREAM 15 GM TUBE TP SCH (10:53)
--- NOTE | 2017-02-18 12:04 | PN ---
Teaching Attending Note Name of Resident: Donal Lal ATTENDING PHYSICIAN STATEMENT I saw and evaluated the patient. I reviewed the resident's note and discussed the case with the resident. I agree with the resident's findings and plan as documented. SUBJECTIVE: Pt seen and examined in the ICU. Remains intubated, sedated on levophed and vasopressin gtts. Noted to be posturing. Febrile this AM Last Vital Signs Temp Pulse Resp BP Pulse Ox 101.1 F H 110 H 14 74/64 100 02/18/17 10:00 02/18/17 10:59 02/18/17 11:58 02/18/17 10:49 02/18/17 11:01 Intake & Output 02/15/17 02/16/17 02/17/17 02/18/17 23:59 23:59 23:59 23:59 Intake Total 3577.7 4459.3 4436.8 1936 Output Total 2300 700 550 50 Balance 1277.7 3759.3 3886.8 1886 Weight 163 lb 4 oz 189 lb 2 oz 193 lb 7 oz 199 lb 9 oz OBJECTIVE: Gen: intubated, sedated Neck: supple Heart: tachycardic, regular Lung: scattered rhonchi Abd: soft, nontender Ext: + edema CBC, BMP 02/18/17 05:20 02/18/17 05:20 Active Medications Betamethasone Valerate (Valisone 0.1% Cream -) 1 applic TP DAILY ANNA Last Admin: 02/18/17 10:53 Dose: 1 applic Chlorhexidine Gluconate (Hibiclens For Decolonization -) 1 applic TP HS ANNA Last Admin: 02/17/17 22:30 Dose: 1 applic Furosemide (Lasix Injection -) 80 mg IVPUSH BID@0600,1400 [facility] Last Admin: 02/18/17 06:11 Dose: 80 mg Heparin Sodium (Porcine) (Heparin -) 5,000 unit SQ TID ANNA Last Admin: 02/18/17 06:12 Dose: 5,000 unit Pantoprazole Sodium (Protonix 40mg Ivpb (Pre-Docked)) 100 mls @ 200 mls/hr IVPB DAILY ANNA Last Admin: 02/18/17 10:52 Dose: 200 mls/hr Midazolam HCl 100 mg/ Sodium (Chloride) 100 mls @ 12 mls/hr IVPB TITR ANNA; 12 MG/HR PRN Reason: Protocol Last Admin: 02/17/17 20:30 Dose: 15 mls/hr Fentanyl 500 mcg/ Dextrose 100 mls @ 10 mls/hr IJ TITR ANNA PRN Reason: 50 MCG/HR Last Admin: 02/18/17 07:22 Dose: 20 mls/hr Norepinephrine Bitartrate 8, (000 mcg/ Dextrose) 500 mls @ 18.75 mls/hr IV TITR ANNA; 5 MCG/MIN PRN Reason: Protocol Last Admin: 02/18/17 06:11 Dose: Not Given Vasopressin 50 units/ Sodium (Chloride) 100 mls @ 4.8 mls/hr IVPB ASDIR ANNA PRN Reason: 2.4 UNITS/HR Last Admin: 02/18/17 10:49 Dose: 4.8 mls/hr Lactic Acid (Lac-Hydrin 12) 1 applic TP DAILY PRN PRN Reason: WOUND CARE Last Admin: 02/18/17 10:52 Dose: 1 applic Levetiracetam (Keppra Injection -) 1,500 mg IVPB BID [facility] Last Admin: 02/18/17 10:50 Dose: 1,500 mg Levothyroxine Sodium (Synthroid -) 150 mcg PO DAILY@0700 [facility] Last Admin: 02/18/17 06:12 Dose: 150 mcg Nystatin (Mycostatin Ointment -) 1 applic TP BID [facility] Last Admin: 02/18/17 10:50 Dose: 1 applic Phenobarbital (Phenobarbital Injection -) 100 mg IV BID [facility] Last Admin: 02/18/17 10:51 Dose: 100 mg Valproate Sodium (Depacon Injection -) 500 mg IVPB Q8H [facility] Last Admin: 02/18/17 06:11 Dose: 500 mg ASSESSMENT AND PLAN: Status Epileptics Acute Respiratory Failure Acute on Chronic Systolic Heart Failure Cardiogenic vs Septic Shock Lactic Acidosis resolved s/p ICD Elevated LFTs Hypothyroidism Thrombocytopenia - send UA, urine culture, blood cultures - ID eval - antiepileptics per neuro - monitor phenobarbital levels - titrate levophed, vasopressin gtt to maintain MAP >65 - continue lasix IV - f/u cortisol level - f/u EEG - lighten sedation if no seizure activity noted on EEG - repeat CT head - f/u HIT Ab - enteral feeds - DVT/GI prophylaxis - continue ICU monitoring - poor overall prognosis - discuss with family goals of care, pt will need tracheostomy if they wish to continue care critical care time spent in reviewing chart, evaluating patient and formulating plan 40 min
--- NOTE | 2017-02-18 13:51 | PN ---
Progress Note, Physician Chief Complaint: ID Full note dictated - Current Medication List Current Medications: Active Medications Betamethasone Valerate (Valisone 0.1% Cream -) 1 applic TP DAILY ANNA Last Admin: 02/18/17 10:53 Dose: 1 applic Chlorhexidine Gluconate (Hibiclens For Decolonization -) 1 applic TP HS ANNA Last Admin: 02/17/17 22:30 Dose: 1 applic Furosemide (Lasix Injection -) 80 mg IVPUSH BID@0600,1400 [facility] Last Admin: 02/18/17 06:11 Dose: 80 mg Heparin Sodium (Porcine) (Heparin -) 5,000 unit SQ TID ANNA Last Admin: 02/18/17 06:12 Dose: 5,000 unit Pantoprazole Sodium (Protonix 40mg Ivpb (Pre-Docked)) 100 mls @ 200 mls/hr IVPB DAILY [facility] Last Admin: 02/18/17 10:52 Dose: 200 mls/hr Midazolam HCl 100 mg/ Sodium (Chloride) 100 mls @ 12 mls/hr IVPB TITR ANNA; 12 MG/HR PRN Reason: Protocol Last Admin: 02/17/17 20:30 Dose: 15 mls/hr Fentanyl 500 mcg/ Dextrose 100 mls @ 10 mls/hr IJ TITR ANNA PRN Reason: 50 MCG/HR Last Admin: 02/18/17 07:22 Dose: 20 mls/hr Norepinephrine Bitartrate 8, (000 mcg/ Dextrose) 500 mls @ 18.75 mls/hr IV TITR ANNA; 5 MCG/MIN PRN Reason: Protocol Last Admin: 02/18/17 06:11 Dose: Not Given Vasopressin 50 units/ Sodium (Chloride) 100 mls @ 4.8 mls/hr IVPB ASDIR ANNA PRN Reason: 2.4 UNITS/HR Last Admin: 02/18/17 10:49 Dose: 4.8 mls/hr Lactic Acid (Lac-Hydrin 12) 1 applic TP DAILY PRN PRN Reason: WOUND CARE Last Admin: 02/18/17 10:52 Dose: 1 applic Levetiracetam (Keppra Injection -) 1,500 mg IVPB BID [facility] Last Admin: 02/18/17 10:50 Dose: 1,500 mg Levothyroxine Sodium (Synthroid -) 150 mcg PO DAILY@0700 [facility] Last Admin: 02/18/17 06:12 Dose: 150 mcg Nystatin (Mycostatin Ointment -) 1 applic TP BID [facility] Last Admin: 02/18/17 10:50 Dose: 1 applic Phenobarbital (Phenobarbital Injection -) 100 mg IV BID [facility] Last Admin: 02/18/17 10:51 Dose: 100 mg Valproate Sodium (Depacon Injection -) 500 mg IVPB Q8H [facility] Last Admin: 02/18/17 06:11 Dose: 500 mg - Objective Vital Signs: Vital Signs Temperature 101.1 F H 02/18/17 10:00 Pulse Rate 110 H 02/18/17 10:59 Respiratory Rate 14 02/18/17 11:58 Blood Pressure 74/64 02/18/17 10:49 O2 Sat by Pulse Oximetry (%) 100 02/18/17 11:01 Labs: CBC, BMP 02/18/17 05:20 02/18/17 05:20 INR, PTT INR 1.17 (0.82-1.09) H 02/14/17 05:15 Fibrinogen 186.0 mg/dL (238-498) L 02/11/17 04:00 Problem List - Problems (1) Seizure Code(s): R56.9 - UNSPECIFIED CONVULSIONS (2) Sepsis Code(s): A41.9 - SEPSIS, UNSPECIFIED ORGANISM (3) UTI (urinary tract infection) Code(s): N39.0 - URINARY TRACT INFECTION, SITE NOT SPECIFIED Assessment/Plan Microbiology 02/15/17 16:15 Sputum - Endotrachea Suction/Ventilator Gram Stain - Final 02/15/17 16:15 Sputum - Endotrachea Suction/Ventilator Sputum Culture - Final Morganella Morganii 02/11/17 12:25 Urine - Urine Garcia Urine Culture - Final NO GROWTH OBTAINED 02/11/17 04:00 Blood - Peripheral Venous Blood Culture - Final NO GROWTH AFTER 5 DAYS INCUBATION Laboratory Tests 02/18/17 02/18/17 05:20 05:20 WBC 6.3 Hgb 12.4 Hct 39.5 Plt Count 96 L D BUN 39 H D Creatinine 1.5 H D Creat Clearance w eGFR 36.76 AST 368 H D Alkaline Phosphatase 132 H Assessment Sepsis syndrome source unclear Now fever on pressors for cardiogenic shock Seizures Plan Panculture and give Vancomycin and PIP JACOB Galindo MD
[2017-02-18] MEDS ORDERED: VANCOMYCIN 1,500 MG in DEXTROSE 5%-WATER - 500 ML IVPB ONE ×2 (14:09→16:45)
--- NOTE | 2017-02-18 14:32 | MSN ---
Progress Note (SOAP) - Subjective Chief Complaint: Seizures History of Present Illness: Overnight, pt continued to seize. This morning, patient began exhibiting decerebrate posturing to stimuli. Pt is intubated and unresponsive. - Current Medications Current Medications: Active Medications Betamethasone Valerate (Valisone 0.1% Cream -) 1 applic TP DAILY ANNA Last Admin: 02/18/17 10:53 Dose: 1 applic Chlorhexidine Gluconate (Hibiclens For Decolonization -) 1 applic TP HS ANNA Last Admin: 02/17/17 22:30 Dose: 1 applic Furosemide (Lasix Injection -) 80 mg IVPUSH BID@0600,1400 ANNA Last Admin: 02/18/17 06:11 Dose: 80 mg Heparin Sodium (Porcine) (Heparin -) 5,000 unit SQ TID ANNA Last Admin: 02/18/17 06:12 Dose: 5,000 unit Pantoprazole Sodium (Protonix 40mg Ivpb (Pre-Docked)) 100 mls @ 200 mls/hr IVPB DAILY [facility] Last Admin: 02/18/17 10:52 Dose: 200 mls/hr Midazolam HCl 100 mg/ Sodium (Chloride) 100 mls @ 12 mls/hr IVPB TITR ANNA; 12 MG/HR PRN Reason: Protocol Last Admin: 02/17/17 20:30 Dose: 15 mls/hr Fentanyl 500 mcg/ Dextrose 100 mls @ 10 mls/hr IJ TITR ANNA PRN Reason: 50 MCG/HR Last Admin: 02/18/17 07:22 Dose: 20 mls/hr Norepinephrine Bitartrate 8, (000 mcg/ Dextrose) 500 mls @ 18.75 mls/hr IV TITR ANNA; 5 MCG/MIN PRN Reason: Protocol Last Admin: 02/18/17 06:11 Dose: Not Given Vasopressin 50 units/ Sodium (Chloride) 100 mls @ 4.8 mls/hr IVPB ASDIR ANNA PRN Reason: 2.4 UNITS/HR Last Admin: 02/18/17 10:49 Dose: 4.8 mls/hr Vancomycin HCl 1,500 mg/ (Dextrose) 500 mls @ 250 mls/hr IVPB ONCE ONE PRN Reason: Protocol Stop: 02/18/17 16:08 Piperacillin Sod/Tazobactam (Sod 3.375 gm/ Dextrose) 50 mls @ 100 mls/hr IVPB Q8H-IV ANNA PRN Reason: Protocol Lactic Acid (Lac-Hydrin 12) 1 applic TP DAILY PRN PRN Reason: WOUND CARE Last Admin: 02/18/17 10:52 Dose: 1 applic Levetiracetam (Keppra Injection -) 1,500 mg IVPB BID [facility] Last Admin: 02/18/17 10:50 Dose: 1,500 mg Levothyroxine Sodium (Synthroid -) 150 mcg PO DAILY@0700 [facility] Last Admin: 02/18/17 06:12 Dose: 150 mcg Nystatin (Mycostatin Ointment -) 1 applic TP BID [facility] Last Admin: 02/18/17 10:50 Dose: 1 applic Phenobarbital (Phenobarbital Injection -) 100 mg IV BID [facility] Last Admin: 02/18/17 10:51 Dose: 100 mg Valproate Sodium (Depacon Injection -) 500 mg IVPB Q8H [facility] Last Admin: 02/18/17 06:11 Dose: 500 mg - Objective Vital Signs: Vital Signs Temperature 101.1 F H 02/18/17 10:00 Pulse Rate 112 H 02/18/17 12:00 Respiratory Rate 14 02/18/17 14:08 Blood Pressure 79/67 02/18/17 12:00 O2 Sat by Pulse Oximetry (%) 100 02/18/17 11:01 Constitutional: Yes: Obese, Pallor, Other Eyes: Yes: Conjunctiva Clear, Other (2mm pupils reactive to light) HENT: Yes: Atraumatic, Normocephalic Neck: Yes: Supple, Trachea Midline Cardiovascular: Yes: Tachycardia, Gallop, S3 Respiratory: Yes: Regular, CTA Bilaterally, Diminished, Intubated Gastrointestinal: Yes: Normal Bowel Sounds, Soft, Abdomen, Obese ...Rectal Exam: Yes: Deferred Extremities: Yes: Other (Lower legs cool, indurated, with chronic bullous changes) Neurological: Yes: Seizure, Unresponsive, Other (Decerebrate posturing and L sided partial seizures in response to stimuli) Labs Lab Results: CBC, BMP 02/18/17 05:20 02/18/17 05:20 Assessment/Plan #Status epilepticus - Pt continues to have L sided partial seizures with face and arm twitching. Decerebrate posturing to stimuli noted. - Pt on phenobarbital for refractory seizures, as well as Keppra 2000 bid and Depacon 500 q8h. Monitor phenobarbital levels. - CT negative, EEG shows epileptic activity, MRI not possible, pt's ICD not compatible. - Neuro consult agrees with current therapy. - Await for results of family meeting to determine aggressive treatment vs palliative care. #Multi-organ dysfunction syndrome - Liver enzymes and creatinine became significantly elevated since yesterday. BP low on multiple pressors. #Ventilator associated pneumonia - Pt noted to meet sepsis criteria today with fever and tachycardia, sputum positive for Morganelli morganii. - Await for results of family meeting to determine aggressive treatment vs palliative care. - Await blood cultures and ID eval. #Dilated cardiomyopathy s/p AICD - Pt on levophed and vasopressin to maintain BP. Milrinone stopped due to arrhythmias. - Echo showed EF of 24%, compare to previous of 21%. - Cardio consult agrees with current therapy. - Await for results of family meeting to determine aggressive treatment vs palliative care. #Arterial Insufficiency - Vascular consult appreciated. Vascular surgery does not believe patient needs immediate intervention, pulses are appreciated via doppler, no signs of acute limb ischemia. - DVT negative. CTA w runoff shows no stenotic lesions. #Schizophrenia/Bipolar disorder - Continue patient on Depacon. #Hypothyroidism - T4 was normal, TSH elevated at 47. May be euthyroid sick state. Repeat free T3 and T4. - Continue pt's normal dose of synthyroid #AFib - Continue ASA, otherwise no anticoagulation at present due to seizures and bleeding risk. #HTN - Continue Toprol.
--- NOTE | 2017-02-18 14:33 | CONS ---
DATE OF CONSULTATION: DATE OF DICTATION: 02/18/2017 This is a 51-year-old female I am asked to see in the intensive care unit for evaluation of fever and shock. The history is obtained from reviewing the chart and speaking with the critical care physician, noting that this 51-year-old female from [facility] is currently intubated, on pressor support for what is thought to be cardiogenic shock. She has been in the hospital for several days already and has a history of schizophrenia, seizure disorder, hypertension, congestive heart failure, status post AICD and pacer, hypothyroidism, and had presented to the emergency room with lower extremity edema and pain. In the emergency room she was noted to be poorly responsive. Her lower extremities were noted to be cool bilaterally, with weak peripheral pulses and peripheral edema. CT arteriogram showed multiple occlusive areas in both lower extremities. Over the course of her admission, she developed status epilepticus with tonic-clonic seizures and was then brought to the ICU where she has been on pressor support and intubated. Today for the first time she spiked fever to 101. She has not previously been on antibiotics. Blood culture obtained several days ago are no growth, and a sputum culture obtained recently has a morganella species. CURRENT MEDICATIONS: Include Levophed, heparin, Keppra, valproic acid, Lasix, fentanyl, Synthroid, Protonix. ALLERGIES: HALOPERIDOL, RISPERIDONE. SOCIAL HISTORY: [facility] resident. HIV status unknown. Former smoker. No history of substance abuse. FAMILY HISTORY: Unobtainable. REVIEW OF SYSTEMS: Respiratory: Currently intubated. Cardiac: History of a defibrillator and pacemaker, currently in shock on pressor support. Gastrointestinal: No bleeding per rectum, hematemesis, diarrhea. Genitourinary: Incontinent of urine. PHYSICAL EXAMINATION: General: Physical examination revealed an intubated female in extremis. Vital Signs: Temperature 101.1, pulse 114, blood pressure 74/64, respirations 14. HEENT: Reveals endotracheal tube. Lungs: Bilateral rhonchi. Heart: Tachycardic. Abdomen: Soft, nontender. Extremities: Erythematous, with peripheral edema bilaterally. LABORATORY: WBC 6.3, hemoglobin 12.4, platelets of 96,000. INR 1.17. BUN 39, creatinine 1.5. AST 368, alkaline phosphatase 132. Urinalysis on the with 5 RBCs, 3 WBCs. Chest x-ray shows cardiomegaly, but no obvious infiltrate. ASSESSMENT: A 51-year-old female with multiple medical problems including cardiogenic shock in the setting of prior history of congestive heart failure. Echocardiogram performed following admission shows global hypokinesis of the left ventricle and a pacemaker lead, ejection fraction of 24%, now with fever on pressors and intubated. Would cover empirically for sepsis with combination of vancomycin and piperacillin/tazobactam. JENNYFER WAGNER M.D. [id number]
--- NOTE | 2017-02-18 14:36 | PN ---
Teaching Attending Note Name of Resident: Bala Herndon ATTENDING PHYSICIAN STATEMENT I saw and evaluated the patient. I reviewed the resident's note and discussed the case with the resident. I agree with the resident's findings and plan as documented. SUBJECTIVE: Patient sedated on vent. OBJECTIVE: Vital Signs Period Temp Pulse Resp BP Sys/Centeno Pulse Ox Last 24 Hr 97.9 F-101.1 F 109-121 14-16 74-96/6-79 98-100 HEART: S1S2, tachycardic LUNGS: Bilateral rhonchi ABDOMEN: Soft, distended, normal BS EXTREMITIES: 1+ edema ASSESSMENT AND PLAN: 1. Fever, possible sepsis - ID consult appreciated - Zosyn, Vancomycin started 2. Status epilepticus - Currently on Phenobarbital, Versed, Keppra, Depacon - EEG shows diffuse slowing, burst suppression pattern, epileptiform activity 3. Acute hypoxic respiratory failure - Remains on vent 4. Multi-organ failure - Acute kidney injury - creatinine increased to 1.5 today - Acute hepatic transaminitis - AST 368, ALT 93, alk phos 132 today 5. Arrhythmias - Milrinone discontinued - AICD interrogation revealed no evidence VF/VT 6. Hypothyroidism - On Synthroid 7. Cardiogenic shock - Continue Levophed, Vasopressin 8. Acute and chronic systolic heart failure - Continue IV Lasix 9. Hypophosphatemia - Improved 10. Hypokalemia - Improved 11. Hypomagnesemia - Improved 12. Thrombocytopenia - HIT antibodies pending 13. Nutrition - Continue Jevity 1.5 via NGT 14. Stress ulcer prophylaxis - On Protonix 15. DVT prophylaxis - On heparin subq Critical Care Total Critical Care Time (in minutes): 45 Critical Care Statement: The care of this patient involved high complexity decision making to prevent further life threatening deterioration of the patient 's condition and/or to evaluate & treat vital organ system(s) failure or risk of failure.
--- NOTE | 2017-02-18 15:36 | PN ---
Physical Exam: SUBJECTIVE: Patient seen and examined at bedside. Labs today significant for abrupt increase in LFTs and creatinine concerning for onset of multiorgan failure. Patient spiked a fever; pancultured. OBJECTIVE: Vital Signs Period Temp Pulse Resp BP Sys/Ecnteno Pulse Ox Last 24 Hr 97.9 F-101.1 F 109-121 14-16 74-96/6-79 98-100 GENERAL: The patient is intubated and sedated. HEAD: Normal with no signs of trauma. EYES: Pupils pinpoint and nonreactive, sclera icteric, conjunctiva clear. No ptosis. NECK: Trachea midline, full range of motion, supple. LUNGS: Breath sounds equal, clear to auscultation bilaterally, no wheezes, no crackles, no accessory muscle use. HEART: Regular rate and rhythm, S1, S2 heard. gallop heard in aortic region, no radiation to carotids. ABDOMEN: Soft, no grimacing in response to palpation, nondistended, normoactive bowel sounds. NEUROLOGICAL: unable to obtain secondary to clinical status. corneal reflex intact. SKIN: Warm, dry, normal turgor, no rashes or lesions noted. Laboratory Results - last 24 hr 02/18/17 02/18/17 05:20 05:20 WBC 6.3 RBC 4.37 Hgb 12.4 Hct 39.5 MCV 90.6 MCH 28.5 MCHC 31.5 L RDW 20.4 H Plt Count 96 L D MPV 11.6 H Platelet Estimate Decreased Platelet Comment Mod large plts Sodium 135 L Potassium 5.2 H Chloride 93 L Carbon Dioxide 34 H Anion Gap 8 BUN 39 H D Creatinine 1.5 H D Creat Clearance w eGFR 36.76 Random Glucose 132 H Calcium 7.9 L Total Bilirubin 2.1 H D AST 368 H D ALT 93 H D Alkaline Phosphatase 132 H Total Protein 6.0 L Albumin 2.5 L Active Medications Generic Name Dose Route Start Last Admin Trade Name Freq PRN Reason Stop Dose Admin Betamethasone Valerate 1 applic 02/12/17 10:00 02/18/17 10:53 Valisone 0.1% Cream - TP 1 applic DAILY ANNA Administration Chlorhexidine Gluconate 1 applic 02/11/17 22:00 02/17/17 22:30 Hibiclens For Decolonization - TP 1 applic HS ANNA Administration Furosemide 80 mg 02/13/17 16:30 02/18/17 14:40 Lasix Injection - IVPUSH 80 mg BID@0600,1400 ANNA Administration Pantoprazole Sodium 100 mls @ 200 mls/hr 02/12/17 10:00 02/18/17 10:52 Protonix 40mg Ivpb (Pre-Docked) IVPB 200 mls/hr DAILY ANNA Administration Midazolam HCl 100 mg/ Sodium 100 mls @ 12 mls/hr 02/12/17 21:44 02/17/17 20:30 Chloride IVPB 15 mls/hr TITR ANNA Administration Protocol 12 MG/HR Fentanyl 500 mcg/ Dextrose 100 mls @ 10 mls/hr 02/12/17 22:30 02/18/17 07:22 IJ 20 mls/hr TITR ANNA Administration 50 MCG/HR Norepinephrine Bitartrate 8, 500 mls @ 18.75 mls/hr 02/13/17 23:50 02/18/17 06: 11 000 mcg/ Dextrose IV Not Given TITR ANNA Protocol 5 MCG/MIN Vasopressin 50 units/ Sodium 100 mls @ 4.8 mls/hr 02/14/17 07:45 02/18/17 10:49 Chloride IVPB 4.8 mls/hr ASDIR ANNA Administration 2.4 UNITS/HR Vancomycin HCl 1,500 mg/ 500 mls @ 250 mls/hr 02/18/17 14:09 Dextrose IVPB 02/18/17 16:08 ONCE ONE Protocol Piperacillin Sod/Tazobactam Sod 50 mls @ 100 mls/hr 02/18/17 18:00 Zosyn 3.375gm Ivpb (Pre-Docked) IVPB Q8H-IV ANNA Protocol Lactic Acid 1 applic 02/11/17 13:05 02/18/17 10:52 Lac-Hydrin 12 TP 1 applic DAILY PRN Administration WOUND CARE Levetiracetam 1,500 mg 02/12/17 09:01 02/18/17 10:50 Keppra Injection - IVPB 1,500 mg BID ANNA Administration Levothyroxine Sodium 150 mcg 02/13/17 07:00 02/18/17 06:12 Synthroid - PO 150 mcg DAILY@0700 ANNA Administration Nystatin 1 applic 02/11/17 01:00 02/18/17 10:50 Mycostatin Ointment - TP 1 applic BID ANNA Administration Phenobarbital 100 mg 02/15/17 22:00 02/18/17 10:51 Phenobarbital Injection - IV 100 mg BID ANNA Administration Valproate Sodium 500 mg 02/13/17 22:00 02/18/17 15:03 Depacon Injection - IVPB 500 mg Q8H ANNA Administration ASSESSMENT/PLAN: 51yo F with pmhx of 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 Admitted to ICU in status epilepticus #Mutiorgan failure 2/2 cardiogenic shock vs neurogenic shock and Sepsis -abrupt increase in LFTs and creatinine signifying end organ damage. -Sputum culture growing morganella, f/u the results of the -family meeting scheduled for today to establish goals of care; will await the results of this meeting to guide future management. #Shock 2/2 neurogenic vs cardiogenic etiology -Levophed GTT -Vasopressin GTT #New onset seizure disorder, 2/2 to unknown etiology -continue keppra to 1500 mg BID -continue depacone 500 mg bid -continue phenobarbital 100mg IV BID -Versed GTT -Lacosamide 100 mg iv bid d/c'd; possible cause of arrythmia yesterday -repeat EEG shows epileptiform activity -The make and model of the patient's pacemaker are not MRI compatible #Acute respiratory failure -Intubated for airway protection -Continue vent support per ICU # Arterial insufficiency -CTA shows patent vessels -Distal b/l extremities cold, cap refill >2, and pulses absent, but present with doppler # Dilated cardiomyopathy -S/P AICD working appropriately; Upon interrogation, it was found that it did not fire. -Echo reveals thrombus in RV. -home toprolol held due to hypotension -Be careful with IVF # Abdominal Distention with transaminitis -continue to monitor # Atopic Dermatitis -Continued home nystatin cream for application on abdominal areas -Ammonium lactate lotion -Betamethasone 0.1% cream # Hypothyroidism -Continued home Synthroid 125mcg PO qDaily FEN: Fluids: None currently Electrolyte abnormalities: hypokalemia Nutrition: NPO ppx: -Heparin 5000 units sq tid -protonix 40 IV daily Dispo: -continue to monitor in ICU. Poor overall prognosis. Problem List - Problems (1) Chronic congestive heart failure Code(s): I50.9 - HEART FAILURE, UNSPECIFIED Qualifiers: Congestive heart failure type: unspecified congestive heart failure type Qualified Code(s): I50.9 - Heart failure, unspecified (2) Hypertension Code(s): I10 - ESSENTIAL (PRIMARY) HYPERTENSION Qualifiers: Hypertension type: essential hypertension Qualified Code(s): I10 - Essential (primary) hypertension (3) Schizophrenia, paranoid, chronic Code(s): F20.0 - PARANOID SCHIZOPHRENIA (4) Seizure Code(s): R56.9 - UNSPECIFIED CONVULSIONS (5) Rash Code(s): R21 - RASH AND OTHER NONSPECIFIC SKIN ERUPTION (6) Peripheral arterial disease Code(s): I73.9 - PERIPHERAL VASCULAR DISEASE, UNSPECIFIED Visit type - Emergency Visit Emergency Visit: Yes ED Registration Date: 02/10/17 Care time: The patient presented to the Emergency Department on the above date and was hospitalized for further evaluation of their emergent condition. - New Patient This patient is new to me today: No - Critical Care Critical Care patient: Yes Total Critical Care Time (in minutes): 35 Critical Care Statement: The care of this patient involved high complexity decision making to prevent further life threatening deterioration of the patient 's condition and/or to evaluate & treat vital organ system(s) failure or risk of failure.
--- NOTE | 2017-02-18 16:06 | PN ---
Physical Exam: SUBJECTIVE: Patient seen and examined, no changes overnight. BP dropping to mid- 70's, new onset fever 101.1. OBJECTIVE: Vital Signs Period Temp Pulse Resp BP Sys/Centeno Pulse Ox Last 24 Hr 97.9 F-101.1 F 109-121 14-16 74-96/6-79 98-100 GENERAL: The patient is intubated and sedated. One episode of seizure with decerebrate features appreciated this AM. HEAD: Normal with no signs of trauma. EYES: Eyes midline, open, 3mm b/l pupils reactive to light ENT: oropharynx dry NECK: Trachea midline, full range of motion, supple. LUNGS: mechanical Breath sounds HEART: Regular rate and rhythm, S1, S2 without murmur, rub or gallop. ABDOMEN: Soft, nontender, nondistended, normoactive bowel sounds, no guarding, no rebound, no hepatosplenomegaly, no masses. EXTREMITIES: poor pulses, chronic erythema of the leg with largely indurated area. healing laceration on right-sided big toe Laboratory Results - last 24 hr 02/18/17 02/18/17 05:20 05:20 WBC 6.3 RBC 4.37 Hgb 12.4 Hct 39.5 MCV 90.6 MCH 28.5 MCHC 31.5 L RDW 20.4 H Plt Count 96 L D MPV 11.6 H Platelet Estimate Decreased Platelet Comment Mod large plts Sodium 135 L Potassium 5.2 H Chloride 93 L Carbon Dioxide 34 H Anion Gap 8 BUN 39 H D Creatinine 1.5 H D Creat Clearance w eGFR 36.76 Random Glucose 132 H Calcium 7.9 L Total Bilirubin 2.1 H D AST 368 H D ALT 93 H D Alkaline Phosphatase 132 H Total Protein 6.0 L Albumin 2.5 L Active Medications Generic Name Dose Route Start Last Admin Trade Name Freq PRN Reason Stop Dose Admin Betamethasone Valerate 1 applic 02/12/17 10:00 02/18/17 10:53 Valisone 0.1% Cream - TP 1 applic DAILY ANNA Administration Chlorhexidine Gluconate 1 applic 02/11/17 22:00 02/17/17 22:30 Hibiclens For Decolonization - TP 1 applic HS ANNA Administration Furosemide 80 mg 02/13/17 16:30 02/18/17 14:40 Lasix Injection - IVPUSH 80 mg BID@0600,1400 ANNA Administration Pantoprazole Sodium 100 mls @ 200 mls/hr 02/12/17 10:00 02/18/17 10:52 Protonix 40mg Ivpb (Pre-Docked) IVPB 200 mls/hr DAILY ANNA Administration Midazolam HCl 100 mg/ Sodium 100 mls @ 12 mls/hr 02/12/17 21:44 02/17/17 20:30 Chloride IVPB 15 mls/hr TITR ANNA Administration Protocol 12 MG/HR Fentanyl 500 mcg/ Dextrose 100 mls @ 10 mls/hr 02/12/17 22:30 02/18/17 07:22 IJ 20 mls/hr TITR ANNA Administration 50 MCG/HR Norepinephrine Bitartrate 8, 500 mls @ 18.75 mls/hr 02/13/17 23:50 02/18/17 06: 11 000 mcg/ Dextrose IV Not Given TITR ANNA Protocol 5 MCG/MIN Vasopressin 50 units/ Sodium 100 mls @ 4.8 mls/hr 02/14/17 07:45 02/18/17 10:49 Chloride IVPB 4.8 mls/hr ASDIR ANNA Administration 2.4 UNITS/HR Vancomycin HCl 1,500 mg/ 500 mls @ 250 mls/hr 02/18/17 14:09 Dextrose IVPB 02/18/17 16:08 ONCE ONE Protocol Piperacillin Sod/Tazobactam Sod 50 mls @ 100 mls/hr 02/18/17 18:00 Zosyn 3.375gm Ivpb (Pre-Docked) IVPB Q8H-IV ANNA Protocol Lactic Acid 1 applic 02/11/17 13:05 02/18/17 10:52 Lac-Hydrin 12 TP 1 applic DAILY PRN Administration WOUND CARE Levetiracetam 1,500 mg 02/12/17 09:01 02/18/17 10:50 Keppra Injection - IVPB 1,500 mg BID ANNA Administration Levothyroxine Sodium 150 mcg 02/13/17 07:00 02/18/17 06:12 Synthroid - PO 150 mcg DAILY@0700 ANNA Administration Nystatin 1 applic 02/11/17 01:00 02/18/17 10:50 Mycostatin Ointment - TP 1 applic BID ANNA Administration Phenobarbital 100 mg 02/15/17 22:00 02/18/17 10:51 Phenobarbital Injection - IV 100 mg BID ANNA Administration Valproate Sodium 500 mg 02/13/17 22:00 02/18/17 15:03 Depacon Injection - IVPB 500 mg Q8H ANNA Administration ASSESSMENT/PLAN: 51yo F with PMH schizophrenia, hypothyroid, dilated cardiomyopathy s/p AICD, HTN and afib presented to the ER with B/L LE pain and concern for acute arterial ischemia. [employer] called for status epilepticus where pt was intubated for airway protection ID - F/U on UA, urine culture, blood cultures - ID eval Neuro - CT Head per Neuro. - Advised repeating EEG when stable - antiepileptics per Dr. Wilks, neuro: "cont Levitarecetam to 2000mg bid, Phenobabrb 100BID and depakote 500TID, on versed drip depakote can be inc though LFTS already high --can give extra PRN dose 500 keppra max dose, and versed and phenobarb limited by low BP" - monitor phenobarbital levels Cardiovascular - titrate levophed, vasopressin gtt to maintain MAP >65 - continue lasix IV Endocrinology - f/u cortisol level Hematology - f/u HIT Ab - enteral feeds - DVT/GI prophylaxis - continue ICU monitoring - poor overall prognosis - discuss with family goals of care, pt will need tracheostomy if they wish to continue care Visit type - Emergency Visit Emergency Visit: No - New Patient This patient is new to me today: No - Critical Care Critical Care patient: Yes Total Critical Care Time (in minutes): 45 Critical Care Statement: The care of this patient involved high complexity decision making to prevent further life threatening deterioration of the patient 's condition and/or to evaluate & treat vital organ system(s) failure or risk of failure.
[2017-02-18] MEDS ORDERED: FUROSEMIDE 40 MG/4 ML INJECTABLE VIAL IVPUSH SCH (17:00)
[2017-02-18] MEDS ORDERED: MILRINONE 20MG/100ML IVPB - 100 ML IVPB ONE (17:03)
[2017-02-18] MEDS: MILRINONE 20MG/100ML IVPB - 100 ML IVPB SCH (17:06)
[2017-02-18] MEDS: PIPERACILLIN/TAZOB 3.375 GM 50 ML IVPB SCH (17:43)
--- NOTE | 2017-02-18 19:10 | PN ---
Progress Note (short form) - Note Progress Note: Chief Complaint: chf History of Present Illness: continues on levophed and vasopressin. bp still low. poor uop. significantly net positive. seizures continue. now with MARK and signficant worsening of lft's Current Medications Betamethasone Valerate (Valisone 0.1% Cream -) 1 applic TP DAILY ANNA Last Admin: 02/18/17 10:53 Dose: 1 applic Chlorhexidine Gluconate (Hibiclens For Decolonization -) 1 applic TP HS ANNA Last Admin: 02/17/17 22:30 Dose: 1 applic Furosemide (Lasix Injection -) 100 mg IVPUSH BID@0600,1400 ANNA Last Admin: 02/18/17 17:19 Dose: 100 mg Pantoprazole Sodium (Protonix 40mg Ivpb (Pre-Docked)) 100 mls @ 200 mls/hr IVPB DAILY ANNA Last Admin: 02/18/17 10:52 Dose: 200 mls/hr Midazolam HCl 100 mg/ Sodium (Chloride) 100 mls @ 12 mls/hr IVPB TITR ANNA; 12 MG/HR PRN Reason: Protocol Last Admin: 02/17/17 20:30 Dose: 15 mls/hr Fentanyl 500 mcg/ Dextrose 100 mls @ 10 mls/hr IJ TITR ANNA PRN Reason: 50 MCG/HR Last Admin: 02/18/17 07:22 Dose: 20 mls/hr Norepinephrine Bitartrate 8, (000 mcg/ Dextrose) 500 mls @ 18.75 mls/hr IV TITR ANNA; 5 MCG/MIN PRN Reason: Protocol Last Admin: 02/18/17 06:11 Dose: Not Given Vasopressin 50 units/ Sodium (Chloride) 100 mls @ 4.8 mls/hr IVPB ASDIR ANNA PRN Reason: 2.4 UNITS/HR Last Admin: 02/18/17 10:49 Dose: 4.8 mls/hr Piperacillin Sod/Tazobactam Sod (Zosyn 3.375gm Ivpb (Pre-Docked)) 50 mls @ 100 mls/hr IVPB Q8H-IV ANNA PRN Reason: Protocol Last Admin: 02/18/17 17:43 Dose: 100 mls/hr Milrinone Lactate/Dextrose (Milrinone 20mg/100ml Ivpb -) 100 mls @ 5.431 mls/ hr IVPB TITR ANNA PRN Reason: 0.2 MCG/KG/MIN Last Admin: 02/18/17 17:06 Dose: 5.431 mls/hr Lactic Acid (Lac-Hydrin 12) 1 applic TP DAILY PRN PRN Reason: WOUND CARE Last Admin: 02/18/17 10:52 Dose: 1 applic Levetiracetam (Keppra Injection -) 1,500 mg IVPB BID [facility] Last Admin: 02/18/17 10:50 Dose: 1,500 mg Levothyroxine Sodium (Synthroid -) 150 mcg PO DAILY@0700 [facility] Last Admin: 02/18/17 06:12 Dose: 150 mcg Nystatin (Mycostatin Ointment -) 1 applic TP BID [facility] Last Admin: 02/18/17 10:50 Dose: 1 applic Phenobarbital (Phenobarbital Injection -) 100 mg IV BID [facility] Last Admin: 02/18/17 10:51 Dose: 100 mg Valproate Sodium (Depacon Injection -) 500 mg IVPB Q8H [facility] Last Admin: 02/18/17 15:03 Dose: 500 mg Vital Signs - 24 hr 02/17/17 02/17/17 02/17/17 19:00 20:00 21:00 Temperature Pulse Rate 114 H 115 H 115 H Respiratory 16 14 14 Rate Blood Pressure 84/72 84/71 85/70 O2 Sat by Pulse Oximetry (%) 02/17/17 02/17/17 02/17/17 21:30 22:00 23:00 Temperature 99.4 F Pulse Rate 116 H 117 H Respiratory 14 14 14 Rate Blood Pressure 81/69 81/68 O2 Sat by Pulse 100 Oximetry (%) 02/18/17 02/18/17 02/18/17 00:00 00:15 01:00 Temperature Pulse Rate 121 H 118 H Respiratory 14 14 16 Rate Blood Pressure 91/79 96/79 O2 Sat by Pulse Oximetry (%) 02/18/17 02/18/17 02/18/17 02:00 03:00 03:15 Temperature 97.9 F Pulse Rate 120 H 120 H Respiratory 14 14 Rate Blood Pressure 90/74 90/72 O2 Sat by Pulse Oximetry (%) 02/18/17 02/18/17 02/18/17 04:00 05:00 05:30 Temperature Pulse Rate 116 H 117 H Respiratory 14 14 14 Rate Blood Pressure 92/73 86/68 O2 Sat by Pulse Oximetry (%) 02/18/17 02/18/17 02/18/17 06:00 07:00 07:36 Temperature 98.8 F Pulse Rate 115 H 116 H Respiratory 14 14 14 Rate Blood Pressure 82/65 84/67 O2 Sat by Pulse Oximetry (%) 02/18/17 02/18/17 02/18/17 08:00 09:00 10:00 Temperature 101.1 F H Pulse Rate 115 H 111 H 109 H Respiratory 14 14 14 Rate Blood Pressure 77/67 74/64 76/60 O2 Sat by Pulse 99 92 L Oximetry (%) 02/18/17 02/18/17 02/18/17 10:49 10:59 11:01 Temperature Pulse Rate 114 H 110 H Respiratory 16 Rate Blood Pressure 74/64 O2 Sat by Pulse 100 100 Oximetry (%) 02/18/17 02/18/17 02/18/17 11:58 12:00 14:00 Temperature Pulse Rate 112 H 111 H Respiratory 14 14 14 Rate Blood Pressure 79/67 79/67 O2 Sat by Pulse Oximetry (%) 02/18/17 02/18/17 02/18/17 14:08 14:56 15:00 Temperature 100.5 F H Pulse Rate 114 H 117 H Respiratory 14 14 14 Rate Blood Pressure 74/62 O2 Sat by Pulse Oximetry (%) 02/18/17 02/18/17 02/18/17 16:00 17:00 18:00 Temperature Pulse Rate 115 H 115 H 115 H Respiratory 18 14 14 Rate Blood Pressure 82/70 72/60 78/67 O2 Sat by Pulse Oximetry (%) Intake & Output 02/16/17 02/17/17 02/18/17 02/19/17 07:59 07:59 07:59 07:59 Intake Total 3807.7 4194.5 4294 2392 Output Total 2150 600 450 200 Balance 1657.7 3594.5 3844 2192 Weight 189 lb 2 oz 193 lb 7 oz 199 lb 9 oz Constitutional: Yes: Well Nourished, No Distress, Calm Cardiovascular: Yes: Regular Rate and Rhythm, Gallop (? S3), S1, S2. No: JVD ( very tds exam), Murmur Respiratory: Yes: mechanical breath sounds. intubated on vent Extremities: No: Cool Edema: Yes (1-2+ pretib/anasarca) Neurological: sedated, intubated Psychiatric: No: Agitated no jaundice diaphoresis abd nd pos bs + mottling of distal LE Labs: Laboratory Tests 02/18/17 02/18/17 05:20 05:20 WBC 6.3 Hgb 12.4 Plt Count 96 L D Sodium 135 L Potassium 5.2 H Carbon Dioxide 34 H BUN 39 H D Creatinine 1.5 H D Total Bilirubin 2.1 H D AST 368 H D ALT 93 H D Alkaline Phosphatase 132 H Albumin 2.5 L tele: sinus tachy, as-vpaced C 10/2016 --> nl cors (verbal report from dr sanchez) Echo 01/2017: Severe lv dilation, sev reduced LV fn (global). mod rv dilation. mod RV dysfunction. RV pacing wire. 2.8 x 1.2 cm density in apex of RV (per discussion with Dr. Sanchez, bright echodensity at the tip of pacing wire was present on prior office echo). mod tr. rvsp 30-40. trivial pericardial effusion. + pleural effusion. CTA: pulmonary congestion, small left pleural effusion. large volume ascites. extensive subcutaneous edema/anasarca. CTA --> + arterial flow to LE. CT head: no acute pathology repeat cxr 02/14: improvement in congestive changes. dense left base persists. a/p: 51 y/o woman, resident on [facility] with hx of biventricular cardiomyopathy s/ p bivICD, htn, afib (per report only), Schizophrenia, seizure disorder, Hypothroidism and GERD who presented to ED with LE swelling, coolness to touch and diminshed pulses as well as lethargy. Hospital course has been complicated by seizure/status epilepticus requiring intubation for airway protection and sedation. acute on chronic syst CHF, nonischemic biventricular cardiomyopathy s/p bivICD, cardiogenic shock - holding bb and acei due to hypotension. - CE's were negative on admit and according to her operations general agent recent [facility] showed normal cors - 02/12 BNP 2700, patient p/w with lethargy, LE edema, cool skin, poor distal pulses, pulmonary edema, large volume ascites and anasarca noted on ct scan, -- > concerning for decompensated biventricular heart failure. cvp 13 --> Started trial of IV lasix for diuresis 02/12, milrinone deferred at that time ( pt was on levophed). - 02/13: overnight propofol stopped due to increasing ectopy and concern for qt prolongation --> improvement in ectopy. patient's remained net positive, lasix was increased to 80 mg IV bid. Late evening cvp remained elevated at 15 and patient still not net negative. Drips were double concentrated. vasopressin added for recurrent hypotension (to 70s). - 02/14: levophed weaned off today. Patient finally net negative this am. BP still running low. CVP remains elevated at 13 --> started milrinone for decompensated heart failure. Patient still may have superimposed vasodilating pathology, con't pressor support for now. Con't lasix 80 mg IV bid with aggressive electrolyte repletion (congestion improving on cxr, lfts improving, cr stable). double concentrate drips when possible. - 02/15: CXR improved vs 02/13, L lung not well seen due to ICD and marked cardiomegaly obscuring L base. BP down to 70s again early am today, remains on high dose pressors (vasopressin 2.4 units/hour, levo 9 mcg). CVP has improved to 10 (from 17 initially) with diuresis plus milrinone (0.3 mcg/kg/min). vigorous UOP yesterday (8L). - 02/16: Concern for episode of VF/VT on telemetry-->ICD interrogated: No VT/VF events. Was informed that biV pacing programmed to stop at HR's above 130 which explains change in rhythm. Although 130's is still below lower detection limit for VT so cannot exclude intermittent slow VT. Milrinone drip stopped. Sent SvO2 to clarify hemodynamics, cardiogenic vs. vasodilatory. SVO2 80% per report so OK to leave off milrinone. Still getting augmentation of contractility from levophed. Remains net positive today, CVP 14 per report, but SVO2 is not low and overall edema improving --> will not uptitrate diuretics. -02/17: cont current iv lasix and pressor support - 02/18: concerned patient is continuing to be net positive. CVP elevated > 20. Now with MARK and minimal urine output now poor. If she continues to remain net positive her heart failure will continue to worsen. Had 100 cc uop to 100 mg IV lasix this afternoon (increase from what she has put out today per nursing). Will uptitrate lasix regimen to 100 mg tid. Will add back milrinone to see if it improves hypotension/cardiac output (add back at lower dose for now). ICD interrogation was negative for ventricular arrhythmia. Reassess tomorrow whether these interventions improve her clinical status. Discussed plan of care with family. Palliative care in room with family - in absence of signs of sepsis, this is likely low cardiac output/cardiogenic shock (wbc and temp curve consistently normal here, mult BCX's negative)-- though cannot exclude med effect from midazolam gtt, previously propafol gtt ( of note, initially BP 90s--first time 80s was 2-3 hrs after tonic-clonic sz/ intubation with meds on board). wide complex tachycardia: - suspect tele represents sinus tach, initially with Bi-V pacing, then with loss of Bi-V pacing and pt conduction with beaver bundle branch block QRS (note 02/10 ekg shows Bi-V pacing with a fusion beat btw paced and conducted beats, showing a wide QRS with beaver conduction) - doubt sustained VT on tele - has ICD protection - CHF optimization and med regimen as doing - per dr sanchez, ICD was recently interrogated 10/2016 with no remarkable findings then. - 02/12 with increasing ectopy throughout the day leading to sustained ventricular bigeminy with very broad abnormal t wave (no nsvt). concern for qt prolongation --> propofol weaned overnight with resolution of arrhythmia. - electrolyte repletion to usual targets - 02/16: ICD interrogated: No VT/VF events. Was informed that biV pacing programmed to stop at HR's above 130 which explains change in rhythm. RV echo density noted on echo - Echo here shows density in RV apex (couldn't exclude veg or thrombus). Discussed with Dr. Sanchez and patient had similarly described density on prior echo at his office, likely artifact from RV lead. However, if clinical concern for infection/endocarditis or emboli arises will have low threshold to better visualize with KAN. -currently no suspicion for infectious etiology. seizure disorder/status epilepticus - ongoing management per neuro/icu. Remains intubated and sedated. Avoid propofol due to qt prolonging properties. - head ct x 2 without acute pathology. afib - diagnosis documented on senior care chart, but patient not on AC and in SR here (? accuracy of diagnosis)--will defer to Dr. Sanchez who is her treating outpatient operations general agent. For now, if no evidence of afib/flutter on tele, will not start AC. thrombocytopenia - eval/mgm't per pmd. hit panel pending. poor prognosis, high risk of mortality. est cct 40 mins
[2017-02-18] MEDS: FUROSEMIDE 100 MG/10 ML INJECTABLE VIAL IVPUSH SCH (20:10)
[2017-02-18] MEDS: CHLORHEXIDINE GLUCONATE 4% CLEANSER FOR DECOLONIZATION TP SCH (22:09)
[2017-02-18] MEDS: MIDAZOLAM 100 MG in SODIUM CHLORIDE 100 ML IVPB SCH (22:10)
[2017-02-19] MEDS: PIPERACILLIN/TAZOB 3.375 GM 50 ML IVPB SCH ×3 (02:30→17:06)
[2017-02-19] MEDS ORDERED: NOREPINEPHRINE BITARTRATE 4 MG/4 ML ML IV ONE ×3 (05:23→23:00)
[2017-02-19] MEDS: FUROSEMIDE 100 MG/10 ML INJECTABLE VIAL IVPUSH SCH ×3 (06:29→17:04)
[2017-02-19] MEDS: VALPROATE SODIUM 500 MG/5 ML VIAL IVPB SCH ×3 (06:30→22:28)
[2017-02-19] MEDS: FENTANYL INJECTION 500 MCG in DEXTROSE 5%-WATER - 90 ML IJ SCH ×4 (06:30→22:32)
[2017-02-19 06:41] LABS: MCH 29.4 pg (25.7-33.7); MCHC 32.8 g/dl (32.0-36.0); MEAN CELL VOLUME 89.7 fl (80-96); MEAN PLT VOLUME 11.5 fl (7.5-11.1); PLATELET COUNT 119 K/MM3 (134-434); RDW 19.8 % (11.6-15.6); WHITE BLOOD COUNT 6.8 K/mm3 (4.0-10.0)
[2017-02-19 06:44] LABS: ANION GAP 8 (8-16); CALCIUM 7.6 mg/dL (8.5-10.1); CO2 33 mmol/L (21-32); CREATININE 1.5 mg/dL (0.55-1.02); GLUCOSE,RANDOM 129 mg/dL (74-106); PHOSPHOROUS 2.7 mg/dL (2.5-4.9)
[2017-02-19] MEDS ORDERED: MILRINONE 20MG/100ML IVPB - 100 ML IVPB ONE (06:59)
--- NOTE | 2017-02-19 07:24 | PN ---
Progress Note, Physician Chief Complaint: ID Remains intubated with pressor support Vancomycin dose along PIP Tazo day 1 for fever superimposed on cardiogenic shock - Current Medication List Current Medications: Active Medications Betamethasone Valerate (Valisone 0.1% Cream -) 1 applic TP DAILY [facility] Last Admin: 02/18/17 10:53 Dose: 1 applic Chlorhexidine Gluconate (Hibiclens For Decolonization -) 1 applic TP HS ANNA Last Admin: 02/18/17 22:09 Dose: 1 applic Furosemide (Lasix Injection -) 100 mg IVPUSH TID@0600,1200,1800 ANNA Last Admin: 02/19/17 06:29 Dose: 100 mg Pantoprazole Sodium (Protonix 40mg Ivpb (Pre-Docked)) 100 mls @ 200 mls/hr IVPB DAILY [facility] Last Admin: 02/18/17 10:52 Dose: 200 mls/hr Midazolam HCl 100 mg/ Sodium (Chloride) 100 mls @ 12 mls/hr IVPB TITR ANNA; 12 MG/HR PRN Reason: Protocol Last Admin: 02/18/17 22:10 Dose: 15 mls/hr Fentanyl 500 mcg/ Dextrose 100 mls @ 10 mls/hr IJ TITR ANNA PRN Reason: 50 MCG/HR Last Admin: 02/19/17 06:30 Dose: 20 mls/hr Norepinephrine Bitartrate 8, (000 mcg/ Dextrose) 500 mls @ 18.75 mls/hr IV TITR ANNA; 5 MCG/MIN PRN Reason: Protocol Last Admin: 02/18/17 19:00 Dose: 37.5 mls/hr Vasopressin 50 units/ Sodium (Chloride) 100 mls @ 4.8 mls/hr IVPB ASDIR ANNA PRN Reason: 2.4 UNITS/HR Last Admin: 02/18/17 10:49 Dose: 4.8 mls/hr Piperacillin Sod/Tazobactam Sod (Zosyn 3.375gm Ivpb (Pre-Docked)) 50 mls @ 100 mls/hr IVPB Q8H-IV ANNA PRN Reason: Protocol Last Admin: 02/19/17 02:30 Dose: 100 mls/hr Milrinone Lactate/Dextrose (Milrinone 20mg/100ml Ivpb -) 100 mls @ 5.431 mls/ hr IVPB TITR ANNA PRN Reason: 0.2 MCG/KG/MIN Last Admin: 02/18/17 17:06 Dose: 5.431 mls/hr Lactic Acid (Lac-Hydrin 12) 1 applic TP DAILY PRN PRN Reason: WOUND CARE Last Admin: 02/18/17 10:52 Dose: 1 applic Levetiracetam (Keppra Injection -) 1,500 mg IVPB BID [facility] Last Admin: 02/18/17 22:09 Dose: 1,500 mg Levothyroxine Sodium (Synthroid -) 150 mcg PO DAILY@0700 [facility] Last Admin: 02/18/17 06:12 Dose: 150 mcg Nystatin (Mycostatin Ointment -) 1 applic TP BID [facility] Last Admin: 02/18/17 22:11 Dose: 1 applic Phenobarbital (Phenobarbital Injection -) 100 mg IV BID [facility] Last Admin: 02/18/17 22:08 Dose: 100 mg Valproate Sodium (Depacon Injection -) 500 mg IVPB Q8H [facility] Last Admin: 02/19/17 06:30 Dose: 500 mg - Objective Vital Signs: Vital Signs Temperature 98.4 F 02/19/17 05:00 Pulse Rate 106 H 02/19/17 06:50 Respiratory Rate 15 02/19/17 06:30 Blood Pressure 82/63 02/19/17 05:00 O2 Sat by Pulse Oximetry (%) 94 L 02/19/17 06:50 Constitutional: Yes: Other (INtubated) Cardiovascular: Yes: Regular Rate and Rhythm, S1, S2. No: Murmur Respiratory: Yes: WNL, Regular, CTA Bilaterally, Diminished Gastrointestinal: Yes: Soft. No: Tenderness Edema: Yes (Anasarca) Labs: CBC, BMP 02/19/17 05:20 02/19/17 05:20 INR, PTT INR 1.17 (0.82-1.09) H 02/14/17 05:15 Fibrinogen 186.0 mg/dL (238-498) L 02/11/17 04:00 Problem List - Problems (1) Seizure Code(s): R56.9 - UNSPECIFIED CONVULSIONS (2) Sepsis Code(s): A41.9 - SEPSIS, UNSPECIFIED ORGANISM (3) UTI (urinary tract infection) Code(s): N39.0 - URINARY TRACT INFECTION, SITE NOT SPECIFIED Assessment/Plan Microbiology 02/15/17 16:15 Sputum - Endotrachea Suction/Ventilator Gram Stain - Final 02/15/17 16:15 Sputum - Endotrachea Suction/Ventilator Sputum Culture - Final Morganella Morganii Laboratory Tests 02/19/17 02/19/17 05:20 05:20 WBC 6.8 Hgb 11.4 Plt Count 119 L D BUN 49 H D Creatinine 1.5 H Assessment Cardiogenic shock Cardiomyopathy with multiorgan failure seizures complicated by onset of fever yesterday Currently antibiotic empiric pending cultures Plan Continue Zosyn Check Vanco level this am Await c/s Josie PARIKH
[2017-02-19] MEDS: LEVOTHYROXINE NA 150 MCG TABLET PO SCH (07:26)
--- NOTE | 2017-02-19 08:03 | HP ---
CHIEF COMPLAINT: PCP: HISTORY OF PRESENT ILLNESS: ER course was notable for: (1) (2) (3) Recent Travel: PAST MEDICAL HISTORY: PAST SURGICAL HISTORY: Social History: Smoking: Alcohol: Drugs: Family History: Allergies haloperidol Allergy (Verified 02/10/17 16:05) risperidone Allergy (Verified 02/10/17 16:05) HOME MEDICATIONS: Home Medications Medication Instructions Recorded Levothyroxine [Synthroid -] 125 mcg PO DAILY 07/11/15 Metoprolol Succinate [Toprol XL -] 25 mg PO DAILY #30 tab.sr.24h 07/12/15 Acetaminophen [Tylenol] 650 mg PO QID PRN 02/10/17 Ammonium Lactate 1 ml TP BID 02/10/17 Betamethasone Valerate [Valisone] 1 applic TP DAILY 02/10/17 Divalproex Sodium [Depakote] 250 mg PO BID 02/10/17 Ergocalciferol (Vitamin D2) 50,000 unit PO DAILY 02/10/17 [Vitamin D2] Furosemide [Lasix -] 20 mg PO DAILY 02/10/17 Nystatin Cream [Mycostatin] 1 applic TP BID 02/10/17 Sertraline HCl [Zoloft] 25 mg PO DAILY 02/10/17 Topiramate [Topamax] 25 mg PO BID 02/10/17 Vancomycin [Vancocin] 500 mg IV DAILY 02/10/17 REVIEW OF SYSTEMS CONSTITUTIONAL: Absent: fever, chills, diaphoresis, generalized weakness, malaise, loss of appetite, weight change HEENT: Absent: rhinorrhea, nasal congestion, throat pain, throat swelling, difficulty swallowing, mouth swelling, ear pain, eye pain, visual changes CARDIOVASCULAR: Absent: chest pain, syncope, palpitations, irregular heart rate, lightheadedness , peripheral edema RESPIRATORY: Absent: cough, shortness of breath, dyspnea with exertion, orthopnea, wheezing, stridor, hemoptysis GASTROINTESTINAL: Absent: abdominal pain, abdominal distension, nausea, vomiting, diarrhea, constipation, melena, hematochezia GENITOURINARY: Absent: dysuria, frequency, urgency, hesitancy, hematuria, flank pain, genital pain MUSCULOSKELETAL: Absent: myalgia, arthralgia, joint swelling, back pain, neck pain SKIN: Absent: rash, itching, pallor HEMATOLOGIC/IMMUNOLOGIC: Absent: easy bleeding, easy bruising, lymphadenopathy, frequent infections ENDOCRINE: Absent: unexplained weight gain, unexplained weight loss, heat intolerance, cold intolerance NEUROLOGIC: Absent: headache, focal weakness or paresthesias, dizziness, unsteady gait, seizure, mental status changes, bladder or bowel incontinence PSYCHIATRIC: Absent: anxiety, depression, suicidal or homicidal ideation, hallucinations. PHYSICAL EXAMINATION Vital Signs - 24 hr 02/18/17 02/18/17 02/18/17 09:00 10:00 10:49 Temperature 101.1 F H Pulse Rate 111 H 109 H 114 H Respiratory 14 14 Rate Blood Pressure 74/64 76/60 74/64 O2 Sat by Pulse 92 L Oximetry (%) 02/18/17 02/18/17 02/18/17 10:59 11:01 11:58 Temperature Pulse Rate 110 H Respiratory 16 14 Rate Blood Pressure O2 Sat by Pulse 100 100 Oximetry (%) 02/18/17 02/18/17 02/18/17 12:00 14:00 14:08 Temperature Pulse Rate 112 H 111 H Respiratory 14 14 14 Rate Blood Pressure 79/67 79/67 O2 Sat by Pulse Oximetry (%) 02/18/17 02/18/17 02/18/17 14:56 15:00 16:00 Temperature 100.5 F H Pulse Rate 114 H 117 H 115 H Respiratory 14 14 18 Rate Blood Pressure 74/62 82/70 O2 Sat by Pulse Oximetry (%) 02/18/17 02/18/17 02/18/17 17:00 18:00 19:00 Temperature 100.8 F H Pulse Rate 115 H 115 H 112 H Respiratory 14 14 14 Rate Blood Pressure 72/60 78/67 80/62 O2 Sat by Pulse Oximetry (%) 02/18/17 02/18/17 02/18/17 19:16 20:00 21:00 Temperature 99.7 F H Pulse Rate 117 H 115 H Respiratory 14 14 14 Rate Blood Pressure 85/69 80/63 O2 Sat by Pulse Oximetry (%) 02/18/17 02/18/17 02/18/17 21:14 22:00 23:00 Temperature 99.4 F Pulse Rate 115 H 113 H Respiratory 14 14 17 Rate Blood Pressure 77/65 78/59 O2 Sat by Pulse 100 Oximetry (%) 02/19/17 02/19/17 02/19/17 00:00 00:55 01:00 Temperature Pulse Rate 114 H 114 H Respiratory 14 14 14 Rate Blood Pressure 77/63 82/55 O2 Sat by Pulse Oximetry (%) 02/19/17 02/19/17 02/19/17 02:00 03:00 03:50 Temperature 98.2 F Pulse Rate 113 H 112 H Respiratory 14 14 14 Rate Blood Pressure 78/62 80/58 O2 Sat by Pulse Oximetry (%) 02/19/17 02/19/17 02/19/17 04:00 05:00 06:30 Temperature 98.4 F Pulse Rate 112 H 112 H Respiratory 14 14 15 Rate Blood Pressure 826/65 82/63 O2 Sat by Pulse Oximetry (%) 02/19/17 06:50 Temperature Pulse Rate 106 H Respiratory Rate Blood Pressure O2 Sat by Pulse 94 L Oximetry (%) GENERAL: Awake, alert, and fully oriented, in no acute distress. HEAD: Normal with no signs of trauma. EYES: Pupils equal, round and reactive to light, extraocular movements intact, sclera anicteric, conjunctiva clear. No lid lag. EARS, NOSE, THROAT: Ears normal, nares patent, oropharynx clear without exudates. Moist mucous membranes. NECK: Normal range of motion, supple without lymphadenopathy, JVD, or masses. LUNGS: Breath sounds equal, clear to auscultation bilaterally. No wheezes, and no crackles. No accessory muscle use. HEART: Regular rate and rhythm, normal S1 and S2 without murmur, rub or gallop. ABDOMEN: Soft, nontender, not distended, normoactive bowel sounds, no guarding, no rebound, no masses. No hepatomegaly or splenomegaly. MUSCULOSKELETAL: Normal range of motion at all joints. No bony deformities or tenderness. No CVA tenderness. UPPER EXTREMITIES: 2+ pulses, warm, well-perfused. No cyanosis. No clubbing. No peripheral edema. LOWER EXTREMITIES: 2+ pulses, warm, well-perfused. No calf tenderness. No peripheral edema. NEUROLOGICAL: Cranial nerves II-XII intact. Normal speech. Normal gait. PSYCHIATRIC: Cooperative. Good eye contact. Appropriate mood and affect. SKIN: Warm, dry, normal turgor, no rashes or lesions noted, normal capillary refill. Laboratory Results - last 24 hr 02/17/17 02/18/17 02/18/17 11:25 05:20 05:20 WBC 6.3 RBC 4.37 Hgb 12.4 Hct 39.5 MCV 90.6 MCH 28.5 MCHC 31.5 L RDW 20.4 H Plt Count 96 L D MPV 11.6 H Platelet Estimate Decreased Platelet Comment Mod large plts Sodium Potassium Chloride Carbon Dioxide Anion Gap BUN Creatinine Random Glucose Calcium Phosphorus Magnesium Cortisol AM Sample 23.2 Valproic Acid Hep-Induced Plt Ab Rapid 0.478 H 02/19/17 02/19/17 02/19/17 05:20 05:20 05:20 WBC 6.8 RBC 3.88 Hgb 11.4 Hct 34.8 MCV 89.7 MCH 29.4 MCHC 32.8 RDW 19.8 H Plt Count 119 L D MPV 11.5 H Platelet Estimate Platelet Comment Sodium 133 L Potassium 5.0 Chloride 92 L Carbon Dioxide 33 H Anion Gap 8 BUN 49 H D Creatinine 1.5 H Random Glucose 129 H Calcium 7.6 L Phosphorus 2.7 Magnesium 2.0 Cortisol AM Sample Valproic Acid 75.774 Hep-Induced Plt Ab Rapid ASSESSMENT/PLAN:
--- NOTE | 2017-02-19 08:06 | PN ---
Physical Exam: SUBJECTIVE: Patient seen and examined. No acute changes. Still has low grade fever. Patient too unstable to go to CT scan. No seizure appreciated today Spoke extensively to Mother and daughter about plan and prognosis. Spoke to who lives in [place] and updated him as well. Said that he would be the one making the DNR decision "if it comes to that". Conference should be scheduled with all family members when possible. OBJECTIVE: Vital Signs Period Temp Pulse Resp BP Sys/Centeno Pulse Ox Last 24 Hr 98.2 F-101.1 F 106-117 14-18 72-826/55-70 92-100 GENERAL: The patient is intubated and sedated. No seizure appreciated today HEAD: Normal with no signs of trauma. EYES: Eyes midline, open, 3mm b/l pupils reactive to light ENT: oropharynx dry NECK: Trachea midline, full range of motion, supple. LUNGS: mechanical Breath sounds HEART: Regular rate and rhythm, S1, S2 without murmur, rub or gallop. ABDOMEN: Soft, nontender, nondistended, normoactive bowel sounds, no guarding, no rebound, no hepatosplenomegaly, no masses. EXTREMITIES: poor pulses, chronic erythema of the leg with largely indurated area. healing laceration on right-sided big toe Laboratory Results - last 24 hr 02/17/17 02/18/17 02/18/17 11:25 05:20 05:20 WBC 6.3 RBC 4.37 Hgb 12.4 Hct 39.5 MCV 90.6 MCH 28.5 MCHC 31.5 L RDW 20.4 H Plt Count 96 L D MPV 11.6 H Platelet Estimate Decreased Platelet Comment Mod large plts Sodium Potassium Chloride Carbon Dioxide Anion Gap BUN Creatinine Random Glucose Calcium Phosphorus Magnesium Cortisol AM Sample 23.2 Valproic Acid Hep-Induced Plt Ab Rapid 0.478 H 02/19/17 02/19/17 02/19/17 05:20 05:20 05:20 WBC 6.8 RBC 3.88 Hgb 11.4 Hct 34.8 MCV 89.7 MCH 29.4 MCHC 32.8 RDW 19.8 H Plt Count 119 L D MPV 11.5 H Platelet Estimate Platelet Comment Sodium 133 L Potassium 5.0 Chloride 92 L Carbon Dioxide 33 H Anion Gap 8 BUN 49 H D Creatinine 1.5 H Random Glucose 129 H Calcium 7.6 L Phosphorus 2.7 Magnesium 2.0 Cortisol AM Sample Valproic Acid 75.774 Hep-Induced Plt Ab Rapid Active Medications Generic Name Dose Route Start Last Admin Trade Name Sanjuana PRN Reason Stop Dose Admin Betamethasone Valerate 1 applic 02/12/17 10:00 02/18/17 10:53 Valisone 0.1% Cream - TP 1 applic DAILY ANNA Administration Chlorhexidine Gluconate 1 applic 02/11/17 22:00 02/18/17 22:09 Hibiclens For Decolonization - TP 1 applic HS ANNA Administration Furosemide 100 mg 02/18/17 19:15 02/19/17 06:29 Lasix Injection - IVPUSH 100 mg TID@0600,1200,1800 ANNA Administration Pantoprazole Sodium 100 mls @ 200 mls/hr 02/12/17 10:00 02/18/17 10:52 Protonix 40mg Ivpb (Pre-Docked) IVPB 200 mls/hr DAILY ANNA Administration Midazolam HCl 100 mg/ Sodium 100 mls @ 12 mls/hr 02/12/17 21:44 02/18/17 22:10 Chloride IVPB 15 mls/hr TITR ANNA Administration Protocol 12 MG/HR Fentanyl 500 mcg/ Dextrose 100 mls @ 10 mls/hr 02/12/17 22:30 02/19/17 06:30 IJ 20 mls/hr TITR ANNA Administration 50 MCG/HR Norepinephrine Bitartrate 8, 500 mls @ 18.75 mls/hr 02/13/17 23:50 02/18/17 19: 00 000 mcg/ Dextrose IV 37.5 mls/hr TITR ANNA Administration Protocol 5 MCG/MIN Vasopressin 50 units/ Sodium 100 mls @ 4.8 mls/hr 02/14/17 07:45 02/18/17 10:49 Chloride IVPB 4.8 mls/hr ASDIR ANNA Administration 2.4 UNITS/HR Piperacillin Sod/Tazobactam Sod 50 mls @ 100 mls/hr 02/18/17 18:00 02/19/17 02: 30 Zosyn 3.375gm Ivpb (Pre-Docked) IVPB 100 mls/hr Q8H-IV ANNA Administration Protocol Milrinone Lactate/Dextrose 100 mls @ 5.431 mls/hr 02/18/17 17:00 02/18/17 17:06 Milrinone 20mg/100ml Ivpb - IVPB 5.431 mls/hr TITR ANNA Administration 0.2 MCG/KG/MIN Lactic Acid 1 applic 02/11/17 13:05 02/18/17 10:52 Lac-Hydrin 12 TP 1 applic DAILY PRN Administration WOUND CARE Levetiracetam 1,500 mg 02/12/17 09:01 02/18/17 22:09 Keppra Injection - IVPB 1,500 mg BID ANNA Administration Levothyroxine Sodium 150 mcg 02/13/17 07:00 02/19/17 07:26 Synthroid - PO Not Given DAILY@0700 ANNA Nystatin 1 applic 02/11/17 01:00 02/18/17 22:11 Mycostatin Ointment - TP 1 applic BID ANNA Administration Phenobarbital 100 mg 02/15/17 22:00 02/18/17 22:08 Phenobarbital Injection - IV 100 mg BID ANNA Administration Valproate Sodium 500 mg 02/13/17 22:00 02/19/17 06:30 Depacon Injection - IVPB 500 mg Q8H ANNA Administration ASSESSMENT/PLAN: ID - antibiotics per ID - f/u cultures NEURO - antiepileptics per neuro - monitor phenobarbital levels - titrate levophed, vasopressin gtt to maintain MAP >65 - f/u EEG. - lighten sedation if no seizure activity noted on EEG - repeat CT head if vitals stabilize CARDIOVASCULAR - continue lasix IV, milrinone gtt - enteral feeds on hold, will obtain CT A/P with oral contrast when more stable - DVT/GI prophylaxis - continue ICU monitoring - poor overall prognosis - discuss with family goals of care, pt will need tracheostomy if they wish to continue care Visit type - Emergency Visit Emergency Visit: No - New Patient This patient is new to me today: No - Critical Care Critical Care patient: Yes Total Critical Care Time (in minutes): 60 Critical Care Statement: The care of this patient involved high complexity decision making to prevent further life threatening deterioration of the patient 's condition and/or to evaluate & treat vital organ system(s) failure or risk of failure.
[2017-02-19] MEDS: VASOPRESSIN 50 UNITS in SODIUM CHLORIDE 97.5 ML IVPB SCH (08:36)
[2017-02-19 09:17] LABS: ALBUMIN 2.4 g/dl (3.4-5.0); BILIRUBIN,DIRECT 1.2 mg/dL (0.0-0.2); BILIRUBIN,TOTAL 1.5 mg/dL (0.2-1.0); SGPT/ALT 273 U/L (12-78); TOT PROT 5.6 g/dl (6.4-8.2)
[2017-02-19 09:22] LABS: ALK PHOS 116 U/L (45-117); SGOT/AST 1085 U/L (15-37)
[2017-02-19] MEDS: levETIRAcetam 500 MG/5 ML INJECTION VIAL IVPB SCH ×2 (09:39→22:27)
[2017-02-19] MEDS: PHENobarbital SODIUM 130 MG/1 ML VIAL IV SCH ×2 (09:39→22:29)
[2017-02-19] MEDS: PANTOPRAZOLE SODIUM 100 ML IVPB SCH (09:39)
[2017-02-19] MEDS: AMMONIUM LACTATE 12% LOTION 225 GM BOTTLE TP PRN (09:40)
[2017-02-19] MEDS: BETAMETHASONE VALERATE 0.1% CREAM 15 GM TUBE TP SCH (09:40)
[2017-02-19] MEDS: NYSTATIN 100000 UNIT/GM TOPICAL OINTMENT 15 GM TUBE TP SCH ×2 (09:42→22:29)
[2017-02-19] MEDS: MIDAZOLAM 100 MG in SODIUM CHLORIDE 100 ML IVPB SCH ×3 (10:22→21:40)
--- NOTE | 2017-02-19 10:51 | PN ---
Progress Note (short form) - Note Progress Note: Progress Note: Chief Complaint: chf History of Present Illness: remains on levophed and vasopressin and milrinone. bp still low. febrile overnight Current Medications Generic Name Dose Route Start Last Admin Trade Name Sanjuana PRN Reason Stop Dose Admin Betamethasone Valerate 1 applic 02/12/17 10:00 02/19/17 09:40 Valisone 0.1% Cream - TP 1 applic DAILY ANNA Administration Chlorhexidine Gluconate 1 applic 02/11/17 22:00 02/18/17 22:09 Hibiclens For Decolonization - TP 1 applic HS ANNA Administration Furosemide 100 mg 02/18/17 19:15 02/19/17 06:29 Lasix Injection - IVPUSH 100 mg TID@0600,1200,1800 ANNA Administration Pantoprazole Sodium 100 mls @ 200 mls/hr 02/12/17 10:00 02/19/17 09:39 Protonix 40mg Ivpb (Pre-Docked) IVPB 200 mls/hr DAILY ANNA Administration Midazolam HCl 100 mg/ Sodium 100 mls @ 12 mls/hr 02/12/17 21:44 02/19/17 10:22 Chloride IVPB 15 mls/hr TITR ANNA Administration Protocol 12 MG/HR Fentanyl 500 mcg/ Dextrose 100 mls @ 10 mls/hr 02/12/17 22:30 02/19/17 06:30 IJ 20 mls/hr TITR ANNA Administration 50 MCG/HR Norepinephrine Bitartrate 8, 500 mls @ 18.75 mls/hr 02/13/17 23:50 02/18/17 19: 00 000 mcg/ Dextrose IV 37.5 mls/hr TITR ANNA Administration Protocol 5 MCG/MIN Vasopressin 50 units/ Sodium 100 mls @ 4.8 mls/hr 02/14/17 07:45 02/19/17 08:36 Chloride IVPB 4.8 mls/hr ASDIR ANNA Administration 2.4 UNITS/HR Piperacillin Sod/Tazobactam Sod 50 mls @ 100 mls/hr 02/18/17 18:00 02/19/17 09: 38 Zosyn 3.375gm Ivpb (Pre-Docked) IVPB 100 mls/hr Q8H-IV ANNA Administration Protocol Milrinone Lactate/Dextrose 100 mls @ 5.431 mls/hr 02/18/17 17:00 02/18/17 17:06 Milrinone 20mg/100ml Ivpb - IVPB 5.431 mls/hr TITR ANNA Administration 0.2 MCG/KG/MIN Lactic Acid 1 applic 02/11/17 13:05 02/19/17 09:40 Lac-Hydrin 12 TP 1 applic DAILY PRN Administration WOUND CARE Levetiracetam 1,500 mg 02/12/17 09:01 02/19/17 09:39 Keppra Injection - IVPB 1,500 mg BID ANNA Administration Levothyroxine Sodium 150 mcg 02/13/17 07:00 02/19/17 07:26 Synthroid - PO Not Given DAILY@0700 ANNA Nystatin 1 applic 02/11/17 01:00 02/19/17 09:42 Mycostatin Ointment - TP 1 applic BID ANNA Administration Phenobarbital 100 mg 02/15/17 22:00 02/19/17 09:39 Phenobarbital Injection - IV 100 mg BID ANNA Administration Valproate Sodium 500 mg 02/13/17 22:00 02/19/17 06:30 Depacon Injection - IVPB 500 mg Q8H ANNA Administration Vital Signs Temp 98.4 F 02/19/17 05:00 Pulse 108 H 02/19/17 08:36 Resp 14 02/19/17 09:34 BP 80/67 02/19/17 08:36 Pulse Ox 94 L 02/19/17 06:50 Intake & Output 02/18/17 02/18/17 02/19/17 11:59 23:59 11:59 Intake Total 1936 2392 2202.6 Output Total 50 200 300 Balance 1886 2192 1902.6 Weight 199 lb 9 oz 201 lb 8 oz Intake: IV 766 855 987.6 Versed - 100 mg In Normal 180 180 180 Saline - 100 ml @ 12 MG/ HR 12 mls/hr IVPB TITR ANNA Rx#:[id number] Levophed - 8,000 Mcg In 351 373 450 D5w - 492 ml @ 5 MCG/MIN 18.75 mls/hr IV TITR ANNA Rx#:[id number] Pitressin - 50 Units In 56 57 54 Normal Saline - 97.5 ml @ 2.4 UNITS/HR 4.8 mls/hr IVPB ASDIR ANNA Rx#: [id number] Milrinone 20Mg/100Ml Ivpb 10 63.6 - 100 ml @ 0.2 MCG/KG/ MIN 5.431 mls/hr IVPB TITR ANNA Rx#:[id number] Fentanyl 179 235 240 IVPB 390 757 500 Tube Feeding 660 660 605 TPN/PPN 0 Tube Irrigant 120 120 110 Output: Urine 50 200 300 Garcia 50 200 300 Other: Voiding Method Indwelling Catheter Indwelling Catheter Bowel Movement No No Weight Measurement Method Built in [facility] Built in [facility] Constitutional: Yes: Well Nourished, No Distress, sedated Cardiovascular: Yes: Regular Rate and Rhythm, Gallop (? S3), S1, S2. No: JVD ( very tds exam), Murmur Respiratory: Yes: cta bl anteriorly. intubated on vent Extremities: No: Cool Edema: Yes (1+ pretib) Neurological: sedated, intubated Psychiatric: No: Agitated no jaundice diaphoresis abd nd pos bs Labs: Laboratory Last Values WBC 6.8 K/mm3 (4.0-10.0) 02/19/17 05:20 Corrected WBC (auto) Cancelled 02/11/17 04:00 RBC 3.88 M/mm3 (3.60-5.2) 02/19/17 05:20 Hgb 11.4 GM/dL (10.7-15.3) 02/19/17 05:20 Hct 34.8 % (32.4-45.2) 02/19/17 05:20 MCV 89.7 fl (80-96) 02/19/17 05:20 MCH 29.4 pg (25.7-33.7) 02/19/17 05:20 MCHC 32.8 g/dl (32.0-36.0) 02/19/17 05:20 RDW 19.8 % (11.6-15.6) H 02/19/17 05:20 Plt Count 119 K/MM3 (134-434) L D 02/19/17 05:20 MPV 11.5 fl (7.5-11.1) H 02/19/17 05:20 Add Manual Diff Cancelled 02/11/17 04:00 Neutrophils % 83.3 % (42.8-82.8) H 02/16/17 05:30 Lymphocytes % 8.6 % (8-40) 02/16/17 05:30 Monocytes % 7.0 % (3.8-10.2) 02/16/17 05:30 Eosinophils % 0.5 % (0-4.5) D 02/16/17 05:30 Basophils % 0.6 % (0-2.0) 02/16/17 05:30 Differential Comment Cancelled 02/11/17 04:00 Hypochromia 2+ 02/10/17 17:35 Platelet Estimate Decreased (NORMAL) 02/18/17 05:20 Platelet Comment No clumping noted 02/18/17 05:20 Platelet Comment Mod large plts 02/18/17 05:20 Normal RBC Morphology Cancelled 02/11/17 04:00 RBC Morphology 02/12/17 18:45 Poikilocytosis 1+ 02/12/17 18:45 Anisocytosis 2+ 02/16/17 05:30 Microcytosis 1+ 02/16/17 05:30 Macrocytosis Few 02/16/17 05:30 Tear Drop Cells 1+ 02/16/17 05:30 Ovalocytes 1+ 02/16/17 05:30 INR 1.17 (0.82-1.09) H 02/14/17 05:15 PTT (Actin FS) 28.5 SECONDS (26.9-34.4) D 02/12/17 05:20 Fibrinogen 186.0 mg/dL (238-498) L 02/11/17 04:00 Anticoagulation Therapy Y 02/15/17 07:20 Puncture Site Right radial 02/15/17 07:20 Patient Temperature 96.4 02/11/17 05:15 ABG pH 7.39 (7.35-7.45) 02/15/17 07:20 ABG pCO2 at Pt Temp 55.0 mmHg (35-45) H D 02/15/17 07:20 ABG pO2 at Pt Temp 105.0 mmHg (80-100) H 02/15/17 07:20 ABG HCO3 32.2 meq/L (22-26) H 02/15/17 07:20 ABG O2 Sat (Measured) 97.9 % (90-98.9) 02/15/17 07:20 ABG O2 Content 16.1 % vol (15-22) 02/15/17 07:20 ABG Base Excess 6.3 meq/l (-2-2) H 02/15/17 07:20 Bob Test Positive 02/15/17 07:20 VBG pH 7.35 (7.32-7.42) 02/16/17 11:50 POC VBG pCO2 65.7 mmHg (38-52) H* 02/16/17 11:50 POC VBG pO2 49.6 mmHg (28-48) H 02/16/17 11:50 Mixed VBG HCO3 35.6 meq/L (19-25) H 02/16/17 11:50 O2 Delivery Device Vent 02/15/17 07:20 Oxygen Flow Rate 40% 02/15/17 07:20 Vent Mode A/c 02/15/17 07:20 Vent Rate 14 02/15/17 07:20 Mechanical Rate Y 02/15/17 07:20 PEEP 6.0 cmH2O 02/15/17 07:20 Pressure Support Vent 400 02/15/17 07:20 Sodium 133 mmol/L (136-145) L 02/19/17 05:20 Potassium 5.0 mmol/L (3.5-5.1) 02/19/17 05:20 Chloride 92 mmol/L (98-107) L 02/19/17 05:20 Carbon Dioxide 33 mmol/L (21-32) H 02/19/17 05:20 Anion Gap 8 (8-16) 02/19/17 05:20 BUN 49 mg/dL (7-18) H D 02/19/17 05:20 Creatinine 1.5 mg/dL (0.55-1.02) H 02/19/17 05:20 Creat Clearance w eGFR 36.76 (>60) 02/18/17 05:20 POC Glucometer 186.81951 UNITS (()) 02/14/17 20:56 Random Glucose 129 mg/dL (74-106) H 02/19/17 05:20 Lactic Acid 2.2 mmol/L (0.4-2.0) H* 02/15/17 10:32 Calcium 7.6 mg/dL (8.5-10.1) L 02/19/17 05:20 Phosphorus 2.7 mg/dL (2.5-4.9) 02/19/17 05:20 Magnesium 2.0 mg/dL (1.8-2.4) 02/19/17 05:20 Total Bilirubin 1.5 mg/dL (0.2-1.0) H D 02/19/17 05:20 Direct Bilirubin 1.2 mg/dL (0.0-0.2) H 02/19/17 05:20 AST 1085 U/L (15-37) H 02/19/17 05:20 ALT 273 U/L (12-78) H D 02/19/17 05:20 Alkaline Phosphatase 116 U/L (45-117) 02/19/17 05:20 Ammonia 34.6 umol/L (11-32) H 02/11/17 14:00 Creatine Kinase 83 IU/L (26-192) 02/11/17 04:00 Troponin I < 0.02 ng/ml (0.00-0.05) 02/12/17 18:45 B-Natriuretic Peptide 2733.06 pg/ml (5-125) H 02/11/17 04:00 Total Protein 5.6 g/dl (6.4-8.2) L 02/19/17 05:20 Albumin 2.4 g/dl (3.4-5.0) L 02/19/17 05:20 Total Amylase 87 U/L (25-115) 02/11/17 04:00 TSH 18.70 uIU/ml (0.358-3.74) H D 02/13/17 05:15 Free T4 1.24 ng/dl (0.76-1.46) 02/11/17 04:00 Free T3 0.8 pg/ml (2.0-4.4) L 02/12/17 05:20 Total T3 43.00 ng/dl (71-180) L 02/12/17 05:20 Cortisol AM Sample 23.2 ug/dL (.) 02/18/17 05:20 Urine Color Yellow 02/12/17 12:30 Urine Appearance Slcloudy 02/12/17 12:30 Urine pH 6.0 (5.0-8.0) 02/12/17 12:30 Ur Specific [place] 1.010 (1.005-1.025) 02/12/17 12:30 Urine Protein Negative (NEGATIVE) 02/12/17 12:30 Urine Glucose (UA) Negative (NEGATIVE) 02/12/17 12:30 Urine Ketones Negative (NEGATIVE) 02/12/17 12:30 Urine Blood 1+ (NEGATIVE) H 02/12/17 12:30 Urine Nitrite Negative (NEGATIVE) 02/12/17 12:30 Urine Bilirubin Negative (NEGATIVE) 02/12/17 12:30 Urine Urobilinogen 2.0 mg/dL (0.2-1.0) H 02/12/17 12:30 Ur Leukocyte Esterase Negative (NEGATIVE) 02/12/17 12:30 Urine RBC 5 /hpf (0-3) 02/12/17 12:30 Urine WBC 3 /hpf (3-5) 02/12/17 12:30 Calcium Oxalate Crystal Rare /hpf (NONE SEEN) 02/12/17 12:30 Hyaline Casts 3 /lpf 02/12/17 12:30 Granular Casts 1 /lpf 02/12/17 12:30 Urine Mucus Rare 02/12/17 12:30 Urine HCG, Qual Negative 02/11/17 14:00 Opiates Screen Negative ng/ml (BNFCMH=771) 02/11/17 14:00 Methadone Screen Negative ng/ml (GNRVZC=929) 02/11/17 14:00 Acetaminophen 3.145 ug/ml (10.0-30.0) L 02/13/17 05:15 Barbiturate Screen Negative ng/ml (HHSEKY=487) 02/11/17 14:00 Valproic Acid 75.774 ug/ml (50-100) 02/19/17 05:20 Levetiracetam 78.4 MCG/ML (10.0-40.0) H 02/15/17 10:32 Phencyclidine Screen Negative ng/ml (CUTOFF=25) 02/11/17 14:00 Ur Amphetamines Screen Negative ng/ml (QNAVLF=293) 02/11/17 14:00 MDMA (Ecstasy) Screen Negative ng/ml (IMEQVN=127) 02/11/17 14:00 Benzodiazepines Screen Positive ng/ml (DUBMCV=206) 02/11/17 14:00 Cocaine Screen Negative ng/ml (HUQANB=990) 02/11/17 14:00 U Marijuana (THC) Screen Negative ng/ml (CUTOFF=50) 02/11/17 14:00 Hep-Induced Plt Ab Rapid 0.478 OD (0.000-0.400) H 02/17/17 11:25 tele: sr, as-vpaced [facility] 10/2016 --> nl cors (verbal report from dr sanchez) Echo 01/2017: Severe lv dilation, sev reduced LV fn (global). mod rv dilation. mod RV dysfunction. RV pacing wire. 2.8 x 1.2 cm density in apex of RV (per discussion with Dr. Sanchez, bright echodensity at the tip of pacing wire was present on prior office echo). mod tr. rvsp 30-40. trivial pericardial effusion. + pleural effusion. CTA: pulmonary congestion, small left pleural effusion. large volume ascites. extensive subcutaneous edema/anasarca. CTA --> + arterial flow to LE. CT head: no acute pathology repeat cxr 02/14: improvement in congestive changes. dense left base persists. est cct 37 mins a/p: 51 y/o woman, resident on [facility] with hx of biventricular cardiomyopathy s/ p bivICD, htn, afib (per report only), Schizophrenia, seizure disorder, Hypothroidism and GERD who presented to ED with LE swelling, coolness to touch and diminshed pulses as well as lethargy. Hospital course has been complicated by seizure/status epilepticus requiring intubation for airway protection and sedation. acute on chronic syst CHF, nonischemic biventricular cardiomyopathy s/p bivICD, cardiogenic shock - holding bb and acei due to hypotension. 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 cvp 13 --> Started trial of IV lasix for diuresis 02/12, milrinone deferred at that time ( pt was on levophed). - 02/13: overnight propofol stopped due to increasing ectopy and concern for qt prolongation --> improvement in ectopy. patient's remained net positive, lasix was increased to 80 mg IV bid. Late evening cvp remained elevated at 15 and patient still not net negative. Drips were double concentrated. vasopressin added for recurrent hypotension (to 70s). - 02/14: levophed weaned off today. Patient finally net negative this am. BP still running low. CVP remains elevated at 13 --> started milrinone for decompensated heart failure. Patient still may have superimposed vasodilating pathology, con't pressor support for now. Con't lasix 80 mg IV bid with aggressive electrolyte repletion (congestion improving on cxr, lfts improving, cr stable). double concentrate drips when possible. - 02/15: CXR improved vs 02/13, L lung not well seen due to ICD and marked cardiomegaly obscuring L base. BP down to 70s again early am today, remains on high dose pressors (vasopressin 2.4 units/hour, levo 9 mcg). CVP has improved to 10 (from 17 initially) with diuresis plus milrinone (0.3 mcg/kg/min). vigorous UOP yesterday (8L). - 02/16: Concern for episode of VF/VT on telemetry-->ICD interrogated: No VT/VF events. Was informed that biV pacing programmed to stop at HR's above 130 which explains change in rhythm. Although 130's is still below lower detection limit for VT so cannot exclude intermittent slow VT. Milrinone drip stopped. Sent SvO2 to clarify hemodynamics, cardiogenic vs. vasodilatory. SVO2 80% per report so OK to leave off milrinone. Still getting augmentation of contractility from levophed. Remains net positive today, CVP 14 per report, but SVO2 is not low and overall edema improving --> will not uptitrate diuretics. -02/17: cont current iv lasix and pressor support - 02/18: concerned patient is continuing to be net positive. CVP elevated > 20. Now with MARK and minimal urine output now poor. If she continues to remain net positive her heart failure will continue to worsen. Had 100 cc uop to 100 mg IV lasix this afternoon (increase from what she has put out today per nursing). Will uptitrate lasix regimen to 100 mg tid. Will add back milrinone to see if it improves hypotension/cardiac output (add back at lower dose for now). ICD interrogation was negative for ventricular arrhythmia. Reassess tomorrow whether these interventions improve her clinical status. Discussed plan of care with family. Palliative care in room with family -02/19: still with vol overload, net positive, wt up. Will continue current pressors, milrinone. Fever reported so possibly becoming septic. If bp continues to drop would stop milrinone and hold lasix temporarily. Overall very poor prognosis. wide complex tachycardia: - suspect tele represents sinus tach, initially with Bi-V pacing, then with loss of Bi-V pacing and pt conduction with grindstone bundle branch block QRS (note 02/10 ekg shows Bi-V pacing with a fusion beat btw paced and conducted beats, showing a wide QRS with grindstone conduction) - doubt sustained VT on tele - has ICD protection - CHF optimization and med regimen as doing - per dr sanchez, ICD was recently interrogated 10/2016 with no remarkable findings then. - 02/12 with increasing ectopy throughout the day leading to sustained ventricular bigeminy with very broad abnormal t wave (no nsvt). concern for qt prolongation --> propofol weaned overnight with resolution of arrhythmia. - electrolyte repletion to usual targets - 02/16: ICD interrogated: No VT/VF events. Was informed that biV pacing programmed to stop at HR's above 130 which explains change in rhythm. RV echo density noted on echo - Echo here shows density in RV apex (couldn't exclude veg or thrombus). Discussed with Dr. Sanchez and patient had similarly described density on prior echo at his office, likely artifact from RV lead. seizure disorder/status epilepticus - ongoing management per neuro/icu. Remains intubated and sedated. Avoid propofol due to qt prolonging properties. - head ct x 2 without acute pathology. afib - diagnosis documented on snf chart, but patient not on AC and in SR here (? accuracy of diagnosis)--will defer to Dr. Sanchez who is her treating outpatient paving plant operator. For now, since no evidence of afib/flutter on tele, will not start AC. thrombocytopenia - eval/mgm't per pmd. rising lfts: -likely shock liver, cont bp support
--- NOTE | 2017-02-19 11:07 | PN ---
Teaching Attending Note Name of Resident: Donal Lal ATTENDING PHYSICIAN STATEMENT I saw and evaluated the patient. I reviewed the resident's note and discussed the case with the resident. I agree with the resident's findings and plan as documented. SUBJECTIVE: Pt seen and examined in the ICU. Remains intubated, sedated on pressor support. Milrinone gtt restarted and IV lasix increased. Pt with increased abdominal distention and bilious output from OGT. No seizures overnight. OBJECTIVE: Last Vital Signs Temp Pulse Resp BP Pulse Ox 98.4 F 108 H 14 80/67 94 L 02/19/17 05:00 02/19/17 08:36 02/19/17 09:34 02/19/17 08:36 02/19/17 06:50 Intake & Output 02/16/17 02/17/17 02/18/17 02/19/17 23:59 23:59 23:59 23:59 Intake Total 4459.3 4436.8 4328 2202.6 Output Total 700 550 250 300 Balance 3759.3 3886.8 4078 1902.6 Weight 189 lb 2 oz 193 lb 7 oz 199 lb 9 oz 201 lb 8 oz Gen: intubated, sedated Heart: tachycardic, regular Lung: scattered rhonchi Abd: softly distended Ext: + edema/anasarca CBC, BMP 02/19/17 05:20 02/19/17 05:20 Active Medications Betamethasone Valerate (Valisone 0.1% Cream -) 1 applic TP DAILY [facility] Last Admin: 02/19/17 09:40 Dose: 1 applic Chlorhexidine Gluconate (Hibiclens For Decolonization -) 1 applic TP HS [facility] Last Admin: 02/18/17 22:09 Dose: 1 applic Furosemide (Lasix Injection -) 100 mg IVPUSH TID@0600,1200,1800 ANNA Last Admin: 02/19/17 06:29 Dose: 100 mg Pantoprazole Sodium (Protonix 40mg Ivpb (Pre-Docked)) 100 mls @ 200 mls/hr IVPB DAILY ANNA Last Admin: 02/19/17 09:39 Dose: 200 mls/hr Midazolam HCl 100 mg/ Sodium (Chloride) 100 mls @ 12 mls/hr IVPB TITR ANNA; 12 MG/HR PRN Reason: Protocol Last Admin: 02/19/17 10:22 Dose: 15 mls/hr Fentanyl 500 mcg/ Dextrose 100 mls @ 10 mls/hr IJ TITR ANNA PRN Reason: 50 MCG/HR Last Admin: 02/19/17 06:30 Dose: 20 mls/hr Norepinephrine Bitartrate 8, (000 mcg/ Dextrose) 500 mls @ 18.75 mls/hr IV TITR ANNA; 5 MCG/MIN PRN Reason: Protocol Last Admin: 02/18/17 19:00 Dose: 37.5 mls/hr Vasopressin 50 units/ Sodium (Chloride) 100 mls @ 4.8 mls/hr IVPB ASDIR ANNA PRN Reason: 2.4 UNITS/HR Last Admin: 02/19/17 08:36 Dose: 4.8 mls/hr Piperacillin Sod/Tazobactam Sod (Zosyn 3.375gm Ivpb (Pre-Docked)) 50 mls @ 100 mls/hr IVPB Q8H-IV ANNA PRN Reason: Protocol Last Admin: 02/19/17 09:38 Dose: 100 mls/hr Milrinone Lactate/Dextrose (Milrinone 20mg/100ml Ivpb -) 100 mls @ 5.431 mls/ hr IVPB TITR ANNA PRN Reason: 0.2 MCG/KG/MIN Last Admin: 02/18/17 17:06 Dose: 5.431 mls/hr Lactic Acid (Lac-Hydrin 12) 1 applic TP DAILY PRN PRN Reason: WOUND CARE Last Admin: 02/19/17 09:40 Dose: 1 applic Levetiracetam (Keppra Injection -) 1,500 mg IVPB BID [facility] Last Admin: 02/19/17 09:39 Dose: 1,500 mg Levothyroxine Sodium (Synthroid -) 150 mcg PO DAILY@0700 [facility] Last Admin: 02/19/17 07:26 Dose: Not Given Nystatin (Mycostatin Ointment -) 1 applic TP BID [facility] Last Admin: 02/19/17 09:42 Dose: 1 applic Phenobarbital (Phenobarbital Injection -) 100 mg IV BID [facility] Last Admin: 02/19/17 09:39 Dose: 100 mg Valproate Sodium (Depacon Injection -) 500 mg IVPB Q8H [facility] Last Admin: 02/19/17 06:30 Dose: 500 mg ASSESSMENT AND PLAN: Status Epileptics Acute Respiratory Failure Acute on Chronic Systolic Heart Failure Cardiogenic vs Septic Shock Lactic Acidosis resolved s/p ICD Elevated LFTs Hypothyroidism Thrombocytopenia - antibiotics per ID - f/u cultures - antiepileptics per neuro - monitor phenobarbital levels - titrate levophed, vasopressin gtt to maintain MAP >65 - continue lasix IV, milrinone gtt - lighten sedation if no seizure activity noted on EEG - repeat CT head - enteral feeds on hold, will obtain CT A/P with oral contrast - DVT/GI prophylaxis - continue ICU monitoring - poor overall prognosis - discuss with family goals of care, pt will need tracheostomy if they wish to continue care critical care time spent in reviewing chart, evaluating patient and formulating plan 40 min
[2017-02-19] MEDS: THIAMINE HCL 200 MG/2 ML VIAL IVPB SCH ×2 (17:06→22:30)
[2017-02-19] MEDS ORDERED: ACETAMINOPHEN 1000 MG/100 ML VIAL (NON FORMULARY) IVPB ONE (17:09)
--- NOTE | 2017-02-19 17:26 | PN ---
Progress Note (short form) - Note Progress Note: PI : 02/11/17 : 51 y/o woman, resident on [facility] with hx of Schizophrenia, HTN, AFib, CHF, s/p AICD/biV pacer, Hypothroidism and GERD who presented to ED yesterday with LE swelling and pain c/f DVT. In ED pt was awake but poorly responsive, only C/o pain everywhere. Was noted to have cool bilateral LE with very weak peripheral pulses, edema and poor cap refill-->CTA runoff showing multiple occlusive areas in b/l LE arteries. Vascular was consulted and there was tentative plan for surgery today. CT head was performed due to AMS which was without acute pathology. Labs were notable for new elevated Tbili and alk phos, low therapeutic VPA level, no WBC, normal h/H, and slightly elevate INR 1.3. She was admitted to floor. Over night G[employer]NA[employer] COACH OR INSTRUCTOR was called when pt found having tonic- clonic sz. Was given Ativan 2mg with resolution, repeat head CT was again without apparent infarct or bleed (read pending). She was brought to ICU where she cont to have repeated sz, without regaining mental status c/w status epilepticus. She was not protecting her airway or having effective ventilation ( 7.2/60) and so was intubated. EEG was ordered. Neuro and cards were consulted. Abd US was ordered for elevated bilis. Pt. was given another total of 4 mgs of Ativan but without effect, she was than placed on Midazolam drip now at 15mg/ hour. initiially loaded with Keppra 1000mg now and bering given Depakote thru her NGT. Also given Midazolam ivpx2. Pt. is unable to relate hx. Its not clear whether she has a hx. of seizures in the past as per ICU staff. Initially she was assumed to have epilepsy based on her outpatient medications, but her daughter is not aware of a seizure history. Since admission she hsa been given Vimpat and this was stopped when she developed an arrhythmia. On IV valproate, with increasing doses she is calmer, but still not alert. Current AED regimen Midazolam drip 15mg/hr, Phenobarbital 100mg bid, VPA 500mg q8hrs, Levitarecetam 1500mg bid. EEG 02/15 with epileptiform activity, burst suppression and diffuse slowing. 02/17/17 : As per nursing she had 5 episides today lasting minutes of "facial twitching". Patient remained in her baseline rhythm for the remainder of the night. FU today : 02/19/17 : no clinical sz noted no facial twitching noted;no clinical seizures BP remains low on BP support and sedation. Depakote level 75, pheno Vital Signs Temperature 100 F H 02/19/17 16:00 Pulse Rate 124 H 02/19/17 16:00 Respiratory Rate 14 02/19/17 16:28 Blood Pressure 88/74 02/19/17 16:00 O2 Sat by Pulse Oximetry (%) 93 L 02/19/17 12:16 CBCD WBC 6.3 K/mm3 (4.0-10.0) 02/18/17 05:20 RBC 4.37 M/mm3 (3.60-5.2) 02/18/17 05:20 Hgb 12.4 GM/dL (10.7-15.3) 02/18/17 05:20 Hct 39.5 % (32.4-45.2) 02/18/17 05:20 MCV 90.6 fl (80-96) 02/18/17 05:20 MCHC 31.5 g/dl (32.0-36.0) L 02/18/17 05:20 RDW 20.4 % (11.6-15.6) H 02/18/17 05:20 Plt Count 96 K/MM3 (134-434) L D 02/18/17 05:20 MPV 11.6 fl (7.5-11.1) H 02/18/17 05:20 CMP Sodium 135 mmol/L (136-145) L 02/18/17 05:20 Potassium 5.2 mmol/L (3.5-5.1) H 02/18/17 05:20 Chloride 93 mmol/L (98-107) L 02/18/17 05:20 Carbon Dioxide 34 mmol/L (21-32) H 02/18/17 05:20 Anion Gap 8 (8-16) 02/18/17 05:20 BUN 39 mg/dL (7-18) H D 02/18/17 05:20 Creatinine 1.5 mg/dL (0.55-1.02) H D 02/18/17 05:20 Creat Clearance w eGFR 36.76 (>60) 02/18/17 05:20 Calcium 7.9 mg/dL (8.5-10.1) L 02/18/17 05:20 Total Bilirubin 2.1 mg/dL (0.2-1.0) H D 02/18/17 05:20 AST 368 U/L (15-37) H D 02/18/17 05:20 ALT 93 U/L (12-78) H D 02/18/17 05:20 Alkaline Phosphatase 132 U/L (45-117) H 02/18/17 05:20 Total Protein 6.0 g/dl (6.4-8.2) L 02/18/17 05:20 Albumin 2.5 g/dl (3.4-5.0) L 02/18/17 05:20 C T HD : 02/11/17 Impression. No evidence of acute intracranial hemorrhage, edema , midline shift, mass effect, or skull fracture. No CT evidence of acute territorial ischemic changes. O/E comatose, eyes midline, scleral icterus, R >L, pupils 2mm, 14/14 on vent , limited dolls, + corneals, neck supple, no twitching in exe A&P ASSESSMENT/PLAN: 51 y/o woman with significant PMH of biventricular cardiomyopathy, ICD, HTN, A.Fib, Schizophrenia, seizure disorder, hypothroidism, GERD who presented to the hospital due to diminished pulses in LE, s/p fall and confusion. Hospital course has been complicated by status epilepticus that required intubation and admission to ICU.being treated for cardiac shock, elevated LFTS-- ? XR induced vs shock liver seizure: cont Levitarecetam to 2000mg bid, Phenobabrb 100BID and depakote 500TID , on versed drip -- FU EEG depakote can be inc though LFTS already high -and rising ; if inc , will taper off depakote keppra max dose, and versed and phenobarb limited by low BP FU levels phenobarb ; depakote level TX vimpat caused arrhythmia needs repeat HD CT when/if stable , no febrile, wbc stable, neck supple, so less likely meningitis grim prognosis given persistent encpehlaopathic state and vitals instability Dr Wilks
[2017-02-19] MEDS: MILRINONE 20MG/100ML IVPB - 100 ML IVPB SCH (17:50)
[2017-02-19] MEDS: NOREPINEPHRINE BITARTRATE 8,000 MCG in DEXTROSE 5%-WATER - 492 ML IV SCH ×2 (17:59→23:30)
[2017-02-19 18:14] LABS: URINE APPEARANCE CLEAR; URINE BILIRUBIN 1+ (NEGATIVE); URINE BLOOD 3+ (NEGATIVE); URINE COLOR LT. YELLOW; URINE GLUCOSE (UA) NEGATIVE (NEGATIVE); URINE KETONE NEGATIVE (NEGATIVE); URINE NITRITE NEGATIVE (NEGATIVE)
[2017-02-19 18:24] LABS: URINE LEUK ESTERASE 2+ (NEGATIVE); URINE PROTEIN 2+ (NEGATIVE)
[2017-02-19 18:38] LABS: URINE HYALINE CAST 45 /lpf; URINE MUCUS RARE; URINE RBC 115 /hpf (0-3); URINE WBC 702 /hpf (3-5); YEAST MANY
--- NOTE | 2017-02-19 18:42 | PN ---
Physical Exam: SUBJECTIVE: Patient seen and examined in ICU. Remains intubaed and sedated. No change in clinical status. OBJECTIVE: Vital Signs Period Temp Pulse Resp BP Sys/Centeno Pulse Ox Last 24 Hr 98.2 F-100.8 F 106-125 14-17 63-826/15-79 93-100 GENERAL: The patient intubated and sedated. HEAD: Normal with no signs of trauma. EYES: contracted pupils unreactive, conjunctiva clear. corneal reflex intact NECK: Trachea midline, full range of motion, supple. LUNGS: Breath sounds equal, scattered rales in all lung tapia. HEART: Regular rate and rhythm, S1, S2. gallop heard best in aortic region. ABDOMEN: Soft, nontender, nondistended, normoactive bowel sounds, no guarding, no rebound. NEUROLOGICAL: unable to assess due to clinical status Laboratory Results - last 24 hr 02/17/17 02/18/17 02/19/17 11:25 05:20 05:20 WBC RBC Hgb Hct MCV MCH MCHC RDW Plt Count MPV Sodium Potassium Chloride Carbon Dioxide Anion Gap BUN Creatinine Random Glucose Calcium Phosphorus Magnesium Total Bilirubin Direct Bilirubin AST ALT Alkaline Phosphatase Total Protein Albumin Cortisol AM Sample 23.2 Urine Color Urine Appearance Urine pH Urine Protein Urine Glucose (UA) Urine Ketones Urine Blood Urine Nitrite Urine Bilirubin Urine Urobilinogen Ur Leukocyte Esterase Valproic Acid 75.774 Hep-Induced Plt Ab Rapid 0.478 H 02/19/17 02/19/17 02/19/17 05:20 05:20 05:20 WBC 6.8 RBC 3.88 Hgb 11.4 Hct 34.8 MCV 89.7 MCH 29.4 MCHC 32.8 RDW 19.8 H Plt Count 119 L D MPV 11.5 H Sodium 133 L Potassium 5.0 Chloride 92 L Carbon Dioxide 33 H Anion Gap 8 BUN 49 H D Creatinine 1.5 H Random Glucose 129 H Calcium 7.6 L Phosphorus 2.7 Magnesium 2.0 Total Bilirubin 1.5 H D Cancelled Direct Bilirubin 1.2 H Cancelled AST 1085 H Cancelled ALT 273 H D Cancelled Alkaline Phosphatase 116 Cancelled Total Protein 5.6 L Cancelled Albumin 2.4 L Cancelled Cortisol AM Sample Urine Color Urine Appearance Urine pH Urine Protein Urine Glucose (UA) Urine Ketones Urine Blood Urine Nitrite Urine Bilirubin Urine Urobilinogen Ur Leukocyte Esterase Valproic Acid Hep-Induced Plt Ab Rapid 02/19/17 17:45 WBC RBC Hgb Hct MCV MCH MCHC RDW Plt Count MPV Sodium Potassium Chloride Carbon Dioxide Anion Gap BUN Creatinine Random Glucose Calcium Phosphorus Magnesium Total Bilirubin Direct Bilirubin AST ALT Alkaline Phosphatase Total Protein Albumin Cortisol AM Sample Urine Color Lt. yellow Urine Appearance Clear Urine pH 6.0 Urine Protein 2+ H Urine Glucose (UA) Negative Urine Ketones Negative Urine Blood 3+ H Urine Nitrite Negative Urine Bilirubin 1+ H Urine Urobilinogen 1.0 Ur Leukocyte Esterase 2+ H Valproic Acid Hep-Induced Plt Ab Rapid Active Medications Generic Name Dose Route Start Last Admin Trade Name Edinq PRN Reason Stop Dose Admin Betamethasone Valerate 1 applic 02/12/17 10:00 02/19/17 09:40 Valisone 0.1% Cream - TP 1 applic DAILY ANNA Administration Chlorhexidine Gluconate 1 applic 02/11/17 22:00 02/18/17 22:09 Hibiclens For Decolonization - TP 1 applic HS ANNA Administration Furosemide 100 mg 02/18/17 19:15 02/19/17 17:04 Lasix Injection - IVPUSH 100 mg TID@0600,1200,1800 ANNA Administration Pantoprazole Sodium 100 mls @ 200 mls/hr 02/12/17 10:00 02/19/17 09:39 Protonix 40mg Ivpb (Pre-Docked) IVPB 200 mls/hr DAILY ANNA Administration Midazolam HCl 100 mg/ Sodium 100 mls @ 12 mls/hr 02/12/17 21:44 02/19/17 17:50 Chloride IVPB 10 mls/hr TITR ANNA Administration Protocol 12 MG/HR Fentanyl 500 mcg/ Dextrose 100 mls @ 10 mls/hr 02/12/17 22:30 02/19/17 17:59 IJ 20 mls/hr TITR ANNA Administration 50 MCG/HR Norepinephrine Bitartrate 8, 500 mls @ 18.75 mls/hr 02/13/17 23:50 02/19/17 17: 59 000 mcg/ Dextrose IV 93.75 mls/hr TITR ANNA Administration Protocol 5 MCG/MIN Vasopressin 50 units/ Sodium 100 mls @ 4.8 mls/hr 02/14/17 07:45 02/19/17 08:36 Chloride IVPB 4.8 mls/hr ASDIR ANNA Administration 2.4 UNITS/HR Piperacillin Sod/Tazobactam Sod 50 mls @ 100 mls/hr 02/18/17 18:00 02/19/17 17: 06 Zosyn 3.375gm Ivpb (Pre-Docked) IVPB 100 mls/hr Q8H-IV ANNA Administration Protocol Milrinone Lactate/Dextrose 100 mls @ 5.431 mls/hr 02/18/17 17:00 02/19/17 17:50 Milrinone 20mg/100ml Ivpb - IVPB 5.431 mls/hr TITR ANNA Administration 0.2 MCG/KG/MIN Lactic Acid 1 applic 02/11/17 13:05 02/19/17 09:40 Lac-Hydrin 12 TP 1 applic DAILY PRN Administration WOUND CARE Levetiracetam 1,500 mg 02/12/17 09:01 02/19/17 09:39 Keppra Injection - IVPB 1,500 mg BID ANNA Administration Levothyroxine Sodium 150 mcg 02/13/17 07:00 02/19/17 07:26 Synthroid - PO Not Given DAILY@0700 ANNA Nystatin 1 applic 02/11/17 01:00 02/19/17 09:42 Mycostatin Ointment - TP 1 applic BID ANNA Administration Phenobarbital 100 mg 02/15/17 22:00 02/19/17 09:39 Phenobarbital Injection - IV 100 mg BID ANNA Administration Thiamine HCl 500 mg 02/19/17 14:45 02/19/17 17:06 Vitamin B1 Injection - IVPB 02/21/17 06:01 500 mg TID ANNA Administration Valproate Sodium 500 mg 02/13/17 22:00 02/19/17 13:19 Depacon Injection - IVPB 500 mg Q8H ANNA Administration ASSESSMENT/PLAN: 51yo F with pmhx of 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 Admitted to ICU in status epilepticus #Mutiorgan failure 2/2 cardiogenic shock vs neurogenic shock and Sepsis -abrupt increase in LFTs and creatinine signifying end organ damage. -Sputum culture growing morganella, f/u the results of the -patient's mother wants all measures taken to treat patient; full code #Shock 2/2 neurogenic vs cardiogenic etiology -Levophed GTT -Vasopressin GTT -milrenone GTT #New onset seizure disorder, 2/2 to unknown etiology -continue keppra to 1500 mg BID -continue depacone 500 mg bid -continue phenobarbital 100mg IV BID -Versed GTT -The make and model of the patient's pacemaker are not MRI compatible #Acute respiratory failure -Intubated for airway protection -Continue vent support per ICU # Dilated cardiomyopathy -S/P AICD working appropriately; Upon interrogation, it was found that it did not fire. -Echo reveals thrombus in RV. -home toprolol held due to hypotension -Be careful with IVF # Abdominal Distention with transaminitis -continue to monitor # Atopic Dermatitis -Continued home nystatin cream for application on abdominal areas -Ammonium lactate lotion -Betamethasone 0.1% cream # Hypothyroidism -Continued home Synthroid 125mcg PO qDaily FEN: Fluids: no indicaton for fluids at this time Electrolyte abnormalities: hypokalemia Nutrition: NPO ppx: -Heparin 5000 units sq tid -protonix 40 IV daily Dispo: -continue to monitor in ICU. Poor overall prognosis. Problem List - Problems (1) Chronic congestive heart failure Code(s): I50.9 - HEART FAILURE, UNSPECIFIED Qualifiers: Congestive heart failure type: unspecified congestive heart failure type Qualified Code(s): I50.9 - Heart failure, unspecified (2) Hypertension Code(s): I10 - ESSENTIAL (PRIMARY) HYPERTENSION Qualifiers: Hypertension type: essential hypertension Qualified Code(s): I10 - Essential (primary) hypertension (3) Schizophrenia, paranoid, chronic Code(s): F20.0 - PARANOID SCHIZOPHRENIA (4) Seizure Code(s): R56.9 - UNSPECIFIED CONVULSIONS (5) Rash Code(s): R21 - RASH AND OTHER NONSPECIFIC SKIN ERUPTION (6) Peripheral arterial disease Code(s): I73.9 - PERIPHERAL VASCULAR DISEASE, UNSPECIFIED Visit type - Emergency Visit Emergency Visit: Yes ED Registration Date: 02/10/17 Care time: The patient presented to the Emergency Department on the above date and was hospitalized for further evaluation of their emergent condition. - New Patient This patient is new to me today: No - Critical Care Critical Care patient: Yes Total Critical Care Time (in minutes): 35 Critical Care Statement: The care of this patient involved high complexity decision making to prevent further life threatening deterioration of the patient 's condition and/or to evaluate & treat vital organ system(s) failure or risk of failure.
--- NOTE | 2017-02-19 18:57 | PN ---
Teaching Attending Note Name of Resident: Bala Herndon ATTENDING PHYSICIAN STATEMENT I saw and evaluated the patient. I reviewed the resident's note and discussed the case with the resident. I agree with the resident's findings and plan as documented. SUBJECTIVE: Patient unresponsive. On vent. No seizure activity noted. OBJECTIVE: Vital Signs Period Temp Pulse Resp BP Sys/Centeno Pulse Ox Last 24 Hr 98.2 F-101.4 F 106-125 14-17 63-826/15-79 93-100 HEART: S1S2, tachycardic LUNGS: Bilateral rhonchi ABDOMEN: Soft, distended, normal BS EXTREMITIES: 2+ edema Current Medications Generic Name Dose Route Start Last Admin Trade Name Freq PRN Reason Stop Dose Admin Betamethasone Valerate 1 applic 02/12/17 10:00 02/19/17 09:40 Valisone 0.1% Cream - TP 1 applic DAILY ANNA Administration Chlorhexidine Gluconate 1 applic 02/11/17 22:00 02/18/17 22:09 Hibiclens For Decolonization - TP 1 applic HS ANNA Administration Furosemide 100 mg 02/18/17 19:15 02/19/17 17:04 Lasix Injection - IVPUSH 100 mg TID@0600,1200,1800 ANNA Administration Pantoprazole Sodium 100 mls @ 200 mls/hr 02/12/17 10:00 02/19/17 09:39 Protonix 40mg Ivpb (Pre-Docked) IVPB 200 mls/hr DAILY ANNA Administration Midazolam HCl 100 mg/ Sodium 100 mls @ 12 mls/hr 02/12/17 21:44 02/19/17 17:50 Chloride IVPB 10 mls/hr TITR ANNA Administration Protocol 12 MG/HR Fentanyl 500 mcg/ Dextrose 100 mls @ 10 mls/hr 02/12/17 22:30 02/19/17 17:59 IJ 20 mls/hr TITR ANNA Administration 50 MCG/HR Norepinephrine Bitartrate 8, 500 mls @ 18.75 mls/hr 02/13/17 23:50 02/19/17 17: 59 000 mcg/ Dextrose IV 93.75 mls/hr TITR ANNA Administration Protocol 5 MCG/MIN Vasopressin 50 units/ Sodium 100 mls @ 4.8 mls/hr 02/14/17 07:45 02/19/17 08:36 Chloride IVPB 4.8 mls/hr ASDIR ANNA Administration 2.4 UNITS/HR Piperacillin Sod/Tazobactam Sod 50 mls @ 100 mls/hr 02/18/17 18:00 02/19/17 17: 06 Zosyn 3.375gm Ivpb (Pre-Docked) IVPB 100 mls/hr Q8H-IV ANNA Administration Protocol Milrinone Lactate/Dextrose 100 mls @ 5.431 mls/hr 02/18/17 17:00 02/19/17 17:50 Milrinone 20mg/100ml Ivpb - IVPB 5.431 mls/hr TITR ANNA Administration 0.2 MCG/KG/MIN Lactic Acid 1 applic 02/11/17 13:05 02/19/17 09:40 Lac-Hydrin 12 TP 1 applic DAILY PRN Administration WOUND CARE Levetiracetam 1,500 mg 02/12/17 09:01 02/19/17 09:39 Keppra Injection - IVPB 1,500 mg BID ANNA Administration Levothyroxine Sodium 150 mcg 02/13/17 07:00 02/19/17 07:26 Synthroid - PO Not Given DAILY@0700 ANNA Nystatin 1 applic 02/11/17 01:00 02/19/17 09:42 Mycostatin Ointment - TP 1 applic BID ANNA Administration Phenobarbital 100 mg 02/15/17 22:00 02/19/17 09:39 Phenobarbital Injection - IV 100 mg BID ANNA Administration Thiamine HCl 500 mg 02/19/17 14:45 02/19/17 17:06 Vitamin B1 Injection - IVPB 02/21/17 06:01 500 mg TID ANNA Administration Valproate Sodium 500 mg 02/13/17 22:00 02/19/17 13:19 Depacon Injection - IVPB 500 mg Q8H ANNA Administration ASSESSMENT AND PLAN: 1. Fever, possible sepsis - ID consult appreciated - Zosyn, Vancomycin started 2. Status epilepticus - Currently on Phenobarbital, Versed, Keppra, Depacon - EEG showed diffuse slowing, burst suppression pattern, epileptiform activity 3. Acute hypoxic respiratory failure - Remains on vent 4. Multi-organ failure - Acute kidney injury - creatinine stable at 1.5 - Acute hepatic transaminitis - AST, ALT increasing 5. Arrhythmias - Vimpat discontinued - AICD interrogation revealed no evidence VF/VT 6. Hypothyroidism - On Synthroid 7. Cardiogenic shock - Continue Levophed, Vasopressin - Milrinone restarted 8. Acute and chronic systolic heart failure - Continue IV Lasix - Milrinone restarted 9. Hypophosphatemia - Improved 10. Hypokalemia - Improved 11. Hypomagnesemia - Improved 12. Thrombocytopenia - Heparin discontinued 13. Nutrition - NGT feeds held secondary to abdominal distention 14. Stress ulcer prophylaxis - On Protonix 15. DVT prophylaxis - On heparin subq Critical Care Total Critical Care Time (in minutes): 35 Critical Care Statement: The care of this patient involved high complexity decision making to prevent further life threatening deterioration of the patient 's condition and/or to evaluate & treat vital organ system(s) failure or risk of failure.
[2017-02-19] MEDS: CHLORHEXIDINE GLUCONATE 4% CLEANSER FOR DECOLONIZATION TP SCH (22:27)
[2017-02-19] MEDS ORDERED: VASOPRESSIN 20 UNITS/ML VIAL IV ONE (23:02)
[2017-02-20] MEDS: PIPERACILLIN/TAZOB 3.375 GM 50 ML IVPB SCH ×3 (01:41→17:23)
[2017-02-20] MEDS ORDERED: NOREPINEPHRINE BITARTRATE 4 MG/4 ML ML IV ONE ×3 (01:52→20:15)
[2017-02-20] MEDS: MIDAZOLAM 100 MG in SODIUM CHLORIDE 100 ML IVPB SCH ×3 (01:59→22:32)
[2017-02-20] MEDS: NOREPINEPHRINE BITARTRATE 8,000 MCG in DEXTROSE 5%-WATER - 492 ML IV SCH ×4 (02:01→20:00)
[2017-02-20] MEDS: FENTANYL INJECTION 500 MCG in DEXTROSE 5%-WATER - 90 ML IJ SCH ×2 (02:47→12:42)
[2017-02-20] MEDS: VALPROATE SODIUM 500 MG/5 ML VIAL IVPB SCH ×3 (06:29→22:21)
[2017-02-20] MEDS: FUROSEMIDE 100 MG/10 ML INJECTABLE VIAL IVPUSH SCH (06:30)
[2017-02-20] MEDS: THIAMINE HCL 200 MG/2 ML VIAL IVPB SCH ×4 (06:56→22:24)
[2017-02-20] MEDS: LEVOTHYROXINE NA 150 MCG TABLET PO SCH (06:57)
--- NOTE | 2017-02-20 07:17 | PN ---
Progress Note, Physician Chief Complaint: ID Clinical status remains dire Maxed out on pressor support and systolic BP 40-50 although up slightly now Also febrile consistently 101-102 despite Vancomcyin and Pip tazobactam Intubated - Current Medication List Current Medications: Active Medications Betamethasone Valerate (Valisone 0.1% Cream -) 1 applic TP DAILY ANNA Last Admin: 02/19/17 09:40 Dose: 1 applic Chlorhexidine Gluconate (Hibiclens For Decolonization -) 1 applic TP HS ANNA Last Admin: 02/19/17 22:27 Dose: 1 applic Furosemide (Lasix Injection -) 100 mg IVPUSH TID@0600,1200,1800 ANNA Last Admin: 02/20/17 06:30 Dose: 100 mg Pantoprazole Sodium (Protonix 40mg Ivpb (Pre-Docked)) 100 mls @ 200 mls/hr IVPB DAILY [facility] Last Admin: 02/19/17 09:39 Dose: 200 mls/hr Midazolam HCl 100 mg/ Sodium (Chloride) 100 mls @ 12 mls/hr IVPB TITR ANNA; 12 MG/HR PRN Reason: Protocol Last Admin: 02/20/17 01:59 Dose: 5 mls/hr Norepinephrine Bitartrate 8, (000 mcg/ Dextrose) 500 mls @ 18.75 mls/hr IV TITR ANNA; 5 MCG/MIN PRN Reason: Protocol Last Admin: 02/20/17 02:01 Dose: 112.5 mls/hr Vasopressin 50 units/ Sodium (Chloride) 100 mls @ 4.8 mls/hr IVPB ASDIR ANNA PRN Reason: 2.4 UNITS/HR Last Admin: 02/19/17 08:36 Dose: 4.8 mls/hr Piperacillin Sod/Tazobactam Sod (Zosyn 3.375gm Ivpb (Pre-Docked)) 50 mls @ 100 mls/hr IVPB Q8H-IV ANNA PRN Reason: Protocol Last Admin: 02/20/17 01:41 Dose: 100 mls/hr Milrinone Lactate/Dextrose (Milrinone 20mg/100ml Ivpb -) 100 mls @ 5.431 mls/ hr IVPB TITR ANNA PRN Reason: 0.2 MCG/KG/MIN Last Admin: 02/19/17 17:50 Dose: 5.431 mls/hr Fentanyl 500 mcg/ Dextrose 100 mls @ 20 mls/hr IJ TITR ANNA PRN Reason: 100 MCG/HR Last Admin: 02/20/17 02:47 Dose: 20 mls/hr Lactic Acid (Lac-Hydrin 12) 1 applic TP DAILY PRN PRN Reason: WOUND CARE Last Admin: 02/19/17 09:40 Dose: 1 applic Levetiracetam (Keppra Injection -) 1,500 mg IVPB BID [facility] Last Admin: 02/19/17 22:27 Dose: 1,500 mg Levothyroxine Sodium (Synthroid -) 150 mcg PO DAILY@0700 [facility] Last Admin: 02/20/17 06:57 Dose: Not Given Nystatin (Mycostatin Ointment -) 1 applic TP BID [facility] Last Admin: 02/19/17 22:29 Dose: 1 applic Phenobarbital (Phenobarbital Injection -) 100 mg IV BID [facility] Last Admin: 02/19/17 22:29 Dose: 100 mg Thiamine HCl (Vitamin B1 Injection -) 500 mg IVPB TID [facility] Stop: 02/21/17 06:01 Last Admin: 02/20/17 07:09 Dose: 500 mg Valproate Sodium (Depacon Injection -) 500 mg IVPB Q8H [facility] Last Admin: 02/20/17 06:29 Dose: 500 mg - Objective Vital Signs: Vital Signs Temperature 101.2 F H 02/20/17 06:00 Pulse Rate 114 H 02/20/17 06:00 Respiratory Rate 14 02/20/17 06:30 Blood Pressure 85/70 02/20/17 06:00 O2 Sat by Pulse Oximetry (%) 96 02/19/17 23:05 Constitutional: Yes: Other (INtubated) Cardiovascular: Yes: Tachycardia, S1, S2 Respiratory: Yes: WNL, Regular, CTA Bilaterally Gastrointestinal: Yes: Soft. No: Tenderness Labs: CBC, BMP 02/19/17 05:20 02/19/17 05:20 INR, PTT INR 1.17 (0.82-1.09) H 02/14/17 05:15 Fibrinogen 186.0 mg/dL (238-498) L 02/11/17 04:00 Problem List - Problems (1) Seizure Code(s): R56.9 - UNSPECIFIED CONVULSIONS (2) Sepsis Code(s): A41.9 - SEPSIS, UNSPECIFIED ORGANISM (3) UTI (urinary tract infection) Code(s): N39.0 - URINARY TRACT INFECTION, SITE NOT SPECIFIED Assessment/Plan Microbiology 02/18/17 13:40 Blood - Peripheral Venous Blood Culture - Preliminary NO GROWTH OBTAINED AFTER 24 HOURS, INCUBATION TO CONTINUE FOR 4 DAYS. 02/18/17 13:35 Blood - Peripheral Venous Blood Culture - Preliminary NO GROWTH OBTAINED AFTER 24 HOURS, INCUBATION TO CONTINUE FOR 4 DAYS. Laboratory Tests 02/19/17 02/19/17 02/19/17 05:20 05:20 17:45 WBC 6.8 Hgb 11.4 Plt Count 119 L D BUN 49 H D Creatinine 1.5 H Total Bilirubin 1.5 H D Direct Bilirubin 1.2 H AST 1085 H ALT 273 H D Alkaline Phosphatase 116 Total Protein 5.6 L Albumin 2.4 L Ur Leukocyte Esterase 2+ H Urine RBC 115 Urine Yeast Many ASSESSMENT Cardiogenic shock Tachycardia Shock liver/ kidney Cardiomyopathy Seizure disorder by history wit status epilepticus based most likely on anoxia Sepsis syndrome fever ? source possible urinary tract vs PNA Plan Blood culture Vanco 1.5 gram Dose of Gent 200mg x 1 Await c.s urine Prognosis remains poor ( family in attendence) Critical care time spent 38 minutes Josie PARIKH
[2017-02-20] MEDS ORDERED: VANCOMYCIN 1,500 MG in DEXTROSE 5%-WATER - 500 ML IVPB ONE (07:20)
[2017-02-20] MEDS ORDERED: GENTAMICIN SO4 *PEDIATRIC* 20 MG/2 ML VIAL IVPB ONE (07:20)
[2017-02-20] MEDS ORDERED: GENTAMICIN INJECTION 200 MG in SODIUM CHLORIDE 100 ML IVPB ONE (07:30)
[2017-02-20] MEDS ORDERED: PT OWN MED DRAWER 7, Y5N ONE ×2 (09:26→22:18)
--- NOTE | 2017-02-20 09:27 | PN ---
Progress Note (short form) - Note Progress Note: Progress Note: Chief Complaint: chf History of Present Illness: remains on levophed and vasopressin and milrinone. bp still low. remains febrile. Current Medications Generic Name Dose Route Start Last Admin Trade Name Freq PRN Reason Stop Dose Admin Betamethasone Valerate 1 applic 02/12/17 10:00 02/19/17 09:40 Valisone 0.1% Cream - TP 1 applic DAILY ANNA Administration Chlorhexidine Gluconate 1 applic 02/11/17 22:00 02/19/17 22:27 Hibiclens For Decolonization - TP 1 applic HS ANNA Administration Pantoprazole Sodium 100 mls @ 200 mls/hr 02/12/17 10:00 02/19/17 09:39 Protonix 40mg Ivpb (Pre-Docked) IVPB 200 mls/hr DAILY ANNA Administration Midazolam HCl 100 mg/ Sodium 100 mls @ 12 mls/hr 02/12/17 21:44 02/20/17 01:59 Chloride IVPB 5 mls/hr TITR ANNA Administration Protocol 12 MG/HR Norepinephrine Bitartrate 8, 500 mls @ 18.75 mls/hr 02/13/17 23:50 02/20/17 02: 01 000 mcg/ Dextrose IV 112.5 mls/hr TITR ANNA Administration Protocol 5 MCG/MIN Vasopressin 50 units/ Sodium 100 mls @ 4.8 mls/hr 02/14/17 07:45 02/19/17 08:36 Chloride IVPB 4.8 mls/hr ASDIR ANNA Administration 2.4 UNITS/HR Piperacillin Sod/Tazobactam Sod 50 mls @ 100 mls/hr 02/18/17 18:00 02/20/17 01: 41 Zosyn 3.375gm Ivpb (Pre-Docked) IVPB 100 mls/hr Q8H-IV ANNA Administration Protocol Fentanyl 500 mcg/ Dextrose 100 mls @ 20 mls/hr 02/20/17 02:30 02/20/17 02:47 IJ 20 mls/hr TITR ANNA Administration 100 MCG/HR Lactic Acid 1 applic 02/11/17 13:05 02/19/17 09:40 Lac-Hydrin 12 TP 1 applic DAILY PRN Administration WOUND CARE Levetiracetam 1,500 mg 02/12/17 09:01 02/19/17 22:27 Keppra Injection - IVPB 1,500 mg BID ANNA Administration Levothyroxine Sodium 150 mcg 02/13/17 07:00 02/20/17 06:57 Synthroid - PO Not Given DAILY@0700 ANNA Nystatin 1 applic 02/11/17 01:00 02/19/17 22:29 Mycostatin Ointment - TP 1 applic BID ANNA Administration Phenobarbital 100 mg 02/15/17 22:00 02/19/17 22:29 Phenobarbital Injection - IV 100 mg BID ANNA Administration Thiamine HCl 500 mg 02/19/17 14:45 02/20/17 07:09 Vitamin B1 Injection - IVPB 02/21/17 06:01 500 mg TID ANNA Administration Valproate Sodium 500 mg 02/13/17 22:00 02/20/17 06:29 Depacon Injection - IVPB 500 mg Q8H ANNA Administration Vital Signs Temp 101.2 F H 02/20/17 06:00 Pulse 118 H 02/20/17 08:00 Resp 14 02/20/17 08:00 BP 84/74 02/20/17 08:00 Pulse Ox 94 L 02/20/17 08:00 Intake & Output 02/19/17 02/19/17 02/20/17 11:59 23:59 11:59 Intake Total 2202.6 3123 Output Total 300 850 600 Balance 1902.6 -850 2523 Weight 201 lb 8 oz 204 lb 8 oz Intake: IV 987.6 1808 Versed - 100 mg In Normal 180 120 Saline - 100 ml @ 12 MG/ HR 12 mls/hr IVPB TITR ANNA Rx#:[id number] Levophed - 8,000 Mcg In 450 1344 D5w - 492 ml @ 5 MCG/MIN 18.75 mls/hr IV TITR ANNA Rx#:[id number] Pitressin - 50 Units In 54 144 Normal Saline - 97.5 ml @ 2.4 UNITS/HR 4.8 mls/hr IVPB ASDIR ANNA Rx#: [id number] Milrinone 20Mg/100Ml Ivpb 63.6 80 - 100 ml @ 0.2 MCG/KG/ MIN 5.431 mls/hr IVPB TITR ANNA Rx#:[id number] Fentanyl 240 120 IVPB 500 600 Tube Feeding 605 605 TPN/PPN 0 Tube Irrigant 110 110 Output: Urine 300 850 300 Garcia 300 850 300 Emesis 300 Other: Voiding Method Indwelling Catheter Indwelling Catheter Bowel Movement No No No Weight Measurement Method Built in [facility] Built in [facility] Constitutional: Yes: Well Nourished, No Distress, sedated Cardiovascular: Yes: Regular Rate and Rhythm, Gallop (? S3), S1, S2. No: JVD ( very tds exam), Murmur Respiratory: Yes: cta bl anteriorly. intubated on vent Extremities: No: Cool Edema: Yes (1+ pretib) Neurological: sedated, intubated Psychiatric: No: Agitated no jaundice diaphoresis abd nd pos bs Labs: Laboratory Last Values WBC 6.8 K/mm3 (4.0-10.0) 02/19/17 05:20 Corrected WBC (auto) Cancelled 02/11/17 04:00 RBC 3.88 M/mm3 (3.60-5.2) 02/19/17 05:20 Hgb 11.4 GM/dL (10.7-15.3) 02/19/17 05:20 Hct 34.8 % (32.4-45.2) 02/19/17 05:20 MCV 89.7 fl (80-96) 02/19/17 05:20 MCH 29.4 pg (25.7-33.7) 02/19/17 05:20 MCHC 32.8 g/dl (32.0-36.0) 02/19/17 05:20 RDW 19.8 % (11.6-15.6) H 02/19/17 05:20 Plt Count 119 K/MM3 (134-434) L D 02/19/17 05:20 MPV 11.5 fl (7.5-11.1) H 02/19/17 05:20 Add Manual Diff Cancelled 02/11/17 04:00 Neutrophils % 83.3 % (42.8-82.8) H 02/16/17 05:30 Lymphocytes % 8.6 % (8-40) 02/16/17 05:30 Monocytes % 7.0 % (3.8-10.2) 02/16/17 05:30 Eosinophils % 0.5 % (0-4.5) D 02/16/17 05:30 Basophils % 0.6 % (0-2.0) 02/16/17 05:30 Differential Comment Cancelled 02/11/17 04:00 Hypochromia 2+ 02/10/17 17:35 Platelet Estimate Decreased (NORMAL) 02/18/17 05:20 Platelet Comment No clumping noted 02/18/17 05:20 Platelet Comment Mod large plts 02/18/17 05:20 Normal RBC Morphology Cancelled 02/11/17 04:00 RBC Morphology 02/12/17 18:45 Poikilocytosis 1+ 02/12/17 18:45 Anisocytosis 2+ 02/16/17 05:30 Microcytosis 1+ 02/16/17 05:30 Macrocytosis Few 02/16/17 05:30 Tear Drop Cells 1+ 02/16/17 05:30 Ovalocytes 1+ 02/16/17 05:30 INR 1.17 (0.82-1.09) H 02/14/17 05:15 PTT (Actin FS) 28.5 SECONDS (26.9-34.4) D 02/12/17 05:20 Fibrinogen 186.0 mg/dL (238-498) L 02/11/17 04:00 Anticoagulation Therapy Y 02/15/17 07:20 Puncture Site Right radial 02/15/17 07:20 Patient Temperature 96.4 02/11/17 05:15 ABG pH 7.39 (7.35-7.45) 02/15/17 07:20 ABG pCO2 at Pt Temp 55.0 mmHg (35-45) H D 02/15/17 07:20 ABG pO2 at Pt Temp 105.0 mmHg (80-100) H 02/15/17 07:20 ABG HCO3 32.2 meq/L (22-26) H 02/15/17 07:20 ABG O2 Sat (Measured) 97.9 % (90-98.9) 02/15/17 07:20 ABG O2 Content 16.1 % vol (15-22) 02/15/17 07:20 ABG Base Excess 6.3 meq/l (-2-2) H 02/15/17 07:20 Bob Test Positive 02/15/17 07:20 VBG pH 7.35 (7.32-7.42) 02/16/17 11:50 POC VBG pCO2 65.7 mmHg (38-52) H* 02/16/17 11:50 POC VBG pO2 49.6 mmHg (28-48) H 02/16/17 11:50 Mixed VBG HCO3 35.6 meq/L (19-25) H 02/16/17 11:50 O2 Delivery Device Vent 02/15/17 07:20 Oxygen Flow Rate 40% 02/15/17 07:20 Vent Mode A/c 02/15/17 07:20 Vent Rate 14 02/15/17 07:20 Mechanical Rate Y 02/15/17 07:20 PEEP 6.0 cmH2O 02/15/17 07:20 Pressure Support Vent 400 02/15/17 07:20 Sodium 133 mmol/L (136-145) L 02/19/17 05:20 Potassium 5.0 mmol/L (3.5-5.1) 02/19/17 05:20 Chloride 92 mmol/L (98-107) L 02/19/17 05:20 Carbon Dioxide 33 mmol/L (21-32) H 02/19/17 05:20 Anion Gap 8 (8-16) 02/19/17 05:20 BUN 49 mg/dL (7-18) H D 02/19/17 05:20 Creatinine 1.5 mg/dL (0.55-1.02) H 02/19/17 05:20 Creat Clearance w eGFR 36.76 (>60) 02/18/17 05:20 POC Glucometer 186.22026 UNITS (()) 02/14/17 20:56 Random Glucose 129 mg/dL (74-106) H 02/19/17 05:20 Lactic Acid 2.2 mmol/L (0.4-2.0) H* 02/15/17 10:32 Calcium 7.6 mg/dL (8.5-10.1) L 02/19/17 05:20 Phosphorus 2.7 mg/dL (2.5-4.9) 02/19/17 05:20 Magnesium 2.0 mg/dL (1.8-2.4) 02/19/17 05:20 Total Bilirubin 1.5 mg/dL (0.2-1.0) H D 02/19/17 05:20 Direct Bilirubin 1.2 mg/dL (0.0-0.2) H 02/19/17 05:20 AST 1085 U/L (15-37) H 02/19/17 05:20 ALT 273 U/L (12-78) H D 02/19/17 05:20 Alkaline Phosphatase 116 U/L (45-117) 02/19/17 05:20 Ammonia 34.6 umol/L (11-32) H 02/11/17 14:00 Creatine Kinase 83 IU/L (26-192) 02/11/17 04:00 Troponin I < 0.02 ng/ml (0.00-0.05) 02/12/17 18:45 B-Natriuretic Peptide 2733.06 pg/ml (5-125) H 02/11/17 04:00 Total Protein 5.6 g/dl (6.4-8.2) L 02/19/17 05:20 Albumin 2.4 g/dl (3.4-5.0) L 02/19/17 05:20 Total Amylase 87 U/L (25-115) 02/11/17 04:00 TSH 18.70 uIU/ml (0.358-3.74) H D 02/13/17 05:15 Free T4 1.24 ng/dl (0.76-1.46) 02/11/17 04:00 Free T3 0.8 pg/ml (2.0-4.4) L 02/12/17 05:20 Total T3 43.00 ng/dl (71-180) L 02/12/17 05:20 Cortisol AM Sample 23.2 ug/dL (.) 02/18/17 05:20 Urine Color Lt. yellow 02/19/17 17:45 Urine Appearance Clear 02/19/17 17:45 Urine pH 6.0 (5.0-8.0) 02/19/17 17:45 Ur Specific [place] 1.015 (1.005-1.025) 02/19/17 17:45 Urine Protein 2+ (NEGATIVE) H 02/19/17 17:45 Urine Glucose (UA) Negative (NEGATIVE) 02/19/17 17:45 Urine Ketones Negative (NEGATIVE) 02/19/17 17:45 Urine Blood 3+ (NEGATIVE) H 02/19/17 17:45 Urine Nitrite Negative (NEGATIVE) 02/19/17 17:45 Urine Bilirubin 1+ (NEGATIVE) H 02/19/17 17:45 Urine Urobilinogen 1.0 mg/dL (0.2-1.0) 02/19/17 17:45 Ur Leukocyte Esterase 2+ (NEGATIVE) H 02/19/17 17:45 Urine RBC 115 /hpf (0-3) 02/19/17 17:45 Urine WBC 702 /hpf (3-5) 02/19/17 17:45 Ur Epithelial Cells Rare /hpf (FEW) 02/19/17 17:45 Calcium Oxalate Crystal Rare /hpf (NONE SEEN) 02/12/17 12:30 Hyaline Casts 45 /lpf 02/19/17 17:45 Granular Casts 1 /lpf 02/12/17 12:30 Urine Mucus Rare 02/19/17 17:45 Urine Yeast Many 02/19/17 17:45 Urine HCG, Qual Negative 02/11/17 14:00 Opiates Screen Negative ng/ml (NHJNCS=744) 02/11/17 14:00 Methadone Screen Negative ng/ml (UJTZQL=217) 02/11/17 14:00 Acetaminophen 3.145 ug/ml (10.0-30.0) L 02/13/17 05:15 Barbiturate Screen Negative ng/ml (ZDWVOB=507) 02/11/17 14:00 Valproic Acid 75.774 ug/ml (50-100) 02/19/17 05:20 Levetiracetam 78.4 MCG/ML (10.0-40.0) H 02/15/17 10:32 Phencyclidine Screen Negative ng/ml (CUTOFF=25) 02/11/17 14:00 Ur Amphetamines Screen Negative ng/ml (KDFHMN=838) 02/11/17 14:00 MDMA (Ecstasy) Screen Negative ng/ml (AUXWVA=901) 02/11/17 14:00 Benzodiazepines Screen Positive ng/ml (TUIWCG=855) 02/11/17 14:00 Cocaine Screen Negative ng/ml (QLUACD=743) 02/11/17 14:00 U Marijuana (THC) Screen Negative ng/ml (CUTOFF=50) 02/11/17 14:00 Hep-Induced Plt Ab Rapid 0.478 OD (0.000-0.400) H 02/17/17 11:25 tele: sr, as-vpaced [facility] 10/2016 --> nl cors (verbal report from dr sanchez) Echo 01/2017: Severe lv dilation, sev reduced LV fn (global). mod rv dilation. mod RV dysfunction. RV pacing wire. 2.8 x 1.2 cm density in apex of RV (per discussion with Dr. Sanchez, bright echodensity at the tip of pacing wire was present on prior office echo). mod tr. rvsp 30-40. trivial pericardial effusion. + pleural effusion. CTA: pulmonary congestion, small left pleural effusion. large volume ascites. extensive subcutaneous edema/anasarca. CTA --> + arterial flow to LE. CT head: no acute pathology repeat cxr 02/14: improvement in congestive changes. dense left base persists. est cct 36 mins a/p: 51 y/o woman, resident on [facility] with hx of biventricular cardiomyopathy s/ p bivICD, htn, afib (per report only), Schizophrenia, seizure disorder, Hypothroidism and GERD who presented to ED with LE swelling, coolness to touch and diminshed pulses as well as lethargy. Hospital course has been complicated by seizure/status epilepticus requiring intubation for airway protection and sedation. acute on chronic syst CHF, nonischemic biventricular cardiomyopathy s/p bivICD, cardiogenic shock - holding bb and acei due to hypotension. - CE's were negative on admit and according to her outcome analyst recent C showed normal cors - 02/12 BNP 2700, patient p/w with lethargy, LE edema, cool skin, poor distal pulses, pulmonary edema, large volume ascites and anasarca noted on ct scan, -- > concerning for decompensated biventricular heart failure. cvp 13 --> Started trial of IV lasix for diuresis 02/12, milrinone deferred at that time ( pt was on levophed). - 02/13: overnight propofol stopped due to increasing ectopy and concern for qt prolongation --> improvement in ectopy. patient's remained net positive, lasix was increased to 80 mg IV bid. Late evening cvp remained elevated at 15 and patient still not net negative. Drips were double concentrated. vasopressin added for recurrent hypotension (to 70s). - 02/14: levophed weaned off today. Patient finally net negative this am. BP still running low. CVP remains elevated at 13 --> started milrinone for decompensated heart failure. Patient still may have superimposed vasodilating pathology, con't pressor support for now. Con't lasix 80 mg IV bid with aggressive electrolyte repletion (congestion improving on cxr, lfts improving, cr stable). double concentrate drips when possible. - 02/15: CXR improved vs 02/13, L lung not well seen due to ICD and marked cardiomegaly obscuring L base. BP down to 70s again early am today, remains on high dose pressors (vasopressin 2.4 units/hour, levo 9 mcg). CVP has improved to 10 (from 17 initially) with diuresis plus milrinone (0.3 mcg/kg/min). vigorous UOP yesterday (8L). - 02/16: Concern for episode of VF/VT on telemetry-->ICD interrogated: No VT/VF events. Was informed that biV pacing programmed to stop at HR's above 130 which explains change in rhythm. Although 130's is still below lower detection limit for VT so cannot exclude intermittent slow VT. Milrinone drip stopped. Sent SvO2 to clarify hemodynamics, cardiogenic vs. vasodilatory. SVO2 80% per report so OK to leave off milrinone. Still getting augmentation of contractility from levophed. Remains net positive today, CVP 14 per report, but SVO2 is not low and overall edema improving --> will not uptitrate diuretics. -02/17: cont current iv lasix and pressor support - 02/18: concerned patient is continuing to be net positive. CVP elevated > 20. Now with MARK and minimal urine output now poor. If she continues to remain net positive her heart failure will continue to worsen. Had 100 cc uop to 100 mg IV lasix this afternoon (increase from what she has put out today per nursing). Will uptitrate lasix regimen to 100 mg tid. Will add back milrinone to see if it improves hypotension/cardiac output (add back at lower dose for now). ICD interrogation was negative for ventricular arrhythmia. Reassess tomorrow whether these interventions improve her clinical status. Discussed plan of care with family. Palliative care in room with family -02/19: still with vol overload, net positive, wt up. Will continue current pressors, milrinone. Fever reported so possibly becoming septic. If bp continues to drop would stop milrinone and hold lasix temporarily. -02/20: despite milrinone and lasix pt remains with poor urine outpt and low bp. Now also has been persistently febrile so seems more of a septic shock picture now. Thus will dc lasix and milrinone for now which may allow bp to rise. If bp remains low on vaso and levo can add dobutamine next. Overall very poor prognosis. wide complex tachycardia: - suspect tele represents sinus tach, initially with Bi-V pacing, then with loss of Bi-V pacing and pt conduction with [place] bundle branch block QRS (note 02/10 ekg shows Bi-V pacing with a fusion beat btw paced and conducted beats, showing a wide QRS with [place] conduction) - doubt sustained VT on tele - has ICD protection - CHF optimization and med regimen as doing - per dr sanchez, ICD was recently interrogated 10/2016 with no remarkable findings then. - 02/12 with increasing ectopy throughout the day leading to sustained ventricular bigeminy with very broad abnormal t wave (no nsvt). concern for qt prolongation --> propofol weaned overnight with resolution of arrhythmia. - electrolyte repletion to usual targets - 02/16: ICD interrogated: No VT/VF events. Was informed that biV pacing programmed to stop at HR's above 130 which explains change in rhythm. RV echo density noted on echo - Echo here shows density in RV apex (couldn't exclude veg or thrombus). Discussed with Dr. Sanchez and patient had similarly described density on prior echo at his office, likely artifact from RV lead. seizure disorder/status epilepticus - ongoing management per neuro/icu. Remains intubated and sedated. - head ct x 2 without acute pathology. afib - diagnosis documented on detention chart, but patient not on AC and in SR here (? accuracy of diagnosis)--will defer to Dr. Sanchez who is her treating outpatient outcome analyst. For now, since no evidence of afib/flutter on tele, will not start AC. thrombocytopenia - eval/mgm't per pmd. rising lfts: -likely shock liver, cont bp support
[2017-02-20] MEDS: levETIRAcetam 500 MG/5 ML INJECTION VIAL IVPB SCH ×2 (09:52→22:21)
[2017-02-20] MEDS: PHENobarbital SODIUM 130 MG/1 ML VIAL IV SCH ×2 (09:52→22:25)
[2017-02-20] MEDS: PANTOPRAZOLE SODIUM 100 ML IVPB SCH (09:53)
--- NOTE | 2017-02-20 09:58 | PN ---
Progress Note (short form) - Note Progress Note: PULMONARY/CCM Pt seen and examined in the ICU. Remains intubated, sedated. On high dose levophed gtt and vasopressin. Hypotensive and now persistently febrile. Last Vital Signs Temp Pulse Resp BP Pulse Ox 101.2 F H 112 H 14 85/73 94 L 02/20/17 06:00 02/20/17 09:00 02/20/17 09:00 02/20/17 09:00 02/20/17 08:00 Intake & Output 02/17/17 02/18/17 02/19/17 02/20/17 23:59 23:59 23:59 23:59 Intake Total 4436.8 4328 2202.6 3123 Output Total 985 818 3517 600 Balance 3886.8 4078 1052.6 2523 Weight 193 lb 7 oz 199 lb 9 oz 201 lb 8 oz 204 lb 8 oz Gen: intubated, sedated Heart: tachycardic, regular, +gallop Lung: bilateral rhonchi Abd: softly distended, +ascites Ext: +anasarca CBC, BMP 02/19/17 05:20 02/19/17 05:20 Active Medications Betamethasone Valerate (Valisone 0.1% Cream -) 1 applic TP DAILY ANNA Last Admin: 02/19/17 09:40 Dose: 1 applic Chlorhexidine Gluconate (Hibiclens For Decolonization -) 1 applic TP HS ANNA Last Admin: 02/19/17 22:27 Dose: 1 applic Pantoprazole Sodium (Protonix 40mg Ivpb (Pre-Docked)) 100 mls @ 200 mls/hr IVPB DAILY [facility] Last Admin: 02/20/17 09:53 Dose: 200 mls/hr Midazolam HCl 100 mg/ Sodium (Chloride) 100 mls @ 12 mls/hr IVPB TITR ANNA; 12 MG/HR PRN Reason: Protocol Last Admin: 02/20/17 01:59 Dose: 5 mls/hr Norepinephrine Bitartrate 8, (000 mcg/ Dextrose) 500 mls @ 18.75 mls/hr IV TITR ANNA; 5 MCG/MIN PRN Reason: Protocol Last Admin: 02/20/17 02:01 Dose: 112.5 mls/hr Vasopressin 50 units/ Sodium (Chloride) 100 mls @ 4.8 mls/hr IVPB ASDIR ANNA PRN Reason: 2.4 UNITS/HR Last Admin: 02/19/17 08:36 Dose: 4.8 mls/hr Piperacillin Sod/Tazobactam Sod (Zosyn 3.375gm Ivpb (Pre-Docked)) 50 mls @ 100 mls/hr IVPB Q8H-IV ANNA PRN Reason: Protocol Last Admin: 02/20/17 09:30 Dose: 100 mls/hr Fentanyl 500 mcg/ Dextrose 100 mls @ 20 mls/hr IJ TITR ANNA PRN Reason: 100 MCG/HR Last Admin: 02/20/17 02:47 Dose: 20 mls/hr Lactic Acid (Lac-Hydrin 12) 1 applic TP DAILY PRN PRN Reason: WOUND CARE Last Admin: 02/19/17 09:40 Dose: 1 applic Levetiracetam (Keppra Injection -) 1,500 mg IVPB BID [facility] Last Admin: 02/20/17 09:52 Dose: 1,500 mg Levothyroxine Sodium (Synthroid -) 150 mcg PO DAILY@0700 [facility] Last Admin: 02/20/17 06:57 Dose: Not Given Nystatin (Mycostatin Ointment -) 1 applic TP BID [facility] Last Admin: 02/19/17 22:29 Dose: 1 applic Phenobarbital (Phenobarbital Injection -) 100 mg IV BID [facility] Last Admin: 02/20/17 09:52 Dose: 100 mg Thiamine HCl (Vitamin B1 Injection -) 500 mg IVPB TID [facility] Stop: 02/21/17 06:01 Last Admin: 02/20/17 07:09 Dose: 500 mg Valproate Sodium (Depacon Injection -) 500 mg IVPB Q8H [facility] Last Admin: 02/20/17 06:29 Dose: 500 mg A/P Status Epileptics Acute Respiratory Failure Acute on Chronic Systolic Heart Failure Cardiogenic vs Septic Shock Lactic Acidosis resolved s/p ICD Elevated LFTs Hypothyroidism Thrombocytopenia - antibiotics per ID - f/u cultures - antiepileptics per neuro - monitor phenobarbital levels - titrate levophed, vasopressin gtt to maintain MAP >65 - continue lasix IV if BP tolerates - lighten sedation if no seizure activity noted on repeat EEG - repeat CT head when stable - enteral feeds on hold, will obtain CT A/P with oral contrast when stable - DVT/GI prophylaxis - continue ICU monitoring - poor overall prognosis - discussed at bedside with family at length pt's critical condition and unstable hemodynamics with worsening multiorgan failure despite aggressive therapy, likelihood of meaningful recovery is very slim at this point, recommended DNR but will continue medical treatment, family agrees and signed DNR form critical care time spent in reviewing chart, evaluating patient and formulating plan 45 min
[2017-02-20] MEDS ORDERED: VASOPRESSIN 20 UNITS/ML VIAL IV ONE ×2 (10:11→18:25)
[2017-02-20] MEDS: NYSTATIN 100000 UNIT/GM TOPICAL OINTMENT 15 GM TUBE TP SCH ×2 (10:27→22:31)
[2017-02-20] MEDS: BETAMETHASONE VALERATE 0.1% CREAM 15 GM TUBE TP SCH (10:28)
[2017-02-20] MEDS: VASOPRESSIN 50 UNITS in SODIUM CHLORIDE 97.5 ML IVPB SCH ×2 (10:28→18:42)
[2017-02-20] MEDS: AMMONIUM LACTATE 12% LOTION 225 GM BOTTLE TP PRN (10:29)
[2017-02-20 11:12] LABS: MCH 28.8 pg (25.7-33.7); MCHC 31.9 g/dl (32.0-36.0); MEAN CELL VOLUME 90.2 fl (80-96); MEAN PLT VOLUME 10.6 fl (7.5-11.1); PLATELET COUNT 110 K/MM3 (134-434); WHITE BLOOD COUNT 6.1 K/mm3 (4.0-10.0)
--- NOTE | 2017-02-20 11:14 | PN ---
Progress Note (short form) - Note Progress Note: 02/11/17 : 51 y/o woman, resident on [facility] with hx of Schizophrenia, HTN, AFib, CHF, s/p AICD/biV pacer, Hypothroidism and GERD who presented to ED yesterday with LE swelling and pain c/f DVT. In ED pt was awake but poorly responsive, only C/o pain everywhere. Was noted to have cool bilateral LE with very weak peripheral pulses, edema and poor cap refill-->CTA runoff showing multiple occlusive areas in b/l LE arteries. Vascular was consulted and there was tentative plan for surgery today. CT head was performed due to AMS which was without acute pathology. Labs were notable for new elevated Tbili and alk phos, low therapeutic VPA level, no WBC, normal h/H, and slightly elevate INR 1.3. She was admitted to floor. Over night [employer] was called when pt found having tonic- clonic sz. Was given Ativan 2mg with resolution, repeat head CT was again without apparent infarct or bleed (read pending). She was brought to ICU where she cont to have repeated sz, without regaining mental status c/w status epilepticus. She was not protecting her airway or having effective ventilation ( 7.2/60) and so was intubated. EEG was ordered. Neuro and cards were consulted. Abd US was ordered for elevated bilis. Pt. was given another total of 4 mgs of Ativan but without effect, she was than placed on Midazolam drip now at 15mg/ hour. initiially loaded with Keppra 1000mg now and bering given Depakote thru her NGT. Also given Midazolam ivpx2. Pt. is unable to relate hx. Its not clear whether she has a hx. of seizures in the past as per ICU staff. Initially she was assumed to have epilepsy based on her outpatient medications, but her daughter is not aware of a seizure history. Since admission she hsa been given Vimpat and this was stopped when she developed an arrhythmia. On IV valproate, with increasing doses she is calmer, but still not alert. Current AED regimen Midazolam drip 15mg/hr, Phenobarbital 100mg bid, VPA 500mg q8hrs, Levitarecetam 1500mg bid. EEG 02/15 with epileptiform activity, burst suppression and diffuse slowing. 02/17/17 : As per nursing she had 5 episides today lasting minutes of "facial twitching". Patient remained in her baseline rhythm for the remainder of the night. FU today : 02/20/17 : no clinical sz noted , though further BP instability and maxed out on pressors, made DNR Vital Signs Temperature 101.2 F H 02/20/17 06:00 Pulse Rate 108 H 02/20/17 10:00 Respiratory Rate 14 02/20/17 10:00 Blood Pressure 88/76 02/20/17 10:00 O2 Sat by Pulse Oximetry (%) 94 L 02/20/17 08:00 CBCD WBC 6.8 K/mm3 (4.0-10.0) 02/19/17 05:20 RBC 3.88 M/mm3 (3.60-5.2) 02/19/17 05:20 Hgb 11.4 GM/dL (10.7-15.3) 02/19/17 05:20 Hct 34.8 % (32.4-45.2) 02/19/17 05:20 MCV 89.7 fl (80-96) 02/19/17 05:20 MCHC 32.8 g/dl (32.0-36.0) 02/19/17 05:20 RDW 19.8 % (11.6-15.6) H 02/19/17 05:20 Plt Count 119 K/MM3 (134-434) L D 02/19/17 05:20 MPV 11.5 fl (7.5-11.1) H 02/19/17 05:20 CMP Sodium 133 mmol/L (136-145) L 02/19/17 05:20 Potassium 5.0 mmol/L (3.5-5.1) 02/19/17 05:20 Chloride 92 mmol/L (98-107) L 02/19/17 05:20 Carbon Dioxide 33 mmol/L (21-32) H 02/19/17 05:20 Anion Gap 8 (8-16) 02/19/17 05:20 BUN 49 mg/dL (7-18) H D 02/19/17 05:20 Creatinine 1.5 mg/dL (0.55-1.02) H 02/19/17 05:20 Creat Clearance w eGFR 36.76 (>60) 02/18/17 05:20 Calcium 7.6 mg/dL (8.5-10.1) L 02/19/17 05:20 Total Bilirubin 1.5 mg/dL (0.2-1.0) H D 02/19/17 05:20 AST 1085 U/L (15-37) H 02/19/17 05:20 ALT 273 U/L (12-78) H D 02/19/17 05:20 Alkaline Phosphatase 116 U/L (45-117) 02/19/17 05:20 Total Protein 5.6 g/dl (6.4-8.2) L 02/19/17 05:20 Albumin 2.4 g/dl (3.4-5.0) L 02/19/17 05:20 C T HD : 02/11/17 Impression. No evidence of acute intracranial hemorrhage, edema , midline shift, mass effect, or skull fracture. No CT evidence of acute territorial ischemic changes. O/E comatose, eyes midline, scleral icterus, R >L, pupils 2mm, 14/14 on vent , limited dolls, + corneals, neck supple, no twitching in exe A&P ASSESSMENT/PLAN: 51 y/o woman with significant PMH of biventricular cardiomyopathy, ICD, HTN, A.Fib, Schizophrenia, seizure disorder, hypothroidism, GERD who presented to the hospital due to diminished pulses in LE, s/p fall and confusion. Hospital course has been complicated by status epilepticus that required intubation and admission to ICU.being treated for cardiac shock, elevated LFTS-- ? XR induced vs shock liver grim prognosis given persistent encpehlaopathic state and vitals instability, maxed out pressors seizure: cont Levitarecetam to 2000mg bid, Phenobabrb 100BID and depakote 500TID , on versed drip -- FU EEG depakote can be inc though LFTS already high -and rising ; unable to taper RX given frequent seizure keppra max dose, and versed and phenobarb limited by low BP FU levels phenobarb ; depakote level TX vimpat caused arrhythmia Dr Wilks
[2017-02-20 11:47] LABS: ALBUMIN 2.3 g/dl (3.4-5.0); ANION GAP 13 (8-16); CALCIUM 7.8 mg/dL (8.5-10.1); CO2 26 mmol/L (21-32); CREATININE 1.9 mg/dL (0.55-1.02); GLUCOSE,RANDOM 143 mg/dL (74-106); MAGNESIUM 2.1 mg/dL (1.8-2.4); PHOSPHOROUS 4.4 mg/dL (2.5-4.9)
[2017-02-20 11:53] LABS: ALK PHOS 124 U/L (45-117); BILIRUBIN,TOTAL 2.2 mg/dL (0.2-1.0); TOT PROT 6.2 g/dl (6.4-8.2)
[2017-02-20 11:58] LABS: METAMYELOCYTE 1 % (0-2); NUCLEATED RED BLOOD CELL 6 % (0-0); PLATELET COMMENT2 NO CLUMPING NOTED; PLATELET ESTIMATE DECREASED (NORMAL); TOTAL CELLS COUNTED 100
[2017-02-20 12:03] LABS: SGOT/AST 1821 U/L (15-37); SGPT/ALT 467 U/L (12-78)
--- NOTE | 2017-02-20 12:37 | PN ---
Physical Exam: SUBJECTIVE: Patient seen and examined. Unresponsive. Overnight, patient became hypotensive with SBP 40s despite pressors. Continues to have fevers. OBJECTIVE: Vital Signs Period Temp Pulse Resp BP Sys/Centeno Pulse Ox Last 24 Hr 99.7 F-102.2 F 108-125 14-17 41-101/15-80 93-97 HEART: S1S2, tachycardic LUNGS: Bilateral rhonchi ABDOMEN: Soft, distended, normal BS EXTREMITIES: 2+ edema Laboratory Results - last 24 hr 02/16/17 02/19/17 02/20/17 05:30 17:45 10:18 WBC 6.1 RBC 4.49 Hgb 12.9 D Hct 40.5 D MCV 90.2 MCH 28.8 MCHC 31.9 L RDW 20.0 H Plt Count 110 L MPV 10.6 Total Counted 100 Neutrophils % Y Neutrophils % (Manual) 64 Band Neuts % (Manual) 4 Lymphocytes % Y Lymphocytes % (Manual) 21 Monocytes % (Manual) 10 Nucleated RBC % 6 H Platelet Estimate Decreased Platelet Comment No clumping noted Sodium Potassium Chloride Carbon Dioxide Anion Gap BUN Creatinine Creat Clearance w eGFR Random Glucose Calcium Phosphorus Magnesium Total Bilirubin AST ALT Alkaline Phosphatase Total Protein Albumin Cortisol AM Sample 16.4 Urine Color Lt. yellow Urine Appearance Clear Urine pH 6.0 Ur Specific [place] 1.015 Urine Protein 2+ H Urine Glucose (UA) Negative Urine Ketones Negative Urine Blood 3+ H Urine Nitrite Negative Urine Bilirubin 1+ H Urine Urobilinogen 1.0 Ur Leukocyte Esterase 2+ H Urine RBC 115 Urine WBC 702 Ur Epithelial Cells Rare Hyaline Casts 45 Urine Mucus Rare Urine Yeast Many 02/20/17 10:18 WBC RBC Hgb Hct MCV MCH MCHC RDW Plt Count MPV Total Counted Neutrophils % Neutrophils % (Manual) Band Neuts % (Manual) Lymphocytes % Lymphocytes % (Manual) Monocytes % (Manual) Nucleated RBC % Platelet Estimate Platelet Comment Sodium 126 L Potassium 5.8 H Chloride 87 L Carbon Dioxide 26 D Anion Gap 13 BUN 59 H D Creatinine 1.9 H D Creat Clearance w eGFR 27.98 Random Glucose 143 H Calcium 7.8 L Phosphorus 4.4 D Magnesium 2.1 Total Bilirubin 2.2 H D AST 1821 H ALT 467 H D Alkaline Phosphatase 124 H Total Protein 6.2 L Albumin 2.3 L Cortisol AM Sample Urine Color Urine Appearance Urine pH Ur Specific [place] Urine Protein Urine Glucose (UA) Urine Ketones Urine Blood Urine Nitrite Urine Bilirubin Urine Urobilinogen Ur Leukocyte Esterase Urine RBC Urine WBC Ur Epithelial Cells Hyaline Casts Urine Mucus Urine Yeast Active Medications Generic Name Dose Route Start Last Admin Trade Name Freq PRN Reason Stop Dose Admin Betamethasone Valerate 1 applic 02/12/17 10:00 02/20/17 10:28 Valisone 0.1% Cream - TP 1 applic DAILY ANNA Administration Chlorhexidine Gluconate 1 applic 02/11/17 22:00 02/19/17 22:27 Hibiclens For Decolonization - TP 1 applic HS ANNA Administration Pantoprazole Sodium 100 mls @ 200 mls/hr 02/12/17 10:00 02/20/17 09:53 Protonix 40mg Ivpb (Pre-Docked) IVPB 200 mls/hr DAILY ANNA Administration Midazolam HCl 100 mg/ Sodium 100 mls @ 12 mls/hr 02/12/17 21:44 02/20/17 01:59 Chloride IVPB 5 mls/hr TITR ANNA Administration Protocol 12 MG/HR Norepinephrine Bitartrate 8, 500 mls @ 18.75 mls/hr 02/13/17 23:50 02/20/17 10: 58 000 mcg/ Dextrose IV 112.5 mls/hr TITR ANNA Administration Protocol 5 MCG/MIN Vasopressin 50 units/ Sodium 100 mls @ 4.8 mls/hr 02/14/17 07:45 02/20/17 10:28 Chloride IVPB 4.8 mls/hr ASDIR ANNA Administration 2.4 UNITS/HR Piperacillin Sod/Tazobactam Sod 50 mls @ 100 mls/hr 02/18/17 18:00 02/20/17 09: 30 Zosyn 3.375gm Ivpb (Pre-Docked) IVPB 100 mls/hr Q8H-IV ANNA Administration Protocol Fentanyl 500 mcg/ Dextrose 100 mls @ 20 mls/hr 02/20/17 02:30 02/20/17 02:47 IJ 20 mls/hr TITR ANNA Administration 100 MCG/HR Lactic Acid 1 applic 02/11/17 13:05 02/20/17 10:29 Lac-Hydrin 12 TP 1 applic DAILY PRN Administration WOUND CARE Levetiracetam 1,500 mg 02/12/17 09:01 02/20/17 09:52 Keppra Injection - IVPB 1,500 mg BID ANNA Administration Levothyroxine Sodium 150 mcg 02/13/17 07:00 02/20/17 06:57 Synthroid - PO Not Given DAILY@0700 ANNA Nystatin 1 applic 02/11/17 01:00 02/20/17 10:27 Mycostatin Ointment - TP 1 applic BID ANNA Administration Phenobarbital 100 mg 02/15/17 22:00 02/20/17 09:52 Phenobarbital Injection - IV 100 mg BID ANNA Administration Thiamine HCl 500 mg 02/19/17 14:45 02/20/17 07:09 Vitamin B1 Injection - IVPB 02/21/17 06:01 500 mg TID ANNA Administration Valproate Sodium 500 mg 02/13/17 22:00 02/20/17 06:29 Depacon Injection - IVPB 500 mg Q8H ANNA Administration ASSESSMENT/PLAN: This is a 51 year old woman with a history of schizophrenia, hypothyroidism, dilated cardiomyopathy, AICD, HTN, atrial fib who presented to the ER with bilateral leg pain. 1. Fever, possible sepsis - Remains febrile - On Zosyn, Vancomycin - Gentamicin x 1 given 2. Status epilepticus - Currently on Phenobarbital, Versed, Keppra, Depacon - Vimpat discontinued secondary to arrhythmias - EEG showed diffuse slowing, burst suppression pattern, epileptiform activity 3. Acute hypoxic respiratory failure - Remains on vent 4. Multi-organ failure - Acute kidney injury - BUN, creatinine increasing - Acute hepatic transaminitis - AST, ALT increasing 5. Arrhythmias - Vimpat discontinued - AICD interrogation revealed no evidence VF/VT 6. Hypothyroidism - On Synthroid 7. Cardiogenic shock vs septic shock - Continue Levophed, Vasopressin, Milrinone, antibiotics 8. Acute and chronic systolic heart failure - Continue IV Lasix, Milrinone 9. Hyponatremia 10. Hyperkalemia 11. Thrombocytopenia - Heparin discontinued 12. Nutrition - NGT feeds held secondary to abdominal distention 13. Stress ulcer prophylaxis - On Protonix 14. DVT prophylaxis - Heparin discontinued secondary to thrombocytopenia Discussed with family at bedside. They are aware of grave prognosis. They agree to DNR but do not wish to withdraw any care at this time. Visit type - Emergency Visit Emergency Visit: Yes ED Registration Date: 02/10/17 Care time: The patient presented to the Emergency Department on the above date and was hospitalized for further evaluation of their emergent condition. - New Patient This patient is new to me today: No - Critical Care Critical Care patient: Yes Total Critical Care Time (in minutes): 43 Critical Care Statement: The care of this patient involved high complexity decision making to prevent further life threatening deterioration of the patient 's condition and/or to evaluate & treat vital organ system(s) failure or risk of failure. - Discharge Referral Referred to [facility] Med P.C.: No
[2017-02-20] MEDS ORDERED: SODIUM POLYSTYRENE SULFONATE 15 GM/60 ML BOTTLE ONE (13:13)
[2017-02-20] MEDS ORDERED: SODIUM POLYSTYRENE SULFONATE 15 GM/60 ML BOTTLE NGT ONE (13:15)
[2017-02-20] MEDS: CHLORHEXIDINE GLUCONATE 4% CLEANSER FOR DECOLONIZATION TP SCH (22:21)
[2017-02-21] MEDS: PIPERACILLIN/TAZOB 3.375 GM 50 ML IVPB SCH ×3 (01:14→17:24)
[2017-02-21] MEDS: MIDAZOLAM 100 MG in SODIUM CHLORIDE 100 ML IVPB SCH (01:15)
[2017-02-21] MEDS: NOREPINEPHRINE BITARTRATE 8,000 MCG in DEXTROSE 5%-WATER - 492 ML IV SCH ×2 (01:16→05:48)
[2017-02-21] MEDS ORDERED: ACETAMINOPHEN 1000 MG/100 ML VIAL (NON FORMULARY) IVPB ONE (01:37)
[2017-02-21] MEDS: FENTANYL INJECTION 500 MCG in DEXTROSE 5%-WATER - 90 ML IJ SCH (01:55)
[2017-02-21] MEDS ORDERED: PT OWN MED DRAWER 7, Y5N ONE (05:32)
[2017-02-21] MEDS: VALPROATE SODIUM 500 MG/5 ML VIAL IVPB SCH ×3 (05:42→21:12)
[2017-02-21] MEDS: THIAMINE HCL 200 MG/2 ML VIAL IVPB SCH (05:42)
[2017-02-21] MEDS: VASOPRESSIN 50 UNITS in SODIUM CHLORIDE 97.5 ML IVPB SCH ×3 (05:46→19:46)
[2017-02-21] MEDS: LEVOTHYROXINE SODIUM 100 MCG VIAL IVPUSH SCH (06:31)
[2017-02-21 06:41] LABS: MCH 28.3 pg (25.7-33.7); MCHC 31.8 g/dl (32.0-36.0); MEAN PLT VOLUME 10.6 fl (7.5-11.1); NEUTROPHILS 76.5 % (42.8-82.8); PLATELET COUNT 97 K/MM3 (134-434); RDW 19.7 % (11.6-15.6); WHITE BLOOD COUNT 5.4 K/mm3 (4.0-10.0)
--- NOTE | 2017-02-21 07:08 | PN ---
Progress Note, Physician Chief Complaint: ID Pressor support and intubated multiorgan failure Made DNR by family - Current Medication List Current Medications: Active Medications Betamethasone Valerate (Valisone 0.1% Cream -) 1 applic TP DAILY ANNA Last Admin: 02/20/17 10:28 Dose: 1 applic Chlorhexidine Gluconate (Hibiclens For Decolonization -) 1 applic TP HS ANNA Last Admin: 02/20/17 22:21 Dose: 1 applic Pantoprazole Sodium (Protonix 40mg Ivpb (Pre-Docked)) 100 mls @ 200 mls/hr IVPB DAILY ANNA Last Admin: 02/20/17 09:53 Dose: 200 mls/hr Midazolam HCl 100 mg/ Sodium (Chloride) 100 mls @ 12 mls/hr IVPB TITR ANNA; 12 MG/HR PRN Reason: Protocol Last Admin: 02/21/17 01:15 Dose: 2 mls/hr Norepinephrine Bitartrate 8, (000 mcg/ Dextrose) 500 mls @ 18.75 mls/hr IV TITR ANNA; 5 MCG/MIN PRN Reason: Protocol Last Admin: 02/21/17 05:48 Dose: 112.5 mls/hr Vasopressin 50 units/ Sodium (Chloride) 100 mls @ 4.8 mls/hr IVPB ASDIR ANNA PRN Reason: 2.4 UNITS/HR Last Admin: 02/21/17 05:46 Dose: 12 mls/hr Piperacillin Sod/Tazobactam Sod (Zosyn 3.375gm Ivpb (Pre-Docked)) 50 mls @ 100 mls/hr IVPB Q8H-IV ANNA PRN Reason: Protocol Last Admin: 02/21/17 01:14 Dose: 100 mls/hr Fentanyl 500 mcg/ Dextrose 100 mls @ 20 mls/hr IJ TITR ANNA PRN Reason: 100 MCG/HR Last Admin: 02/21/17 01:55 Dose: 20 mls/hr Lactic Acid (Lac-Hydrin 12) 1 applic TP DAILY PRN PRN Reason: WOUND CARE Last Admin: 02/20/17 10:29 Dose: 1 applic Levetiracetam (Keppra Injection -) 1,500 mg IVPB BID ANNA Last Admin: 02/20/17 22:21 Dose: 1,500 mg Levothyroxine Sodium (Synthroid Injection -) 75 mcg IVPUSH AM ANNA Last Admin: 02/21/17 06:31 Dose: 75 mcg Nystatin (Mycostatin Ointment -) 1 applic TP BID [facility] Last Admin: 02/20/17 22:31 Dose: 1 applic Phenobarbital (Phenobarbital Injection -) 100 mg IV BID [facility] Last Admin: 02/20/17 22:25 Dose: 100 mg Valproate Sodium (Depacon Injection -) 500 mg IVPB Q8H [facility] Last Admin: 02/21/17 05:42 Dose: 500 mg - Objective Vital Signs: Vital Signs Temperature 100.8 F H 02/21/17 03:00 Pulse Rate 115 H 02/21/17 06:00 Respiratory Rate 16 02/21/17 06:57 Blood Pressure 85/73 02/21/17 06:00 O2 Sat by Pulse Oximetry (%) 95 02/20/17 22:00 Constitutional: Yes: Severe Distress Cardiovascular: Yes: Tachycardia, S1, S2 Respiratory: Yes: WNL, Regular, CTA Bilaterally, Other (Cource rhonchi) Gastrointestinal: Yes: Distention, Other (firm). No: Tenderness, Tenderness, Epigastrium Extremities: Yes: Cyanosis Edema: Yes (Anasarca) Labs: CBC, BMP 02/21/17 06:10 INR, PTT INR 1.17 (0.82-1.09) H 02/14/17 05:15 Fibrinogen 186.0 mg/dL (238-498) L 02/11/17 04:00 Problem List - Problems (1) Seizure Code(s): R56.9 - UNSPECIFIED CONVULSIONS (2) Sepsis Code(s): A41.9 - SEPSIS, UNSPECIFIED ORGANISM (3) UTI (urinary tract infection) Code(s): N39.0 - URINARY TRACT INFECTION, SITE NOT SPECIFIED Assessment/Plan Microbiology 02/18/17 16:00 Urine - Urine Garcia Urine Culture - Final Yeast Like Organism Laboratory Tests 02/20/17 02/21/17 10:18 06:10 WBC 5.4 Hgb 12.6 Hct 39.5 Plt Count 97 L BUN 59 H D Creatinine 1.9 H D Creat Clearance w eGFR 27.98 ALT 467 H D Assessment Sepsis syndrome Morganella in sputum, yeast in urine) Cardiogenic shock Cardiomyopathy Status epilepitus No further seizures Multiorgan failure with shock liver and kidneys Plan Continue Pip Tazobactam Addition of Caspofungin for possible [place] sepsis Prognosis remains grave DNR in effect Titrate pressors Seizure meds Josie PARIKH Critical care time spent today 35 minutes Josie PARIKH
[2017-02-21 07:42] LABS: ALBUMIN 2.2 g/dl (3.4-5.0); ANION GAP 13 (8-16); CO2 25 mmol/L (21-32)
[2017-02-21 08:05] LABS: ALK PHOS 100 U/L (45-117); BILIRUBIN,TOTAL 1.8 mg/dL (0.2-1.0); CALCIUM 7.2 mg/dL (8.5-10.1); GLUCOSE,RANDOM 114 mg/dL (74-106); PHOSPHOROUS 4.7 mg/dL (2.5-4.9); SGPT/ALT 341 U/L (12-78); TOT PROT 5.6 g/dl (6.4-8.2)
[2017-02-21 08:28] LABS: SGOT/AST 1297 U/L (15-37)
[2017-02-21] MEDS: levETIRAcetam 500 MG/5 ML INJECTION VIAL IVPB SCH ×2 (09:00→21:12)
[2017-02-21] MEDS: PHENobarbital SODIUM 130 MG/1 ML VIAL IV SCH ×2 (09:00→21:12)
[2017-02-21] MEDS: PANTOPRAZOLE SODIUM 100 ML IVPB SCH (09:01)
[2017-02-21] MEDS ORDERED: NOREPINEPHRINE BITARTRATE 4 MG/4 ML ML IV ONE ×3 (09:27→19:37)
--- NOTE | 2017-02-21 09:34 | PN ---
Progress Note (short form) - Note Progress Note: Progress Note: Chief Complaint: chf History of Present Illness: remains on levophed and vasopressin. bp still low. remains febrile. Current Medications Generic Name Dose Route Start Last Admin Trade Name Sanjuana PRN Reason Stop Dose Admin Betamethasone Valerate 1 applic 02/12/17 10:00 02/20/17 10:28 Valisone 0.1% Cream - TP 1 applic DAILY ANNA Administration Chlorhexidine Gluconate 1 applic 02/11/17 22:00 02/20/17 22:21 Hibiclens For Decolonization - TP 1 applic HS ANNA Administration Pantoprazole Sodium 100 mls @ 200 mls/hr 02/12/17 10:00 02/21/17 09:01 Protonix 40mg Ivpb (Pre-Docked) IVPB 200 mls/hr DAILY ANNA Administration Norepinephrine Bitartrate 8, 500 mls @ 18.75 mls/hr 02/13/17 23:50 02/21/17 05: 48 000 mcg/ Dextrose IV 112.5 mls/hr TITR ANNA Administration Protocol 5 MCG/MIN Vasopressin 50 units/ Sodium 100 mls @ 4.8 mls/hr 02/14/17 07:45 02/21/17 05:46 Chloride IVPB 12 mls/hr ASDIR ANNA Administration 2.4 UNITS/HR Piperacillin Sod/Tazobactam Sod 50 mls @ 100 mls/hr 02/18/17 18:00 02/21/17 09: 02 Zosyn 3.375gm Ivpb (Pre-Docked) IVPB 100 mls/hr Q8H-IV ANNA Administration Protocol Lactic Acid 1 applic 02/11/17 13:05 02/20/17 10:29 Lac-Hydrin 12 TP 1 applic DAILY PRN Administration WOUND CARE Levetiracetam 1,500 mg 02/12/17 09:01 02/21/17 09:00 Keppra Injection - IVPB 1,500 mg BID ANNA Administration Levothyroxine Sodium 75 mcg 02/21/17 07:00 02/21/17 06:31 Synthroid Injection - IVPUSH 75 mcg AM ANNA Administration Nystatin 1 applic 02/11/17 01:00 02/20/17 22:31 Mycostatin Ointment - TP 1 applic BID ANNA Administration Phenobarbital 100 mg 02/15/17 22:00 02/21/17 09:00 Phenobarbital Injection - IV 100 mg BID ANNA Administration Valproate Sodium 500 mg 02/13/17 22:00 02/21/17 05:42 Depacon Injection - IVPB 500 mg Q8H ANNA Administration Vital Signs Temp 102.7 F H 02/21/17 07:30 Pulse 112 H 02/21/17 07:30 Resp 17 02/21/17 07:34 BP 85/74 02/21/17 07:30 Pulse Ox 97 02/21/17 07:34 Intake & Output 02/20/17 02/20/17 02/21/17 11:59 23:59 11:59 Intake Total 3123 3467.6 2655.4 Output Total 800 750 450 Balance 2323 2717.6 2205.4 Weight 204 lb 8 oz 218 lb 11.2 oz Intake: IV 1808 1717.6 1605.4 Versed - 100 mg In Normal 120 187 24 Saline - 100 ml @ 12 MG/ HR 12 mls/hr IVPB TITR [facility] Rx#:[id number] Levophed - 8,000 Mcg In 1344 1269 1321 D5w - 492 ml @ 5 MCG/MIN 18.75 mls/hr IV TITR ANNA Rx#:[id number] Pitressin - 50 Units In 144 137 142 Normal Saline - 97.5 ml @ 2.4 UNITS/HR 4.8 mls/hr IVPB ASDIR ANNA Rx#: [id number] Milrinone 20Mg/100Ml Ivpb 80 10.6 - 100 ml @ 0.2 MCG/KG/ MIN 5.431 mls/hr IVPB TITR ANNA Rx#:[id number] Fentanyl 120 114 118.4 IVPB 600 1450 1050 Tube Feeding 605 300 0 TPN/PPN 0 Tube Irrigant 110 Output: Gastric Drainage 200 200 Urine 300 150 250 Garcia 300 150 250 Emesis 300 600 Other: Voiding Method Indwelling Catheter Indwelling Catheter Indwelling Catheter Bowel Movement Yes: small pasty smear brown No Weight Measurement Method [facility] Constitutional: Yes: Well Nourished, No Distress, sedated Cardiovascular: Yes: Regular Rate and Rhythm, Gallop (? S3), S1, S2. No: JVD ( very tds exam), Murmur Respiratory: Yes: cta bl anteriorly. intubated on vent Extremities: No: Cool Edema: Yes (1+ pretib) Neurological: sedated, intubated Psychiatric: No: Agitated no jaundice diaphoresis abd nd pos bs Labs: Laboratory Last Values WBC 5.4 K/mm3 (4.0-10.0) 02/21/17 06:10 Corrected WBC (auto) Cancelled 02/11/17 04:00 RBC 4.43 M/mm3 (3.60-5.2) 02/21/17 06:10 Hgb 12.6 GM/dL (10.7-15.3) 02/21/17 06:10 Hct 39.5 % (32.4-45.2) 02/21/17 06:10 MCV 89.0 fl (80-96) 02/21/17 06:10 MCH 28.3 pg (25.7-33.7) 02/21/17 06:10 MCHC 31.8 g/dl (32.0-36.0) L 02/21/17 06:10 RDW 19.7 % (11.6-15.6) H 02/21/17 06:10 Plt Count 97 K/MM3 (134-434) L 02/21/17 06:10 MPV 10.6 fl (7.5-11.1) 02/21/17 06:10 Add Manual Diff Cancelled 02/11/17 04:00 Total Counted 100 02/20/17 10:18 Neutrophils % 76.5 % (42.8-82.8) 02/21/17 06:10 Neutrophils % (Manual) 64 % (42.8-82.8) 02/20/17 10:18 Band Neuts % (Manual) 4 % (0-10) 02/20/17 10:18 Lymphocytes % 15.2 % (8-40) D 02/21/17 06:10 Lymphocytes % (Manual) 21 % (8-40) 02/20/17 10:18 Monocytes % 7.3 % (3.8-10.2) 02/21/17 06:10 Monocytes % (Manual) 10 % (3.8-10.2) 02/20/17 10:18 Eosinophils % 0.0 % (0-4.5) D 02/21/17 06:10 Basophils % 1.0 % (0-2.0) 02/21/17 06:10 Nucleated RBC % 6 % (0-0) H 02/20/17 10:18 Differential Comment Cancelled 02/11/17 04:00 Hypochromia 2+ 02/10/17 17:35 Platelet Estimate Decreased (NORMAL) 02/20/17 10:18 Platelet Comment Few giant plts 02/20/17 10:18 Platelet Comment No clumping noted 02/20/17 10:18 Normal RBC Morphology Cancelled 02/11/17 04:00 RBC Morphology 02/12/17 18:45 Poikilocytosis 1+ 02/12/17 18:45 Anisocytosis 2+ 02/16/17 05:30 Microcytosis 1+ 02/16/17 05:30 Macrocytosis Few 02/16/17 05:30 Tear Drop Cells 1+ 02/16/17 05:30 Ovalocytes 1+ 02/16/17 05:30 INR 1.17 (0.82-1.09) H 02/14/17 05:15 PTT (Actin FS) 28.5 SECONDS (26.9-34.4) D 02/12/17 05:20 Fibrinogen 186.0 mg/dL (238-498) L 02/11/17 04:00 Anticoagulation Therapy Y 02/15/17 07:20 Puncture Site Right radial 02/15/17 07:20 Patient Temperature 96.4 02/11/17 05:15 ABG pH 7.39 (7.35-7.45) 02/15/17 07:20 ABG pCO2 at Pt Temp 55.0 mmHg (35-45) H D 02/15/17 07:20 ABG pO2 at Pt Temp 105.0 mmHg (80-100) H 02/15/17 07:20 ABG HCO3 32.2 meq/L (22-26) H 02/15/17 07:20 ABG O2 Sat (Measured) 97.9 % (90-98.9) 02/15/17 07:20 ABG O2 Content 16.1 % vol (15-22) 02/15/17 07:20 ABG Base Excess 6.3 meq/l (-2-2) H 02/15/17 07:20 Bob Test Positive 02/15/17 07:20 VBG pH 7.35 (7.32-7.42) 02/16/17 11:50 POC VBG pCO2 65.7 mmHg (38-52) H* 02/16/17 11:50 POC VBG pO2 49.6 mmHg (28-48) H 02/16/17 11:50 Mixed VBG HCO3 35.6 meq/L (19-25) H 02/16/17 11:50 O2 Delivery Device Vent 02/15/17 07:20 Oxygen Flow Rate 40% 02/15/17 07:20 Vent Mode A/c 02/15/17 07:20 Vent Rate 14 02/15/17 07:20 Mechanical Rate Y 02/15/17 07:20 PEEP 6.0 cmH2O 02/15/17 07:20 Pressure Support Vent 400 02/15/17 07:20 Sodium 123 mmol/L (136-145) L* 02/21/17 06:10 Potassium 5.7 mmol/L (3.5-5.1) H 02/21/17 06:10 Chloride 85 mmol/L (98-107) L 02/21/17 06:10 Carbon Dioxide 25 mmol/L (21-32) 02/21/17 06:10 Anion Gap 13 (8-16) 02/21/17 06:10 BUN 62 mg/dL (7-18) H 02/21/17 06:10 Creatinine 2.0 mg/dL (0.55-1.02) H 02/21/17 06:10 Creat Clearance w eGFR 26.37 (>60) 02/21/17 06:10 POC Glucometer 186.35636 UNITS (()) 02/14/17 20:56 Random Glucose 114 mg/dL (74-106) H D 02/21/17 06:10 Lactic Acid 2.2 mmol/L (0.4-2.0) H* 02/15/17 10:32 Calcium 7.2 mg/dL (8.5-10.1) L 02/21/17 06:10 Phosphorus 4.7 mg/dL (2.5-4.9) 02/21/17 06:10 Magnesium 2.0 mg/dL (1.8-2.4) 02/21/17 06:10 Total Bilirubin 1.8 mg/dL (0.2-1.0) H 02/21/17 06:10 Direct Bilirubin 1.2 mg/dL (0.0-0.2) H 02/19/17 05:20 AST 1297 U/L (15-37) H 02/21/17 06:10 ALT 341 U/L (12-78) H D 02/21/17 06:10 Alkaline Phosphatase 100 U/L (45-117) 02/21/17 06:10 Ammonia 34.6 umol/L (11-32) H 02/11/17 14:00 Creatine Kinase 83 IU/L (26-192) 02/11/17 04:00 Troponin I < 0.02 ng/ml (0.00-0.05) 02/12/17 18:45 B-Natriuretic Peptide 2733.06 pg/ml (5-125) H 02/11/17 04:00 Total Protein 5.6 g/dl (6.4-8.2) L 02/21/17 06:10 Albumin 2.2 g/dl (3.4-5.0) L 02/21/17 06:10 Total Amylase 87 U/L (25-115) 02/11/17 04:00 TSH 18.70 uIU/ml (0.358-3.74) H D 02/13/17 05:15 Free T4 1.24 ng/dl (0.76-1.46) 02/11/17 04:00 Free T3 0.8 pg/ml (2.0-4.4) L 02/12/17 05:20 Total T3 43.00 ng/dl (71-180) L 02/12/17 05:20 Cortisol AM Sample 23.2 ug/dL (.) 02/18/17 05:20 Urine Color Lt. yellow 02/19/17 17:45 Urine Appearance Clear 02/19/17 17:45 Urine pH 6.0 (5.0-8.0) 02/19/17 17:45 Ur Specific Red Level 1.015 (1.005-1.025) 02/19/17 17:45 Urine Protein 2+ (NEGATIVE) H 02/19/17 17:45 Urine Glucose (UA) Negative (NEGATIVE) 02/19/17 17:45 Urine Ketones Negative (NEGATIVE) 02/19/17 17:45 Urine Blood 3+ (NEGATIVE) H 02/19/17 17:45 Urine Nitrite Negative (NEGATIVE) 02/19/17 17:45 Urine Bilirubin 1+ (NEGATIVE) H 02/19/17 17:45 Urine Urobilinogen 1.0 mg/dL (0.2-1.0) 02/19/17 17:45 Ur Leukocyte Esterase 2+ (NEGATIVE) H 02/19/17 17:45 Urine RBC 115 /hpf (0-3) 02/19/17 17:45 Urine WBC 702 /hpf (3-5) 02/19/17 17:45 Ur Epithelial Cells Rare /hpf (FEW) 02/19/17 17:45 Calcium Oxalate Crystal Rare /hpf (NONE SEEN) 02/12/17 12:30 Hyaline Casts 45 /lpf 02/19/17 17:45 Granular Casts 1 /lpf 02/12/17 12:30 Urine Mucus Rare 02/19/17 17:45 Urine Yeast Many 02/19/17 17:45 Urine HCG, Qual Negative 02/11/17 14:00 Opiates Screen Negative ng/ml (BSDVST=206) 02/11/17 14:00 Methadone Screen Negative ng/ml (NHDBUL=146) 02/11/17 14:00 Acetaminophen 3.145 ug/ml (10.0-30.0) L 02/13/17 05:15 Barbiturate Screen Negative ng/ml (YQQXGD=173) 02/11/17 14:00 Valproic Acid 75.774 ug/ml (50-100) 02/19/17 05:20 Levetiracetam 78.4 MCG/ML (10.0-40.0) H 02/15/17 10:32 Phencyclidine Screen Negative ng/ml (CUTOFF=25) 02/11/17 14:00 Ur Amphetamines Screen Negative ng/ml (QXAASX=302) 02/11/17 14:00 MDMA (Ecstasy) Screen Negative ng/ml (LLZUXI=337) 02/11/17 14:00 Benzodiazepines Screen Positive ng/ml (RVTMVF=355) 02/11/17 14:00 Cocaine Screen Negative ng/ml (WOJUQF=264) 02/11/17 14:00 U Marijuana (THC) Screen Negative ng/ml (CUTOFF=50) 02/11/17 14:00 Hep-Induced Plt Ab Rapid 0.478 OD (0.000-0.400) H 02/17/17 11:25 tele: sr, as-vpaced [facility] 10/2016 --> nl cors (verbal report from dr sanchez) Echo 01/2017: Severe lv dilation, sev reduced LV fn (global). mod rv dilation. mod RV dysfunction. RV pacing wire. 2.8 x 1.2 cm density in apex of RV (per discussion with Dr. Sanchez, bright echodensity at the tip of pacing wire was present on prior office echo). mod tr. rvsp 30-40. trivial pericardial effusion. + pleural effusion. CTA: pulmonary congestion, small left pleural effusion. large volume ascites. extensive subcutaneous edema/anasarca. CTA --> + arterial flow to LE. CT head: no acute pathology cxr 02/21: congestion, infiltrate, no sig change 02/15 est cct 37 mins a/p: 51 y/o woman, resident on [facility] with hx of biventricular cardiomyopathy s/ p bivICD, htn, afib (per report only), Schizophrenia, seizure disorder, Hypothroidism and GERD who presented to ED with LE swelling, coolness to touch and diminshed pulses as well as lethargy. Hospital course has been complicated by seizure/status epilepticus requiring intubation for airway protection and sedation. acute on chronic syst CHF, nonischemic biventricular cardiomyopathy s/p bivICD, cardiogenic shock, septic shock - holding bb and acei due to hypotension. - CE's were negative on admit and according to her office director recent [facility] showed normal cors - 02/12 BNP 2700, patient p/w with lethargy, LE edema, cool skin, poor distal pulses, pulmonary edema, large volume ascites and anasarca noted on ct scan, -- > concerning for decompensated biventricular heart failure. cvp 13 --> Started trial of IV lasix for diuresis 02/12, milrinone deferred at that time ( pt was on levophed). - 02/13: overnight propofol stopped due to increasing ectopy and concern for qt prolongation --> improvement in ectopy. patient's remained net positive, lasix was increased to 80 mg IV bid. Late evening cvp remained elevated at 15 and patient still not net negative. Drips were double concentrated. vasopressin added for recurrent hypotension (to 70s). - 02/14: levophed weaned off today. Patient finally net negative this am. BP still running low. CVP remains elevated at 13 --> started milrinone for decompensated heart failure. Patient still may have superimposed vasodilating pathology, con't pressor support for now. Con't lasix 80 mg IV bid with aggressive electrolyte repletion (congestion improving on cxr, lfts improving, cr stable). double concentrate drips when possible. - 02/15: CXR improved vs 02/13, L lung not well seen due to ICD and marked cardiomegaly obscuring L base. BP down to 70s again early am today, remains on high dose pressors (vasopressin 2.4 units/hour, levo 9 mcg). CVP has improved to 10 (from 17 initially) with diuresis plus milrinone (0.3 mcg/kg/min). vigorous UOP yesterday (8L). - 02/16: Concern for episode of VF/VT on telemetry-->ICD interrogated: No VT/VF events. Was informed that biV pacing programmed to stop at HR's above 130 which explains change in rhythm. Although 130's is still below lower detection limit for VT so cannot exclude intermittent slow VT. Milrinone drip stopped. Sent SvO2 to clarify hemodynamics, cardiogenic vs. vasodilatory. SVO2 80% per report so OK to leave off milrinone. Still getting augmentation of contractility from levophed. Remains net positive today, CVP 14 per report, but SVO2 is not low and overall edema improving --> will not uptitrate diuretics. -02/17: cont current iv lasix and pressor support - 02/18: concerned patient is continuing to be net positive. CVP elevated > 20. Now with MARK and minimal urine output now poor. If she continues to remain net positive her heart failure will continue to worsen. Had 100 cc uop to 100 mg IV lasix this afternoon (increase from what she has put out today per nursing). Will uptitrate lasix regimen to 100 mg tid. Will add back milrinone to see if it improves hypotension/cardiac output (add back at lower dose for now). ICD interrogation was negative for ventricular arrhythmia. Reassess tomorrow whether these interventions improve her clinical status. Discussed plan of care with family. Palliative care in room with family -9/1: still with vol overload, net positive, wt up. Will continue current pressors, milrinone. Fever reported so possibly becoming septic. If bp continues to drop would stop milrinone and hold lasix temporarily. -02/20: despite milrinone and lasix pt remains with poor urine outpt and low bp. Now also has been persistently febrile so seems more of a septic shock picture now. Thus will dc lasix and milrinone for now which may allow bp to rise. If bp remains low on vaso and levo can add dobutamine next. -02/21: Pt with septic shock, multiorgan failure. Cont bp support, abx. Cont to hold lasix/milrinone as bp too low and wasn't improving her status regardless. Overall very poor prognosis. wide complex tachycardia: - suspect tele represents sinus tach, initially with Bi-V pacing, then with loss of Bi-V pacing and pt conduction with [place] bundle branch block QRS (note 02/10 ekg shows Bi-V pacing with a fusion beat btw paced and conducted beats, showing a wide QRS with [place] conduction) - doubt sustained VT on tele - has ICD protection - CHF optimization and med regimen as doing - per dr sanchez, ICD was recently interrogated 10/2016 with no remarkable findings then. - 02/12 with increasing ectopy throughout the day leading to sustained ventricular bigeminy with very broad abnormal t wave (no nsvt). concern for qt prolongation --> propofol weaned overnight with resolution of arrhythmia. - electrolyte repletion to usual targets - 02/16: ICD interrogated: No VT/VF events. Was informed that biV pacing programmed to stop at HR's above 130 which explains change in rhythm. RV echo density noted on echo - Echo here shows density in RV apex (couldn't exclude veg or thrombus). Discussed with Dr. Sanchez and patient had similarly described density on prior echo at his office, likely artifact from RV lead. seizure disorder/status epilepticus - ongoing management per neuro/icu. Remains intubated and sedated. - head ct x 2 without acute pathology. afib - diagnosis documented on correction chart, but patient not on AC and in SR here (? accuracy of diagnosis)--will defer to Dr. Sanchez who is her treating outpatient office director. For now, since no evidence of afib/flutter on tele, will not start AC. thrombocytopenia - eval/mgm't per pmd. elevated lfts: -likely shock liver, cont bp support mark: -likely from septic shock, cont bp support, abx
--- NOTE | 2017-02-21 09:43 | PN ---
Progress Note (short form) - Note Progress Note: PULMONARY/CCM Pt seen and examined in the ICU. Remains intubated, sedated on high dose levophed gtt and vasopressin. Fevers continue, on further seizures noted. Last Vital Signs Temp Pulse Resp BP Pulse Ox 102.7 F H 112 H 14 85/74 97 02/21/17 07:30 02/21/17 07:30 02/21/17 09:34 02/21/17 07:30 02/21/17 07:34 Intake & Output 02/18/17 02/19/17 02/20/17 02/21/17 23:59 23:59 23:59 23:59 Intake Total 4328 2202.6 6590.6 2655.4 Output Total 250 1150 1550 450 Balance 4078 1052.6 5040.6 2205.4 Weight 199 lb 9 oz 201 lb 8 oz 204 lb 8 oz 218 lb 11.2 oz Gen: intubated, sedated Heart: tachycardic, regular, +gallop Lung: bilateral rhonchi Abd: softly distended, +ascites Ext: +anasarca CBC, BMP 02/21/17 06:10 02/21/17 06:10 Active Medications Betamethasone Valerate (Valisone 0.1% Cream -) 1 applic TP DAILY ANNA Last Admin: 02/20/17 10:28 Dose: 1 applic Chlorhexidine Gluconate (Hibiclens For Decolonization -) 1 applic TP HS ANNA Last Admin: 02/20/17 22:21 Dose: 1 applic Pantoprazole Sodium (Protonix 40mg Ivpb (Pre-Docked)) 100 mls @ 200 mls/hr IVPB DAILY ANNA Last Admin: 02/21/17 09:01 Dose: 200 mls/hr Norepinephrine Bitartrate 8, (000 mcg/ Dextrose) 500 mls @ 18.75 mls/hr IV TITR ANNA; 5 MCG/MIN PRN Reason: Protocol Last Admin: 02/21/17 05:48 Dose: 112.5 mls/hr Vasopressin 50 units/ Sodium (Chloride) 100 mls @ 4.8 mls/hr IVPB ASDIR ANNA PRN Reason: 2.4 UNITS/HR Last Admin: 02/21/17 05:46 Dose: 12 mls/hr Piperacillin Sod/Tazobactam Sod (Zosyn 3.375gm Ivpb (Pre-Docked)) 50 mls @ 100 mls/hr IVPB Q8H-IV ANNA PRN Reason: Protocol Last Admin: 02/21/17 09:02 Dose: 100 mls/hr Lactic Acid (Lac-Hydrin 12) 1 applic TP DAILY PRN PRN Reason: WOUND CARE Last Admin: 02/20/17 10:29 Dose: 1 applic Levetiracetam (Keppra Injection -) 1,500 mg IVPB BID [facility] Last Admin: 02/21/17 09:00 Dose: 1,500 mg Levothyroxine Sodium (Synthroid Injection -) 75 mcg IVPUSH AM [facility] Last Admin: 02/21/17 06:31 Dose: 75 mcg Nystatin (Mycostatin Ointment -) 1 applic TP BID [facility] Last Admin: 02/20/17 22:31 Dose: 1 applic Phenobarbital (Phenobarbital Injection -) 100 mg IV BID [facility] Last Admin: 02/21/17 09:00 Dose: 100 mg Valproate Sodium (Depacon Injection -) 500 mg IVPB Q8H [facility] Last Admin: 02/21/17 05:42 Dose: 500 mg A/P Status Epileptics Acute Respiratory Failure Acute on Chronic Systolic Heart Failure Cardiogenic vs Septic Shock Lactic Acidosis resolved s/p ICD Elevated LFTs Hypothyroidism Thrombocytopenia Hyponatremia - antibiotics per ID - f/u cultures - antiepileptics per neuro - monitor phenobarbital levels - titrate levophed, vasopressin gtt to maintain MAP >65 - lasix IV if BP tolerates - change drips to NS piggybacks - will hold sedation to assess mental status as no seizure activity noted - repeat CT head when stable - enteral feeds on hold, will obtain CT A/P with oral contrast when stable - DVT/GI prophylaxis - continue ICU monitoring - poor overall prognosis - pt made DNR yesterday, will continue medical therapy for now critical care time spent in reviewing chart, evaluating patient and formulating plan 45 min
[2017-02-21 09:48] LABS: ARTERIAL BLD GAS O2 SATURATION 95.3 % (90-98.9); ARTERIAL BLOOD GAS BASE EXCESS -3.2 meq/l (-2-2); ARTERIAL BLOOD GAS HCO3 21.7 meq/L (22-26); ARTERIAL BLOOD GAS PO2 82.6 mmHg (80-100); ARTERIAL BLOOD GAS pH 7.35 (7.35-7.45)
[2017-02-21 09:49] LABS: ALLENS TEST POSITIVE; ART PUNCT SITE RIGHT RADIAL; LPM/O2% 40%; MECH. VENT. YES; ON ANTICOAG? NO; PT'S TEMP N; PT. ON O2? YES; TYPE OF O2 MECH VENT; VENT RATE 14; VT/PRESS 400
[2017-02-21] MEDS: NOREPINEPHRINE BITARTRATE 8,000 MCG in SODIUM CHLORIDE 492 ML IV SCH ×3 (10:31→19:45)
[2017-02-21] MEDS ORDERED: VASOPRESSIN 20 UNITS/ML VIAL IV ONE ×2 (10:49→19:38)
[2017-02-21] MEDS: NYSTATIN 100000 UNIT/GM TOPICAL OINTMENT 15 GM TUBE TP SCH (11:17)
[2017-02-21] MEDS: BETAMETHASONE VALERATE 0.1% CREAM 15 GM TUBE TP SCH (11:18)
--- NOTE | 2017-02-21 11:45 | PN ---
Physical Exam: SUBJECTIVE: Patient seen and examined. She remains unresponsive. OBJECTIVE: Vital Signs Period Temp Pulse Resp BP Sys/Centeno Pulse Ox Last 24 Hr 99.6 F-102.7 F 110-115 14-19 81-108/67-81 95-97 GENERAL: The patient is unresponsive, on vent. (+) anasarca HEART: S1S2, tachycardic LUNGS: Bilateral rhonchi ABDOMEN: Soft, distended, normal BS EXTREMITIES: Cold, 2+ edema Laboratory Results - last 24 hr 02/20/17 02/20/17 02/21/17 10:18 10:18 06:10 WBC 6.1 5.4 RBC 4.49 4.43 Hgb 12.9 D 12.6 Hct 40.5 D 39.5 MCV 90.2 89.0 MCH 28.8 28.3 MCHC 31.9 L 31.8 L RDW 20.0 H 19.7 H Plt Count 110 L 97 L MPV 10.6 10.6 Total Counted 100 Neutrophils % 76.5 Neutrophils % (Manual) 64 Band Neuts % (Manual) 4 Lymphocytes % 15.2 D Lymphocytes % (Manual) 21 Monocytes % 7.3 Monocytes % (Manual) 10 Eosinophils % 0.0 D Basophils % 1.0 Nucleated RBC % 6 H Platelet Estimate Decreased Platelet Comment No clumping noted Anticoagulation Therapy Puncture Site Patient Temperature ABG pH ABG pCO2 at Pt Temp ABG pO2 at Pt Temp ABG HCO3 ABG O2 Sat (Measured) ABG O2 Content ABG Base Excess Bob Test O2 Delivery Device Oxygen Flow Rate Vent Mode Vent Rate Mechanical Rate PEEP Pressure Support Vent Sodium 126 L Potassium 5.8 H Chloride 87 L Carbon Dioxide 26 D Anion Gap 13 BUN 59 H D Creatinine 1.9 H D Creat Clearance w eGFR 27.98 Random Glucose 143 H Calcium 7.8 L Phosphorus 4.4 D Magnesium 2.1 Total Bilirubin 2.2 H D AST 1821 H ALT 467 H D Alkaline Phosphatase 124 H Total Protein 6.2 L Albumin 2.3 L 02/21/17 02/21/17 06:10 09:30 WBC RBC Hgb Hct MCV MCH MCHC RDW Plt Count MPV Total Counted Neutrophils % Neutrophils % (Manual) Band Neuts % (Manual) Lymphocytes % Lymphocytes % (Manual) Monocytes % Monocytes % (Manual) Eosinophils % Basophils % Nucleated RBC % Platelet Estimate Platelet Comment Anticoagulation Therapy No Puncture Site Right radial Patient Temperature N ABG pH 7.35 ABG pCO2 at Pt Temp 40.8 D ABG pO2 at Pt Temp 82.6 D ABG HCO3 21.7 L ABG O2 Sat (Measured) 95.3 ABG O2 Content 16.6 ABG Base Excess -3.2 L Bob Test Positive O2 Delivery Device Mech vent Oxygen Flow Rate 40% Vent Mode Ac Vent Rate 14 Mechanical Rate Yes PEEP 6.0 Pressure Support Vent 400 Sodium 123 L* Potassium 5.7 H Chloride 85 L Carbon Dioxide 25 Anion Gap 13 BUN 62 H Creatinine 2.0 H Creat Clearance w eGFR 26.37 Random Glucose 114 H D Calcium 7.2 L Phosphorus 4.7 Magnesium 2.0 Total Bilirubin 1.8 H AST 1297 H ALT 341 H D Alkaline Phosphatase 100 Total Protein 5.6 L Albumin 2.2 L Active Medications Generic Name Dose Route Start Last Admin Trade Name Freq PRN Reason Stop Dose Admin Betamethasone Valerate 1 applic 02/12/17 10:00 02/21/17 11:18 Valisone 0.1% Cream - TP 1 applic DAILY ANNA Administration Chlorhexidine Gluconate 1 applic 02/11/17 22:00 02/20/17 22:21 Hibiclens For Decolonization - TP 1 applic HS ANNA Administration Pantoprazole Sodium 100 mls @ 200 mls/hr 02/12/17 10:00 02/21/17 09:01 Protonix 40mg Ivpb (Pre-Docked) IVPB 200 mls/hr DAILY ANNA Administration Vasopressin 50 units/ Sodium 100 mls @ 4.8 mls/hr 02/14/17 07:45 02/21/17 05:46 Chloride IVPB 12 mls/hr ASDIR ANNA Administration 2.4 UNITS/HR Piperacillin Sod/Tazobactam Sod 50 mls @ 100 mls/hr 02/18/17 18:00 02/21/17 09: 02 Zosyn 3.375gm Ivpb (Pre-Docked) IVPB 100 mls/hr Q8H-IV ANNA Administration Protocol Norepinephrine Bitartrate 8, 500 mls @ 18.75 mls/hr 02/21/17 10:15 02/21/17 10: 32 000 mcg/ Sodium Chloride IV 30 mcg/min TITR ANNA Titration Protocol 5 MCG/MIN Lactic Acid 1 applic 02/11/17 13:05 02/20/17 10:29 Lac-Hydrin 12 TP 1 applic DAILY PRN Administration WOUND CARE Levetiracetam 1,500 mg 02/12/17 09:01 02/21/17 09:00 Keppra Injection - IVPB 1,500 mg BID ANNA Administration Levothyroxine Sodium 75 mcg 02/21/17 07:00 02/21/17 06:31 Synthroid Injection - IVPUSH 75 mcg AM ANNA Administration Nystatin 1 applic 02/11/17 01:00 02/21/17 11:17 Mycostatin Ointment - TP 1 applic BID ANNA Administration Phenobarbital 100 mg 02/15/17 22:00 02/21/17 09:00 Phenobarbital Injection - IV 100 mg BID ANNA Administration Valproate Sodium 500 mg 02/13/17 22:00 02/21/17 05:42 Depacon Injection - IVPB 500 mg Q8H ANNA Administration ASSESSMENT/PLAN: This is a 51 year old woman with a history of schizophrenia, hypothyroidism, dilated cardiomyopathy, AICD, HTN, atrial fib who presented to the ER with bilateral leg pain. 1. Fever, possible sepsis and septic shock - Remains febrile - On Zosyn - Vancomycin x 1 given - Gentamicin x 1 given 2. Status epilepticus - No seizure activity noted - Currently on Phenobarbital, Versed, Keppra, Depacon - Vimpat discontinued secondary to arrhythmias - EEG showed diffuse slowing, burst suppression pattern, epileptiform activity 3. Acute hypoxic respiratory failure - Remains on vent 4. Multi-organ failure - Acute kidney injury - BUN, creatinine increasing - Acute hepatic transaminitis 5. Arrhythmias - Vimpat discontinued - AICD interrogation revealed no evidence VF/VT 6. Hypothyroidism - On Synthroid 7. Cardiogenic shock vs septic shock - Continue Levophed, Vasopressin, Milrinone, antibiotics 8. Acute and chronic systolic heart failure - Lasix, Milrinone held secondary to hypotension and lack of effect 9. Hyponatremia 10. Hyperkalemia 11. Thrombocytopenia - Heparin discontinued 12. Nutrition - NGT feeds held secondary to abdominal distention 13. Stress ulcer prophylaxis - On Protonix 14. DVT prophylaxis - Heparin discontinued secondary to thrombocytopenia Visit type - Emergency Visit Emergency Visit: Yes ED Registration Date: 02/10/17 Care time: The patient presented to the Emergency Department on the above date and was hospitalized for further evaluation of their emergent condition. - New Patient This patient is new to me today: No - Critical Care Critical Care patient: Yes Total Critical Care Time (in minutes): 30 Critical Care Statement: The care of this patient involved high complexity decision making to prevent further life threatening deterioration of the patient 's condition and/or to evaluate & treat vital organ system(s) failure or risk of failure. - Discharge Referral Referred to [facility] Med P.C.: No
[2017-02-21] MEDS: ACETAMINOPHEN 1000 MG/100 ML VIAL (NON FORMULARY) IVPB PRN (17:29)
[2017-02-22] MEDS ORDERED: NOREPINEPHRINE BITARTRATE 4 MG/4 ML ML IV ONE ×5 (00:24→21:45)
[2017-02-22] MEDS: CHLORHEXIDINE GLUCONATE 4% CLEANSER FOR DECOLONIZATION TP SCH ×2 (00:33→21:51)
[2017-02-22] MEDS: ACETAMINOPHEN 1000 MG/100 ML VIAL (NON FORMULARY) IVPB PRN ×4 (00:33→18:31)
[2017-02-22] MEDS: NYSTATIN 100000 UNIT/GM TOPICAL OINTMENT 15 GM TUBE TP SCH ×3 (00:34→21:52)
[2017-02-22] MEDS: PIPERACILLIN/TAZOB 3.375 GM 50 ML IVPB SCH ×3 (01:11→17:36)
[2017-02-22] MEDS ORDERED: MIDAZOLAM HCL 10 MG/10 ML VIAL IVPUSH SCH (02:00)
[2017-02-22] MEDS ORDERED: VASOPRESSIN 20 UNITS/ML VIAL IV ONE ×2 (04:14→21:45)
[2017-02-22] MEDS: VALPROATE SODIUM 500 MG/5 ML VIAL IVPB SCH ×3 (05:10→21:51)
[2017-02-22] MEDS: NOREPINEPHRINE BITARTRATE 8,000 MCG in SODIUM CHLORIDE 492 ML IV SCH ×4 (05:11→19:22)
[2017-02-22] MEDS: VASOPRESSIN 50 UNITS in SODIUM CHLORIDE 97.5 ML IVPB SCH ×3 (05:11→14:39)
[2017-02-22] MEDS ORDERED: MINERAL OIL/PETROLATUM,WHITE 3.5 GM TUBE OU STA (05:38)
[2017-02-22 06:14] LABS: BASOPHIL 0.5 % (0-2.0); EOSINOPHIL 0.1 % (0-4.5); MCH 29.2 pg (25.7-33.7); MEAN CELL VOLUME 88.5 fl (80-96); MEAN PLT VOLUME 11.5 fl (7.5-11.1); NEUTROPHILS 82.6 % (42.8-82.8); PLATELET COUNT 89 K/MM3 (134-434); RDW 20.3 % (11.6-15.6); WHITE BLOOD COUNT 5.4 K/mm3 (4.0-10.0)
[2017-02-22] MEDS: LEVOTHYROXINE SODIUM 100 MCG VIAL IVPUSH SCH ×2 (06:26→11:10)
[2017-02-22 06:38] LABS: PROTHROMBIN TIME (PATIENT) 45.4 SEC (9.98-11.88)
[2017-02-22 06:41] LABS: ACTIVATED PTT 35.2 SECONDS (26.9-34.4)
[2017-02-22 06:45] LABS: ALBUMIN 2.1 g/dl (3.4-5.0); ANION GAP 17 (8-16); CALCIUM 7.5 mg/dL (8.5-10.1); CO2 21 mmol/L (21-32); CREATININE 2.3 mg/dL (0.55-1.02); GLUCOSE,RANDOM 90 mg/dL (74-106); MAGNESIUM 2.1 mg/dL (1.8-2.4); PHOSPHOROUS 4.8 mg/dL (2.5-4.9); SGPT/ALT 268 U/L (12-78)
[2017-02-22 06:50] LABS: INR 4.01 (0.82-1.09)
[2017-02-22 06:52] LABS: ALK PHOS 85 U/L (45-117); BILIRUBIN,TOTAL 2.3 mg/dL (0.2-1.0); TOT PROT 5.4 g/dl (6.4-8.2)
[2017-02-22 07:10] LABS: SGOT/AST 1014 U/L (15-37)
--- NOTE | 2017-02-22 07:13 | PN ---
Progress Note, Physician Chief Complaint: ID Really day to day as now maximal pressor support Zosyn Intubated Febrile - Current Medication List Current Medications: Active Medications Acetaminophen (Ofirmev Injection -) 1,000 mg IVPB Q6H PRN PRN Reason: FEVER OR PAIN Last Admin: 02/22/17 06:25 Dose: 1,000 mg Artificial Tears (Artificial Tears Ointment -) 1 applic OU HS ANNA Betamethasone Valerate (Valisone 0.1% Cream -) 1 applic TP DAILY ANNA Last Admin: 02/21/17 11:18 Dose: 1 applic Chlorhexidine Gluconate (Hibiclens For Decolonization -) 1 applic TP HS ANNA Last Admin: 02/22/17 00:33 Dose: 1 applic Pantoprazole Sodium (Protonix 40mg Ivpb (Pre-Docked)) 100 mls @ 200 mls/hr IVPB DAILY ANNA Last Admin: 02/21/17 09:01 Dose: 200 mls/hr Vasopressin 50 units/ Sodium (Chloride) 100 mls @ 4.8 mls/hr IVPB ASDIR ANNA PRN Reason: 2.4 UNITS/HR Last Admin: 02/22/17 05:11 Dose: 4.8 mls/hr Piperacillin Sod/Tazobactam Sod (Zosyn 3.375gm Ivpb (Pre-Docked)) 50 mls @ 100 mls/hr IVPB Q8H-IV ANNA PRN Reason: Protocol Last Admin: 02/22/17 01:11 Dose: 100 mls/hr Norepinephrine Bitartrate 8, (000 mcg/ Sodium Chloride) 500 mls @ 18.75 mls/hr IV TITR ANNA; 5 MCG/MIN PRN Reason: Protocol Last Admin: 02/22/17 05:11 Dose: 112.5 mls/hr Lactic Acid (Lac-Hydrin 12) 1 applic TP DAILY PRN PRN Reason: WOUND CARE Last Admin: 02/20/17 10:29 Dose: 1 applic Levetiracetam (Keppra Injection -) 1,500 mg IVPB BID ANNA Last Admin: 02/21/17 21:12 Dose: 1,500 mg Levothyroxine Sodium (Synthroid Injection -) 75 mcg IVPUSH AM [facility] Last Admin: 02/22/17 06:26 Dose: Not Given Nystatin (Mycostatin Ointment -) 1 applic TP BID ANNA Last Admin: 02/22/17 00:34 Dose: 1 applic Phenobarbital (Phenobarbital Injection -) 100 mg IV BID [facility] Last Admin: 02/21/17 21:12 Dose: 100 mg Valproate Sodium (Depacon Injection -) 500 mg IVPB Q8H [facility] Last Admin: 02/22/17 05:10 Dose: 500 mg - Objective Vital Signs: Vital Signs Temperature 100.4 F H 02/22/17 05:00 Pulse Rate 101 H 02/22/17 06:59 Respiratory Rate 26 H 02/22/17 06:59 Blood Pressure 82/72 02/22/17 06:59 O2 Sat by Pulse Oximetry (%) 98 02/21/17 23:59 Constitutional: Yes: Severe Distress HENT: Yes: Other (Et tube) Cardiovascular: Yes: Tachycardia, S1, S2. No: Murmur Respiratory: Yes: WNL, Regular, CTA Bilaterally, Rhonchi Gastrointestinal: Yes: Soft, Distention, Other (Firm to palpation). No: Tenderness Edema: Yes (Generaized anasarca) Labs: CBC, BMP 02/22/17 05:30 INR, PTT INR 4.01 (0.82-1.09) H* D 02/22/17 05:30 Fibrinogen 186.0 mg/dL (238-498) L 02/11/17 04:00 Problem List - Problems (1) Seizure Code(s): R56.9 - UNSPECIFIED CONVULSIONS (2) Sepsis Code(s): A41.9 - SEPSIS, UNSPECIFIED ORGANISM (3) UTI (urinary tract infection) Code(s): N39.0 - URINARY TRACT INFECTION, SITE NOT SPECIFIED Assessment/Plan Microbiology 02/18/17 16:00 Urine - Urine Garcia Urine Culture - Final Yeast Like Organism 02/20/17 11:08 Blood - Peripheral Venous Blood Culture - Preliminary NO GROWTH OBTAINED AFTER 24 HOURS, INCUBATION TO CONTINUE FOR 4 DAYS. 02/20/17 10:48 Blood - Peripheral Venous Blood Culture - Preliminary NO GROWTH OBTAINED AFTER 24 HOURS, INCUBATION TO CONTINUE FOR 4 DAYS. Laboratory Tests 02/21/17 02/22/17 02/22/17 06:10 05:30 05:30 WBC 5.4 Hgb 12.9 Plt Count 89 L INR 4.01 H* D BUN 62 H Creatinine 2.0 H Creat Clearance w eGFR 26.37 AST 1297 H ALT 341 H D Assessment Sepsis syndrome Cardiogenic shock with cardiomyopathy Seizure history Multiorgan failure Plan Will add Caspofungin as last effort to treat fever and sepsis Zosyn Patient critically ill Josie PARIKH
--- NOTE | 2017-02-22 08:10 | PN ---
Physical Exam: SUBJECTIVE: Patient seen and examined OBJECTIVE: Vital Signs Period Temp Pulse Resp BP Sys/Centeno Pulse Ox Last 24 Hr 99.9 F-103 F 100-112 14-31 78-96/48-75 97-98 GENERAL: The patient is intubated and sedated. No seizure appreciated today HEAD: Normal with no signs of trauma. EYES: Eyes midline, open, 3mm b/l pupils reactive to light ENT: oropharynx dry NECK: Trachea midline, full range of motion, supple. LUNGS: mechanical Breath sounds HEART: Regular rate and rhythm, S1, S2 without murmur, rub or gallop. ABDOMEN: Soft, nontender, nondistended, normoactive bowel sounds, no guarding, no rebound, no hepatosplenomegaly, no masses. EXTREMITIES: poor pulses, chronic erythema of the leg with largely indurated area. healing laceration on right-sided big toe Laboratory Results - last 24 hr 02/21/17 02/21/17 02/22/17 06:10 09:30 05:30 WBC 5.4 RBC 4.40 Hgb 12.9 Hct 38.9 MCV 88.5 MCH 29.2 MCHC 33.0 RDW 20.3 H Plt Count 89 L MPV 11.5 H Neutrophils % 82.6 Lymphocytes % 10.4 D Monocytes % 6.4 Eosinophils % 0.1 D Basophils % 0.5 INR PTT (Actin FS) Anticoagulation Therapy No Puncture Site Right radial Patient Temperature N ABG pH 7.35 ABG pCO2 at Pt Temp 40.8 D ABG pO2 at Pt Temp 82.6 D ABG HCO3 21.7 L ABG O2 Sat (Measured) 95.3 ABG O2 Content 16.6 ABG Base Excess -3.2 L Bob Test Positive O2 Delivery Device Mech vent Oxygen Flow Rate 40% Vent Mode Ac Vent Rate 14 Mechanical Rate Yes PEEP 6.0 Pressure Support Vent 400 Sodium 123 L* Potassium 5.7 H Chloride 85 L Carbon Dioxide 25 Anion Gap 13 BUN 62 H Creatinine 2.0 H Creat Clearance w eGFR 26.37 Random Glucose 114 H D Calcium 7.2 L Phosphorus 4.7 Magnesium 2.0 Total Bilirubin 1.8 H AST 1297 H ALT 341 H D Alkaline Phosphatase 100 Total Protein 5.6 L Albumin 2.2 L 02/22/17 02/22/17 05:30 05:30 WBC RBC Hgb Hct MCV MCH MCHC RDW Plt Count MPV Neutrophils % Lymphocytes % Monocytes % Eosinophils % Basophils % INR 4.01 H* D PTT (Actin FS) 35.2 H Anticoagulation Therapy Puncture Site Patient Temperature ABG pH ABG pCO2 at Pt Temp ABG pO2 at Pt Temp ABG HCO3 ABG O2 Sat (Measured) ABG O2 Content ABG Base Excess Bob Test O2 Delivery Device Oxygen Flow Rate Vent Mode Vent Rate Mechanical Rate PEEP Pressure Support Vent Sodium 124 L* Potassium 5.8 H Chloride 86 L Carbon Dioxide 21 Anion Gap 17 H BUN 71 H Creatinine 2.3 H Creat Clearance w eGFR 22.44 Random Glucose 90 D Calcium 7.5 L Phosphorus 4.8 Magnesium 2.1 Total Bilirubin 2.3 H D AST 1014 H ALT 268 H D Alkaline Phosphatase 85 Total Protein 5.4 L Albumin 2.1 L Active Medications Generic Name Dose Route Start Last Admin Trade Name Freq PRN Reason Stop Dose Admin Acetaminophen 1,000 mg 02/21/17 17:09 02/22/17 06:25 Ofirmev Injection - IVPB 1,000 mg Q6H PRN Administration FEVER OR PAIN Artificial Tears 1 applic 02/22/17 22:00 Artificial Tears Ointment - OU HS ANNA Betamethasone Valerate 1 applic 02/12/17 10:00 02/21/17 11:18 Valisone 0.1% Cream - TP 1 applic DAILY ANNA Administration Chlorhexidine Gluconate 1 applic 02/11/17 22:00 02/22/17 00:33 Hibiclens For Decolonization - TP 1 applic HS ANNA Administration Pantoprazole Sodium 100 mls @ 200 mls/hr 02/12/17 10:00 02/21/17 09:01 Protonix 40mg Ivpb (Pre-Docked) IVPB 200 mls/hr DAILY ANNA Administration Vasopressin 50 units/ Sodium 100 mls @ 4.8 mls/hr 02/14/17 07:45 02/22/17 05:11 Chloride IVPB 4.8 mls/hr ASDIR ANNA Administration 2.4 UNITS/HR Piperacillin Sod/Tazobactam Sod 50 mls @ 100 mls/hr 02/18/17 18:00 02/22/17 01: 11 Zosyn 3.375gm Ivpb (Pre-Docked) IVPB 100 mls/hr Q8H-IV ANNA Administration Protocol Norepinephrine Bitartrate 8, 500 mls @ 18.75 mls/hr 02/21/17 10:15 02/22/17 05: 11 000 mcg/ Sodium Chloride IV 112.5 mls/hr TITR ANNA Administration Protocol 5 MCG/MIN Caspofungin 70 mg/ Sodium 250 mls @ 250 mls/hr 02/22/17 07:12 Chloride IV 02/22/17 08:11 ONCE ONE Caspofungin 50 mg/ Sodium 250 mls @ 250 mls/hr 02/22/17 10:00 Chloride IV DAILY ANNA Lactic Acid 1 applic 02/11/17 13:05 02/20/17 10:29 Lac-Hydrin 12 TP 1 applic DAILY PRN Administration WOUND CARE Levetiracetam 1,500 mg 02/12/17 09:01 02/21/17 21:12 Keppra Injection - IVPB 1,500 mg BID ANNA Administration Levothyroxine Sodium 75 mcg 02/21/17 07:00 02/22/17 06:26 Synthroid Injection - IVPUSH Not Given AM ANNA Nystatin 1 applic 02/11/17 01:00 02/22/17 00:34 Mycostatin Ointment - TP 1 applic BID ANNA Administration Phenobarbital 100 mg 02/15/17 22:00 02/21/17 21:12 Phenobarbital Injection - IV 100 mg BID ANNA Administration Valproate Sodium 500 mg 02/13/17 22:00 02/22/17 05:10 Depacon Injection - IVPB 500 mg Q8H ANNA Administration ASSESSMENT/PLAN: 51F with a history of schizophrenia, hypothyroidism, dilated cardiomyopathy, AICD, HTN, atrial fib who presented to the ER with bilateral leg pain. ID - Zosyn 3.375mg and Caspofungyn 70 and 50mg per ID NEURO - Keppra 1500 per neuro - Hold Sedation, assess status CARDIOVASCULAR - continue lasix IV, milrinone gtt - titrate levophed, vasopressin 50Units gtt to maintain MAP >65 - enteral feeds on hold, will obtain CT A/P with oral contrast when more stable - DVT/GI prophylaxis - continue ICU monitoring - poor overall prognosis Visit type - Emergency Visit Emergency Visit: No - New Patient This patient is new to me today: No - Critical Care Critical Care patient: Yes Total Critical Care Time (in minutes): 40 Critical Care Statement: The care of this patient involved high complexity decision making to prevent further life threatening deterioration of the patient 's condition and/or to evaluate & treat vital organ system(s) failure or risk of failure.
[2017-02-22] MEDS ORDERED: CASPOFUNGIN ACETATE 70 MG in SODIUM CHLORIDE 250 ML IVPB ONE (08:30)
--- NOTE | 2017-02-22 09:35 | PN ---
Progress Note (short form) - Note Progress Note: Progress Note: Chief Complaint: chf History of Present Illness: remains on max levophed and vasopressin, bp still low. still remains febrile. Current Medications Generic Name Dose Route Start Last Admin Trade Name Freq PRN Reason Stop Dose Admin Acetaminophen 1,000 mg 02/21/17 17:09 02/22/17 06:25 Ofirmev Injection - IVPB 1,000 mg Q6H PRN Administration FEVER OR PAIN Artificial Tears 1 applic 02/22/17 22:00 Artificial Tears Ointment - OU HS ANNA Betamethasone Valerate 1 applic 02/12/17 10:00 02/21/17 11:18 Valisone 0.1% Cream - TP 1 applic DAILY ANNA Administration Chlorhexidine Gluconate 1 applic 02/11/17 22:00 02/22/17 00:33 Hibiclens For Decolonization - TP 1 applic HS ANNA Administration Pantoprazole Sodium 100 mls @ 200 mls/hr 02/12/17 10:00 02/21/17 09:01 Protonix 40mg Ivpb (Pre-Docked) IVPB 200 mls/hr DAILY ANNA Administration Vasopressin 50 units/ Sodium 100 mls @ 4.8 mls/hr 02/14/17 07:45 02/22/17 05:11 Chloride IVPB 4.8 mls/hr ASDIR ANNA Administration 2.4 UNITS/HR Piperacillin Sod/Tazobactam Sod 50 mls @ 100 mls/hr 02/18/17 18:00 02/22/17 01: 11 Zosyn 3.375gm Ivpb (Pre-Docked) IVPB 100 mls/hr Q8H-IV ANNA Administration Protocol Norepinephrine Bitartrate 8, 500 mls @ 18.75 mls/hr 02/21/17 10:15 02/22/17 05: 11 000 mcg/ Sodium Chloride IV 112.5 mls/hr TITR ANNA Administration Protocol 5 MCG/MIN Caspofungin 50 mg/ Sodium 250 mls @ 250 mls/hr 02/23/17 10:00 Chloride IVPB DAILY ANNA Lactic Acid 1 applic 02/11/17 13:05 02/20/17 10:29 Lac-Hydrin 12 TP 1 applic DAILY PRN Administration WOUND CARE Levetiracetam 1,500 mg 02/12/17 09:01 02/21/17 21:12 Keppra Injection - IVPB 1,500 mg BID ANNA Administration Levothyroxine Sodium 75 mcg 02/21/17 07:00 02/22/17 06:26 Synthroid Injection - IVPUSH Not Given AM ANNA Nystatin 1 applic 02/11/17 01:00 02/22/17 00:34 Mycostatin Ointment - TP 1 applic BID ANNA Administration Phenobarbital 100 mg 02/15/17 22:00 02/21/17 21:12 Phenobarbital Injection - IV 100 mg BID ANNA Administration Valproate Sodium 500 mg 02/13/17 22:00 02/22/17 05:10 Depacon Injection - IVPB 500 mg Q8H ANNA Administration Vital Signs Temp 99.0 F 02/22/17 08:00 Pulse 101 H 02/22/17 08:00 Resp 26 H 02/22/17 08:00 BP 79/52 02/22/17 08:00 Pulse Ox 98 02/21/17 23:59 Intake & Output 02/21/17 02/21/17 02/22/17 11:59 23:59 11:59 Intake Total 2655.4 2368 1650 Output Total 450 700 250 Balance 2205.4 1668 1400 Weight 218 lb 11.2 oz 228 lb Intake: IV 1605.4 1468 1500 Versed - 100 mg In Normal 24 4 Saline - 100 ml @ 12 MG/ HR 12 mls/hr IVPB TITR ANNA Rx#:[id number] Levophed - 8,000 Mcg In 1321 D5w - 492 ml @ 5 MCG/MIN 18.75 mls/hr IV TITR ANNA Rx#:[id number] Pitressin - 50 Units In 142 144 144 Normal Saline - 97.5 ml @ 2.4 UNITS/HR 4.8 mls/hr IVPB ASDIR ANNA Rx#: [id number] Levophed - 8,000 Mcg In 1300 1356 Normal Saline - 492 ml @ 5 MCG/MIN 18.75 mls/hr IV TITR ANNA Rx#:[id number] Fentanyl 118.4 20 IVPB 1050 900 150 Tube Feeding 0 0 Output: Gastric Drainage 200 200 100 Urine 250 500 150 Garcia 250 500 150 Other: Voiding Method Indwelling Catheter Indwelling Catheter Bowel Movement No Yes Yes: 1 # Bowel Movements 1 Weight Measurement Method [facility] [place] Built in Bed[facility] Constitutional: Yes: Well Nourished, No Distress, sedated Cardiovascular: Yes: Regular Rate and Rhythm, Gallop (? S3), S1, S2. No: JVD ( very tds exam), Murmur Respiratory: Yes: cta bl anteriorly. intubated on vent Extremities: No: Cool Edema: Yes (1+ pretib) Neurological: sedated, intubated Psychiatric: No: Agitated no jaundice diaphoresis abd nd pos bs Labs: Laboratory Last Values WBC 5.4 K/mm3 (4.0-10.0) 02/22/17 05:30 Corrected WBC (auto) Cancelled 02/11/17 04:00 RBC 4.40 M/mm3 (3.60-5.2) 02/22/17 05:30 Hgb 12.9 GM/dL (10.7-15.3) 02/22/17 05:30 Hct 38.9 % (32.4-45.2) 02/22/17 05:30 MCV 88.5 fl (80-96) 02/22/17 05:30 MCH 29.2 pg (25.7-33.7) 02/22/17 05:30 MCHC 33.0 g/dl (32.0-36.0) 02/22/17 05:30 RDW 20.3 % (11.6-15.6) H 02/22/17 05:30 Plt Count 89 K/MM3 (134-434) L 02/22/17 05:30 MPV 11.5 fl (7.5-11.1) H 02/22/17 05:30 Add Manual Diff Cancelled 02/11/17 04:00 Total Counted 100 02/20/17 10:18 Neutrophils % 82.6 % (42.8-82.8) 02/22/17 05:30 Neutrophils % (Manual) 64 % (42.8-82.8) 02/20/17 10:18 Band Neuts % (Manual) 4 % (0-10) 02/20/17 10:18 Lymphocytes % 10.4 % (8-40) D 02/22/17 05:30 Lymphocytes % (Manual) 21 % (8-40) 02/20/17 10:18 Monocytes % 6.4 % (3.8-10.2) 02/22/17 05:30 Monocytes % (Manual) 10 % (3.8-10.2) 02/20/17 10:18 Eosinophils % 0.1 % (0-4.5) D 02/22/17 05:30 Basophils % 0.5 % (0-2.0) 02/22/17 05:30 Nucleated RBC % 6 % (0-0) H 02/20/17 10:18 Differential Comment Cancelled 02/11/17 04:00 Hypochromia 2+ 02/10/17 17:35 Platelet Estimate Decreased (NORMAL) 02/20/17 10:18 Platelet Comment Few giant plts 02/20/17 10:18 Platelet Comment No clumping noted 02/20/17 10:18 Normal RBC Morphology Cancelled 02/11/17 04:00 RBC Morphology 02/12/17 18:45 Poikilocytosis 1+ 02/12/17 18:45 Anisocytosis 2+ 02/16/17 05:30 Microcytosis 1+ 02/16/17 05:30 Macrocytosis Few 02/16/17 05:30 Tear Drop Cells 1+ 02/16/17 05:30 Ovalocytes 1+ 02/16/17 05:30 INR 4.01 (0.82-1.09) H* D 02/22/17 05:30 PTT (Actin FS) 35.2 SECONDS (26.9-34.4) H 02/22/17 05:30 Fibrinogen 186.0 mg/dL (238-498) L 02/11/17 04:00 Anticoagulation Therapy No 02/21/17 09:30 Puncture Site Right radial 02/21/17 09:30 Patient Temperature N 02/21/17 09:30 ABG pH 7.35 (7.35-7.45) 02/21/17 09:30 ABG pCO2 at Pt Temp 40.8 mmHg (35-45) D 02/21/17 09:30 ABG pO2 at Pt Temp 82.6 mmHg (80-100) D 02/21/17 09:30 ABG HCO3 21.7 meq/L (22-26) L 02/21/17 09:30 ABG O2 Sat (Measured) 95.3 % (90-98.9) 02/21/17 09:30 ABG O2 Content 16.6 % vol (15-22) 02/21/17 09:30 ABG Base Excess -3.2 meq/l (-2-2) L 02/21/17 09:30 Bob Test Positive 02/21/17 09:30 VBG pH 7.35 (7.32-7.42) 02/16/17 11:50 POC VBG pCO2 65.7 mmHg (38-52) H* 02/16/17 11:50 POC VBG pO2 49.6 mmHg (28-48) H 02/16/17 11:50 Mixed VBG HCO3 35.6 meq/L (19-25) H 02/16/17 11:50 O2 Delivery Device Mech vent 02/21/17 09:30 Oxygen Flow Rate 40% 02/21/17 09:30 Vent Mode Ac 02/21/17 09:30 Vent Rate 14 02/21/17 09:30 Mechanical Rate Yes 02/21/17 09:30 PEEP 6.0 cmH2O 02/21/17 09:30 Pressure Support Vent 400 02/21/17 09:30 Sodium 124 mmol/L (136-145) L* 02/22/17 05:30 Potassium 5.8 mmol/L (3.5-5.1) H 02/22/17 05:30 Chloride 86 mmol/L (98-107) L 02/22/17 05:30 Carbon Dioxide 21 mmol/L (21-32) 02/22/17 05:30 Anion Gap 17 (8-16) H 02/22/17 05:30 BUN 71 mg/dL (7-18) H 02/22/17 05:30 Creatinine 2.3 mg/dL (0.55-1.02) H 02/22/17 05:30 Creat Clearance w eGFR 22.44 (>60) 02/22/17 05:30 POC Glucometer 186.67847 UNITS (()) 02/14/17 20:56 Random Glucose 90 mg/dL (74-106) D 02/22/17 05:30 Lactic Acid 2.2 mmol/L (0.4-2.0) H* 02/15/17 10:32 Calcium 7.5 mg/dL (8.5-10.1) L 02/22/17 05:30 Phosphorus 4.8 mg/dL (2.5-4.9) 02/22/17 05:30 Magnesium 2.1 mg/dL (1.8-2.4) 02/22/17 05:30 Total Bilirubin 2.3 mg/dL (0.2-1.0) H D 02/22/17 05:30 Direct Bilirubin 1.2 mg/dL (0.0-0.2) H 02/19/17 05:20 AST 1014 U/L (15-37) H 02/22/17 05:30 ALT 268 U/L (12-78) H D 02/22/17 05:30 Alkaline Phosphatase 85 U/L (45-117) 02/22/17 05:30 Ammonia 34.6 umol/L (11-32) H 02/11/17 14:00 Creatine Kinase 83 IU/L (26-192) 02/11/17 04:00 Troponin I < 0.02 ng/ml (0.00-0.05) 02/12/17 18:45 B-Natriuretic Peptide 2733.06 pg/ml (5-125) H 02/11/17 04:00 Total Protein 5.4 g/dl (6.4-8.2) L 02/22/17 05:30 Albumin 2.1 g/dl (3.4-5.0) L 02/22/17 05:30 Total Amylase 87 U/L (25-115) 02/11/17 04:00 TSH 18.70 uIU/ml (0.358-3.74) H D 02/13/17 05:15 Free T4 1.24 ng/dl (0.76-1.46) 02/11/17 04:00 Free T3 0.8 pg/ml (2.0-4.4) L 02/12/17 05:20 Total T3 43.00 ng/dl (71-180) L 02/12/17 05:20 Cortisol AM Sample 23.2 ug/dL (.) 02/18/17 05:20 Urine Color Lt. yellow 02/19/17 17:45 Urine Appearance Clear 02/19/17 17:45 Urine pH 6.0 (5.0-8.0) 02/19/17 17:45 Ur Specific [place] 1.015 (1.005-1.025) 02/19/17 17:45 Urine Protein 2+ (NEGATIVE) H 02/19/17 17:45 Urine Glucose (UA) Negative (NEGATIVE) 02/19/17 17:45 Urine Ketones Negative (NEGATIVE) 02/19/17 17:45 Urine Blood 3+ (NEGATIVE) H 02/19/17 17:45 Urine Nitrite Negative (NEGATIVE) 02/19/17 17:45 Urine Bilirubin 1+ (NEGATIVE) H 02/19/17 17:45 Urine Urobilinogen 1.0 mg/dL (0.2-1.0) 02/19/17 17:45 Ur Leukocyte Esterase 2+ (NEGATIVE) H 02/19/17 17:45 Urine RBC 115 /hpf (0-3) 02/19/17 17:45 Urine WBC 702 /hpf (3-5) 02/19/17 17:45 Ur Epithelial Cells Rare /hpf (FEW) 02/19/17 17:45 Calcium Oxalate Crystal Rare /hpf (NONE SEEN) 02/12/17 12:30 Hyaline Casts 45 /lpf 02/19/17 17:45 Granular Casts 1 /lpf 02/12/17 12:30 Urine Mucus Rare 02/19/17 17:45 Urine Yeast Many 02/19/17 17:45 Urine HCG, Qual Negative 02/11/17 14:00 Opiates Screen Negative ng/ml (GOPIFA=025) 02/11/17 14:00 Methadone Screen Negative ng/ml (TFKTHK=512) 02/11/17 14:00 Acetaminophen 3.145 ug/ml (10.0-30.0) L 02/13/17 05:15 Barbiturate Screen Negative ng/ml (GEKFJL=092) 02/11/17 14:00 Valproic Acid 75.774 ug/ml (50-100) 02/19/17 05:20 Levetiracetam 78.4 MCG/ML (10.0-40.0) H 02/15/17 10:32 Phencyclidine Screen Negative ng/ml (CUTOFF=25) 02/11/17 14:00 Ur Amphetamines Screen Negative ng/ml (IEWSCV=010) 02/11/17 14:00 MDMA (Ecstasy) Screen Negative ng/ml (IHFIEK=521) 02/11/17 14:00 Benzodiazepines Screen Positive ng/ml (NIVGEN=654) 02/11/17 14:00 Cocaine Screen Negative ng/ml (JTLOGE=314) 02/11/17 14:00 U Marijuana (THC) Screen Negative ng/ml (CUTOFF=50) 02/11/17 14:00 Hep-Induced Plt Ab Rapid 0.478 OD (0.000-0.400) H 02/17/17 11:25 tele: sr, as-vpaced [facility] 10/2016 --> nl cors (verbal report from dr sanchez) Echo 01/2017: Severe lv dilation, sev reduced LV fn (global). mod rv dilation. mod RV dysfunction. RV pacing wire. 2.8 x 1.2 cm density in apex of RV (per discussion with Dr. Sanchez, bright echodensity at the tip of pacing wire was present on prior office echo). mod tr. rvsp 30-40. trivial pericardial effusion. + pleural effusion. CTA: pulmonary congestion, small left pleural effusion. large volume ascites. extensive subcutaneous edema/anasarca. CTA --> + arterial flow to LE. CT head: no acute pathology cxr 02/22: some improvement in right base est cct 36 mins a/p: 51 y/o woman, resident on [facility] with hx of biventricular cardiomyopathy s/ p bivICD, htn, afib (per report only), Schizophrenia, seizure disorder, Hypothroidism and GERD who presented to ED with LE swelling, coolness to touch and diminshed pulses as well as lethargy. Hospital course has been complicated by seizure/status epilepticus requiring intubation for airway protection and sedation. acute on chronic syst CHF, nonischemic biventricular cardiomyopathy s/p bivICD, cardiogenic shock, septic shock - holding bb and acei due to hypotension. - CE's were negative on admit and according to her deli slicer recent [facility] showed normal cors - 02/12 BNP 2700, patient p/w with lethargy, LE edema, cool skin, poor distal pulses, pulmonary edema, large volume ascites and anasarca noted on ct scan, -- > concerning for decompensated biventricular heart failure. cvp 13 --> Started trial of IV lasix for diuresis 02/12, milrinone deferred at that time ( pt was on levophed). - 02/13: overnight propofol stopped due to increasing ectopy and concern for qt prolongation --> improvement in ectopy. patient's remained net positive, lasix was increased to 80 mg IV bid. Late evening cvp remained elevated at 15 and patient still not net negative. Drips were double concentrated. vasopressin added for recurrent hypotension (to 70s). - 02/14: levophed weaned off today. Patient finally net negative this am. BP still running low. CVP remains elevated at 13 --> started milrinone for decompensated heart failure. Patient still may have superimposed vasodilating pathology, con't pressor support for now. Con't lasix 80 mg IV bid with aggressive electrolyte repletion (congestion improving on cxr, lfts improving, cr stable). double concentrate drips when possible. - 02/15: CXR improved vs 02/13, L lung not well seen due to ICD and marked cardiomegaly obscuring L base. BP down to 70s again early am today, remains on high dose pressors (vasopressin 2.4 units/hour, levo 9 mcg). CVP has improved to 10 (from 17 initially) with diuresis plus milrinone (0.3 mcg/kg/min). vigorous UOP yesterday (8L). - 02/16: Concern for episode of VF/VT on telemetry-->ICD interrogated: No VT/VF events. Was informed that biV pacing programmed to stop at HR's above 130 which explains change in rhythm. Although 130's is still below lower detection limit for VT so cannot exclude intermittent slow VT. Milrinone drip stopped. Sent SvO2 to clarify hemodynamics, cardiogenic vs. vasodilatory. SVO2 80% per report so OK to leave off milrinone. Still getting augmentation of contractility from levophed. Remains net positive today, CVP 14 per report, but SVO2 is not low and overall edema improving --> will not uptitrate diuretics. -02/17: cont current iv lasix and pressor support - 02/18: concerned patient is continuing to be net positive. CVP elevated > 20. Now with MARK and minimal urine output now poor. If she continues to remain net positive her heart failure will continue to worsen. Had 100 cc uop to 100 mg IV lasix this afternoon (increase from what she has put out today per nursing). Will uptitrate lasix regimen to 100 mg tid. Will add back milrinone to see if it improves hypotension/cardiac output (add back at lower dose for now). ICD interrogation was negative for ventricular arrhythmia. Reassess tomorrow whether these interventions improve her clinical status. Discussed plan of care with family. Palliative care in room with family -02/19: still with vol overload, net positive, wt up. Will continue current pressors, milrinone. Fever reported so possibly becoming septic. If bp continues to drop would stop milrinone and hold lasix temporarily. -02/20: despite milrinone and lasix pt remains with poor urine outpt and low bp. Now also has been persistently febrile so seems more of a septic shock picture now. Thus will dc lasix and milrinone for now which may allow bp to rise. If bp remains low on vaso and levo can add dobutamine next. -02/21-: Pt remains with septic shock, multiorgan failure. Cont bp support (max pressors now), abx. Cont to hold lasix/milrinone as bp too low and wasn't improving her status regardless. Current anasarca appearance likely from low albumin/3rd spacing as well. Overall very poor prognosis. wide complex tachycardia: - suspect tele represents sinus tach, initially with Bi-V pacing, then with loss of Bi-V pacing and pt conduction with poarch bundle branch block QRS (note 02/10 ekg shows Bi-V pacing with a fusion beat btw paced and conducted beats, showing a wide QRS with poarch conduction) - doubt sustained VT on tele - has ICD protection - CHF optimization and med regimen as doing - per dr sanchez, ICD was recently interrogated 10/2016 with no remarkable findings then. - 02/12 with increasing ectopy throughout the day leading to sustained ventricular bigeminy with very broad abnormal t wave (no nsvt). concern for qt prolongation --> propofol weaned overnight with resolution of arrhythmia. - electrolyte repletion to usual targets - 02/16: ICD interrogated: No VT/VF events. Was informed that biV pacing programmed to stop at HR's above 130 which explains change in rhythm. RV echo density noted on echo - Echo here shows density in RV apex (couldn't exclude veg or thrombus). Discussed with Dr. Sanchez and patient had similarly described density on prior echo at his office, likely artifact from RV lead. seizure disorder/status epilepticus - ongoing management per neuro/icu. Remains intubated and sedated. - head ct x 2 without acute pathology. afib - diagnosis documented on long term chart, but patient not on AC and in SR here (? accuracy of diagnosis)--will defer to Dr. Sanchez who is her treating outpatient deli slicer. For now, since no evidence of afib/flutter on tele, will not start AC. thrombocytopenia - eval/mgm't per pmd. elevated lfts: -likely shock liver, cont bp support mark: -likely from septic shock, cr worsening again. cont bp support, abx
[2017-02-22] MEDS ORDERED: PT OWN MED DRAWER 7, Y5N ONE ×3 (09:39→16:32)
[2017-02-22] MEDS: PANTOPRAZOLE SODIUM 100 ML IVPB SCH (09:43)
[2017-02-22] MEDS: levETIRAcetam 500 MG/5 ML INJECTION VIAL IVPB SCH ×2 (09:46→21:51)
[2017-02-22] MEDS: PHENobarbital SODIUM 130 MG/1 ML VIAL IV SCH ×2 (09:53→21:51)
--- NOTE | 2017-02-22 10:51 | PN ---
Physical Exam: SUBJECTIVE: Patient seen and examined ad bedside. No change in clincal status. no seizures overnight. Patient with cold extremities 2/2 high norepi requirements for pressure support. OBJECTIVE: Vital Signs Period Temp Pulse Resp BP Sys/Centeno Pulse Ox Last 24 Hr 99.0 F-103 F 100-112 17-31 78-96/29-75 94-98 GENERAL: The patient intubated and sedated. HEAD: Normal with no signs of trauma. EYES: contracted pupils unreactive, conjunctiva clear. corneal reflex intact NECK: Trachea midline, full range of motion, supple. LUNGS: Breath sounds equal, scattered rales in all lung tapia. HEART: Regular rate and rhythm, S1, S2. gallop heard best in aortic region. ABDOMEN: Soft, no grimacing in response to palpation, nondistended, normoactive bowel sounds. EXTREMITIES: patient continues to have erythema and chronic changes over both lower extremities present on admission. Distal extremities cold and cyanotic 2/ 2 high pressor requirements NEUROLOGICAL: unable to assess due to clinical status Laboratory Results - last 24 hr 02/22/17 02/22/17 02/22/17 05:30 05:30 05:30 WBC 5.4 RBC 4.40 Hgb 12.9 Hct 38.9 MCV 88.5 MCH 29.2 MCHC 33.0 RDW 20.3 H Plt Count 89 L MPV 11.5 H Neutrophils % 82.6 Lymphocytes % 10.4 D Monocytes % 6.4 Eosinophils % 0.1 D Basophils % 0.5 INR 4.01 H* D PTT (Actin FS) 35.2 H Sodium 124 L* Potassium 5.8 H Chloride 86 L Carbon Dioxide 21 Anion Gap 17 H BUN 71 H Creatinine 2.3 H Creat Clearance w eGFR 22.44 Random Glucose 90 D Calcium 7.5 L Phosphorus 4.8 Magnesium 2.1 Total Bilirubin 2.3 H D AST 1014 H ALT 268 H D Alkaline Phosphatase 85 Total Protein 5.4 L Albumin 2.1 L Active Medications Generic Name Dose Route Start Last Admin Trade Name Freq PRN Reason Stop Dose Admin Acetaminophen 1,000 mg 02/21/17 17:09 02/22/17 06:25 Ofirmev Injection - IVPB 1,000 mg Q6H PRN Administration FEVER OR PAIN Artificial Tears 1 applic 02/22/17 22:00 Artificial Tears Ointment - OU HS ANNA Betamethasone Valerate 1 applic 02/12/17 10:00 02/21/17 11:18 Valisone 0.1% Cream - TP 1 applic DAILY ANNA Administration Chlorhexidine Gluconate 1 applic 02/11/17 22:00 02/22/17 00:33 Hibiclens For Decolonization - TP 1 applic HS ANNA Administration Pantoprazole Sodium 100 mls @ 200 mls/hr 02/12/17 10:00 02/22/17 09:43 Protonix 40mg Ivpb (Pre-Docked) IVPB 200 mls/hr DAILY ANNA Administration Vasopressin 50 units/ Sodium 100 mls @ 4.8 mls/hr 02/14/17 07:45 02/22/17 05:11 Chloride IVPB 4.8 mls/hr ASDIR ANNA Administration 2.4 UNITS/HR Piperacillin Sod/Tazobactam Sod 50 mls @ 100 mls/hr 02/18/17 18:00 02/22/17 01: 11 Zosyn 3.375gm Ivpb (Pre-Docked) IVPB 100 mls/hr Q8H-IV ANNA Administration Protocol Norepinephrine Bitartrate 8, 500 mls @ 18.75 mls/hr 02/21/17 10:15 02/22/17 10: 05 000 mcg/ Sodium Chloride IV 112.5 mls/hr TITR ANNA Administration Protocol 5 MCG/MIN Caspofungin 50 mg/ Sodium 250 mls @ 250 mls/hr 02/23/17 10:00 Chloride IVPB DAILY ANNA Lactic Acid 1 applic 02/11/17 13:05 02/20/17 10:29 Lac-Hydrin 12 TP 1 applic DAILY PRN Administration WOUND CARE Levetiracetam 1,500 mg 02/12/17 09:01 02/22/17 09:46 Keppra Injection - IVPB 1,500 mg BID ANNA Administration Levothyroxine Sodium 75 mcg 02/21/17 07:00 02/22/17 06:26 Synthroid Injection - IVPUSH Not Given AM ANNA Nystatin 1 applic 02/11/17 01:00 02/22/17 10:12 Mycostatin Ointment - TP 1 applic BID ANNA Administration Phenobarbital 100 mg 02/15/17 22:00 02/22/17 09:53 Phenobarbital Injection - IV 100 mg BID ANNA Administration Valproate Sodium 500 mg 02/13/17 22:00 02/22/17 05:10 Depacon Injection - IVPB 500 mg Q8H ANNA Administration ASSESSMENT/PLAN: 51yo F with pmhx of 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 Admitted to ICU in status epilepticus #Mutiorgan failure 2/2 cardiogenic shock vs neurogenic shock and Sepsis -abrupt increase in LFTs and creatinine signifying end organ damage. -Patient continues to spike fevers -IV tylenol PRN fever -caspofungin 50mg IVPB daily -zosyn 3.375 grams IV daily -Patient is DNR #Shock 2/2 neurogenic vs cardiogenic etiology -Patient currently on max pressure support -Levophed GTT -Vasopressin GTT #New onset seizure disorder, 2/2 to unknown etiology -continue keppra to 1500 mg BID -continue depacone 500 mg bid -continue phenobarbital 100mg IV BID -Versed GTT -The make and model of the patient's pacemaker are not MRI compatible #Acute respiratory failure -Intubated for airway protection -Continue vent support per ICU # Dilated cardiomyopathy -S/P AICD working appropriately; Upon interrogation, it was found that it did not fire. -Echo reveals thrombus in RV. -home toprolol held due to hypotension -Be careful with IVF # Abdominal Distention with transaminitis -continue to monitor # Atopic Dermatitis -Continued home nystatin cream for application on abdominal areas -Ammonium lactate lotion -Betamethasone 0.1% cream # Hypothyroidism -Continued home Synthroid 125mcg PO qDaily FEN: Fluids: no indicaton for fluids at this time Electrolyte abnormalities: hypokalemia Nutrition: NPO ppx: -Heparin 5000 units sq tid -protonix 40 IV daily Dispo: -continue to monitor in ICU. Poor overall prognosis. Problem List - Problems (1) Chronic congestive heart failure Code(s): I50.9 - HEART FAILURE, UNSPECIFIED Qualifiers: Congestive heart failure type: unspecified congestive heart failure type Qualified Code(s): I50.9 - Heart failure, unspecified (2) Hypertension Code(s): I10 - ESSENTIAL (PRIMARY) HYPERTENSION Qualifiers: Hypertension type: essential hypertension Qualified Code(s): I10 - Essential (primary) hypertension (3) Schizophrenia, paranoid, chronic Code(s): F20.0 - PARANOID SCHIZOPHRENIA (4) Seizure Code(s): R56.9 - UNSPECIFIED CONVULSIONS (5) Rash Code(s): R21 - RASH AND OTHER NONSPECIFIC SKIN ERUPTION (6) Peripheral arterial disease Code(s): I73.9 - PERIPHERAL VASCULAR DISEASE, UNSPECIFIED Visit type - Emergency Visit Emergency Visit: Yes ED Registration Date: 02/10/17 Care time: The patient presented to the Emergency Department on the above date and was hospitalized for further evaluation of their emergent condition. - New Patient This patient is new to me today: No - Critical Care Critical Care patient: Yes Total Critical Care Time (in minutes): 35 Critical Care Statement: The care of this patient involved high complexity decision making to prevent further life threatening deterioration of the patient 's condition and/or to evaluate & treat vital organ system(s) failure or risk of failure.
--- NOTE | 2017-02-22 11:11 | PN ---
Progress Note (short form) - Note Progress Note: Vascular Surgery Pt seen and examined. Pt with multiorgan failure. On levophed adn vasopressin. Bilateral lower ext warm, however toes are cool to touch with discoloration. This is all due to being on high dose pressors and peripheral vasoconstriction. No need for any intervention. Poor prognosis. Myles Hoang DO
[2017-02-22] MEDS: BETAMETHASONE VALERATE 0.1% CREAM 15 GM TUBE TP SCH (11:20)
--- NOTE | 2017-02-22 11:45 | PN ---
Teaching Attending Note Name of Resident: Donal Lal ATTENDING PHYSICIAN STATEMENT I saw and evaluated the patient. I reviewed the resident's note and discussed the case with the resident. I agree with the resident's findings and plan as documented. SUBJECTIVE: Pt seen and examined in the ICU. Remains intubated, unresponsive off sedation since yesterday. On levophed and vasopressin gtts. Persistently febrile. OBJECTIVE: Last Vital Signs Temp Pulse Resp BP Pulse Ox 103.0 F H 101 H 15 81/29 94 L 02/22/17 10:00 02/22/17 10:05 02/22/17 11:07 02/22/17 10:05 02/22/17 10:08 Intake & Output 02/19/17 02/20/17 02/21/17 02/22/17 23:59 23:59 23:59 23:59 Intake Total 2202.6 6590.6 5023.4 1650 Output Total 1150 1550 1150 250 Balance 1052.6 5040.6 3873.4 1400 Weight 201 lb 8 oz 204 lb 8 oz 218 lb 11.2 oz 228 lb Gen: intubated, unresponsive Heart: tachycardic, regular Lung: decreased breath sounds at the bases Abd: distended Ext: cyanotic right great toe, anasarca CBC, BMP 02/22/17 05:30 02/22/17 05:30 Active Medications Acetaminophen (Ofirmev Injection -) 1,000 mg IVPB Q6H PRN PRN Reason: FEVER OR PAIN Last Admin: 02/22/17 06:25 Dose: 1,000 mg Artificial Tears (Artificial Tears Ointment -) 1 applic OU HS ANNA Betamethasone Valerate (Valisone 0.1% Cream -) 1 applic TP DAILY ANNA Last Admin: 02/22/17 11:20 Dose: 1 applic Chlorhexidine Gluconate (Hibiclens For Decolonization -) 1 applic TP HS ANNA Last Admin: 02/22/17 00:33 Dose: 1 applic Pantoprazole Sodium (Protonix 40mg Ivpb (Pre-Docked)) 100 mls @ 200 mls/hr IVPB DAILY ANNA Last Admin: 02/22/17 09:43 Dose: 200 mls/hr Vasopressin 50 units/ Sodium (Chloride) 100 mls @ 4.8 mls/hr IVPB ASDIR ANNA PRN Reason: 2.4 UNITS/HR Last Admin: 02/22/17 11:07 Dose: Not Given Piperacillin Sod/Tazobactam Sod (Zosyn 3.375gm Ivpb (Pre-Docked)) 50 mls @ 100 mls/hr IVPB Q8H-IV ANNA PRN Reason: Protocol Last Admin: 02/22/17 11:08 Dose: 100 mls/hr Norepinephrine Bitartrate 8, (000 mcg/ Sodium Chloride) 500 mls @ 18.75 mls/hr IV TITR ANNA; 5 MCG/MIN PRN Reason: Protocol Last Admin: 02/22/17 10:05 Dose: 112.5 mls/hr Caspofungin 50 mg/ Sodium (Chloride) 250 mls @ 250 mls/hr IVPB DAILY [facility] Lactic Acid (Lac-Hydrin 12) 1 applic TP DAILY PRN PRN Reason: WOUND CARE Last Admin: 02/20/17 10:29 Dose: 1 applic Levetiracetam (Keppra Injection -) 1,500 mg IVPB BID [facility] Last Admin: 02/22/17 09:46 Dose: 1,500 mg Levothyroxine Sodium (Synthroid Injection -) 75 mcg IVPUSH AM [facility] Last Admin: 02/22/17 11:10 Dose: 75 mcg Nystatin (Mycostatin Ointment -) 1 applic TP BID [facility] Last Admin: 02/22/17 10:12 Dose: 1 applic Phenobarbital (Phenobarbital Injection -) 100 mg IV BID [facility] Last Admin: 02/22/17 09:53 Dose: 100 mg Valproate Sodium (Depacon Injection -) 500 mg IVPB Q8H [facility] Last Admin: 02/22/17 05:10 Dose: 500 mg ASSESSMENT AND PLAN: Status Epileptics Acute Respiratory Failure Acute on Chronic Systolic Heart Failure Cardiogenic vs Septic Shock Lactic Acidosis resolved s/p ICD Elevated LFTs Hypothyroidism Thrombocytopenia Hyponatremia - antibiotics per ID - continue antiepileptics - f/u phenobarbital level - titrate levophed, vasopressin gtt to maintain MAP >65 - lasix IV if BP tolerates - NS piggybacks - hold sedation to assess mental status as no seizure activity noted - repeat CT head when stable - enteral feeds on hold, will obtain CT A/P with oral contrast when stable - DVT/GI prophylaxis - continue ICU monitoring - poor overall prognosis - pt made DNR, will continue medical therapy for now critical care time spent in reviewing chart, evaluating patient and formulating plan 45 min
--- NOTE | 2017-02-22 13:18 | PN ---
Teaching Attending Note Name of Resident: Bala Herndon ATTENDING PHYSICIAN STATEMENT I saw and evaluated the patient. I reviewed the resident's note and discussed the case with the resident. I agree with the resident's findings and plan as documented. SUBJECTIVE: Patient remains unresponsive off Versed, Fentanyl. OBJECTIVE: Vital Signs Period Temp Pulse Resp BP Sys/Centeno Pulse Ox Last 24 Hr 99.0 F-103.0 F 100-112 14-31 78-96/29-75 94-98 GENERAL: Unresponsive, on vent. (+) anasarca HEART: S1S2, tachycardic LUNGS: Bilateral rhonchi ABDOMEN: Soft, distended, normal BS EXTREMITIES: Cold, 2+ edema, feet mottled, right 1st toe purple Current Medications Generic Name Dose Route Start Last Admin Trade Name Freq PRN Reason Stop Dose Admin Acetaminophen 1,000 mg 02/21/17 17:09 02/22/17 12:56 Ofirmev Injection - IVPB 1,000 mg Q6H PRN Administration FEVER OR PAIN Artificial Tears 1 applic 02/22/17 22:00 Artificial Tears Ointment - OU HS ANNA Betamethasone Valerate 1 applic 02/12/17 10:00 02/22/17 11:20 Valisone 0.1% Cream - TP 1 applic DAILY ANNA Administration Chlorhexidine Gluconate 1 applic 02/11/17 22:00 02/22/17 00:33 Hibiclens For Decolonization - TP 1 applic HS ANNA Administration Pantoprazole Sodium 100 mls @ 200 mls/hr 02/12/17 10:00 02/22/17 09:43 Protonix 40mg Ivpb (Pre-Docked) IVPB 200 mls/hr DAILY ANNA Administration Vasopressin 50 units/ Sodium 100 mls @ 4.8 mls/hr 02/14/17 07:45 02/22/17 11:07 Chloride IVPB Not Given ASDIR ANNA 2.4 UNITS/HR Piperacillin Sod/Tazobactam Sod 50 mls @ 100 mls/hr 02/18/17 18:00 02/22/17 11: 08 Zosyn 3.375gm Ivpb (Pre-Docked) IVPB 100 mls/hr Q8H-IV ANNA Administration Protocol Norepinephrine Bitartrate 8, 500 mls @ 18.75 mls/hr 02/21/17 10:15 02/22/17 10: 05 000 mcg/ Sodium Chloride IV 112.5 mls/hr TITR ANNA Administration Protocol 5 MCG/MIN Caspofungin 50 mg/ Sodium 250 mls @ 250 mls/hr 02/23/17 10:00 Chloride IVPB DAILY ANNA Lactic Acid 1 applic 02/11/17 13:05 02/20/17 10:29 Lac-Hydrin 12 TP 1 applic DAILY PRN Administration WOUND CARE Levetiracetam 1,500 mg 02/12/17 09:01 02/22/17 09:46 Keppra Injection - IVPB 1,500 mg BID ANNA Administration Levothyroxine Sodium 75 mcg 02/21/17 07:00 02/22/17 11:10 Synthroid Injection - IVPUSH 75 mcg AM ANNA Administration Nystatin 1 applic 02/11/17 01:00 02/22/17 10:12 Mycostatin Ointment - TP 1 applic BID ANNA Administration Phenobarbital 100 mg 02/15/17 22:00 02/22/17 09:53 Phenobarbital Injection - IV 100 mg BID ANNA Administration Valproate Sodium 500 mg 02/13/17 22:00 02/22/17 05:10 Depacon Injection - IVPB 500 mg Q8H ANNA Administration ASSESSMENT AND PLAN: This is a 51 year old woman with a history of schizophrenia, hypothyroidism, dilated cardiomyopathy, AICD, HTN, atrial fib who presented to the ER with bilateral leg pain. 1. Fever, possible sepsis and septic shock - Remains febrile - 103.0 this morning - On Zosyn, Cancidas - Vancomycin x 1 given - Gentamicin x 1 given 2. Status epilepticus - No seizure activity noted - Currently on Phenobarbital, Keppra, Depacon - Vimpat discontinued secondary to arrhythmias - EEG showed diffuse slowing, burst suppression pattern, epileptiform activity 3. Acute hypoxic respiratory failure - Remains on vent 4. Multi-organ failure - Acute kidney injury - BUN, creatinine continue to worsen - Acute hepatic transaminitis - AST, ALT improving 5. Arrhythmias - Vimpat discontinued - AICD interrogation revealed no evidence of VF/VT 6. Hypothyroidism - On Synthroid 7. Cardiogenic shock vs septic shock - Continue Levophed, Vasopressin, Milrinone, antibiotics 8. Acute and chronic systolic heart failure - Lasix, Milrinone held secondary to hypotension and lack of effect 9. Hyponatremia 10. Hyperkalemia 11. Thrombocytopenia - Heparin discontinued 12. Nutrition - NGT feeds held secondary to abdominal distention 13. Stress ulcer prophylaxis - On Protonix 14. DVT prophylaxis - Heparin discontinued secondary to thrombocytopenia
[2017-02-22] MEDS ORDERED: CHLORHEXIDINE GLUCONATE 0.12% 15ML CUP MM ONE (13:32)
[2017-02-22] MEDS: CHLORHEXIDINE GLUCONATE 0.12% 15ML CUP MM SCH ×2 (14:54→21:52)
--- NOTE | 2017-02-22 15:52 | PN ---
Progress Note (short form) - Note Progress Note: 02/11/17 : 51 y/o woman, resident on [facility] with hx of Schizophrenia, HTN, AFib, CHF, s/p AICD/biV pacer, Hypothroidism and GERD who presented to ED yesterday with LE swelling and pain c/f DVT. In ED pt was awake but poorly responsive, only C/o pain everywhere. Was noted to have cool bilateral LE with very weak peripheral pulses, edema and poor cap refill-->CTA runoff showing multiple occlusive areas in b/l LE arteries. Vascular was consulted and there was tentative plan for surgery today. CT head was performed due to AMS which was without acute pathology. Labs were notable for new elevated Tbili and alk phos, low therapeutic VPA level, no WBC, normal h/H, and slightly elevate INR 1.3. She was admitted to floor. Over night PATRON ATTENDANT was called when pt found having tonic- clonic sz. Was given Ativan 2mg with resolution, repeat head CT was again without apparent infarct or bleed (read pending). She was brought to ICU where she cont to have repeated sz, without regaining mental status c/w status epilepticus. She was not protecting her airway or having effective ventilation ( 7.2/60) and so was intubated. EEG was ordered. Neuro and cards were consulted. Abd US was ordered for elevated bilis. Pt. was given another total of 4 mgs of Ativan but without effect, she was than placed on Midazolam drip now at 15mg/ hour. initiially loaded with Keppra 1000mg now and bering given Depakote thru her NGT. Also given Midazolam ivpx2. Pt. is unable to relate hx. Its not clear whether she has a hx. of seizures in the past as per ICU staff. Initially she was assumed to have epilepsy based on her outpatient medications, but her daughter is not aware of a seizure history. EEG 02/15 with epileptiform activity, burst suppression and diffuse slowing. 02/17/17 : As per nursing she had 5 episides today lasting minutes of "facial twitching". Patient remained in her baseline rhythm for the remainder of the night. FU today : 02/22/17 : no clinical sz noted , though further BP instability and maxed out on pressors, made DNR unresponsive Vital Signs Temperature 102.5 F H 02/22/17 14:00 Pulse Rate 93 H 02/22/17 15:00 Respiratory Rate 24 02/22/17 15:00 Blood Pressure 76/54 02/22/17 15:00 O2 Sat by Pulse Oximetry (%) 94 L 02/22/17 10:08 CBCD WBC 5.4 K/mm3 (4.0-10.0) 02/22/17 05:30 RBC 4.40 M/mm3 (3.60-5.2) 02/22/17 05:30 Hgb 12.9 GM/dL (10.7-15.3) 02/22/17 05:30 Hct 38.9 % (32.4-45.2) 02/22/17 05:30 MCV 88.5 fl (80-96) 02/22/17 05:30 MCHC 33.0 g/dl (32.0-36.0) 02/22/17 05:30 RDW 20.3 % (11.6-15.6) H 02/22/17 05:30 Plt Count 89 K/MM3 (134-434) L 02/22/17 05:30 MPV 11.5 fl (7.5-11.1) H 02/22/17 05:30 CMP Sodium 124 mmol/L (136-145) L* 02/22/17 05:30 Potassium 5.8 mmol/L (3.5-5.1) H 02/22/17 05:30 Chloride 86 mmol/L (98-107) L 02/22/17 05:30 Carbon Dioxide 21 mmol/L (21-32) 02/22/17 05:30 Anion Gap 17 (8-16) H 02/22/17 05:30 BUN 71 mg/dL (7-18) H 02/22/17 05:30 Creatinine 2.3 mg/dL (0.55-1.02) H 02/22/17 05:30 Creat Clearance w eGFR 22.44 (>60) 02/22/17 05:30 Calcium 7.5 mg/dL (8.5-10.1) L 02/22/17 05:30 Total Bilirubin 2.3 mg/dL (0.2-1.0) H D 02/22/17 05:30 AST 1014 U/L (15-37) H 02/22/17 05:30 ALT 268 U/L (12-78) H D 02/22/17 05:30 Alkaline Phosphatase 85 U/L (45-117) 02/22/17 05:30 Total Protein 5.4 g/dl (6.4-8.2) L 02/22/17 05:30 Albumin 2.1 g/dl (3.4-5.0) L 02/22/17 05:30 C T HD : 02/11/17 Impression. No evidence of acute intracranial hemorrhage, edema , midline shift, mass effect, or skull fracture. No CT evidence of acute territorial ischemic changes. O/E comatose, eyes midline, scleral icterus, R >L, pupils 2mm, 14/14 on vent , limited dolls, + corneals, neck supple, no twitching in exe A&P ASSESSMENT/PLAN: 51 y/o woman with significant PMH of biventricular cardiomyopathy, ICD, HTN, A.Fib, Schizophrenia, seizure disorder, hypothroidism, GERD who presented to the hospital due to diminished pulses in LE, s/p fall and confusion. Hospital course has been complicated by status epilepticus that required intubation and admission to ICU.being treated for cardiac shock, elevated LFTS-- ? XR induced vs shock liver vs DIC seizure: cont Levitarecetam to 2000mg bid, Phenobabrb 100BID and depakote 500TID , sedation turned off unable to taper RX given frequent seizure keppra max dose, phenobarb limited by low BP vimpat caused arrhythmia unable to get HD CT bc of BP instability grim prognosis given persistent encpehlaopathic state and vitals instability, maxed out pressors Dr Wilks
[2017-02-22] MEDS: MINERAL OIL/PETROLATUM,WHITE 3.5 GM TUBE OU SCH (21:52)
[2017-02-23] MEDS: ACETAMINOPHEN 1000 MG/100 ML VIAL (NON FORMULARY) IVPB PRN ×2 (02:15→18:45)
[2017-02-23] MEDS: PIPERACILLIN/TAZOB 3.375 GM 50 ML IVPB SCH ×3 (02:55→19:05)
[2017-02-23] MEDS ORDERED: VASOPRESSIN 20 UNITS/ML VIAL IV ONE (03:20)
[2017-02-23] MEDS: VALPROATE SODIUM 500 MG/5 ML VIAL IVPB SCH ×3 (06:26→22:22)
[2017-02-23] MEDS: LEVOTHYROXINE SODIUM 100 MCG VIAL IVPUSH SCH (07:01)
--- NOTE | 2017-02-23 08:38 | PN ---
Physical Exam: SUBJECTIVE: Patient seen and examined. Some myoclonus of the eyelid today. PAtient taken to Head Ct after vitals stable. No acute changes. Parents prestn again. OBJECTIVE: Vital Signs Period Temp Pulse Resp BP Sys/Centeno Pulse Ox Last 24 Hr 99.9 F-103.7 F 72-108 14-29 71-93/29-78 94-100 GENERAL: The patient is intubated and sedated. Some myoclunic activity of the eyelid. HEAD: Normal with no signs of trauma. EYES: Eyes midline, open, 3mm b/l pupils reactive to light ENT: oropharynx dry NECK: Trachea midline, full range of motion, supple. LUNGS: mechanical Breath sounds HEART: Regular rate and rhythm, S1, S2 without murmur, rub or gallop. ABDOMEN: Soft, nontender, nondistended, normoactive bowel sounds, no guarding, no rebound, no hepatosplenomegaly, no masses. EXTREMITIES: poor pulses, chronic erythema of the leg with largely indurated area. healing laceration on right-sided big toe Laboratory Results - last 24 hr 02/23/17 05:00 Fibrinogen 151.0 L Active Medications Generic Name Dose Route Start Last Admin Trade Name Freq PRN Reason Stop Dose Admin Acetaminophen 1,000 mg 02/21/17 17:09 02/23/17 02:15 Ofirmev Injection - IVPB 1,000 mg Q6H PRN Administration FEVER OR PAIN Artificial Tears 1 applic 02/22/17 22:00 02/22/17 21:52 Artificial Tears Ointment - OU 1 applic HS ANNA Administration Betamethasone Valerate 1 applic 02/12/17 10:00 02/22/17 11:20 Valisone 0.1% Cream - TP 1 applic DAILY ANNA Administration Chlorhexidine Gluconate 1 applic 02/11/17 22:00 02/22/17 21:51 Hibiclens For Decolonization - TP 1 applic HS ANNA Administration Chlorhexidine Gluconate 15 ml 02/22/17 22:00 02/22/17 21:52 Peridex - MM 15 ml BID ANNA Administration Pantoprazole Sodium 100 mls @ 200 mls/hr 02/12/17 10:00 02/22/17 09:43 Protonix 40mg Ivpb (Pre-Docked) IVPB 200 mls/hr DAILY ANNA Administration Vasopressin 50 units/ Sodium 100 mls @ 4.8 mls/hr 02/14/17 07:45 02/22/17 14:39 Chloride IVPB 12 mls/hr ASDIR ANNA Administration 2.4 UNITS/HR Piperacillin Sod/Tazobactam Sod 50 mls @ 100 mls/hr 02/18/17 18:00 02/23/17 02: 55 Zosyn 3.375gm Ivpb (Pre-Docked) IVPB 100 mls/hr Q8H-IV ANNA Administration Protocol Norepinephrine Bitartrate 8, 500 mls @ 18.75 mls/hr 02/21/17 10:15 02/22/17 19: 22 000 mcg/ Sodium Chloride IV 112.5 mls/hr TITR ANNA Administration Protocol 5 MCG/MIN Caspofungin 50 mg/ Sodium 250 mls @ 250 mls/hr 02/23/17 10:00 Chloride IVPB DAILY ANNA Lactic Acid 1 applic 02/11/17 13:05 02/20/17 10:29 Lac-Hydrin 12 TP 1 applic DAILY PRN Administration WOUND CARE Levetiracetam 1,500 mg 02/12/17 09:01 02/22/17 21:51 Keppra Injection - IVPB 1,500 mg BID ANNA Administration Levothyroxine Sodium 75 mcg 02/21/17 07:00 02/23/17 07:01 Synthroid Injection - IVPUSH Not Given AM ANNA Nystatin 1 applic 02/11/17 01:00 02/22/17 21:52 Mycostatin Ointment - TP 1 applic BID ANNA Administration Phenobarbital 100 mg 02/15/17 22:00 02/22/17 21:51 Phenobarbital Injection - IV 100 mg BID ANNA Administration Valproate Sodium 500 mg 02/13/17 22:00 02/23/17 06:26 Depacon Injection - IVPB 500 mg Q8H ANNA Administration ASSESSMENT/PLAN: 51yo F with PMH schizphrenia, hypothyroid, dilated cardiomyopathy s/p AICD, HTN and afib presented to the ER with B/L LE pain and concern for acute arterial ischemia. TIMBER KILLER called for status epilepticus where pt was intubated for airway protection ID - Zosyn 3.375mg and Caspofungyn 70 and 50mg per ID NEURO - Keppra 1500, phenobarbital per neuro - Sedation held - Head CT unchanged CARDIOVASCULAR - titrate levophed, vasopressin 50Units gtt to maintain MAP >65 - enteral feeds on hold, will obtain CT A/P with oral contrast when more stable - DVT/GI prophylaxis - continue ICU monitoring - poor overall prognosis. Explained situation again with family. Visit type - Emergency Visit Emergency Visit: No - New Patient This patient is new to me today: No - Critical Care Critical Care patient: Yes Total Critical Care Time (in minutes): 60 Critical Care Statement: The care of this patient involved high complexity decision making to prevent further life threatening deterioration of the patient 's condition and/or to evaluate & treat vital organ system(s) failure or risk of failure.
--- NOTE | 2017-02-23 09:04 | PN ---
Progress Note, Physician Chief Complaint: seizures, altered mental status History of Present Illness: Ms Dailey is a 51 y/o woman, resident on [facility] with hx of Schizophrenia, HTN , AFib, CHF, s/p AICD/biV pacer, Hypothroidism and GERD who presented to ED yesterday with LE swelling and pain c/f DVT. In ED pt was awake but poorly responsive, only C/o pain everywhere. Was noted to have cool bilateral LE with very weak peripheral pulses, edema and poor cap refill-->CTA runoff showing multiple occlusive areas in b/l LE arteries. Vascular was consulted and there was tentative plan for surgery today. CT head was performed due to AMS which was without acute pathology. Labs were notable for new elevated Tbili and alk phos, low therapeutic VPA level, no WBC, normal h/H, and slightly elevate INR 1.3. She was admitted to floor. Over night RADIATION OFFICER was called when pt found having tonic-clonic sz. Was given Ativan 2mg with resolution, repeat head CT was again without apparent infarct or bleed (read pending). She was brought to ICU where she cont to have repeated sz, without regaining mental status c/w status epilepticus. She was not protecting her airway or having effective ventilation ( 7.2/60) and so was intubated. EEG was ordered. Neuro and cards were consulted. Abd US was ordered for elevated bilis. Pt. was given another total of 4 mgs of Ativan but without effect, she was than placed on Midazolam drip now at 5mg/ hour. She is being loaded with Keppra 1000mg now and bering given Depakote thru her NGT. Also given Midazolam ivpx2. Pt. is unable to relate hx. Its not clear whether she has a hx. of seizures in the past as per ICU staff. Initially she was assumed to have epilepsy based on her outpatient medications, but her daughter is not aware of a seizure history. Since admission she hsa been given Vimpat and this was stopped when she developed an arrhythmia. On IV valproate, with increasing doses she is calmer, but still not alert. Phenobarbital dose limited by hypotension. No longer appears to be having seizures but she has been unresponsive. - Current Medication List Current Medications: Active Medications Acetaminophen (Ofirmev Injection -) 1,000 mg IVPB Q6H PRN PRN Reason: FEVER OR PAIN Last Admin: 02/23/17 02:15 Dose: 1,000 mg Artificial Tears (Artificial Tears Ointment -) 1 applic OU HS ANNA Last Admin: 02/22/17 21:52 Dose: 1 applic Betamethasone Valerate (Valisone 0.1% Cream -) 1 applic TP DAILY ANNA Last Admin: 02/22/17 11:20 Dose: 1 applic Chlorhexidine Gluconate (Hibiclens For Decolonization -) 1 applic TP HS ANNA Last Admin: 02/22/17 21:51 Dose: 1 applic Chlorhexidine Gluconate (Peridex -) 15 ml MM BID ANNA Last Admin: 02/22/17 21:52 Dose: 15 ml Pantoprazole Sodium (Protonix 40mg Ivpb (Pre-Docked)) 100 mls @ 200 mls/hr IVPB DAILY ANNA Last Admin: 02/22/17 09:43 Dose: 200 mls/hr Vasopressin 50 units/ Sodium (Chloride) 100 mls @ 4.8 mls/hr IVPB ASDIR ANNA PRN Reason: 2.4 UNITS/HR Last Admin: 02/22/17 14:39 Dose: 12 mls/hr Piperacillin Sod/Tazobactam Sod (Zosyn 3.375gm Ivpb (Pre-Docked)) 50 mls @ 100 mls/hr IVPB Q8H-IV ANNA PRN Reason: Protocol Last Admin: 02/23/17 02:55 Dose: 100 mls/hr Norepinephrine Bitartrate 8, (000 mcg/ Sodium Chloride) 500 mls @ 18.75 mls/hr IV TITR ANNA; 5 MCG/MIN PRN Reason: Protocol Last Admin: 02/22/17 19:22 Dose: 112.5 mls/hr Caspofungin 50 mg/ Sodium (Chloride) 250 mls @ 250 mls/hr IVPB DAILY ANNA Lactic Acid (Lac-Hydrin 12) 1 applic TP DAILY PRN PRN Reason: WOUND CARE Last Admin: 02/20/17 10:29 Dose: 1 applic Levetiracetam (Keppra Injection -) 1,500 mg IVPB BID ANNA Last Admin: 02/22/17 21:51 Dose: 1,500 mg Levothyroxine Sodium (Synthroid Injection -) 75 mcg IVPUSH AM [facility] Last Admin: 02/23/17 07:01 Dose: Not Given Nystatin (Mycostatin Ointment -) 1 applic TP BID [facility] Last Admin: 02/22/17 21:52 Dose: 1 applic Phenobarbital (Phenobarbital Injection -) 100 mg IV BID [facility] Last Admin: 02/22/17 21:51 Dose: 100 mg Valproate Sodium (Depacon Injection -) 500 mg IVPB Q8H [facility] Last Admin: 02/23/17 06:26 Dose: 500 mg - Objective Vital Signs: Vital Signs Temperature 101.1 F H 02/23/17 07:00 Pulse Rate 101 H 02/23/17 08:00 Respiratory Rate 24 02/23/17 08:00 Blood Pressure 90/73 02/23/17 08:00 O2 Sat by Pulse Oximetry (%) 100 02/22/17 20:07 Neurological: Yes: Other (Intubated, unresponsive to verbal/tactile stimuli. Pupils round, equally reactive to light, + doll's eyes. No movement of limbs witnessed today.) Labs: INR, PTT INR 4.01 (0.82-1.09) H* D 02/22/17 05:30 Fibrinogen 151.0 mg/dL (238-498) L 02/23/17 05:00 Problem List - Problems (1) Seizure Assessment/Plan: 51 y/o woman with significant PMH of biventricular cardiomyopathy, ICD, HTN, A.Fib, Schizophrenia, hypothroidism, GERD who presented to the hospital due to diminished pulses in LE, s/p fall and confusion. Hospital course has been complicated by status epilepticus that required intubation and admission to ICU.being treated for cardiac shock, elevated LFTS-- ? XR induced vs shock liver vs DIC seizure: cont Levitarecetam to 2000mg bid, Phenobabrb 100BID and depakote 500TID , sedation turned off unable to taper RX given frequent seizure keppra max dose, phenobarb limited by low BP vimpat caused arrhythmia unable to get HD CT bc of BP instability grim prognosis given persistent encephalopathic state and vitals instability, maxed out pressors. Code(s): R56.9 - UNSPECIFIED CONVULSIONS
[2017-02-23] MEDS ORDERED: NOREPINEPHRINE BITARTRATE 4 MG/4 ML ML IV ONE (09:07)
[2017-02-23 09:12] LABS: ALK PHOS 72 U/L (45-117); ANION GAP 17 (8-16); BILIRUBIN,DIRECT 1.9 mg/dL (0.0-0.2); BILIRUBIN,TOTAL 2.2 mg/dL (0.2-1.0); CALCIUM 7.5 mg/dL (8.5-10.1); CO2 20 mmol/L (21-32); CREATININE 2.4 mg/dL (0.55-1.02); GLUCOSE,RANDOM 85 mg/dL (74-106); SGPT/ALT 237 U/L (12-78); TOT PROT 5.1 g/dl (6.4-8.2)
[2017-02-23 09:16] LABS: SGOT/AST 987 U/L (15-37)
[2017-02-23] MEDS: levETIRAcetam 500 MG/5 ML INJECTION VIAL IVPB SCH ×2 (09:52→22:19)
[2017-02-23] MEDS: CHLORHEXIDINE GLUCONATE 0.12% 15ML CUP MM SCH ×2 (09:53→22:23)
[2017-02-23] MEDS: PANTOPRAZOLE SODIUM 100 ML IVPB SCH (09:53)
[2017-02-23] MEDS: BETAMETHASONE VALERATE 0.1% CREAM 15 GM TUBE TP SCH (09:53)
[2017-02-23] MEDS: NYSTATIN 100000 UNIT/GM TOPICAL OINTMENT 15 GM TUBE TP SCH ×2 (09:54→22:23)
[2017-02-23] MEDS: VASOPRESSIN 50 UNITS in SODIUM CHLORIDE 97.5 ML IVPB SCH (09:54)
[2017-02-23] MEDS: NOREPINEPHRINE BITARTRATE 8,000 MCG in SODIUM CHLORIDE 492 ML IV SCH (09:54)
[2017-02-23] MEDS: PHENobarbital SODIUM 130 MG/1 ML VIAL IV SCH ×2 (09:55→22:23)
[2017-02-23] MEDS ORDERED: PT OWN MED DRAWER 7, Y5N ONE (10:02)
[2017-02-23] MEDS: CASPOFUNGIN ACETATE 50 MG in SODIUM CHLORIDE 250 ML IVPB SCH (10:02)
--- NOTE | 2017-02-23 10:04 | PN ---
Progress Note (short form) - Note Progress Note: persistent fevers pressors anitconvulsants unresponsive/intubated ventilator fio2 40% Vital Signs Period Temp Pulse Resp BP Sys/Centeno Pulse Ox Last 24 Hr 99.9 F-103.7 F 72-108 14-29 71-93/29-80 94-100 cor-rrr lungs decreased bs at bases abd soft,nt ext +edema ischemic toes +anasarca right IJ CVP baez CBC, BMP 02/23/17 05:00 cbc pending Microbiology 02/18/17 13:40 Blood - Peripheral Venous Blood Culture - Preliminary NO GROWTH OBTAINED AFTER 96 HOURS, INCUBATION TO CONTINUE FOR 1 DAYS. 02/18/17 13:35 Blood - Peripheral Venous Blood Culture - Preliminary NO GROWTH OBTAINED AFTER 96 HOURS, INCUBATION TO CONTINUE FOR 1 DAYS. 02/20/17 10:48 Blood - Peripheral Venous Blood Culture - Preliminary NO GROWTH OBTAINED AFTER 48 HOURS, INCUBATION TO CONTINUE FOR 3 DAYS. 02/20/17 11:08 Blood - Peripheral Venous Blood Culture - Preliminary NO GROWTH OBTAINED AFTER 48 HOURS, INCUBATION TO CONTINUE FOR 3 DAYS. 02/18/17 16:00 Urine - Urine Baez Urine Culture - Final Yeast Like Organism 02/15/17 16:15 Sputum - Endotrachea Suction/Ventilator Gram Stain - Final 02/15/17 16:15 Sputum - Endotrachea Suction/Ventilator Sputum Culture - Final Morganella Morganii 02/10/17 16:47 Blood - Peripheral Venous Blood Culture - Final NO GROWTH AFTER 5 DAYS INCUBATION 02/10/17 16:47 Blood - Peripheral Venous Blood Culture - Final NO GROWTH AFTER 5 DAYS INCUBATION 02/11/17 04:00 Blood - Peripheral Venous Blood Culture - Final NO GROWTH AFTER 5 DAYS INCUBATION 02/11/17 04:00 Blood - Peripheral Venous Blood Culture - Final NO GROWTH AFTER 5 DAYS INCUBATION 02/11/17 12:25 Urine - Urine Baez Urine Culture - Final NO GROWTH OBTAINED a/p doing poorly status epilepticus unresponsive hypotensive with fever continue zosyn/cancidas f/u labs ?central fever
--- NOTE | 2017-02-23 11:29 | PN ---
Progress Note (short form) - Note Progress Note: Chief Complaint: chf History of Present Illness: remains unresponsive off sedation. intubated. family at bedside. still with poor uop. + Fever. remains on pressors. Current Medications Acetaminophen (Ofirmev Injection -) 1,000 mg IVPB Q6H PRN PRN Reason: FEVER OR PAIN Last Admin: 02/23/17 02:15 Dose: 1,000 mg Artificial Tears (Artificial Tears Ointment -) 1 applic OU HS ANNA Last Admin: 02/22/17 21:52 Dose: 1 applic Betamethasone Valerate (Valisone 0.1% Cream -) 1 applic TP DAILY ANNA Last Admin: 02/23/17 09:53 Dose: 1 applic Chlorhexidine Gluconate (Hibiclens For Decolonization -) 1 applic TP HS ANNA Last Admin: 02/22/17 21:51 Dose: 1 applic Chlorhexidine Gluconate (Peridex -) 15 ml MM BID ANNA Last Admin: 02/23/17 09:53 Dose: 15 ml Pantoprazole Sodium (Protonix 40mg Ivpb (Pre-Docked)) 100 mls @ 200 mls/hr IVPB DAILY ANNA Last Admin: 02/23/17 09:53 Dose: 200 mls/hr Vasopressin 50 units/ Sodium (Chloride) 100 mls @ 4.8 mls/hr IVPB ASDIR ANNA PRN Reason: 2.4 UNITS/HR Last Admin: 02/23/17 09:54 Dose: 4.8 mls/hr Piperacillin Sod/Tazobactam Sod (Zosyn 3.375gm Ivpb (Pre-Docked)) 50 mls @ 100 mls/hr IVPB Q8H-IV ANNA PRN Reason: Protocol Last Admin: 02/23/17 09:53 Dose: 100 mls/hr Norepinephrine Bitartrate 8, (000 mcg/ Sodium Chloride) 500 mls @ 18.75 mls/hr IV TITR ANNA; 5 MCG/MIN PRN Reason: Protocol Last Admin: 02/23/17 09:54 Dose: 112.5 mls/hr Caspofungin 50 mg/ Sodium (Chloride) 250 mls @ 250 mls/hr IVPB DAILY ANNA Last Admin: 02/23/17 10:02 Dose: 250 mls/hr Lactic Acid (Lac-Hydrin 12) 1 applic TP DAILY PRN PRN Reason: WOUND CARE Last Admin: 02/20/17 10:29 Dose: 1 applic Levetiracetam (Keppra Injection -) 1,500 mg IVPB BID [facility] Last Admin: 02/23/17 09:52 Dose: 1,500 mg Levothyroxine Sodium (Synthroid Injection -) 75 mcg IVPUSH AM [facility] Last Admin: 02/23/17 07:01 Dose: Not Given Nystatin (Mycostatin Ointment -) 1 applic TP BID [facility] Last Admin: 02/23/17 09:54 Dose: 1 applic Phenobarbital (Phenobarbital Injection -) 100 mg IV BID [facility] Last Admin: 02/23/17 09:55 Dose: 100 mg Valproate Sodium (Depacon Injection -) 500 mg IVPB Q8H [facility] Last Admin: 02/23/17 06:26 Dose: 500 mg Vital Signs - 24 hr 02/22/17 02/22/17 02/22/17 12:00 13:00 14:00 Temperature 101.8 F H 102.5 F H Pulse Rate 98 H 99 H 100 H Respiratory 16 22 24 Rate Blood Pressure 82/71 84/70 72/59 O2 Sat by Pulse Oximetry (%) 02/22/17 02/22/17 02/22/17 14:14 14:39 14:42 Temperature Pulse Rate 96 H 96 H Respiratory 24 Rate Blood Pressure 72/59 72/59 O2 Sat by Pulse Oximetry (%) 02/22/17 02/22/17 02/22/17 15:00 16:00 16:55 Temperature 100.6 F H Pulse Rate 93 H 72 Respiratory 24 28 H 29 H Rate Blood Pressure 76/54 86/58 O2 Sat by Pulse Oximetry (%) 02/22/17 02/22/17 02/22/17 17:00 18:00 19:19 Temperature 103.7 F H Pulse Rate 89 78 Respiratory 28 H 26 H 24 Rate Blood Pressure 71/58 93/78 O2 Sat by Pulse Oximetry (%) 02/22/17 02/22/17 02/22/17 19:22 20:00 20:07 Temperature 100.3 F H Pulse Rate 80 100 H Respiratory 16 24 Rate Blood Pressure 81/68 77/63 O2 Sat by Pulse 94 L Oximetry (%) 02/22/17 02/22/17 02/22/17 21:12 22:00 23:00 Temperature 99.9 F H Pulse Rate 101 H 101 H Respiratory 25 H 22 24 Rate Blood Pressure 80/69 76/64 O2 Sat by Pulse Oximetry (%) 02/23/17 02/23/17 02/23/17 00:00 00:06 01:00 Temperature Pulse Rate 95 H 104 H Respiratory 26 H 20 24 Rate Blood Pressure 80/62 83/70 O2 Sat by Pulse Oximetry (%) 02/23/17 02/23/17 02/23/17 02:00 02:52 03:00 Temperature 101.4 F H 100.4 F H Pulse Rate 105 H 106 H Respiratory 26 H 22 24 Rate Blood Pressure 82/74 82/68 O2 Sat by Pulse Oximetry (%) 02/23/17 02/23/17 02/23/17 04:00 05:01 06:00 Temperature Pulse Rate 108 H 106 H Respiratory 24 24 24 Rate Blood Pressure 79/66 91/73 O2 Sat by Pulse Oximetry (%) 02/23/17 02/23/17 02/23/17 07:00 07:10 08:00 Temperature 101.1 F H Pulse Rate 107 H 101 H Respiratory 24 24 24 Rate Blood Pressure 91/75 90/73 O2 Sat by Pulse Oximetry (%) 02/23/17 02/23/17 02/23/17 09:54 10:00 10:12 Temperature 100.5 F H Pulse Rate 108 H 108 H 105 H Respiratory 24 22 Rate Blood Pressure 91/80 85/72 O2 Sat by Pulse 93 L Oximetry (%) Intake & Output 02/21/17 02/22/17 02/23/17 02/24/17 07:59 07:59 07:59 07:59 Intake Total 6123.0 4018 4100 Output Total 1400 950 850 Balance 4723.0 3068 3250 Weight 218 lb 11.2 oz 228 lb 229 lb 8 oz Constitutional: Yes: No distress, unresponsive off sedation. Cardiovascular: Yes: Regular Rate and Rhythm, Gallop (? S3), S1, S2. No: JVD ( very tds exam), Murmur Respiratory: Yes: mechanical breath sounds. intubated on vent Extremities: No: Cool, + mottling. Edema: Yes anasarca Neurological: intubated Psychiatric: No: Agitated no jaundice diaphoresis abd pos bs, edematous Labs: CBC, BMP 02/23/17 05:00 Laboratory Tests 02/17/17 02/22/17 02/23/17 11:25 05:30 05:00 INR 4.01 H* D Fibrinogen 151.0 L Total Bilirubin Direct Bilirubin AST ALT Alkaline Phosphatase Albumin Hep-Induced Plt Ab Rapid 0.478 H 02/23/17 05:00 INR Fibrinogen Total Bilirubin 2.2 H Direct Bilirubin 1.9 H D AST 987 H ALT 237 H Alkaline Phosphatase 72 Albumin 2.0 L Hep-Induced Plt Ab Rapid Laboratory Tests 02/23/17 05:00 Plt Count 51 L D tele: sr, as-vpaced [facility] 10/2016 --> nl cors (verbal report from dr sanchez) Echo 01/2017: Severe lv dilation, sev reduced LV fn (global). mod rv dilation. mod RV dysfunction. RV pacing wire. 2.8 x 1.2 cm density in apex of RV (per discussion with Dr. Sanchez, bright echodensity at the tip of pacing wire was present on prior office echo). mod tr. rvsp 30-40. trivial pericardial effusion. + pleural effusion. CTA: pulmonary congestion, small left pleural effusion. large volume ascites. extensive subcutaneous edema/anasarca. CTA --> + arterial flow to LE. initial CT head: no acute pathology est cct 36 mins a/p: 51 y/o woman, resident on [facility] with hx of biventricular cardiomyopathy s/ p bivICD, htn, afib (per report only), Schizophrenia, seizure disorder, Hypothroidism and GERD who presented to ED with LE swelling, coolness to touch and diminshed pulses as well as lethargy. Hospital course has been complicated by seizure/status epilepticus requiring intubation for airway protection and sedation. acute on chronic syst CHF, nonischemic biventricular cardiomyopathy s/p bivICD, cardiogenic shock, septic shock - holding bb and acei due to hypotension. - CE's were negative on admit and according to her stopper maker recent [facility] showed normal cors - 02/12 BNP 2700, patient p/w with lethargy, LE edema, cool skin, poor distal pulses, pulmonary edema, large volume ascites and anasarca noted on ct scan, -- > concerning for decompensated biventricular heart failure. cvp 13 --> Started trial of IV lasix for diuresis 02/12, milrinone deferred at that time ( pt was on levophed). - 02/13: overnight propofol stopped due to increasing ectopy and concern for qt prolongation --> improvement in ectopy. patient's remained net positive, lasix was increased to 80 mg IV bid. Late evening cvp remained elevated at 15 and patient still not net negative. Drips were double concentrated. vasopressin added for recurrent hypotension (to 70s). - 02/14: levophed weaned off today. Patient finally net negative this am. BP still running low. CVP remains elevated at 13 --> started milrinone for decompensated heart failure. Patient still may have superimposed vasodilating pathology, con't pressor support for now. Con't lasix 80 mg IV bid with aggressive electrolyte repletion (congestion improving on cxr, lfts improving, cr stable). double concentrate drips when possible. - 02/15: CXR improved vs 02/13, L lung not well seen due to ICD and marked cardiomegaly obscuring L base. BP down to 70s again early am today, remains on high dose pressors (vasopressin 2.4 units/hour, levo 9 mcg). CVP has improved to 10 (from 17 initially) with diuresis plus milrinone (0.3 mcg/kg/min). vigorous UOP yesterday (8L). - 02/16: Concern for episode of VF/VT on telemetry-->ICD interrogated: No VT/VF events. Was informed that biV pacing programmed to stop at HR's above 130 which explains change in rhythm. Although 130's is still below lower detection limit for VT so cannot exclude intermittent slow VT. Milrinone drip stopped. Sent SvO2 to clarify hemodynamics, cardiogenic vs. vasodilatory. SVO2 80% per report so OK to leave off milrinone. Still getting augmentation of contractility from levophed. Remains net positive today, CVP 14 per report, but SVO2 is not low and overall edema improving --> will not uptitrate diuretics. -02/17: cont current iv lasix and pressor support - 02/18: concerned patient is continuing to be net positive. CVP elevated > 20. Now with MARK and minimal urine output now poor. If she continues to remain net positive her heart failure will continue to worsen. Had 100 cc uop to 100 mg IV lasix this afternoon (increase from what she has put out today per nursing). Will uptitrate lasix regimen to 100 mg tid. Will add back milrinone to see if it improves hypotension/cardiac output (add back at lower dose for now). ICD interrogation was negative for ventricular arrhythmia. Reassess tomorrow whether these interventions improve her clinical status. Discussed plan of care with family. Palliative care in room with family -02/19: still with vol overload, net positive, wt up. Will continue current pressors, milrinone. Fever reported so possibly becoming septic. If bp continues to drop would stop milrinone and hold lasix temporarily. -02/20: despite milrinone and lasix pt remains with poor urine outpt and low bp. Now also has been persistently febrile so seems more of a septic shock picture now. Thus will dc lasix and milrinone for now which may allow bp to rise. If bp remains low on vaso and levo can add dobutamine next. -02/21-5: Pt remains with shock, multiorgan failure. Cont bp support with pressors, abx. Cont to hold lasix/milrinone as bp too low and wasn't improving her status regardless. anasarca from low albumin/3rd spacing in addition to being persistently net positive. Overall very poor prognosis. High risk of mortality. wide complex tachycardia: - suspect tele represents sinus tach, initially with Bi-V pacing, then with loss of Bi-V pacing and pt conduction with [place] bundle branch block QRS (note 02/10 ekg shows Bi-V pacing with a fusion beat btw paced and conducted beats, showing a wide QRS with [place] conduction) - doubt sustained VT on tele - has ICD protection - CHF optimization and med regimen as doing - per dr sanchez, ICD was recently interrogated 10/2016 with no remarkable findings then. - 02/12 with increasing ectopy throughout the day leading to sustained ventricular bigeminy with very broad abnormal t wave (no nsvt). concern for qt prolongation --> propofol weaned overnight with resolution of arrhythmia. - electrolyte repletion to usual targets - 02/16: ICD interrogated: No VT/VF events. Was informed that biV pacing programmed to stop at HR's above 130 which explains intermittent changes in rhythm on telemetry. RV echo density noted on echo - Echo here shows density in RV apex (couldn't exclude veg or thrombus). blood cultures here have remained negative. Discussed with Dr. Sanchez and patient had similarly described density on prior echo at his office, likely artifact from RV lead. seizure disorder/status epilepticus - ongoing management per neuro/icu. Remains intubated and unresponsiveness. - initial head ct x 2, no acute pathology. repeat today. afib - diagnosis documented on senior care chart, but patient not on AC and in SR here (? accuracy of diagnosis)--will defer to Dr. Sanchez who is her treating outpatient stopper maker. For now, since no evidence of afib/flutter on tele, and patient with thrombocytopenia, will not start AC. 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 elevated lfts: -likely shock liver, cont bp support mark: -likely from shock, cr worsening again. cont bp support, abx
[2017-02-23 13:15] LABS: MCH 28.6 pg (25.7-33.7); MCHC 31.9 g/dl (32.0-36.0); MEAN CELL VOLUME 89.9 fl (80-96); MEAN PLT VOLUME 11.9 fl (7.5-11.1)
[2017-02-23 13:17] LABS: WHITE BLOOD COUNT 7.5 K/mm3 (4.0-10.0)
--- NOTE | 2017-02-23 13:27 | PN ---
Teaching Attending Note Name of Resident: Bala Herndon ATTENDING PHYSICIAN STATEMENT I saw and evaluated the patient. I reviewed the resident's note and discussed the case with the resident. I agree with the resident's findings and plan as documented. SUBJECTIVE: intubated OBJECTIVE: Last Vital Signs Temp Pulse Resp BP Pulse Ox 100.5 F H 105 H 22 85/72 93 L 02/23/17 10:00 02/23/17 10:12 02/23/17 10:12 02/23/17 10:00 02/23/17 10:12 Intake & Output 02/20/17 02/21/17 02/22/17 02/23/17 23:59 23:59 23:59 23:59 Intake Total 6590.6 5023.4 3800 1950 Output Total 1550 1150 800 300 Balance 5040.6 3873.4 3000 1650 Weight 204 lb 8 oz 218 lb 11.2 oz 228 lb 229 lb 8 oz General intubated, pupils fixed and pinpoint. +corneal reflex, + gag reflex CV S1 S2 tachy Lungs coarse breath sounds anteriorly Abdomen +distended firm Extremities 4+ pitting edema all extremities ASSESSMENT AND PLAN: 51yo F with PMH schizphrenia, hypothyroid, dilated cardiomyopathy s/p AICD, HTN and afib presented to the ER with B/L LE pain and concern for acute arterial ischemia. SISAL OPERATOR called for status epilepticus where pt was intubated for airway protection 1. Shock with multiorgan failure- cont to require 2 pressure support. Tm 103.7 on empiric zosyn/caspofungin. now off milrinone ggt. +anasarca, worsening Cr and LFT now slowly trending down. head CT was obtained this AM. will f/u. f/u cx. 2. Status epileptics-no seizure like activity reported. off sedation with no signs of mental status improvement. CT head done this AM. EEG showing diffuse encephalopathy. unable to obtain MRI due to AICD not compatible. cont antieleptic meds per neuro. off vimpat due to arrythmia. 3. acute respiratory failure- intubated for protection of airway. cont full vent support. management per ICU 4. Ventricular bigeminy- possible induced from vimpat vs propofol. on levo. AICD interrogated with no VT/VF activity. avoid QT prolonging medications. cardio on board. 5. Thrombocytopenia- likely due to liver failure vs sepsis. early DIC? hold anticoagulation. no signs of active bleeding monitor 6. Elevated TSH-likley not compliant with medications. TSH improved with initiation of LT4. will repeat TSH. 7. Cardiac thrombus- seen on AICD wire in RV. report from personal security specialist pt had same finding on last echo. low suspicion for infectious. no signs of embolic disease. will monitor for now. consider KAN if necessary 8. DNR. poor overall prognosis. MICU monitoring The care of this patient involved high complexity decision making to prevent further life threatening deterioration of the patient's condition and/or to evaluate & treat vital organ system(s) failure or risk of failure. 48 minutes critical care time
--- NOTE | 2017-02-23 13:33 | PN ---
Teaching Attending Note Name of Resident: Donal Lal ATTENDING PHYSICIAN STATEMENT I saw and evaluated the patient. I reviewed the resident's note and discussed the case with the resident. I agree with the resident's findings and plan as documented. SUBJECTIVE: Patient seen and examined in the ICU. Remains intubated, minimally responsive off sedation which was stopped on the 3rd. Remains on 30 mcq levophed and 6 units vasopressin drips. Parents at the bedside. Suspected myoclonic movements noted. OBJECTIVE: Intake & Output 02/20/17 02/21/17 02/22/17 02/23/17 23:59 23:59 23:59 23:59 Intake Total 6590.6 5023.4 3800 1950 Output Total 1550 1150 800 300 Balance 5040.6 3873.4 3000 1650 Weight 204 lb 8 oz 218 lb 11.2 oz 228 lb 229 lb 8 oz Last Vital Signs Temp Pulse Resp BP Pulse Ox 100.5 F H 105 H 14 85/72 93 L 02/23/17 10:00 02/23/17 10:12 02/23/17 12:45 02/23/17 10:00 02/23/17 10:12 Active Medications Acetaminophen (Ofirmev Injection -) 1,000 mg IVPB Q6H PRN PRN Reason: FEVER OR PAIN Last Admin: 02/23/17 02:15 Dose: 1,000 mg Artificial Tears (Artificial Tears Ointment -) 1 applic OU HS ANNA Last Admin: 02/22/17 21:52 Dose: 1 applic Betamethasone Valerate (Valisone 0.1% Cream -) 1 applic TP DAILY ANNA Last Admin: 02/23/17 09:53 Dose: 1 applic Chlorhexidine Gluconate (Hibiclens For Decolonization -) 1 applic TP HS ANNA Last Admin: 02/22/17 21:51 Dose: 1 applic Chlorhexidine Gluconate (Peridex -) 15 ml MM BID ANNA Last Admin: 02/23/17 09:53 Dose: 15 ml Pantoprazole Sodium (Protonix 40mg Ivpb (Pre-Docked)) 100 mls @ 200 mls/hr IVPB DAILY ANNA Last Admin: 02/23/17 09:53 Dose: 200 mls/hr Vasopressin 50 units/ Sodium (Chloride) 100 mls @ 4.8 mls/hr IVPB ASDIR ANNA PRN Reason: 2.4 UNITS/HR Last Admin: 02/23/17 09:54 Dose: 4.8 mls/hr Piperacillin Sod/Tazobactam Sod (Zosyn 3.375gm Ivpb (Pre-Docked)) 50 mls @ 100 mls/hr IVPB Q8H-IV ANNA PRN Reason: Protocol Last Admin: 02/23/17 09:53 Dose: 100 mls/hr Norepinephrine Bitartrate 8, (000 mcg/ Sodium Chloride) 500 mls @ 18.75 mls/hr IV TITR ANNA; 5 MCG/MIN PRN Reason: Protocol Last Admin: 02/23/17 09:54 Dose: 112.5 mls/hr Caspofungin 50 mg/ Sodium (Chloride) 250 mls @ 250 mls/hr IVPB DAILY REPLACED BY [facility] Last Admin: 02/23/17 10:02 Dose: 250 mls/hr Lactic Acid (Lac-Hydrin 12) 1 applic TP DAILY PRN PRN Reason: WOUND CARE Last Admin: 02/20/17 10:29 Dose: 1 applic Levetiracetam (Keppra Injection -) 1,500 mg IVPB BID [facility] Last Admin: 02/23/17 09:52 Dose: 1,500 mg Levothyroxine Sodium (Synthroid Injection -) 75 mcg IVPUSH AM [facility]PL[facility] Last Admin: 02/23/17 07:01 Dose: Not Given Nystatin (Mycostatin Ointment -) 1 applic TP BID [facility] Last Admin: 02/23/17 09:54 Dose: 1 applic Phenobarbital (Phenobarbital Injection -) 100 mg IV BID [facility] Last Admin: 02/23/17 09:55 Dose: 100 mg Valproate Sodium (Depacon Injection -) 500 mg IVPB Q8H REPLACED BY [facility] Last Admin: 02/23/17 06:26 Dose: 500 mg Gen: intubated, Minimally responsive Heart: tachycardic, regular Lung: decreased breath sounds at the bases Abd: distended Ext: cyanotic right great toe, peripheral mottling, anasarca Laboratory Results - last 24 hr 02/23/17 02/23/17 02/23/17 05:00 05:00 05:00 WBC 7.5 D RBC 4.52 Hgb 13.0 Hct 40.7 MCV 89.9 MCH 28.6 MCHC 31.9 L RDW 20.0 H MPV 11.9 H Fibrinogen 151.0 L Sodium 126 L Potassium 5.7 H Chloride 89 L Carbon Dioxide 20 L Anion Gap 17 H BUN 79 H Creatinine 2.4 H Creat Clearance w eGFR 21.37 Random Glucose 85 Calcium 7.5 L Total Bilirubin 2.2 H Direct Bilirubin 1.9 H D AST 987 H ALT 237 H Alkaline Phosphatase 72 Total Protein 5.1 L Albumin 2.0 L ASSESSMENT AND PLAN: Status Epileptics Acute Respiratory Failure Acute on Chronic Systolic Heart Failure Cardiogenic vs Septic Shock Lactic Acidosis resolved s/p ICD Elevated LFTs Hypothyroidism Thrombocytopenia Hyponatremia - Long discussion with parents. Explained grave prognosis. Ideally should have compassionate extubation with comfort care. Family wants all efforts. - antibiotics per ID - AEDs per Neuro - titrate levophed, vasopressin gtt to maintain MAP >65 - Continue to hold sedation to assess mental status as no seizure activity noted - repeat CT head due to coagulopathy - Reverse INR - Enteral feeds as tolerated - DVT/GI prophylaxis - Grave overall prognosis Dr Fisher Critical care time spent in reviewing chart, evaluating patient and formulating plan 45 min
[2017-02-23 13:53] LABS: PLATELET COUNT 51 K/MM3 (134-434)
[2017-02-23 13:54] LABS: TOTAL CELLS COUNTED 100
[2017-02-23 13:55] LABS: METAMYELOCYTE 1 % (0-2); NUCLEATED RED BLOOD CELL 41 % (0-0); PLATELET ESTIMATE DECREASED (NORMAL)
[2017-02-23] MEDS ORDERED: PHENYLEPHRINE HCL 10,000 MCG in DEXTROSE 5%-WATER - 499 ML IV SCH ×2 (16:45→16:49)
[2017-02-23] MEDS ORDERED: PHENYLEPHRINE HCL 10 MG/1 ML SINGLE DOSE VIAL ONE ×2 (16:55→20:25)
[2017-02-23] MEDS: PHENYLEPHRINE HCL 20,000 MCG in SODIUM CHLORIDE 248 ML IVPB SCH (17:15)
--- NOTE | 2017-02-23 21:30 | PN ---
Physical Exam: SUBJECTIVE: Patient seen and examined at bedside. no change in clinical status. Patient for possible Head CT and repeat EEG today. OBJECTIVE: Vital Signs Period Temp Pulse Resp BP Sys/Centeno Pulse Ox Last 24 Hr 99.9 F-102.8 F 95-109 14-26 74-91/40-80 93-96 GENERAL: The patient is intubated and sedated. HEAD: Normal with no signs of trauma. EYES:extraocular movements intact, sclera anicteric, conjunctiva clear. No ptosis. NECK: Trachea midline, full range of motion, supple. LUNGS: Breath sounds equal, clear to auscultation bilaterally, no wheezes, no crackles, no accessory muscle use. HEART: Regular rate and rhythm, S1, S2 without murmur, rub or gallop. ABDOMEN: Soft, no grimacing on palpation, nondistended, normoactive bowel sounds , no guarding, no rebound. EXTREMITIES: 2+ pulses, warm, well-perfused, no edema. NEUROLOGICAL: unable to assess due to patient's clinical status SKIN: cold extremities with anasarca. rash of lower extremities unchanged since admission. Laboratory Results - last 24 hr 02/23/17 02/23/17 02/23/17 05:00 05:00 05:00 WBC 7.5 D Corrected WBC (auto) 5.32 RBC 4.52 Hgb 13.0 Hct 40.7 MCV 89.9 MCH 28.6 MCHC 31.9 L RDW 20.0 H Plt Count 51 L D MPV 11.9 H Total Counted 100 Neutrophils % (Manual) 88 H D Lymphocytes % (Manual) 7 L D Monocytes % (Manual) 4 Nucleated RBC % 41 H* D Platelet Estimate Decreased Fibrinogen 151.0 L Sodium 126 L Potassium 5.7 H Chloride 89 L Carbon Dioxide 20 L Anion Gap 17 H BUN 79 H Creatinine 2.4 H Creat Clearance w eGFR 21.37 Random Glucose 85 Calcium 7.5 L Total Bilirubin 2.2 H Direct Bilirubin 1.9 H D AST 987 H ALT 237 H Alkaline Phosphatase 72 Total Protein 5.1 L Albumin 2.0 L Active Medications Generic Name Dose Route Start Last Admin Trade Name Freq PRN Reason Stop Dose Admin Acetaminophen 1,000 mg 02/21/17 17:09 02/23/17 18:45 Ofirmev Injection - IVPB 1,000 mg Q6H PRN Administration FEVER OR PAIN Artificial Tears 1 applic 02/22/17 22:00 02/22/17 21:52 Artificial Tears Ointment - OU 1 applic HS ANNA Administration Betamethasone Valerate 1 applic 02/12/17 10:00 02/23/17 09:53 Valisone 0.1% Cream - TP 1 applic DAILY ANNA Administration Chlorhexidine Gluconate 1 applic 02/11/17 22:00 02/22/17 21:51 Hibiclens For Decolonization - TP 1 applic HS ANNA Administration Chlorhexidine Gluconate 15 ml 02/22/17 22:00 02/23/17 09:53 Peridex - MM 15 ml BID ANNA Administration Pantoprazole Sodium 100 mls @ 200 mls/hr 02/12/17 10:00 02/23/17 09:53 Protonix 40mg Ivpb (Pre-Docked) IVPB 200 mls/hr DAILY ANNA Administration Vasopressin 50 units/ Sodium 100 mls @ 4.8 mls/hr 02/14/17 07:45 02/23/17 09:54 Chloride IVPB 02/23/17 23:59 4.8 mls/hr ASDIR ANNA Administration 2.4 UNITS/HR Piperacillin Sod/Tazobactam Sod 50 mls @ 100 mls/hr 02/18/17 18:00 02/23/17 19: 05 Zosyn 3.375gm Ivpb (Pre-Docked) IVPB 100 mls/hr Q8H-IV ANNA Administration Protocol Norepinephrine Bitartrate 8, 500 mls @ 18.75 mls/hr 02/21/17 10:15 02/23/17 09: 54 000 mcg/ Sodium Chloride IV 112.5 mls/hr TITR ANNA Administration Protocol 5 MCG/MIN Caspofungin 50 mg/ Sodium 250 mls @ 250 mls/hr 02/23/17 10:00 02/23/17 10:02 Chloride IVPB 250 mls/hr DAILY ANNA Administration Phenylephrine HCl 20,000 mcg/ 250 mls @ 75 mls/hr 02/23/17 17:00 02/23/17 17:15 Sodium Chloride IVPB 75 mls/hr ASDIR ANNA Administration Protocol 100 MCG/MIN Lactic Acid 1 applic 02/11/17 13:05 02/20/17 10:29 Lac-Hydrin 12 TP 1 applic DAILY PRN Administration WOUND CARE Levetiracetam 1,500 mg 02/12/17 09:01 02/23/17 09:52 Keppra Injection - IVPB 1,500 mg BID ANNA Administration Levothyroxine Sodium 75 mcg 02/21/17 07:00 02/23/17 07:01 Synthroid Injection - IVPUSH Not Given AM ANNA Nystatin 1 applic 02/11/17 01:00 02/23/17 09:54 Mycostatin Ointment - TP 1 applic BID ANNA Administration Phenobarbital 100 mg 02/15/17 22:00 02/23/17 09:55 Phenobarbital Injection - IV 100 mg BID ANNA Administration Valproate Sodium 500 mg 02/13/17 22:00 02/23/17 13:00 Depacon Injection - IVPB 500 mg Q8H ANNA Administration ASSESSMENT/PLAN: 51yo F with pmhx of 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 Admitted to ICU in status epilepticus #Mutiorgan failure 2/2 cardiogenic shock vs neurogenic shock and Sepsis -abrupt increase in LFTs and creatinine signifying end organ damage. -Patient continues to spike fevers -IV tylenol PRN fever -caspofungin 50mg IVPB daily -zosyn 3.375 grams IV daily -Patient is DNR #Shock 2/2 neurogenic vs cardiogenic etiology -Patient currently on max pressure support -Levophed GTT -Vasopressin GTT transitioned to phenylephrine GTT this PM #New onset seizure disorder, 2/2 to unknown etiology -continue keppra to 1500 mg BID -continue depacone 500 mg bid -continue phenobarbital 100mg IV BID -Versed GTT -The make and model of the patient's pacemaker are not MRI compatible -RPT CT without change, repeat EEG showing metabolic encephalopathy #Acute respiratory failure -Intubated for airway protection -Continue vent support per ICU # Dilated cardiomyopathy -S/P AICD working appropriately; Upon interrogation, it was found that it did not fire. -Echo reveals thrombus in RV. -home toprolol held due to hypotension -Be careful with IVF # Abdominal Distention with transaminitis -continue to monitor # Atopic Dermatitis -Continued home nystatin cream for application on abdominal areas -Ammonium lactate lotion -Betamethasone 0.1% cream # Hypothyroidism -Continued home Synthroid 125mcg PO qDaily FEN: Fluids: no indicaton for fluids at this time Electrolyte abnormalities: hypokalemia Nutrition: NPO ppx: -Heparin 5000 units sq tid -protonix 40 IV daily Dispo: -continue to monitor in ICU. Poor overall prognosis. Problem List - Problems (1) Chronic congestive heart failure Code(s): I50.9 - HEART FAILURE, UNSPECIFIED Qualifiers: Congestive heart failure type: unspecified congestive heart failure type Qualified Code(s): I50.9 - Heart failure, unspecified (2) Hypertension Code(s): I10 - ESSENTIAL (PRIMARY) HYPERTENSION Qualifiers: Hypertension type: essential hypertension Qualified Code(s): I10 - Essential (primary) hypertension (3) Schizophrenia, paranoid, chronic Code(s): F20.0 - PARANOID SCHIZOPHRENIA (4) Seizure Code(s): R56.9 - UNSPECIFIED CONVULSIONS (5) Rash Code(s): R21 - RASH AND OTHER NONSPECIFIC SKIN ERUPTION (6) Peripheral arterial disease Code(s): I73.9 - PERIPHERAL VASCULAR DISEASE, UNSPECIFIED Visit type - Emergency Visit Emergency Visit: Yes ED Registration Date: 02/10/17 Care time: The patient presented to the Emergency Department on the above date and was hospitalized for further evaluation of their emergent condition. - New Patient This patient is new to me today: No - Critical Care Critical Care patient: Yes Total Critical Care Time (in minutes): 35 Critical Care Statement: The care of this patient involved high complexity decision making to prevent further life threatening deterioration of the patient 's condition and/or to evaluate & treat vital organ system(s) failure or risk of failure.
[2017-02-23] MEDS: MINERAL OIL/PETROLATUM,WHITE 3.5 GM TUBE OU SCH (22:18)
[2017-02-23] MEDS: CHLORHEXIDINE GLUCONATE 4% CLEANSER FOR DECOLONIZATION TP SCH (22:20)
[2017-02-24] MEDS: PIPERACILLIN/TAZOB 3.375 GM 50 ML IVPB SCH (03:12)
[2017-02-24] MEDS ORDERED: NOREPINEPHRINE BITARTRATE 4 MG/4 ML ML IV ONE ×3 (03:17→22:56)
[2017-02-24] MEDS ORDERED: PHENYLEPHRINE HCL 10 MG/1 ML SINGLE DOSE VIAL ONE (03:18)
[2017-02-24] MEDS: ACETAMINOPHEN 1000 MG/100 ML VIAL (NON FORMULARY) IVPB PRN (03:44)
[2017-02-24] MEDS: VALPROATE SODIUM 500 MG/5 ML VIAL IVPB SCH ×3 (05:52→21:17)
[2017-02-24 06:16] LABS: BASOPHIL 0.5 % (0-2.0); MCH 29.5 pg (25.7-33.7); MCHC 32.9 g/dl (32.0-36.0); MEAN CELL VOLUME 89.5 fl (80-96); NEUTROPHILS 87.2 % (42.8-82.8); RDW 19.7 % (11.6-15.6); WHITE BLOOD COUNT 5.1 K/mm3 (4.0-10.0)
[2017-02-24] MEDS: LEVOTHYROXINE SODIUM 100 MCG VIAL IVPUSH SCH (06:29)
[2017-02-24 06:40] LABS: ANION GAP 12 (8-16); CALCIUM 7.3 mg/dL (8.5-10.1); CO2 23 mmol/L (21-32); GLUCOSE,RANDOM 85 mg/dL (74-106); MAGNESIUM 2.1 mg/dL (1.8-2.4)
[2017-02-24 06:43] LABS: CREATININE 2.3 mg/dL (0.55-1.02); PHOSPHOROUS 5.2 mg/dL (2.5-4.9)
[2017-02-24 07:36] LABS: PLATELET COUNT 33 K/MM3 (134-434)
--- NOTE | 2017-02-24 08:12 | PN ---
Progress Note, Physician Chief Complaint: ID Despite Pip tazobactam and Caspofungin she remains febrile Aure coverage provided in light of fungus growing multiple sites Intubated - Current Medication List Current Medications: Active Medications Acetaminophen (Ofirmev Injection -) 1,000 mg IVPB Q6H PRN PRN Reason: FEVER OR PAIN Last Admin: 02/24/17 03:44 Dose: 1,000 mg Artificial Tears (Artificial Tears Ointment -) 1 applic OU HS ANNA Last Admin: 02/23/17 22:18 Dose: 1 applic Betamethasone Valerate (Valisone 0.1% Cream -) 1 applic TP DAILY ANNA Last Admin: 02/23/17 09:53 Dose: 1 applic Chlorhexidine Gluconate (Hibiclens For Decolonization -) 1 applic TP HS ANNA Last Admin: 02/23/17 22:20 Dose: 1 applic Chlorhexidine Gluconate (Peridex -) 15 ml MM BID ANNA Last Admin: 02/23/17 22:23 Dose: 15 ml Pantoprazole Sodium (Protonix 40mg Ivpb (Pre-Docked)) 100 mls @ 200 mls/hr IVPB DAILY ANNA Last Admin: 02/23/17 09:53 Dose: 200 mls/hr Piperacillin Sod/Tazobactam Sod (Zosyn 3.375gm Ivpb (Pre-Docked)) 50 mls @ 100 mls/hr IVPB Q8H-IV ANNA PRN Reason: Protocol Last Admin: 02/24/17 03:12 Dose: 100 mls/hr Norepinephrine Bitartrate 8, (000 mcg/ Sodium Chloride) 500 mls @ 18.75 mls/hr IV TITR ANNA; 5 MCG/MIN PRN Reason: Protocol Last Admin: 02/23/17 09:54 Dose: 112.5 mls/hr Caspofungin 50 mg/ Sodium (Chloride) 250 mls @ 250 mls/hr IVPB DAILY ANNA Last Admin: 02/23/17 10:02 Dose: 250 mls/hr Phenylephrine HCl 20,000 mcg/ (Sodium Chloride) 250 mls @ 75 mls/hr IVPB ASDIR ANNA; 100 MCG/MIN PRN Reason: Protocol Last Admin: 02/23/17 17:15 Dose: 75 mls/hr Lactic Acid (Lac-Hydrin 12) 1 applic TP DAILY PRN PRN Reason: WOUND CARE Last Admin: 02/20/17 10:29 Dose: 1 applic Levetiracetam (Keppra Injection -) 1,500 mg IVPB BID [facility] Last Admin: 02/23/17 22:19 Dose: 1,500 mg Levothyroxine Sodium (Synthroid Injection -) 75 mcg IVPUSH AM [facility] Last Admin: 02/24/17 06:29 Dose: 75 mcg Nystatin (Mycostatin Ointment -) 1 applic TP BID [facility] Last Admin: 02/23/17 22:23 Dose: 1 applic Phenobarbital (Phenobarbital Injection -) 100 mg IV BID [facility] Last Admin: 02/23/17 22:23 Dose: 100 mg Valproate Sodium (Depacon Injection -) 500 mg IVPB Q8H [facility] Last Admin: 02/24/17 05:52 Dose: 500 mg - Objective Vital Signs: Vital Signs Temperature 99.5 F 02/24/17 07:00 Pulse Rate 100 H 02/24/17 07:00 Respiratory Rate 19 02/24/17 07:00 Blood Pressure 87/73 02/24/17 07:00 O2 Sat by Pulse Oximetry (%) 93 L 02/23/17 10:12 Constitutional: Yes: Severe Distress, Obese Neck: Yes: Other (Central line) Cardiovascular: Yes: Tachycardia, S1, S2 Respiratory: Yes: WNL, Regular, CTA Bilaterally. No: Rhonchi Gastrointestinal: Yes: Soft, Distention, Hypoactive Bowel Sounds, Other (Cannot rule out tenderness given sedation) Edema: Yes Labs: CBC, BMP 02/24/17 05:15 02/24/17 05:15 INR, PTT INR 4.01 (0.82-1.09) H* D 02/22/17 05:30 Fibrinogen 151.0 mg/dL (238-498) L 02/23/17 05:00 Problem List - Problems (1) Seizure Code(s): R56.9 - UNSPECIFIED CONVULSIONS (2) Sepsis Code(s): A41.9 - SEPSIS, UNSPECIFIED ORGANISM (3) UTI (urinary tract infection) Code(s): N39.0 - URINARY TRACT INFECTION, SITE NOT SPECIFIED Assessment/Plan Laboratory Tests 02/23/17 02/23/17 02/24/17 05:00 05:00 05:15 WBC 5.1 D Hgb 12.2 Hct 37.2 Plt Count 33 L* D Nucleated RBC % 41 H* D BUN Creatinine Creat Clearance w eGFR 21.37 Direct Bilirubin 1.9 H D AST 987 H ALT 237 H Alkaline Phosphatase 72 02/24/17 05:15 WBC Hgb Hct Plt Count Nucleated RBC % BUN 85 H Creatinine 2.3 H Creat Clearance w eGFR Direct Bilirubin AST ALT Alkaline Phosphatase Assessment Multiorgan failure Cardiogenic and septic shock Aure sepsis considered Seizure disorder Plan I am aware of the persistance of fever and would not be surprised if in fact she has an acute intrabdominal source of fever and infection primarily ischemic bowel. Probably to unstable for CT imaging and could not undergo any invasive surgery or manipulation. Await cultures but doubt any diffferent antibiotic regimen going to make the difference given her critical preterminal status Josie PARIKH
[2017-02-24] MEDS: PHENobarbital SODIUM 130 MG/1 ML VIAL IV SCH ×2 (08:59→21:17)
[2017-02-24] MEDS: CHLORHEXIDINE GLUCONATE 0.12% 15ML CUP MM SCH ×2 (08:59→21:17)
[2017-02-24] MEDS: NYSTATIN 100000 UNIT/GM TOPICAL OINTMENT 15 GM TUBE TP SCH ×2 (09:00→21:19)
[2017-02-24] MEDS: levETIRAcetam 500 MG/5 ML INJECTION VIAL IVPB SCH ×2 (09:00→21:18)
[2017-02-24] MEDS: BETAMETHASONE VALERATE 0.1% CREAM 15 GM TUBE TP SCH (09:01)
[2017-02-24] MEDS: PANTOPRAZOLE SODIUM 100 ML IVPB SCH (09:01)
[2017-02-24 10:18] LABS: INR 4.67 (0.82-1.09)
[2017-02-24] MEDS: CASPOFUNGIN ACETATE 50 MG in SODIUM CHLORIDE 250 ML IVPB SCH (11:00)
--- NOTE | 2017-02-24 11:42 | PN ---
Progress Note (short form) - Note Progress Note: Progress Note: Chief Complaint: chf History of Present Illness: remains on pressors, bp still low. still febrile. Current Medications Generic Name Dose Route Start Last Admin Trade Name Sanjuana PRN Reason Stop Dose Admin Acetaminophen 1,000 mg 02/21/17 17:09 02/24/17 03:44 Ofirmev Injection - IVPB 1,000 mg Q6H PRN Administration FEVER OR PAIN Artificial Tears 1 applic 02/22/17 22:00 02/23/17 22:18 Artificial Tears Ointment - OU 1 applic HS ANNA Administration Betamethasone Valerate 1 applic 02/12/17 10:00 02/24/17 09:01 Valisone 0.1% Cream - TP 1 applic DAILY ANNA Administration Chlorhexidine Gluconate 1 applic 02/11/17 22:00 02/23/17 22:20 Hibiclens For Decolonization - TP 1 applic HS ANNA Administration Chlorhexidine Gluconate 15 ml 02/22/17 22:00 02/24/17 08:59 Peridex - MM 15 ml BID ANNA Administration Pantoprazole Sodium 100 mls @ 200 mls/hr 02/12/17 10:00 02/24/17 09:01 Protonix 40mg Ivpb (Pre-Docked) IVPB 200 mls/hr DAILY ANNA Administration Norepinephrine Bitartrate 8, 500 mls @ 18.75 mls/hr 02/21/17 10:15 02/23/17 09: 54 000 mcg/ Sodium Chloride IV 112.5 mls/hr TITR ANNA Administration Protocol 5 MCG/MIN Caspofungin 50 mg/ Sodium 250 mls @ 250 mls/hr 02/23/17 10:00 02/23/17 10:02 Chloride IVPB 250 mls/hr DAILY ANNA Administration Phenylephrine HCl 20,000 mcg/ 250 mls @ 75 mls/hr 02/23/17 17:00 02/23/17 17:15 Sodium Chloride IVPB 75 mls/hr ASDIR ANNA Administration Protocol 100 MCG/MIN Piperacillin Sod/Tazobactam Sod 50 mls @ 100 mls/hr 02/24/17 09:00 Zosyn 2.25gm Ivpb (Pre-Docked) IVPB Q6H-IV ANNA Protocol Lactic Acid 1 applic 02/11/17 13:05 02/20/17 10:29 Lac-Hydrin 12 TP 1 applic DAILY PRN Administration WOUND CARE Levetiracetam 1,500 mg 02/12/17 09:01 02/24/17 09:00 Keppra Injection - IVPB 1,500 mg BID ANNA Administration Levothyroxine Sodium 75 mcg 02/21/17 07:00 02/24/17 06:29 Synthroid Injection - IVPUSH 75 mcg AM ANNA Administration Nystatin 1 applic 02/11/17 01:00 02/24/17 09:00 Mycostatin Ointment - TP 1 applic BID ANNA Administration Phenobarbital 100 mg 02/15/17 22:00 02/24/17 08:59 Phenobarbital Injection - IV 100 mg BID ANNA Administration Valproate Sodium 500 mg 02/13/17 22:00 02/24/17 05:52 Depacon Injection - IVPB 500 mg Q8H ANNA Administration Vital Signs Temp 102.8 F H 02/24/17 10:00 Pulse 98 H 02/24/17 10:00 Resp 17 02/24/17 10:00 BP 86/68 02/24/17 10:00 Pulse Ox 93 L 02/23/17 10:12 Intake & Output 02/23/17 02/23/17 02/24/17 11:59 23:59 11:59 Intake Total 1950 2322 1966 Output Total 300 1000 250 Balance 1650 1322 1716 Weight 229 lb 8 oz 236 lb 15.951 oz Intake: IV 1500 1572 1466 Pitressin - 50 Units In 144 144 144 Normal Saline - 97.5 ml @ 2.4 UNITS/HR 4.8 mls/hr IVPB ASDIR ANNA Rx#: [id number] Levophed - 8,000 Mcg In 1356 1356 1250 Normal Saline - 492 ml @ 5 MCG/MIN 18.75 mls/hr IV TITR ANNA Rx#:[id number] Tim-Synephrine - 10,000 72 72 Mcg In D5w - 499 ml @ 100 MCG/MIN 300 mls/hr IV TITR ANNA Rx#:[id number] IVPB 450 750 500 TPN/PPN 0 Output: Gastric Drainage 100 Urine 300 1000 150 Garcia 300 1000 150 Other: Voiding Method Indwelling Catheter Indwelling Catheter Bowel Movement Yes: brown pasty large Yes No Weight Measurement Method [facility] Built in [facility] Constitutional: Yes: No Distress, sedated Cardiovascular: Yes: Regular Rate and Rhythm, Gallop (? S3), S1, S2. No: JVD ( very tds exam), Murmur Respiratory: Yes: cta bl anteriorly. intubated on vent Extremities: No: Cool Edema: Yes (1+ pretib), anasarca Neurological: sedated, intubated Psychiatric: No: Agitated no jaundice diaphoresis abd nd pos bs Labs: Laboratory Last Values WBC 5.1 K/mm3 (4.0-10.0) D 02/24/17 05:15 Corrected WBC (auto) 5.32 K/mm3 02/23/17 05:00 RBC 4.16 M/mm3 (3.60-5.2) 02/24/17 05:15 Hgb 12.2 GM/dL (10.7-15.3) 02/24/17 05:15 Hct 37.2 % (32.4-45.2) 02/24/17 05:15 MCV 89.5 fl (80-96) 02/24/17 05:15 MCH 29.5 pg (25.7-33.7) 02/24/17 05:15 MCHC 32.9 g/dl (32.0-36.0) 02/24/17 05:15 RDW 19.7 % (11.6-15.6) H 02/24/17 05:15 Plt Count 33 K/MM3 (134-434) L* D 02/24/17 05:15 MPV 10.0 fl (7.5-11.1) D 02/24/17 05:15 Add Manual Diff Cancelled 02/11/17 04:00 Total Counted 100 02/23/17 05:00 Neutrophils % 87.2 % (42.8-82.8) H 02/24/17 05:15 Neutrophils % (Manual) 88 % (42.8-82.8) H D 02/23/17 05:00 Band Neuts % (Manual) 4 % (0-10) 02/20/17 10:18 Lymphocytes % 6.7 % (8-40) L D 02/24/17 05:15 Lymphocytes % (Manual) 7 % (8-40) L D 02/23/17 05:00 Monocytes % 5.6 % (3.8-10.2) 02/24/17 05:15 Monocytes % (Manual) 4 % (3.8-10.2) 02/23/17 05:00 Eosinophils % 0.0 % (0-4.5) D 02/24/17 05:15 Basophils % 0.5 % (0-2.0) 02/24/17 05:15 Nucleated RBC % 41 % (0-0) H* D 02/23/17 05:00 Differential Comment Cancelled 02/11/17 04:00 Hypochromia 2+ 02/10/17 17:35 Platelet Estimate Decreased (NORMAL) 02/23/17 05:00 Platelet Comment Few large plts 02/24/17 05:15 Platelet Comment No clumping noted 02/20/17 10:18 Normal RBC Morphology Cancelled 02/11/17 04:00 RBC Morphology 02/12/17 18:45 Poikilocytosis 1+ 02/12/17 18:45 Anisocytosis 2+ 02/16/17 05:30 Microcytosis 1+ 02/16/17 05:30 Macrocytosis Few 02/16/17 05:30 Tear Drop Cells 1+ 02/16/17 05:30 Ovalocytes 1+ 02/16/17 05:30 INR 4.67 (0.82-1.09) H* 02/24/17 08:30 PTT (Actin FS) 35.2 SECONDS (26.9-34.4) H 02/22/17 05:30 Fibrinogen 105.0 mg/dL (238-498) L D 02/24/17 08:30 Anticoagulation Therapy No 02/21/17 09:30 Puncture Site Right radial 02/21/17 09:30 Patient Temperature N 02/21/17 09:30 ABG pH 7.35 (7.35-7.45) 02/21/17 09:30 ABG pCO2 at Pt Temp 40.8 mmHg (35-45) D 02/21/17 09:30 ABG pO2 at Pt Temp 82.6 mmHg (80-100) D 02/21/17 09:30 ABG HCO3 21.7 meq/L (22-26) L 02/21/17 09:30 ABG O2 Sat (Measured) 95.3 % (90-98.9) 02/21/17 09:30 ABG O2 Content 16.6 % vol (15-22) 02/21/17 09:30 ABG Base Excess -3.2 meq/l (-2-2) L 02/21/17 09:30 Bob Test Positive 02/21/17 09:30 VBG pH 7.35 (7.32-7.42) 02/16/17 11:50 POC VBG pCO2 65.7 mmHg (38-52) H* 02/16/17 11:50 POC VBG pO2 49.6 mmHg (28-48) H 02/16/17 11:50 Mixed VBG HCO3 35.6 meq/L (19-25) H 02/16/17 11:50 O2 Delivery Device Mech vent 02/21/17 09:30 Oxygen Flow Rate 40% 02/21/17 09:30 Vent Mode Ac 02/21/17 09:30 Vent Rate 14 02/21/17 09:30 Mechanical Rate Yes 02/21/17 09:30 PEEP 6.0 cmH2O 02/21/17 09:30 Pressure Support Vent 400 02/21/17 09:30 Sodium 128 mmol/L (136-145) L 02/24/17 05:15 Potassium 5.3 mmol/L (3.5-5.1) H 02/24/17 05:15 Chloride 93 mmol/L (98-107) L 02/24/17 05:15 Carbon Dioxide 23 mmol/L (21-32) 02/24/17 05:15 Anion Gap 12 (8-16) 02/24/17 05:15 BUN 85 mg/dL (7-18) H 02/24/17 05:15 Creatinine 2.3 mg/dL (0.55-1.02) H 02/24/17 05:15 Creat Clearance w eGFR 21.37 (>60) 02/23/17 05:00 POC Glucometer 186.49193 UNITS (()) 02/14/17 20:56 Random Glucose 85 mg/dL (74-106) 02/24/17 05:15 Lactic Acid 2.2 mmol/L (0.4-2.0) H* 02/15/17 10:32 Calcium 7.3 mg/dL (8.5-10.1) L 02/24/17 05:15 Phosphorus 5.2 mg/dL (2.5-4.9) H 02/24/17 05:15 Magnesium 2.1 mg/dL (1.8-2.4) 02/24/17 05:15 Total Bilirubin 2.2 mg/dL (0.2-1.0) H 02/23/17 05:00 Direct Bilirubin 1.9 mg/dL (0.0-0.2) H D 02/23/17 05:00 AST 987 U/L (15-37) H 02/23/17 05:00 ALT 237 U/L (12-78) H 02/23/17 05:00 Alkaline Phosphatase 72 U/L (45-117) 02/23/17 05:00 Ammonia 34.6 umol/L (11-32) H 02/11/17 14:00 Creatine Kinase 83 IU/L (26-192) 02/11/17 04:00 Troponin I < 0.02 ng/ml (0.00-0.05) 02/12/17 18:45 B-Natriuretic Peptide 2733.06 pg/ml (5-125) H 02/11/17 04:00 Total Protein 5.1 g/dl (6.4-8.2) L 02/23/17 05:00 Albumin 2.0 g/dl (3.4-5.0) L 02/23/17 05:00 Total Amylase 87 U/L (25-115) 02/11/17 04:00 TSH 18.70 uIU/ml (0.358-3.74) H D 02/13/17 05:15 Free T4 1.24 ng/dl (0.76-1.46) 02/11/17 04:00 Free T3 0.8 pg/ml (2.0-4.4) L 02/12/17 05:20 Total T3 43.00 ng/dl (71-180) L 02/12/17 05:20 Cortisol AM Sample 23.2 ug/dL (.) 02/18/17 05:20 Urine Color Lt. yellow 02/19/17 17:45 Urine Appearance Clear 02/19/17 17:45 Urine pH 6.0 (5.0-8.0) 02/19/17 17:45 Ur Specific [place] 1.015 (1.005-1.025) 02/19/17 17:45 Urine Protein 2+ (NEGATIVE) H 02/19/17 17:45 Urine Glucose (UA) Negative (NEGATIVE) 02/19/17 17:45 Urine Ketones Negative (NEGATIVE) 02/19/17 17:45 Urine Blood 3+ (NEGATIVE) H 02/19/17 17:45 Urine Nitrite Negative (NEGATIVE) 02/19/17 17:45 Urine Bilirubin 1+ (NEGATIVE) H 02/19/17 17:45 Urine Urobilinogen 1.0 mg/dL (0.2-1.0) 02/19/17 17:45 Ur Leukocyte Esterase 2+ (NEGATIVE) H 02/19/17 17:45 Urine RBC 115 /hpf (0-3) 02/19/17 17:45 Urine WBC 702 /hpf (3-5) 02/19/17 17:45 Ur Epithelial Cells Rare /hpf (FEW) 02/19/17 17:45 Calcium Oxalate Crystal Rare /hpf (NONE SEEN) 02/12/17 12:30 Hyaline Casts 45 /lpf 02/19/17 17:45 Granular Casts 1 /lpf 02/12/17 12:30 Urine Mucus Rare 02/19/17 17:45 Urine Yeast Many 02/19/17 17:45 Urine HCG, Qual Negative 02/11/17 14:00 Opiates Screen Negative ng/ml (IRYGUS=564) 02/11/17 14:00 Methadone Screen Negative ng/ml (VORZOJ=161) 02/11/17 14:00 Acetaminophen 3.145 ug/ml (10.0-30.0) L 02/13/17 05:15 Barbiturate Screen Negative ng/ml (MKACGV=270) 02/11/17 14:00 Valproic Acid 75.774 ug/ml (50-100) 02/19/17 05:20 Levetiracetam 78.4 MCG/ML (10.0-40.0) H 02/15/17 10:32 Phencyclidine Screen Negative ng/ml (CUTOFF=25) 02/11/17 14:00 Ur Amphetamines Screen Negative ng/ml (RGOYKX=698) 02/11/17 14:00 MDMA (Ecstasy) Screen Negative ng/ml (SIWGOT=656) 02/11/17 14:00 Benzodiazepines Screen Positive ng/ml (DPJYSX=784) 02/11/17 14:00 Cocaine Screen Negative ng/ml (GBSOVV=734) 02/11/17 14:00 U Marijuana (THC) Screen Negative ng/ml (CUTOFF=50) 02/11/17 14:00 Hep-Induced Plt Ab Rapid 0.478 OD (0.000-0.400) H 02/17/17 11:25 tele: sr, as-vpaced [facility] 10/2016 --> nl cors (verbal report from dr sanchez) Echo 01/2017: Severe lv dilation, sev reduced LV fn (global). mod rv dilation. mod RV dysfunction. RV pacing wire. 2.8 x 1.2 cm density in apex of RV (per discussion with Dr. Sanchez, bright echodensity at the tip of pacing wire was present on prior office echo). mod tr. rvsp 30-40. trivial pericardial effusion. + pleural effusion. CTA: pulmonary congestion, small left pleural effusion. large volume ascites. extensive subcutaneous edema/anasarca. CTA --> + arterial flow to LE. repeat CT head 02/23: no sig change cxr 02/22: some improvement in right base est cct 36 mins a/p: 51 y/o woman, resident on [facility] with hx of biventricular cardiomyopathy s/ p bivICD, htn, afib (per report only), Schizophrenia, seizure disorder, Hypothroidism and GERD who presented to ED with LE swelling, coolness to touch and diminshed pulses as well as lethargy. Hospital course has been complicated by seizure/status epilepticus requiring intubation for airway protection and sedation. acute on chronic syst CHF, nonischemic biventricular cardiomyopathy s/p bivICD, cardiogenic shock, septic shock - holding bb and acei due to hypotension. - CE's were negative on admit and according to her interceptor operator recent [facility] showed normal cors - 02/12 BNP 2700, patient p/w with lethargy, LE edema, cool skin, poor distal pulses, pulmonary edema, large volume ascites and anasarca noted on ct scan, -- > concerning for decompensated biventricular heart failure. cvp 13 --> Started trial of IV lasix for diuresis 02/12, milrinone deferred at that time ( pt was on levophed). - 02/13: overnight propofol stopped due to increasing ectopy and concern for qt prolongation --> improvement in ectopy. patient's remained net positive, lasix was increased to 80 mg IV bid. Late evening cvp remained elevated at 15 and patient still not net negative. Drips were double concentrated. vasopressin added for recurrent hypotension (to 70s). - 02/14: levophed weaned off today. Patient finally net negative this am. BP still running low. CVP remains elevated at 13 --> started milrinone for decompensated heart failure. Patient still may have superimposed vasodilating pathology, con't pressor support for now. Con't lasix 80 mg IV bid with aggressive electrolyte repletion (congestion improving on cxr, lfts improving, cr stable). double concentrate drips when possible. - 02/15: CXR improved vs 02/13, L lung not well seen due to ICD and marked cardiomegaly obscuring L base. BP down to 70s again early am today, remains on high dose pressors (vasopressin 2.4 units/hour, levo 9 mcg). CVP has improved to 10 (from 17 initially) with diuresis plus milrinone (0.3 mcg/kg/min). vigorous UOP yesterday (8L). - 02/16: Concern for episode of VF/VT on telemetry-->ICD interrogated: No VT/VF events. Was informed that biV pacing programmed to stop at HR's above 130 which explains change in rhythm. Although 130's is still below lower detection limit for VT so cannot exclude intermittent slow VT. Milrinone drip stopped. Sent SvO2 to clarify hemodynamics, cardiogenic vs. vasodilatory. SVO2 80% per report so OK to leave off milrinone. Still getting augmentation of contractility from levophed. Remains net positive today, CVP 14 per report, but SVO2 is not low and overall edema improving --> will not uptitrate diuretics. -02/17: cont current iv lasix and pressor support - 02/18: concerned patient is continuing to be net positive. CVP elevated > 20. Now with MARK and minimal urine output now poor. If she continues to remain net positive her heart failure will continue to worsen. Had 100 cc uop to 100 mg IV lasix this afternoon (increase from what she has put out today per nursing). Will uptitrate lasix regimen to 100 mg tid. Will add back milrinone to see if it improves hypotension/cardiac output (add back at lower dose for now). ICD interrogation was negative for ventricular arrhythmia. Reassess tomorrow whether these interventions improve her clinical status. Discussed plan of care with family. Palliative care in room with family -02/19: still with vol overload, net positive, wt up. Will continue current pressors, milrinone. Fever reported so possibly becoming septic. If bp continues to drop would stop milrinone and hold lasix temporarily. -02/20: despite milrinone and lasix pt remains with poor urine outpt and low bp. Now also has been persistently febrile so seems more of a septic shock picture now. Thus will dc lasix and milrinone for now which may allow bp to rise. If bp remains low on vaso and levo can add dobutamine next. -02/21-: Pt remains with shock, multiorgan failure. Cont bp support with pressors, abx. Cont to hold lasix/milrinone as bp too low and wasn't improving her status regardless. Anasarca from low albumin/3rd spacing in addition to being persistently net positive. Overall very poor prognosis. High risk of mortality. wide complex tachycardia: - suspect tele represents sinus tach, initially with Bi-V pacing, then with loss of Bi-V pacing and pt conduction with [place] bundle branch block QRS (note 02/10 ekg shows Bi-V pacing with a fusion beat btw paced and conducted beats, showing a wide QRS with [place] conduction) - doubt sustained VT on tele - has ICD protection - CHF optimization and med regimen as doing - per dr sanchez, ICD was recently interrogated 10/2016 with no remarkable findings then. - 02/12 with increasing ectopy throughout the day leading to sustained ventricular bigeminy with very broad abnormal t wave (no nsvt). concern for qt prolongation --> propofol weaned overnight with resolution of arrhythmia. - electrolyte repletion to usual targets - 02/16: ICD interrogated: No VT/VF events. Was informed that biV pacing programmed to stop at HR's above 130 which explains intermittent changes in rhythm on telemetry. RV echo density noted on echo - Echo here shows density in RV apex (couldn't exclude veg or thrombus). blood cultures here have remained negative. Discussed with Dr. Sanchez and patient had similarly described density on prior echo at his office, likely artifact from RV lead. seizure disorder/status epilepticus - ongoing management per neuro/icu. Remains intubated and unresponsiveness. - repeat head ct's w/o acute pathology. afib - diagnosis documented on halfway chart, but patient not on AC and in SR here (? accuracy of diagnosis)--will defer to Dr. Sanchez who is her treating outpatient interceptor operator. For now, since no evidence of afib/flutter on tele, and patient with thrombocytopenia, will not start AC. 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 elevated lfts: -likely shock liver, cont bp support, lfts slowly improving mark: -likely from shock, cr remains elevated. cont bp support, abx
[2017-02-24] MEDS ORDERED: ACETAMINOPHEN 1000 MG/100 ML VIAL (NON FORMULARY) IVPB ONE (11:56)
[2017-02-24] MEDS: PIPERACILLIN/TAZOB 2.25 GM 50 ML IVPB SCH ×3 (12:00→21:17)
[2017-02-24] MEDS: NOREPINEPHRINE BITARTRATE 8,000 MCG in SODIUM CHLORIDE 492 ML IV SCH (12:50)
--- NOTE | 2017-02-24 13:09 | PN ---
Teaching Attending Note Name of Resident: Artemio Corley ATTENDING PHYSICIAN STATEMENT I saw and evaluated the patient. I reviewed the resident's note and discussed the case with the resident. I agree with the resident's findings and plan as documented. SUBJECTIVE: Pt seen and examined in the ICU. Remains intubated, unresponsive on pressor support. Persistently febrile. OBJECTIVE: Last Vital Signs Temp Pulse Resp BP Pulse Ox 102.8 F H 102 H 14 84/54 93 L 02/24/17 10:00 02/24/17 12:50 02/24/17 12:00 02/24/17 12:50 02/23/17 10:12 Intake & Output 02/21/17 02/22/17 02/23/17 02/24/17 23:59 23:59 23:59 23:59 Intake Total 5023.4 3800 4272 1966 Output Total 9564 325 2329 250 Balance 3873.4 3000 2972 1716 Weight 218 lb 11.2 oz 228 lb 229 lb 8 oz 236 lb 15.951 oz Gen: intubated, unresponsive Heart: tachycardic, regular Lung: scattered rhonchi Abd: soft, edematous Ext: + edema CBC, BMP 02/24/17 05:15 02/24/17 05:15 Active Medications Acetaminophen (Ofirmev Injection -) 1,000 mg IVPB Q6H PRN PRN Reason: FEVER OR PAIN Last Admin: 02/24/17 03:44 Dose: 1,000 mg Artificial Tears (Artificial Tears Ointment -) 1 applic OU HS ANNA Last Admin: 02/23/17 22:18 Dose: 1 applic Betamethasone Valerate (Valisone 0.1% Cream -) 1 applic TP DAILY ANNA Last Admin: 02/24/17 09:01 Dose: 1 applic Chlorhexidine Gluconate (Hibiclens For Decolonization -) 1 applic TP HS ANNA Last Admin: 02/23/17 22:20 Dose: 1 applic Chlorhexidine Gluconate (Peridex -) 15 ml MM BID ANNA Last Admin: 02/24/17 08:59 Dose: 15 ml Pantoprazole Sodium (Protonix 40mg Ivpb (Pre-Docked)) 100 mls @ 200 mls/hr IVPB DAILY ANNA Last Admin: 02/24/17 09:01 Dose: 200 mls/hr Norepinephrine Bitartrate 8, (000 mcg/ Sodium Chloride) 500 mls @ 18.75 mls/hr IV TITR ANNA; 5 MCG/MIN PRN Reason: Protocol Last Admin: 02/24/17 12:50 Dose: 112.5 mls/hr Caspofungin 50 mg/ Sodium (Chloride) 250 mls @ 250 mls/hr IVPB DAILY ANNA Last Admin: 02/24/17 11:00 Dose: 250 mls/hr Phenylephrine HCl 20,000 mcg/ (Sodium Chloride) 250 mls @ 75 mls/hr IVPB ASDIR ANNA; 100 MCG/MIN PRN Reason: Protocol Last Admin: 02/23/17 17:15 Dose: 75 mls/hr Piperacillin Sod/Tazobactam Sod (Zosyn 2.25gm Ivpb (Pre-Docked)) 50 mls @ 100 mls/hr IVPB Q6H-IV ANNA PRN Reason: Protocol Last Admin: 02/24/17 12:00 Dose: 100 mls/hr Lactic Acid (Lac-Hydrin 12) 1 applic TP DAILY PRN PRN Reason: WOUND CARE Last Admin: 02/20/17 10:29 Dose: 1 applic Levetiracetam (Keppra Injection -) 1,500 mg IVPB BID [facility] Last Admin: 02/24/17 09:00 Dose: 1,500 mg Levothyroxine Sodium (Synthroid Injection -) 75 mcg IVPUSH AM [facility] Last Admin: 02/24/17 06:29 Dose: 75 mcg Nystatin (Mycostatin Ointment -) 1 applic TP BID [facility] Last Admin: 02/24/17 09:00 Dose: 1 applic Phenobarbital (Phenobarbital Injection -) 100 mg IV BID [facility] Last Admin: 02/24/17 08:59 Dose: 100 mg Valproate Sodium (Depacon Injection -) 500 mg IVPB Q8H [facility] Last Admin: 02/24/17 05:52 Dose: 500 mg ASSESSMENT AND PLAN: Status Epileptics Acute Respiratory Failure Acute on Chronic Systolic Heart Failure Cardiogenic vs Septic Shock Acute Kidney Injury Lactic Acidosis resolved s/p ICD Elevated LFTs Hypothyroidism Thrombocytopenia Hyponatremia - antibiotics per ID - continue antiepileptics - titrate pressors to maintain MAP >65 - lasix IV if BP tolerates - NS piggybacks - hold sedation to assess mental status as no seizure activity noted - CT A/P with oral contrast when stable - DVT/GI prophylaxis - continue ICU monitoring - poor overall prognosis - pt made DNR, will continue medical therapy for now critical care time spent in reviewing chart, evaluating patient and formulating plan 45 min
--- NOTE | 2017-02-24 13:48 | PN ---
Physical Exam: SUBJECTIVE: Patient seen and examined OBJECTIVE: Vital Signs Period Temp Pulse Resp BP Sys/Centeno Pulse Ox Last 24 Hr 99 F-102.8 F 98-109 14-27 74-89/40-78 92 Laboratory Results - last 24 hr 02/23/17 02/24/17 02/24/17 05:00 05:15 05:15 WBC 7.5 D 5.1 D Corrected WBC (auto) 5.32 RBC 4.52 4.16 Hgb 13.0 12.2 Hct 40.7 37.2 MCV 89.9 89.5 MCH 28.6 29.5 MCHC 31.9 L 32.9 RDW 20.0 H 19.7 H Plt Count 51 L D 33 L* D MPV 11.9 H 10.0 D Total Counted 100 Neutrophils % 87.2 H Neutrophils % (Manual) 88 H D Lymphocytes % 6.7 L D Lymphocytes % (Manual) 7 L D Monocytes % 5.6 Monocytes % (Manual) 4 Eosinophils % 0.0 D Basophils % 0.5 Nucleated RBC % 41 H* D Platelet Estimate Decreased Platelet Comment Few large plts INR Fibrinogen Sodium 128 L Potassium 5.3 H Chloride 93 L Carbon Dioxide 23 Anion Gap 12 BUN 85 H Creatinine 2.3 H Random Glucose 85 Calcium 7.3 L Phosphorus 5.2 H Magnesium 2.1 02/24/17 02/24/17 08:30 08:30 WBC Corrected WBC (auto) RBC Hgb Hct MCV MCH MCHC RDW Plt Count MPV Total Counted Neutrophils % Neutrophils % (Manual) Lymphocytes % Lymphocytes % (Manual) Monocytes % Monocytes % (Manual) Eosinophils % Basophils % Nucleated RBC % Platelet Estimate Platelet Comment INR 4.67 H* Fibrinogen 105.0 L D Sodium Potassium Chloride Carbon Dioxide Anion Gap BUN Creatinine Random Glucose Calcium Phosphorus Magnesium Active Medications Generic Name Dose Route Start Last Admin Trade Name Freq PRN Reason Stop Dose Admin Acetaminophen 1,000 mg 02/21/17 17:09 02/24/17 03:44 Ofirmev Injection - IVPB 1,000 mg Q6H PRN Administration FEVER OR PAIN Artificial Tears 1 applic 02/22/17 22:00 02/23/17 22:18 Artificial Tears Ointment - OU 1 applic HS ANNA Administration Betamethasone Valerate 1 applic 02/12/17 10:00 02/24/17 09:01 Valisone 0.1% Cream - TP 1 applic DAILY ANNA Administration Chlorhexidine Gluconate 1 applic 02/11/17 22:00 02/23/17 22:20 Hibiclens For Decolonization - TP 1 applic HS ANNA Administration Chlorhexidine Gluconate 15 ml 02/22/17 22:00 02/24/17 08:59 Peridex - MM 15 ml BID ANNA Administration Pantoprazole Sodium 100 mls @ 200 mls/hr 02/12/17 10:00 02/24/17 09:01 Protonix 40mg Ivpb (Pre-Docked) IVPB 200 mls/hr DAILY ANNA Administration Norepinephrine Bitartrate 8, 500 mls @ 18.75 mls/hr 02/21/17 10:15 02/24/17 12: 50 000 mcg/ Sodium Chloride IV 112.5 mls/hr TITR ANNA Administration Protocol 5 MCG/MIN Caspofungin 50 mg/ Sodium 250 mls @ 250 mls/hr 02/23/17 10:00 02/24/17 11:00 Chloride IVPB 250 mls/hr DAILY ANNA Administration Phenylephrine HCl 20,000 mcg/ 250 mls @ 75 mls/hr 02/23/17 17:00 02/23/17 17:15 Sodium Chloride IVPB 75 mls/hr ASDIR ANNA Administration Protocol 100 MCG/MIN Piperacillin Sod/Tazobactam Sod 50 mls @ 100 mls/hr 02/24/17 09:00 02/24/17 12: 00 Zosyn 2.25gm Ivpb (Pre-Docked) IVPB 100 mls/hr Q6H-IV ANNA Administration Protocol Lactic Acid 1 applic 02/11/17 13:05 02/20/17 10:29 Lac-Hydrin 12 TP 1 applic DAILY PRN Administration WOUND CARE Levetiracetam 1,500 mg 02/12/17 09:01 02/24/17 09:00 Keppra Injection - IVPB 1,500 mg BID ANNA Administration Levothyroxine Sodium 75 mcg 02/21/17 07:00 02/24/17 06:29 Synthroid Injection - IVPUSH 75 mcg AM ANNA Administration Nystatin 1 applic 02/11/17 01:00 02/24/17 09:00 Mycostatin Ointment - TP 1 applic BID ANNA Administration Phenobarbital 100 mg 02/15/17 22:00 02/24/17 08:59 Phenobarbital Injection - IV 100 mg BID ANNA Administration Phytonadione 10 mg 02/24/17 14:15 Aqua Mephyton Injection - IVPB 02/24/17 14:16 ONCE ONE Sodium Polystyrene Sulfonate 30 gm 02/24/17 14:00 Kayexalate - NGT 02/24/17 14:01 ONCE ONE Valproate Sodium 500 mg 02/13/17 22:00 02/24/17 05:52 Depacon Injection - IVPB 500 mg Q8H ANNA Administration ASSESSMENT/PLAN: 51yo F with pmhx of 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 Admitted to ICU in status epilepticus #Multiorgan failure 2/2 cardiogenic shock vs neurogenic shock and Sepsis - LFt are and creatinine are treanding up. - caspofungin 50mg IVPB daily - zosyn 3.375 grams IV daily - on pressor support levophed and phenylephrine - on venti support - not on sedation. - IV antibitics as per ID # seizure disorder, 2/2 to unknown etiology -continue keppra to 1500 mg BID -continue depacone 500 mg bid -continue phenobarbital 100mg IV BID -The make and model of the patient's pacemaker are not MRI compatible -RPT CT without change, repeat EEG showing metabolic encephalopathy #Acute respiratory failure on venti support Mohamud could be prerenal from heart failure # Hypothyroidism -Continued home Synthroid 125mcg PO qDaily FEN: Fluids: no indicaton for fluids at this time Electrolyte abnormalities: hypokalemia, hyponatremia, and thrombocytopenia Nutrition: NPO ppx: -not on heparin, had thrombocytopenia. -protonix 40 IV daily Dispo: -continue to monitor in ICU. Poor overall prognosis. Visit type - Emergency Visit Emergency Visit: Yes ED Registration Date: 02/10/17 Care time: The patient presented to the Emergency Department on the above date and was hospitalized for further evaluation of their emergent condition. - New Patient This patient is new to me today: Yes Date on this admission: 02/24/17 - Critical Care Critical Care patient: Yes Total Critical Care Time (in minutes): 45 Critical Care Statement: The care of this patient involved high complexity decision making to prevent further life threatening deterioration of the patient 's condition and/or to evaluate & treat vital organ system(s) failure or risk of failure.
[2017-02-24] MEDS ORDERED: SODIUM POLYSTYRENE SULFONATE 15 GM/60 ML BOTTLE NGT ONE (14:00)
[2017-02-24] MEDS ORDERED: PHYTONADIONE 10 MG/1 ML AMP IVPB ONE (14:15)
--- NOTE | 2017-02-24 14:40 | PN ---
Physical Exam: SUBJECTIVE: Patient seen and examined at bedside. No events overnight. Remains unresponsive off of sedation. on 2 pressors. oxygen requirements increasing from 40fio2 to 50 fio2. no withdrawal from pain. OBJECTIVE: Vital Signs Period Temp Pulse Resp BP Sys/Centeno Pulse Ox Last 24 Hr 99 F-102.8 F 98-109 14-27 74-89/40-78 92 GENERAL: Patient intubated and sedated. HEAD: Normal with no signs of trauma. EYES: pupils pinpoint and nonreactive. NECK: Trachea midline, full range of motion, supple. LUNGS: Breath sounds equal, clear to auscultation bilaterally, no wheezes, no crackles, no accessory muscle use. HEART: Regular rate and rhythm, S1, S2 without murmur, rub or gallop. ABDOMEN: Soft, nontender, nondistended, normoactive bowel sounds, no guarding, no rebound. EXTREMITIES: 2+ pulses, warm, well-perfused, no edema. NEUROLOGICAL: gag reflex present. corneal reflex present. PSYCH: Normal mood, normal affect. SKIN: cold edematous skin. Global anasarca. rash on lower extremities present on admission. Laboratory Results - last 24 hr 02/24/17 02/24/17 02/24/17 05:15 05:15 08:30 WBC 5.1 D RBC 4.16 Hgb 12.2 Hct 37.2 MCV 89.5 MCH 29.5 MCHC 32.9 RDW 19.7 H Plt Count 33 L* D MPV 10.0 D Neutrophils % 87.2 H Lymphocytes % 6.7 L D Monocytes % 5.6 Eosinophils % 0.0 D Basophils % 0.5 Platelet Comment Few large plts INR 4.67 H* Fibrinogen Sodium 128 L Potassium 5.3 H Chloride 93 L Carbon Dioxide 23 Anion Gap 12 BUN 85 H Creatinine 2.3 H Random Glucose 85 Calcium 7.3 L Phosphorus 5.2 H Magnesium 2.1 02/24/17 08:30 WBC RBC Hgb Hct MCV MCH MCHC RDW Plt Count MPV Neutrophils % Lymphocytes % Monocytes % Eosinophils % Basophils % Platelet Comment INR Fibrinogen 105.0 L D Sodium Potassium Chloride Carbon Dioxide Anion Gap BUN Creatinine Random Glucose Calcium Phosphorus Magnesium Active Medications Generic Name Dose Route Start Last Admin Trade Name Freq PRN Reason Stop Dose Admin Acetaminophen 1,000 mg 02/21/17 17:09 02/24/17 03:44 Ofirmev Injection - IVPB 1,000 mg Q6H PRN Administration FEVER OR PAIN Artificial Tears 1 applic 02/22/17 22:00 02/23/17 22:18 Artificial Tears Ointment - OU 1 applic HS ANNA Administration Betamethasone Valerate 1 applic 02/12/17 10:00 02/24/17 09:01 Valisone 0.1% Cream - TP 1 applic DAILY ANNA Administration Chlorhexidine Gluconate 1 applic 02/11/17 22:00 02/23/17 22:20 Hibiclens For Decolonization - TP 1 applic HS ANNA Administration Chlorhexidine Gluconate 15 ml 02/22/17 22:00 02/24/17 08:59 Peridex - MM 15 ml BID ANNA Administration Pantoprazole Sodium 100 mls @ 200 mls/hr 02/12/17 10:00 02/24/17 09:01 Protonix 40mg Ivpb (Pre-Docked) IVPB 200 mls/hr DAILY ANNA Administration Norepinephrine Bitartrate 8, 500 mls @ 18.75 mls/hr 02/21/17 10:15 02/24/17 12: 50 000 mcg/ Sodium Chloride IV 112.5 mls/hr TITR ANNA Administration Protocol 5 MCG/MIN Caspofungin 50 mg/ Sodium 250 mls @ 250 mls/hr 02/23/17 10:00 02/24/17 11:00 Chloride IVPB 250 mls/hr DAILY ANNA Administration Phenylephrine HCl 20,000 mcg/ 250 mls @ 75 mls/hr 02/23/17 17:00 02/23/17 17:15 Sodium Chloride IVPB 75 mls/hr ASDIR ANNA Administration Protocol 100 MCG/MIN Piperacillin Sod/Tazobactam Sod 50 mls @ 100 mls/hr 02/24/17 09:00 02/24/17 12: 00 Zosyn 2.25gm Ivpb (Pre-Docked) IVPB 100 mls/hr Q6H-IV ANNA Administration Protocol Lactic Acid 1 applic 02/11/17 13:05 02/20/17 10:29 Lac-Hydrin 12 TP 1 applic DAILY PRN Administration WOUND CARE Levetiracetam 1,500 mg 02/12/17 09:01 02/24/17 09:00 Keppra Injection - IVPB 1,500 mg BID ANNA Administration Levothyroxine Sodium 75 mcg 02/21/17 07:00 02/24/17 06:29 Synthroid Injection - IVPUSH 75 mcg AM ANNA Administration Nystatin 1 applic 02/11/17 01:00 02/24/17 09:00 Mycostatin Ointment - TP 1 applic BID ANNA Administration Phenobarbital 100 mg 02/15/17 22:00 02/24/17 08:59 Phenobarbital Injection - IV 100 mg BID ANNA Administration Valproate Sodium 500 mg 02/13/17 22:00 02/24/17 05:52 Depacon Injection - IVPB 500 mg Q8H ANNA Administration ASSESSMENT/PLAN: 51yo F with pmhx of 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 Admitted to ICU in status epilepticus #Mutiorgan failure 2/2 cardiogenic shock vs neurogenic shock and Sepsis -abrupt increase in LFTs and creatinine signifying end organ damage. -INR trending up, platelets trending down. Fibrin split products elevated. -Patient continues to spike fevers; possibly central in origin vs infectous -IV tylenol PRN fever -urine culture growing yeast -caspofungin 50mg IVPB daily -zosyn 3.375 grams IV daily -Patient is DNR -KUB shows decreased air in bowel and edematous soft tissue creating ground glass appearance. #Shock 2/2 neurogenic vs cardiogenic etiology -Patient currently on max pressure support -Levophed GTT -phenylephrine GTT #New onset seizure disorder, 2/2 to unknown etiology -continue keppra to 1500 mg BID -continue depacone 500 mg bid -continue phenobarbital 100mg IV BID -The make and model of the patient's pacemaker are not MRI compatible -RPT CT without change, repeat EEG showing metabolic encephalopathy #Acute respiratory failure -Intubated for airway protection -Continue vent support per ICU # Dilated cardiomyopathy -S/P AICD working appropriately; Upon interrogation, it was found that it did not fire. -Echo reveals thrombus in RV. -Be careful with IVF # Abdominal Distention with transaminitis -continue to monitor # Atopic Dermatitis -Continued home nystatin cream for application on abdominal areas -Ammonium lactate lotion -Betamethasone 0.1% cream # Hypothyroidism -Continued home Synthroid 125mcg PO qDaily FEN: Fluids: no indicaton for fluids at this time Electrolyte abnormalities: hypokalemia Nutrition: NPO ppx: -Heparin 5000 units sq tid -protonix 40 IV daily Dispo: -continue to monitor in ICU. DNR. Poor overall prognosis. -Had long conversation with family today. Mother, father and daughter were present. I explained to them the grave prognosis and unlikely chances of recovery. Family verbalized understanding of the situation and wishes all medications and support be continued. Problem List - Problems (1) Chronic congestive heart failure Code(s): I50.9 - HEART FAILURE, UNSPECIFIED Qualifiers: Congestive heart failure type: unspecified congestive heart failure type Qualified Code(s): I50.9 - Heart failure, unspecified (2) Hypertension Code(s): I10 - ESSENTIAL (PRIMARY) HYPERTENSION Qualifiers: Hypertension type: essential hypertension Qualified Code(s): I10 - Essential (primary) hypertension (3) Schizophrenia, paranoid, chronic Code(s): F20.0 - PARANOID SCHIZOPHRENIA (4) Seizure Code(s): R56.9 - UNSPECIFIED CONVULSIONS (5) Rash Code(s): R21 - RASH AND OTHER NONSPECIFIC SKIN ERUPTION (6) Peripheral arterial disease Code(s): I73.9 - PERIPHERAL VASCULAR DISEASE, UNSPECIFIED Visit type - Emergency Visit Emergency Visit: Yes ED Registration Date: 02/10/17 Care time: The patient presented to the Emergency Department on the above date and was hospitalized for further evaluation of their emergent condition. - New Patient This patient is new to me today: No - Critical Care Critical Care patient: Yes Total Critical Care Time (in minutes): 60 Critical Care Statement: The care of this patient involved high complexity decision making to prevent further life threatening deterioration of the patient 's condition and/or to evaluate & treat vital organ system(s) failure or risk of failure.
--- NOTE | 2017-02-24 17:39 | PN ---
Teaching Attending Note Name of Resident: Bala Herndon ATTENDING PHYSICIAN STATEMENT I saw and evaluated the patient. I reviewed the resident's note and discussed the case with the resident. I agree with the resident's findings and plan as documented. SUBJECTIVE:intubated OBJECTIVE: Last Vital Signs Temp Pulse Resp BP Pulse Ox 102.0 F H 100 H 20 93/76 92 L 02/24/17 14:00 02/24/17 14:00 02/24/17 17:25 02/24/17 14:00 02/24/17 09:00 Intake & Output 02/21/17 02/22/17 02/23/17 02/24/17 23:59 23:59 23:59 23:59 Intake Total 5023.4 3800 4272 1966 Output Total 0729 959 1300 850 Balance 3873.4 3000 2972 1116 Weight 218 lb 11.2 oz 228 lb 229 lb 8 oz 236 lb 15.951 oz General intubated, pupils fixed and pinpoint. +corneal reflex, + gag reflex, no withdrawal to pain CV S1 S2 tachy Lungs coarse breath sounds anteriorly Abdomen +distended firm Extremities 4+ pitting edema all extremities ASSESSMENT AND PLAN: 51yo F with PMH schizphrenia, hypothyroid, dilated cardiomyopathy s/p AICD, HTN and afib presented to the ER with B/L LE pain and concern for acute arterial ischemia. [employer] called for status epilepticus where pt was intubated for airway protection 1. Shock with multiorgan failure- cont to require 2 pressure support. Tm 102.8 on empiric zosyn/caspofungin. Head CT done showing no acute pathology. cont to become more volume overloaded. unable to diuresis due to failure of milrinone ggt and tenuous BP status. INR elevated signs of liver failure. give vitamin k. monitor INR. monitor for bleeding. concern fevers may be central in origin. ID on board 2. Status epileptics-no seizure like activity reported. off sedation for >72H and no improvement in mental status. no seizure like activity noted. antieleptics per neuro. off vimpat due to arrythmia. 3. acute respiratory failure- intubated for protection of airway. requiring higher oxygen requirements Fio2 increased to 50%. continues to desaturate on movement. likely worsening of pleural effusions. however unable to diuresis. cont full vent support. management per ICU 4. Abdominal distention- concern for abdominal pathology, ileus vs abdominal source of infection?. pt is too unstable for CT. will obtain AXR. hold tube feeds. 5. Hyperkalemia- persistent hyperkalemia. nephrology consult for HD. also due to worsening kidney function. likely be unable to place shiley at this time due to supratherapeutic INR. 6. Ventricular bigeminy- possible induced from vimpat vs propofol. on levo. AICD interrogated with no VT/VF activity. avoid QT prolonging medications. cardio on board. 7. Thrombocytopenia- likely due to liver failure vs sepsis. hold anticoagulation. no signs of active bleeding. fibrinogen is high. monitor 8. Elevated TSH-likley not compliant with medications. TSH improved with initiation of LT4. will repeat TSH. 9. Cardiac thrombus- seen on AICD wire in RV. report from cemetery laborer pt had same finding on last echo. low suspicion for infectious. no signs of embolic disease. will monitor for now. consider KAN if necessary 10. DNR. poor overall prognosis. palliative care consult. may need to involve ethics. MICU monitoring The care of this patient involved high complexity decision making to prevent further life threatening deterioration of the patient's condition and/or to evaluate & treat vital organ system(s) failure or risk of failure. 45 minutes critical care time
[2017-02-24] MEDS: PHENYLEPHRINE HCL 20,000 MCG in SODIUM CHLORIDE 248 ML IVPB SCH (18:11)
--- NOTE | 2017-02-24 18:59 | PN ---
Progress Note (short form) - Note Progress Note: The pt had another episode of seizures. I consulted Dr. Wilks who recommended restarting sedation, Versed. Problem List - Problems (1) Rash Code(s): R21 - RASH AND OTHER NONSPECIFIC SKIN ERUPTION (2) Seizure Code(s): R56.9 - UNSPECIFIED CONVULSIONS (3) Sepsis Code(s): A41.9 - SEPSIS, UNSPECIFIED ORGANISM (4) AICD (automatic cardioverter/defibrillator) present Code(s): Z95.810 - PRESENCE OF AUTOMATIC (IMPLANTABLE) CARDIAC DEFIBRILLATOR (5) Hypertension Code(s): I10 - ESSENTIAL (PRIMARY) HYPERTENSION Qualifiers: Hypertension type: essential hypertension Qualified Code(s): I10 - Essential (primary) hypertension (6) Hypothyroidism Code(s): E03.9 - HYPOTHYROIDISM, UNSPECIFIED Qualifiers: Hypothyroidism type: unspecified Qualified Code(s): E03.9 - Hypothyroidism, unspecified (7) Schizophrenia, paranoid, chronic Code(s): F20.0 - PARANOID SCHIZOPHRENIA (8) Cardiomyopathy Code(s): I42.9 - CARDIOMYOPATHY, UNSPECIFIED
[2017-02-24] MEDS ORDERED: MIDAZOLAM 100 MG in SODIUM CHLORIDE 100 ML IVPB SCH (19:00)
[2017-02-24] MEDS: MINERAL OIL/PETROLATUM,WHITE 3.5 GM TUBE OU SCH (21:18)
[2017-02-24] MEDS: CHLORHEXIDINE GLUCONATE 4% CLEANSER FOR DECOLONIZATION TP SCH (21:19)
[2017-02-25] MEDS: NOREPINEPHRINE BITARTRATE 8,000 MCG in SODIUM CHLORIDE 492 ML IV SCH ×2 (03:00→09:35)
[2017-02-25] MEDS: PIPERACILLIN/TAZOB 2.25 GM 50 ML IVPB SCH ×3 (03:32→17:53)
[2017-02-25] MEDS ORDERED: NOREPINEPHRINE BITARTRATE 4 MG/4 ML ML IV ONE ×2 (03:53→09:29)
[2017-02-25] MEDS ORDERED: PT OWN MED DRAWER 7, Y5N ONE ×2 (04:34→09:20)
[2017-02-25] MEDS: VALPROATE SODIUM 500 MG/5 ML VIAL IVPB SCH ×2 (05:52→17:54)
[2017-02-25 06:01] LABS: MCH 29.4 pg (25.7-33.7); MCHC 32.9 g/dl (32.0-36.0); MEAN CELL VOLUME 89.4 fl (80-96); MEAN PLT VOLUME 11.2 fl (7.5-11.1); RDW 20.2 % (11.6-15.6)
[2017-02-25 06:12] LABS: INR 1.72 (0.82-1.09); PROTHROMBIN TIME (PATIENT) 19.1 SEC (9.98-11.88)
[2017-02-25 06:15] LABS: ACTIVATED PTT 31.9 SECONDS (26.9-34.4)
[2017-02-25 06:33] LABS: ANION GAP 12 (8-16); CALCIUM 7.2 mg/dL (8.5-10.1); CO2 23 mmol/L (21-32); GLUCOSE,RANDOM 136 mg/dL (74-106); MAGNESIUM 2.3 mg/dL (1.8-2.4)
[2017-02-25 06:37] LABS: ALK PHOS 67 U/L (45-117); BILIRUBIN,TOTAL 3.1 mg/dL (0.2-1.0); CREATININE 1.7 mg/dL (0.55-1.02); PHOSPHOROUS 3.7 mg/dL (2.5-4.9); SGPT/ALT 144 U/L (12-78)
[2017-02-25 06:38] LABS: SGOT/AST 598 U/L (15-37)
[2017-02-25] MEDS: LEVOTHYROXINE SODIUM 100 MCG VIAL IVPUSH SCH (06:50)
[2017-02-25 07:25] LABS: WHITE BLOOD COUNT 9.9 K/mm3 (4.0-10.0)
[2017-02-25 07:26] LABS: PLATELET COUNT 30 K/MM3 (134-434)
[2017-02-25 07:27] LABS: PLATELET COMMENT2 NO CLOTTING DETECTED; PLATELET ESTIMATE MARKEDLY DECREASED (NORMAL)
[2017-02-25 07:28] LABS: ANISOCYTOSIS 1+
[2017-02-25 07:30] LABS: TOTAL CELLS COUNTED 100
[2017-02-25 07:31] LABS: NUCLEATED RED BLOOD CELL 43 % (0-0); POLYCHROMASIA 3+
--- NOTE | 2017-02-25 07:32 | PN ---
Progress Note (short form) - Note Progress Note: Progress Note: ID End of life issues paramount Having seizures on pressors and 100 % FIO2 Zosyn and Caspofungin Selected Entries 02/24/17 19:00 Temperature 99.2 F Pulse Rate 96 H Respiratory 21 Rate Blood Pressure 90/77 HEENT ET tube Lung Clear ant Cor S1 S2 RR Abd Distended Ext Cyanotic LE Microbiology 02/22/17 09:23 Sputum - Endotrachea Suction/Ventilator Gram Stain - Final 02/22/17 09:23 Sputum - Endotrachea Suction/Ventilator Sputum Culture - Final Morganella Morganii Yeast Like Organism 02/18/17 16:00 Urine - Urine Garcia Urine Culture - Final Yeast Like Organism 02/20/17 11:08 Blood - Peripheral Venous Blood Culture - Preliminary NO GROWTH OBTAINED AFTER 96 HOURS, INCUBATION TO CONTINUE FOR 1 DAYS. 02/20/17 10:48 Blood - Peripheral Venous Blood Culture - Preliminary NO GROWTH OBTAINED AFTER 96 HOURS, INCUBATION TO CONTINUE FOR 1 DAYS. Laboratory Tests 02/23/17 02/24/17 02/25/17 05:00 05:15 05:00 WBC Hgb Hct Plt Count 33 L* D INR Fibrin Degrad Products 20 H AST 598 H D ALT 144 H D Alkaline Phosphatase 67 02/25/17 02/25/17 05:00 05:00 WBC 7.3 D Hgb 13.1 Hct 39.8 Plt Count Pending INR 1.72 H D Fibrin Degrad Products AST ALT Alkaline Phosphatase Assessment Shock Multiorgan failure Uare sepsis supected Seizures Coagulopathy possible DIC Plan Ethics committee evaluation of end of life care Josie PARIKH Problem List - Problems (1) Seizure Code(s): R56.9 - UNSPECIFIED CONVULSIONS (2) Sepsis Code(s): A41.9 - SEPSIS, UNSPECIFIED ORGANISM (3) UTI (urinary tract infection) Code(s): N39.0 - URINARY TRACT INFECTION, SITE NOT SPECIFIED
[2017-02-25] MEDS: CASPOFUNGIN ACETATE 50 MG in SODIUM CHLORIDE 250 ML IVPB SCH (09:00)
--- NOTE | 2017-02-25 09:00 | PN ---
Progress Note (short form) - Note Progress Note: 02/11/17 : 51 y/o woman, resident on [facility] with hx of Schizophrenia, HTN, AFib, CHF, s/p AICD/biV pacer, Hypothroidism and GERD who presented to ED yesterday with LE swelling and pain c/f DVT. In ED pt was awake but poorly responsive, only C/o pain everywhere. Was noted to have cool bilateral LE with very weak peripheral pulses, edema and poor cap refill-->CTA runoff showing multiple occlusive areas in b/l LE arteries. Vascular was consulted and there was tentative plan for surgery today. CT head was performed due to AMS which was without acute pathology. Labs were notable for new elevated Tbili and alk phos, low therapeutic VPA level, no WBC, normal h/H, and slightly elevate INR 1.3. 02/17/17 : As per nursing she had 5 episides today lasting minutes of "facial twitching". Patient remained in her baseline rhythm for the remainder of the night. FU today : 02/25/17 noted to have twitching yesterday , told to restart versed , this Am, blink activity HD CT reviewed-- no acute chnages , though to my eye young /white junction not clearly delineated LFts and creatinine improved, though platlets low (? DIC) Vital Signs Temperature 98.7 F 02/25/17 06:00 Pulse Rate 109 H 02/25/17 07:00 Respiratory Rate 22 02/25/17 07:18 Blood Pressure 79/58 02/25/17 07:00 O2 Sat by Pulse Oximetry (%) 90 L 02/24/17 20:22 02/25/17 05:00 02/25/17 05:00 C T HD : 02/11/17 Impression. No evidence of acute intracranial hemorrhage, edema , midline shift, mass effect, or skull fracture. No CT evidence of acute territorial ischemic changes. O/E comatose, eyes midline, scleral icterus, R >L, pupils 2mm, 14/14 on vent , limited dolls, + corneals, neck supple, no twitching in exe A&P ASSESSMENT/PLAN: 51 y/o woman with significant PMH of biventricular cardiomyopathy, ICD, HTN, A.Fib, Schizophrenia, seizure disorder, hypothroidism, GERD who presented to the hospital due to diminished pulses in LE, s/p fall and confusion. Hospital course has been complicated by status epilepticus that required intubation and admission to ICU.being treated for cardiac shock, elevated LFTS-- ? XR induced vs shock liver vs DIC HD CT 02/24/17--no acute changes after sedation tapered, started to seize versed restrarted 02/24/17 and can maintain and titrate until no clinical events, EEG daily to ensure not in non convulsive status seizure: cont Levitarecetam to 2000mg bid, Phenobabrb 100BID and depakote 500TID , s keppra max dose, phenobarb limited by low BP vimpat caused arrhythmia grim prognosis given persistent encpehlaopathic state and vitals instability, maxed out pressors Dr Wilks
[2017-02-25] MEDS: CHLORHEXIDINE GLUCONATE 0.12% 15ML CUP MM SCH (09:36)
[2017-02-25] MEDS: levETIRAcetam 500 MG/5 ML INJECTION VIAL IVPB SCH (09:36)
[2017-02-25] MEDS: PANTOPRAZOLE SODIUM 100 ML IVPB SCH (09:43)
[2017-02-25] MEDS: PHENobarbital SODIUM 130 MG/1 ML VIAL IV SCH (10:12)
[2017-02-25] MEDS: BETAMETHASONE VALERATE 0.1% CREAM 15 GM TUBE TP SCH (10:12)
[2017-02-25] MEDS: NYSTATIN 100000 UNIT/GM TOPICAL OINTMENT 15 GM TUBE TP SCH (10:12)
--- NOTE | 2017-02-25 10:40 | PN ---
Progress Note (short form) - Note Progress Note: Progress Note: Chief Complaint: chf History of Present Illness: remains on pressors but have been titrated down, bp still low. no fever today. still with seizure activity Current Medications Generic Name Dose Route Start Last Admin Trade Name Edinq PRN Reason Stop Dose Admin Acetaminophen 1,000 mg 02/21/17 17:09 02/24/17 03:44 Ofirmev Injection - IVPB 1,000 mg Q6H PRN Administration FEVER OR PAIN Artificial Tears 1 applic 02/22/17 22:00 02/24/17 21:18 Artificial Tears Ointment - OU 1 applic HS ANNA Administration Betamethasone Valerate 1 applic 02/12/17 10:00 02/25/17 10:12 Valisone 0.1% Cream - TP 1 applic DAILY ANNA Administration Chlorhexidine Gluconate 1 applic 02/11/17 22:00 02/24/17 21:19 Hibiclens For Decolonization - TP 1 applic HS ANNA Administration Chlorhexidine Gluconate 15 ml 02/22/17 22:00 02/25/17 09:36 Peridex - MM 15 ml BID ANNA Administration Pantoprazole Sodium 100 mls @ 200 mls/hr 02/12/17 10:00 02/25/17 09:43 Protonix 40mg Ivpb (Pre-Docked) IVPB 200 mls/hr DAILY ANNA Administration Norepinephrine Bitartrate 8, 500 mls @ 18.75 mls/hr 02/21/17 10:15 02/25/17 09: 35 000 mcg/ Sodium Chloride IV 112.5 mls/hr TITR ANNA Administration Protocol 5 MCG/MIN Caspofungin 50 mg/ Sodium 250 mls @ 250 mls/hr 02/23/17 10:00 02/24/17 11:00 Chloride IVPB 250 mls/hr DAILY ANNA Administration Phenylephrine HCl 20,000 mcg/ 250 mls @ 75 mls/hr 02/23/17 17:00 02/24/17 18:11 Sodium Chloride IVPB Not Given ASDIR ANNA Protocol 100 MCG/MIN Piperacillin Sod/Tazobactam Sod 50 mls @ 100 mls/hr 02/24/17 09:00 02/25/17 03: 32 Zosyn 2.25gm Ivpb (Pre-Docked) IVPB 100 mls/hr Q6H-IV ANNA Administration Protocol Midazolam HCl 100 mg/ Sodium 100 mls @ 2 mls/hr 02/24/17 19:00 02/24/17 19:29 Chloride IVPB 2 mls/hr TITR ANNA Administration Protocol 2 MG/HR Lactic Acid 1 applic 02/11/17 13:05 02/20/17 10:29 Lac-Hydrin 12 TP 1 applic DAILY PRN Administration WOUND CARE Levetiracetam 1,500 mg 02/12/17 09:01 02/25/17 09:36 Keppra Injection - IVPB 1,500 mg BID ANNA Administration Levothyroxine Sodium 75 mcg 02/21/17 07:00 02/25/17 06:50 Synthroid Injection - IVPUSH 75 mcg AM ANNA Administration Nystatin 1 applic 02/11/17 01:00 02/25/17 10:12 Mycostatin Ointment - TP 1 applic BID ANNA Administration Phenobarbital 100 mg 02/15/17 22:00 02/25/17 10:12 Phenobarbital Injection - IV 100 mg BID ANNA Administration Valproate Sodium 500 mg 02/13/17 22:00 02/25/17 05:52 Depacon Injection - IVPB 500 mg Q8H ANNA Administration Vital Signs Temp 99.1 F 02/25/17 10:00 Pulse 110 H 02/25/17 10:00 Resp 14 02/25/17 10:00 BP 83/69 02/25/17 10:00 Pulse Ox 90 L 02/24/17 20:22 Intake & Output 02/24/17 02/24/17 02/25/17 11:59 23:59 11:59 Intake Total 1966 2469 941 Output Total 250 1400 600 Balance 1716 1069 341 Weight 236 lb 15.951 oz 244 lb 14.4 oz Intake: IV 1466 1569 791 Pitressin - 50 Units In 144 Normal Saline - 97.5 ml @ 2.4 UNITS/HR 4.8 mls/hr IVPB ASDIR ANNA Rx#: [id number] Levophed - 8,000 Mcg In 1250 1488 784 Normal Saline - 492 ml @ 5 MCG/MIN 18.75 mls/hr IV TITR ANNA Rx#:[id number] Tim-Synephrine - 10,000 72 Mcg In D5w - 499 ml @ 100 MCG/MIN 300 mls/hr IV TITR ANNA Rx#:[id number] Tim-Synephrine - 20,000 75 Mcg In Normal Saline - 248 ml @ 100 MCG/MIN 75 mls/hr IVPB ASDIR ANNA Rx# :[id number] Versed - 100 mg In Normal 6 7 Saline - 100 ml @ 2 MG/ HR 2 mls/hr IVPB TITR ANNA Rx#:[id number] IVPB 500 900 150 TPN/PPN 0 Output: Gastric Drainage 100 Urine 150 1400 600 Garcia 150 1400 600 Other: Voiding Method Indwelling Catheter Indwelling Catheter Bowel Movement No No No Weight Measurement Method Built in [facility] Built [facility] Constitutional: Yes: No Distress, sedated Cardiovascular: Yes: Regular Rate and Rhythm, Gallop (? S3), S1, S2. No: JVD ( very tds exam), Murmur Respiratory: Yes: cta bl anteriorly. intubated on vent Extremities: No: Cool Edema: Yes (1+ pretib), anasarca Neurological: sedated, intubated Psychiatric: No: Agitated no jaundice diaphoresis abd nd pos bs Labs: Laboratory Last Values WBC 9.9 K/mm3 (4.0-10.0) D 02/25/17 05:00 Corrected WBC (auto) 6.92 K/mm3 02/25/17 05:00 RBC 4.46 M/mm3 (3.60-5.2) 02/25/17 05:00 Hgb 13.1 GM/dL (10.7-15.3) 02/25/17 05:00 Hct 39.8 % (32.4-45.2) 02/25/17 05:00 MCV 89.4 fl (80-96) 02/25/17 05:00 MCH 29.4 pg (25.7-33.7) 02/25/17 05:00 MCHC 32.9 g/dl (32.0-36.0) 02/25/17 05:00 RDW 20.2 % (11.6-15.6) H 02/25/17 05:00 Plt Count 30 K/MM3 (134-434) L* 02/25/17 05:00 MPV 11.2 fl (7.5-11.1) H D 02/25/17 05:00 Add Manual Diff Cancelled 02/11/17 04:00 Total Counted 100 02/25/17 05:00 Neutrophils % Actuary Clerk 02/25/17 05:00 Neutrophils % (Manual) 83 % (42.8-82.8) H 02/25/17 05:00 Band Neuts % (Manual) 12 % (0-10) H D 02/25/17 05:00 Lymphocytes % Actuary Clerk 02/25/17 05:00 Lymphocytes % (Manual) 2 % (8-40) L D 02/25/17 05:00 Monocytes % Actuary Clerk 02/25/17 05:00 Monocytes % (Manual) 3 % (3.8-10.2) L 02/25/17 05:00 Eosinophils % Actuary Clerk 02/25/17 05:00 Basophils % Actuary Clerk 02/25/17 05:00 Nucleated RBC % 43 % (0-0) H* 02/25/17 05:00 Differential Comment Cancelled 02/11/17 04:00 Hypochromia 2+ 02/10/17 17:35 Platelet Estimate Markedly decreased (NORMAL) 02/25/17 05:00 Platelet Comment No clumping noted 02/25/17 05:00 Platelet Comment No clotting detected 02/25/17 05:00 Normal RBC Morphology Cancelled 02/11/17 04:00 RBC Morphology 02/12/17 18:45 Polychromasia 3+ 02/25/17 05:00 Poikilocytosis 1+ 02/12/17 18:45 Anisocytosis 1+ 02/25/17 05:00 Microcytosis 1+ 02/16/17 05:30 Macrocytosis Few 02/16/17 05:30 Tear Drop Cells 1+ 02/16/17 05:30 Ovalocytes 1+ 02/16/17 05:30 INR 1.72 (0.82-1.09) H D 02/25/17 05:00 PTT (Actin FS) 31.9 SECONDS (26.9-34.4) 02/25/17 05:00 Fibrinogen 106.0 mg/dL (238-498) L 02/25/17 05:00 Fibrin Degrad Products 20 ug/mL (<5) H 02/23/17 05:00 Anticoagulation Therapy No 02/21/17 09:30 Puncture Site Right radial 02/21/17 09:30 Patient Temperature N 02/21/17 09:30 ABG pH 7.35 (7.35-7.45) 02/21/17 09:30 ABG pCO2 at Pt Temp 40.8 mmHg (35-45) D 02/21/17 09:30 ABG pO2 at Pt Temp 82.6 mmHg (80-100) D 02/21/17 09:30 ABG HCO3 21.7 meq/L (22-26) L 02/21/17 09:30 ABG O2 Sat (Measured) 95.3 % (90-98.9) 02/21/17 09:30 ABG O2 Content 16.6 % vol (15-22) 02/21/17 09:30 ABG Base Excess -3.2 meq/l (-2-2) L 02/21/17 09:30 Bob Test Positive 02/21/17 09:30 VBG pH 7.35 (7.32-7.42) 02/16/17 11:50 POC VBG pCO2 65.7 mmHg (38-52) H* 02/16/17 11:50 POC VBG pO2 49.6 mmHg (28-48) H 02/16/17 11:50 Mixed VBG HCO3 35.6 meq/L (19-25) H 02/16/17 11:50 O2 Delivery Device Mech vent 02/21/17 09:30 Oxygen Flow Rate 40% 02/21/17 09:30 Vent Mode Ac 02/21/17 09:30 Vent Rate 14 02/21/17 09:30 Mechanical Rate Yes 02/21/17 09:30 PEEP 6.0 cmH2O 02/21/17 09:30 Pressure Support Vent 400 02/21/17 09:30 Sodium 131 mmol/L (136-145) L 02/25/17 05:00 Potassium 4.6 mmol/L (3.5-5.1) 02/25/17 05:00 Chloride 96 mmol/L (98-107) L 02/25/17 05:00 Carbon Dioxide 23 mmol/L (21-32) 02/25/17 05:00 Anion Gap 12 (8-16) 02/25/17 05:00 BUN 80 mg/dL (7-18) H 02/25/17 05:00 Creatinine 1.7 mg/dL (0.55-1.02) H D 02/25/17 05:00 Creat Clearance w eGFR 31.81 (>60) 02/25/17 05:00 POC Glucometer 186.93132 UNITS (()) 02/14/17 20:56 Random Glucose 136 mg/dL (74-106) H D 02/25/17 05:00 Lactic Acid 2.2 mmol/L (0.4-2.0) H* 02/15/17 10:32 Calcium 7.2 mg/dL (8.5-10.1) L 02/25/17 05:00 Phosphorus 3.7 mg/dL (2.5-4.9) D 02/25/17 05:00 Magnesium 2.3 mg/dL (1.8-2.4) 02/25/17 05:00 Total Bilirubin 3.1 mg/dL (0.2-1.0) H D 02/25/17 05:00 Direct Bilirubin 1.9 mg/dL (0.0-0.2) H D 02/23/17 05:00 AST 598 U/L (15-37) H D 02/25/17 05:00 ALT 144 U/L (12-78) H D 02/25/17 05:00 Alkaline Phosphatase 67 U/L (45-117) 02/25/17 05:00 Ammonia 34.6 umol/L (11-32) H 02/11/17 14:00 Creatine Kinase 83 IU/L (26-192) 02/11/17 04:00 Troponin I < 0.02 ng/ml (0.00-0.05) 02/12/17 18:45 B-Natriuretic Peptide 2733.06 pg/ml (5-125) H 02/11/17 04:00 Total Protein 5.0 g/dl (6.4-8.2) L 02/25/17 05:00 Albumin 2.0 g/dl (3.4-5.0) L 02/25/17 05:00 Total Amylase 87 U/L (25-115) 02/11/17 04:00 TSH 18.70 uIU/ml (0.358-3.74) H D 02/13/17 05:15 Free T4 1.24 ng/dl (0.76-1.46) 02/11/17 04:00 Free T3 0.8 pg/ml (2.0-4.4) L 02/12/17 05:20 Total T3 43.00 ng/dl (71-180) L 02/12/17 05:20 Cortisol AM Sample 23.2 ug/dL (.) 02/18/17 05:20 Urine Color Lt. yellow 02/19/17 17:45 Urine Appearance Clear 02/19/17 17:45 Urine pH 6.0 (5.0-8.0) 02/19/17 17:45 Ur Specific [place] 1.015 (1.005-1.025) 02/19/17 17:45 Urine Protein 2+ (NEGATIVE) H 02/19/17 17:45 Urine Glucose (UA) Negative (NEGATIVE) 02/19/17 17:45 Urine Ketones Negative (NEGATIVE) 02/19/17 17:45 Urine Blood 3+ (NEGATIVE) H 02/19/17 17:45 Urine Nitrite Negative (NEGATIVE) 02/19/17 17:45 Urine Bilirubin 1+ (NEGATIVE) H 02/19/17 17:45 Urine Urobilinogen 1.0 mg/dL (0.2-1.0) 02/19/17 17:45 Ur Leukocyte Esterase 2+ (NEGATIVE) H 02/19/17 17:45 Urine RBC 115 /hpf (0-3) 02/19/17 17:45 Urine WBC 702 /hpf (3-5) 02/19/17 17:45 Ur Epithelial Cells Rare /hpf (FEW) 02/19/17 17:45 Calcium Oxalate Crystal Rare /hpf (NONE SEEN) 02/12/17 12:30 Hyaline Casts 45 /lpf 02/19/17 17:45 Granular Casts 1 /lpf 02/12/17 12:30 Urine Mucus Rare 02/19/17 17:45 Urine Yeast Many 02/19/17 17:45 Urine HCG, Qual Negative 02/11/17 14:00 Opiates Screen Negative ng/ml (HMNYRF=989) 02/11/17 14:00 Methadone Screen Negative ng/ml (ZSCGOE=506) 02/11/17 14:00 Acetaminophen 3.145 ug/ml (10.0-30.0) L 02/13/17 05:15 Barbiturate Screen Negative ng/ml (PEJOKB=095) 02/11/17 14:00 Valproic Acid 75.774 ug/ml (50-100) 02/19/17 05:20 Levetiracetam 78.4 MCG/ML (10.0-40.0) H 02/15/17 10:32 Phencyclidine Screen Negative ng/ml (CUTOFF=25) 02/11/17 14:00 Ur Amphetamines Screen Negative ng/ml (VRVSBF=508) 02/11/17 14:00 MDMA (Ecstasy) Screen Negative ng/ml (TJBOOI=541) 02/11/17 14:00 Benzodiazepines Screen Positive ng/ml (MSUZXT=862) 02/11/17 14:00 Cocaine Screen Negative ng/ml (TSWOQX=314) 02/11/17 14:00 U Marijuana (THC) Screen Negative ng/ml (CUTOFF=50) 02/11/17 14:00 Hep-Induced Plt Ab Rapid 0.478 OD (0.000-0.400) H 02/17/17 11:25 tele: sr, as-vpaced [facility] 10/2016 --> nl cors (verbal report from dr sanchez) Echo 01/2017: Severe lv dilation, sev reduced LV fn (global). mod rv dilation. mod RV dysfunction. RV pacing wire. 2.8 x 1.2 cm density in apex of RV (per discussion with Dr. Sanchez, bright echodensity at the tip of pacing wire was present on prior office echo). mod tr. rvsp 30-40. trivial pericardial effusion. + pleural effusion. CTA: pulmonary congestion, small left pleural effusion. large volume ascites. extensive subcutaneous edema/anasarca. CTA --> + arterial flow to LE. repeat CT head 02/23: no sig change cxr 02/25: left eff vs atx est cct 37 mins a/p: 51 y/o woman, resident on [facility] with hx of biventricular cardiomyopathy s/ p bivICD, htn, afib (per report only), Schizophrenia, seizure disorder, Hypothroidism and GERD who presented to ED with LE swelling, coolness to touch and diminshed pulses as well as lethargy. Hospital course has been complicated by seizure/status epilepticus requiring intubation for airway protection and sedation. acute on chronic syst CHF, nonischemic biventricular cardiomyopathy s/p bivICD, cardiogenic shock, septic shock - holding bb and acei due to hypotension. - CE's were negative on admit and according to her dry food products mixer recent [facility] showed normal cors - 8/25 BNP 2700, patient p/w with lethargy, LE edema, cool skin, poor distal pulses, pulmonary edema, large volume ascites and anasarca noted on ct scan, -- > concerning for decompensated biventricular heart failure. cvp 13 --> Started trial of IV lasix for diuresis 02/12, milrinone deferred at that time ( pt was on levophed). - 02/13: overnight propofol stopped due to increasing ectopy and concern for qt prolongation --> improvement in ectopy. patient's remained net positive, lasix was increased to 80 mg IV bid. Late evening cvp remained elevated at 15 and patient still not net negative. Drips were double concentrated. vasopressin added for recurrent hypotension (to 70s). - 02/14: levophed weaned off today. Patient finally net negative this am. BP still running low. CVP remains elevated at 13 --> started milrinone for decompensated heart failure. Patient still may have superimposed vasodilating pathology, con't pressor support for now. Con't lasix 80 mg IV bid with aggressive electrolyte repletion (congestion improving on cxr, lfts improving, cr stable). double concentrate drips when possible. - 02/15: CXR improved vs 02/13, L lung not well seen due to ICD and marked cardiomegaly obscuring L base. BP down to 70s again early am today, remains on high dose pressors (vasopressin 2.4 units/hour, levo 9 mcg). CVP has improved to 10 (from 17 initially) with diuresis plus milrinone (0.3 mcg/kg/min). vigorous UOP yesterday (8L). - 02/16: Concern for episode of VF/VT on telemetry-->ICD interrogated: No VT/VF events. Was informed that biV pacing programmed to stop at HR's above 130 which explains change in rhythm. Although 130's is still below lower detection limit for VT so cannot exclude intermittent slow VT. Milrinone drip stopped. Sent SvO2 to clarify hemodynamics, cardiogenic vs. vasodilatory. SVO2 80% per report so OK to leave off milrinone. Still getting augmentation of contractility from levophed. Remains net positive today, CVP 14 per report, but SVO2 is not low and overall edema improving --> will not uptitrate diuretics. -02/17: cont current iv lasix and pressor support - 02/18: concerned patient is continuing to be net positive. CVP elevated > 20. Now with MARK and minimal urine output now poor. If she continues to remain net positive her heart failure will continue to worsen. Had 100 cc uop to 100 mg IV lasix this afternoon (increase from what she has put out today per nursing). Will uptitrate lasix regimen to 100 mg tid. Will add back milrinone to see if it improves hypotension/cardiac output (add back at lower dose for now). ICD interrogation was negative for ventricular arrhythmia. Reassess tomorrow whether these interventions improve her clinical status. Discussed plan of care with family. Palliative care in room with family -02/19: still with vol overload, net positive, wt up. Will continue current pressors, milrinone. Fever reported so possibly becoming septic. If bp continues to drop would stop milrinone and hold lasix temporarily. -02/20: despite milrinone and lasix pt remains with poor urine outpt and low bp. Now also has been persistently febrile so seems more of a septic shock picture now. Thus will dc lasix and milrinone for now which may allow bp to rise. If bp remains low on vaso and levo can add dobutamine next. -02/21-7: Pt remains with shock, multiorgan failure. Cont bp support with pressors, abx. Since yesterday pressors titrated down and now only on levophed. Cont to hold lasix/milrinone as bp too low and wasn't improving her status regardless. Anasarca from low albumin/3rd spacing in addition to being persistently net positive. Overall very poor prognosis. wide complex tachycardia: - suspect tele represents sinus tach, initially with Bi-V pacing, then with loss of Bi-V pacing and pt conduction with picayune bundle branch block QRS (note 02/10 ekg shows Bi-V pacing with a fusion beat btw paced and conducted beats, showing a wide QRS with picayune conduction) - doubt sustained VT on tele - has ICD protection - CHF optimization and med regimen as doing - per dr sanchez, ICD was recently interrogated 10/2016 with no remarkable findings then. - 02/12 with increasing ectopy throughout the day leading to sustained ventricular bigeminy with very broad abnormal t wave (no nsvt). concern for qt prolongation --> propofol weaned overnight with resolution of arrhythmia. - electrolyte repletion to usual targets - 02/16: ICD interrogated: No VT/VF events. Was informed that biV pacing programmed to stop at HR's above 130 which explains intermittent changes in rhythm on telemetry. RV echo density noted on echo - Echo here shows density in RV apex (couldn't exclude veg or thrombus). blood cultures here have remained negative. Discussed with Dr. Sanchez and patient had similarly described density on prior echo at his office, likely artifact from RV lead. seizure disorder/status epilepticus - continued seizure activity, ongoing management per neuro/icu. Remains intubated with unresponsiveness. - repeat head ct's w/o acute pathology. afib - diagnosis documented on long-term chart, but patient not on AC and in SR here (? accuracy of diagnosis)--will defer to Dr. Sanchez who is her treating outpatient dry food products mixer. For now, since no evidence of afib/flutter on tele, and patient with thrombocytopenia, will not start AC. 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 elevated lfts: -likely shock liver, cont bp support, lfts slowly improving mark: -likely from shock, cr remains elevated but improved today. cont bp support, abx
--- NOTE | 2017-02-25 14:48 | PN ---
Teaching Attending Note Name of Resident: Grisel Brizuela ATTENDING PHYSICIAN STATEMENT I saw and evaluated the patient. I reviewed the resident's note and discussed the case with the resident. I agree with the resident's findings and plan as documented. SUBJECTIVE: Patient seen and examined in the ICU. Continuous seizures noted and Versed was titrated until terminated. No improvement in overall clinical condition. Refractory shock. FiO2 requirement increased to 100%. Family at the bedside, mother, daughter, and father. Several attempts made to contact significant other at [phone]. None of the providers have been able to reach him. The family that has been present throughout the hospitalization have informed us that his significant other has not participated in any of her medical decision making. OBJECTIVE: Intake & Output 02/22/17 02/23/17 02/24/17 02/25/17 23:59 23:59 23:59 23:59 Intake Total 3800 4272 4435 941 Output Total 800 1300 1650 600 Balance 3000 2972 2785 341 Weight 228 lb 229 lb 8 oz 236 lb 15.951 oz 244 lb 14.4 oz Last Vital Signs Temp Pulse Resp BP Pulse Ox 99.1 F 107 H 23 77/59 96 02/25/17 10:00 02/25/17 12:00 02/25/17 14:41 02/25/17 12:00 02/25/17 10:39 Active Medications Acetaminophen (Ofirmev Injection -) 1,000 mg IVPB Q6H PRN PRN Reason: FEVER OR PAIN Last Admin: 02/24/17 03:44 Dose: 1,000 mg Artificial Tears (Artificial Tears Ointment -) 1 applic OU HS ANNA Last Admin: 02/24/17 21:18 Dose: 1 applic Betamethasone Valerate (Valisone 0.1% Cream -) 1 applic TP DAILY ANNA Last Admin: 02/25/17 10:12 Dose: 1 applic Chlorhexidine Gluconate (Hibiclens For Decolonization -) 1 applic TP HS ANNA Last Admin: 02/24/17 21:19 Dose: 1 applic Chlorhexidine Gluconate (Peridex -) 15 ml MM BID ANNA Last Admin: 02/25/17 09:36 Dose: 15 ml Pantoprazole Sodium (Protonix 40mg Ivpb (Pre-Docked)) 100 mls @ 200 mls/hr IVPB DAILY ANNA Last Admin: 02/25/17 09:43 Dose: 200 mls/hr Norepinephrine Bitartrate 8, (000 mcg/ Sodium Chloride) 500 mls @ 18.75 mls/hr IV TITR ANNA; 5 MCG/MIN PRN Reason: Protocol Last Admin: 02/25/17 09:35 Dose: 112.5 mls/hr Caspofungin 50 mg/ Sodium (Chloride) 250 mls @ 250 mls/hr IVPB DAILY ANNA Last Admin: 02/24/17 11:00 Dose: 250 mls/hr Phenylephrine HCl 20,000 mcg/ (Sodium Chloride) 250 mls @ 75 mls/hr IVPB ASDIR ANNA; 100 MCG/MIN PRN Reason: Protocol Last Admin: 02/24/17 18:11 Dose: Not Given Piperacillin Sod/Tazobactam Sod (Zosyn 2.25gm Ivpb (Pre-Docked)) 50 mls @ 100 mls/hr IVPB Q6H-IV ANNA PRN Reason: Protocol Last Admin: 02/25/17 03:32 Dose: 100 mls/hr Midazolam HCl 100 mg/ Sodium (Chloride) 100 mls @ 2 mls/hr IVPB TITR ANNA; 2 MG/ HR PRN Reason: Protocol Last Admin: 02/24/17 19:29 Dose: 2 mls/hr Morphine Sulfate 100 mg/ (Sodium Chloride) 100 mls @ 2 mls/hr IVPB TITR ANNA; 2 MG/HR PRN Reason: Protocol Lactic Acid (Lac-Hydrin 12) 1 applic TP DAILY PRN PRN Reason: WOUND CARE Last Admin: 02/20/17 10:29 Dose: 1 applic Levetiracetam (Keppra Injection -) 1,500 mg IVPB BID [facility] Last Admin: 02/25/17 09:36 Dose: 1,500 mg Levothyroxine Sodium (Synthroid Injection -) 75 mcg IVPUSH AM [facility] Last Admin: 02/25/17 06:50 Dose: 75 mcg Nystatin (Mycostatin Ointment -) 1 applic TP BID [facility] Last Admin: 02/25/17 10:12 Dose: 1 applic Phenobarbital (Phenobarbital Injection -) 100 mg IV BID [facility] Last Admin: 02/25/17 10:12 Dose: 100 mg Valproate Sodium (Depacon Injection -) 500 mg IVPB Q8H [facility] Last Admin: 02/25/17 05:52 Dose: 500 mg Gen: Intubated, minimally responsive Heart: tachycardic, regular Lung: decreased breath sounds at the bases Abd: distended Ext: cyanotic right great toe, peripheral mottling, anasarca Laboratory Results - last 24 hr 02/23/17 02/25/17 02/25/17 05:00 05:00 05:00 WBC Corrected WBC (auto) RBC Hgb Hct MCV MCH MCHC RDW Plt Count MPV Total Counted Neutrophils % Neutrophils % (Manual) Band Neuts % (Manual) Lymphocytes % Lymphocytes % (Manual) Monocytes % Monocytes % (Manual) Eosinophils % Basophils % Nucleated RBC % Platelet Estimate Platelet Comment Polychromasia Anisocytosis INR 1.72 H D PTT (Actin FS) 31.9 Fibrinogen 106.0 L Fibrin Degrad Products 20 H Sodium 131 L Potassium 4.6 Chloride 96 L Carbon Dioxide 23 Anion Gap 12 BUN 80 H Creatinine 1.7 H D Creat Clearance w eGFR 31.81 Random Glucose 136 H D Calcium 7.2 L Phosphorus 3.7 D Magnesium 2.3 Total Bilirubin 3.1 H D AST 598 H D ALT 144 H D Alkaline Phosphatase 67 Total Protein 5.0 L Albumin 2.0 L 02/25/17 05:00 WBC 9.9 D Corrected WBC (auto) 6.92 RBC 4.46 Hgb 13.1 Hct 39.8 MCV 89.4 MCH 29.4 MCHC 32.9 RDW 20.2 H Plt Count 30 L* MPV 11.2 H D Total Counted 100 Neutrophils % Low Pressure Kettle Operator Neutrophils % (Manual) 83 H Band Neuts % (Manual) 12 H D Lymphocytes % Low Pressure Kettle Operator Lymphocytes % (Manual) 2 L D Monocytes % Low Pressure Kettle Operator Monocytes % (Manual) 3 L Eosinophils % Low Pressure Kettle Operator Basophils % Low Pressure Kettle Operator Nucleated RBC % 43 H* Platelet Estimate Markedly decreased Platelet Comment No clotting detected Polychromasia 3+ Anisocytosis 1+ INR PTT (Actin FS) Fibrinogen Fibrin Degrad Products Sodium Potassium Chloride Carbon Dioxide Anion Gap BUN Creatinine Creat Clearance w eGFR Random Glucose Calcium Phosphorus Magnesium Total Bilirubin AST ALT Alkaline Phosphatase Total Protein Albumin ASSESSMENT AND PLAN: Status Epileptics Acute Respiratory Failure Acute on Chronic Systolic Heart Failure Cardiogenic vs Septic Shock Lactic Acidosis resolved s/p ICD Elevated LFTs Hypothyroidism Thrombocytopenia Hyponatremia Long discussion with parents. Explained grave prognosis. Her clinical condition has progressively deteriorated. The patient's mother, father, and daughter are at the bedside. They understand the patient's grave prognosis and that she will not be able to survive this illness. Continued treatment would only cause increased suffering. The healthcare team, including myself, have done our due diligence and made multiple attempts to reach her significant other. Due to continued and progressive suffering of the patient. Dr Fisher Critical care time spent in reviewing chart, evaluating patient and formulating plan 45 min
--- NOTE | 2017-02-25 14:58 | HOSP ---
Subjective - Review of Symptoms Events since last encounter: Had family meeting today. Mother, daughter and nurse were present. The patient' s family are now amenable to compassionate weaning. Physical Examination Vital Signs: Vital Signs Temperature 99.1 F 02/25/17 10:00 Pulse Rate 107 H 02/25/17 12:00 Respiratory Rate 23 02/25/17 14:41 Blood Pressure 77/59 02/25/17 12:00 O2 Sat by Pulse Oximetry (%) 96 02/25/17 10:39 Labs: CBC, BMP 02/25/17 05:00 02/25/17 05:00 Visit type - Emergency Visit Emergency Visit: Yes ED Registration Date: 02/10/17 Care time: The patient presented to the Emergency Department on the above date and was hospitalized for further evaluation of their emergent condition. - New Patient This patient is new to me today: No - Critical Care Critical Care patient: Yes Total Critical Care Time (in minutes): 35 Critical Care Statement: The care of this patient involved high complexity decision making to prevent further life threatening deterioration of the patient 's condition and/or to evaluate & treat vital organ system(s) failure or risk of failure.
[2017-02-25] MEDS ORDERED: MORPHINE 100 MG in SODIUM CHLORIDE 98 ML IVPB SCH (15:00)
[2017-02-25 15:48] VITALS: TEMP 99
--- NOTE | 2017-02-25 16:03 | PN ---
Physical Exam: SUBJECTIVE: Patient seen and examined OBJECTIVE: Vital Signs Period Temp Pulse Resp BP Sys/Centeno Pulse Ox Last 24 Hr 98.7 F-99.3 F 96-110 14-26 76-98/58-82 90-96 GENERAL: The patient is awake, alert, and fully oriented, in no acute distress. HEAD: Normal with no signs of trauma. EYES: PERRL, extraocular movements intact, sclera anicteric, conjunctiva clear. No ptosis. ENT: Ears normal, nares patent, oropharynx clear without exudates, moist mucous membranes. NECK: Trachea midline, full range of motion, supple. LUNGS: Breath sounds equal, clear to auscultation bilaterally, no wheezes, no crackles, no accessory muscle use. HEART: Regular rate and rhythm, S1, S2 without murmur, rub or gallop. ABDOMEN: Soft, nontender, nondistended, normoactive bowel sounds, no guarding, no rebound, no hepatosplenomegaly, no masses. EXTREMITIES: 2+ pulses, warm, well-perfused, no edema. NEUROLOGICAL: Cranial nerves II through XII grossly intact. Normal speech, gait not observed. PSYCH: Normal mood, normal affect. SKIN: Warm, dry, normal turgor, no rashes or lesions noted Laboratory Results - last 24 hr 02/23/17 02/25/17 02/25/17 05:00 05:00 05:00 WBC Corrected WBC (auto) RBC Hgb Hct MCV MCH MCHC RDW Plt Count MPV Total Counted Neutrophils % Neutrophils % (Manual) Band Neuts % (Manual) Lymphocytes % Lymphocytes % (Manual) Monocytes % Monocytes % (Manual) Eosinophils % Basophils % Nucleated RBC % Platelet Estimate Platelet Comment Polychromasia Anisocytosis INR 1.72 H D PTT (Actin FS) 31.9 Fibrinogen 106.0 L Fibrin Degrad Products 20 H Sodium 131 L Potassium 4.6 Chloride 96 L Carbon Dioxide 23 Anion Gap 12 BUN 80 H Creatinine 1.7 H D Creat Clearance w eGFR 31.81 Random Glucose 136 H D Calcium 7.2 L Phosphorus 3.7 D Magnesium 2.3 Total Bilirubin 3.1 H D AST 598 H D ALT 144 H D Alkaline Phosphatase 67 Total Protein 5.0 L Albumin 2.0 L 02/25/17 05:00 WBC 9.9 D Corrected WBC (auto) 6.92 RBC 4.46 Hgb 13.1 Hct 39.8 MCV 89.4 MCH 29.4 MCHC 32.9 RDW 20.2 H Plt Count 30 L* MPV 11.2 H D Total Counted 100 Neutrophils % Manager [facility] Neutrophils % (Manual) 83 H Band Neuts % (Manual) 12 H D Lymphocytes % Manager [facility] Lymphocytes % (Manual) 2 L D Monocytes % Manager [facility] Monocytes % (Manual) 3 L Eosinophils % Manager [facility] Basophils % Manager [facility] Nucleated RBC % 43 H* Platelet Estimate Markedly decreased Platelet Comment No clotting detected Polychromasia 3+ Anisocytosis 1+ INR PTT (Actin FS) Fibrinogen Fibrin Degrad Products Sodium Potassium Chloride Carbon Dioxide Anion Gap BUN Creatinine Creat Clearance w eGFR Random Glucose Calcium Phosphorus Magnesium Total Bilirubin AST ALT Alkaline Phosphatase Total Protein Albumin Active Medications Generic Name Dose Route Start Last Admin Trade Name Sanjuana PRN Reason Stop Dose Admin Acetaminophen 1,000 mg 02/21/17 17:09 02/24/17 03:44 Ofirmev Injection - IVPB 1,000 mg Q6H PRN Administration FEVER OR PAIN Artificial Tears 1 applic 02/22/17 22:00 02/24/17 21:18 Artificial Tears Ointment - OU 1 applic HS ANNA Administration Betamethasone Valerate 1 applic 02/12/17 10:00 02/25/17 10:12 Valisone 0.1% Cream - TP 1 applic DAILY ANNA Administration Chlorhexidine Gluconate 1 applic 02/11/17 22:00 02/24/17 21:19 Hibiclens For Decolonization - TP 1 applic HS ANNA Administration Chlorhexidine Gluconate 15 ml 02/22/17 22:00 02/25/17 09:36 Peridex - MM 15 ml BID ANNA Administration Pantoprazole Sodium 100 mls @ 200 mls/hr 02/12/17 10:00 02/25/17 09:43 Protonix 40mg Ivpb (Pre-Docked) IVPB 200 mls/hr DAILY ANNA Administration Norepinephrine Bitartrate 8, 500 mls @ 18.75 mls/hr 02/21/17 10:15 02/25/17 09: 35 000 mcg/ Sodium Chloride IV 112.5 mls/hr TITR ANNA Administration Protocol 5 MCG/MIN Caspofungin 50 mg/ Sodium 250 mls @ 250 mls/hr 02/23/17 10:00 02/24/17 11:00 Chloride IVPB 250 mls/hr DAILY ANNA Administration Phenylephrine HCl 20,000 mcg/ 250 mls @ 75 mls/hr 02/23/17 17:00 02/24/17 18:11 Sodium Chloride IVPB Not Given ASDIR ANNA Protocol 100 MCG/MIN Piperacillin Sod/Tazobactam Sod 50 mls @ 100 mls/hr 02/24/17 09:00 02/25/17 03: 32 Zosyn 2.25gm Ivpb (Pre-Docked) IVPB 100 mls/hr Q6H-IV ANNA Administration Protocol Midazolam HCl 100 mg/ Sodium 100 mls @ 2 mls/hr 02/24/17 19:00 02/24/17 19:29 Chloride IVPB 2 mls/hr TITR ANNA Administration Protocol 2 MG/HR Morphine Sulfate 100 mg/ 100 mls @ 2 mls/hr 02/25/17 15:00 Sodium Chloride IVPB TITR ANNA Protocol 2 MG/HR Lactic Acid 1 applic 02/11/17 13:05 02/20/17 10:29 Lac-Hydrin 12 TP 1 applic DAILY PRN Administration WOUND CARE Levetiracetam 1,500 mg 02/12/17 09:01 02/25/17 09:36 Keppra Injection - IVPB 1,500 mg BID ANNA Administration Levothyroxine Sodium 75 mcg 02/21/17 07:00 02/25/17 06:50 Synthroid Injection - IVPUSH 75 mcg AM ANNA Administration Nystatin 1 applic 02/11/17 01:00 02/25/17 10:12 Mycostatin Ointment - TP 1 applic BID ANNA Administration Phenobarbital 100 mg 02/15/17 22:00 02/25/17 10:12 Phenobarbital Injection - IV 100 mg BID ANNA Administration Valproate Sodium 500 mg 02/13/17 22:00 02/25/17 05:52 Depacon Injection - IVPB 500 mg Q8H ANNA Administration ASSESSMENT/PLAN: This is a 51yr old woman from [facility] with a past medical history of Schizophrenia, HTN, AFib, CHF, s/p AICD/biV pacer, Hypothroidism and GERD who presented LE swelling. Patient admitted for concerns of arterial ischemia, rapid response called concern for acute arterial ischemia. PLAN CHECKER called for status epilepticus where pt was intubated for airway protection. Status Epileptics Acute Respiratory Failure Acute on Chronic Systolic Heart Failure Cardiogenic vs Septic Shock Lactic Acidosis resolved s/p ICD Elevated LFTs Hypothyroidism Thrombocytopenia Hyponatremia ICU team discussion with with family. Family wants compassionate wean. Visit type - Emergency Visit Emergency Visit: Yes ED Registration Date: 02/10/17 Care time: The patient presented to the Emergency Department on the above date and was hospitalized for further evaluation of their emergent condition. - New Patient This patient is new to me today: Yes Date on this admission: 02/25/17 - Critical Care Critical Care patient: Yes Total Critical Care Time (in minutes): 35 Critical Care Statement: The care of this patient involved high complexity decision making to prevent further life threatening deterioration of the patient 's condition and/or to evaluate & treat vital organ system(s) failure or risk of failure.
[2017-02-25] MEDS: PHENYLEPHRINE HCL 20,000 MCG in SODIUM CHLORIDE 248 ML IVPB SCH (17:54)
--- NOTE | 2017-02-25 17:58 | PN ---
Teaching Attending Note Name of Resident: Bala Herndon ATTENDING PHYSICIAN STATEMENT I saw and evaluated the patient. I reviewed the resident's note and discussed the case with the resident. I agree with the resident's findings and plan as documented. SUBJECTIVE:intubated OBJECTIVE: Last Vital Signs Temp Pulse Resp BP Pulse Ox 99.0 F 102 H 23 86/77 96 02/25/17 14:00 02/25/17 14:00 02/25/17 14:41 02/25/17 14:00 02/25/17 10:39 General intubated/sedated, +gag reflex, +corneal reflex CV S1 S2 + Lungs coarse breath sounds Abdomen firm and distended. no BS Extremities 4+ pitting edema in all 4 extremities ASSESSMENT AND PLAN: 51yo F with PMH schizphrenia, hypothyroid, dilated cardiomyopathy s/p AICD, HTN and afib presented to the ER with B/L LE pain and concern for acute arterial ischemia. ALLIANCE MANAGER called for status epilepticus where pt was intubated for airway protection 1. Shock with multiorgan failure and likely early DIC- pt has been on 2 pressor support for the past 2 weeks with no improvement. sedation has been held for > 72H with no signs of meaningful neurological recovery. sedation re-started in the evening due to seizure like activity. long family discussion with daughter and mother present explaining grave prognosis. lack of meaningful recovery. family agreed with compassionate wean at this time. Mother, father and daughter have been present daily during hospital course and making all medical decisions thus far. There has been no input from significant other for medical decisions and have been unreachable. Multiple attempts to reach significant other but no success. will go forward with compassionate wean at this time to end patients suffering. The care of this patient involved high complexity decision making to prevent further life threatening deterioration of the patient's condition and/or to evaluate & treat vital organ system(s) failure or risk of failure. 48 minutes critical care time
[2017-02-25 18:37] VITALS: BP 71/57; PULSE 103
--- NOTE | 2017-02-25 18:53 | HOSP ---
Subjective - Review of Symptoms Events since last encounter: I was paged to the bedside by the nurse because patient was unresponsive. Patient was unreactive to verbal or physical stimuli. Pupils fixed and dilated. No heart sounds or breath sounds on auscultation No pulses in upper and lower extremities Patient pronounced at 18:31 Patient's mother notified at bedside Nurse to call organ donation Nurse to notify primary care provider Physical Examination Vital Signs: Vital Signs Temperature 99.0 F 02/25/17 14:00 Pulse Rate 103 H 02/25/17 15:00 Respiratory Rate 15 02/25/17 15:00 Blood Pressure 71/57 02/25/17 15:00 O2 Sat by Pulse Oximetry (%) 96 02/25/17 10:39 Labs: CBC, BMP 02/25/17 05:00 02/25/17 05:00 Visit type - Emergency Visit Emergency Visit: Yes ED Registration Date: 02/10/17 Care time: The patient presented to the Emergency Department on the above date and was hospitalized for further evaluation of their emergent condition. - New Patient This patient is new to me today: No - Critical Care Critical Care patient: Yes Total Critical Care Time (in minutes): 40 Critical Care Statement: The care of this patient involved high complexity decision making to prevent further life threatening deterioration of the patient 's condition and/or to evaluate & treat vital organ system(s) failure or risk of failure.
--- NOTE | 2017-02-25 21:41 | HOSP ---
Subjective - Review of Symptoms Events since last encounter: Spoke w/ over the phone at 9:30PM. expressed wish for autopsy to be performed. 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 Informed to contact admitting office for any questions regarding post-mortem logistics. Dr. Esteban Mcdonald, PGY1 Physical Examination Vital Signs: Vital Signs Temperature 99.0 F 02/25/17 14:00 Pulse Rate 103 H 02/25/17 15:00 Respiratory Rate 15 02/25/17 15:00 Blood Pressure 71/57 02/25/17 15:00 O2 Sat by Pulse Oximetry (%) 96 02/25/17 10:39 Labs: CBC, BMP 02/25/17 05:00 02/25/17 05:00 Visit type - Emergency Visit Emergency Visit: No - New Patient This patient is new to me today: No - Critical Care Critical Care patient: Yes Total Critical Care Time (in minutes): 5
--- NOTE | 2017-02-25 22:16 | DS ---
Physical Exam: HOSPITAL COURSE: Date of Admission:02/10/17 The patient is a 51 yo female from [facility], w/ PMH of Schizophrenia, hypothyroidism, dilated cardiomyopathy s/p AICD placement, A. fib , and HTN, who was sent to the ED due to complaints of leg pain and concern for DVT. The patient was a poor historian and almost non-verbal. In the ED, a head CT showed moderate volume loss mild chronic microvascular ischemic changes with no evidence of acute intracranial pathology. A duplex of both lower extremities was negative for DVT. A CTA runoff showed multiple occlusions in the distal arteries of both legs. Dr. Hoang with vascular surgery was consulted. Shortly after her admission to the hospital, a rapid response was called when the patient began to exhibit a tonic clonic seizure which progressed into status epilepticus. She was intubated and transferred to the ICU. Dr. Rush from neurology was consulted. Throughout the ICU stay she continued to stay in status epilepticus requiring several anti seizure meds and sedatives. The patient's clinical status declined and she began to require pressure support. She began to spike fevers. Dr. Galindo from infectious disease was consulted. Patient was treated with antibiotics. The patient's clinical status continued to decline despite the treatment, eventually progressing into multiorgan failure. A long conversation with the family about the patient's poor prognosis led to the family's decision to compassionately wean the patient. The patient was pronounced on 02/25/2017 at 18:31. Date of Discharge: 02/25/17 Minutes to complete discharge: 60 Discharge Summary Reason For Visit: ATERIAL INSUFFIENCY OF LOWER EXTREMITY - Instructions Referrals: Sheryl Aleman MD [Primary Care Provider] - Disposition: - Home Medications Comprehensive Discharge Medication List: Ambulatory Orders Levothyroxine [Synthroid -] 125 mcg PO DAILY 07/11/15 Metoprolol Succinate [Toprol XL -] 25 mg PO DAILY #30 tab.sr.24h 07/12/15 Acetaminophen [Tylenol] 650 mg PO QID PRN 02/10/17 Ammonium Lactate 1 ml TP BID 02/10/17 Betamethasone Valerate [Valisone] 1 applic TP DAILY 02/10/17 Divalproex Sodium [Depakote] 250 mg PO BID 02/10/17 Ergocalciferol (Vitamin D2) [Vitamin D2] 50,000 unit PO DAILY 02/10/17 Furosemide [Lasix -] 20 mg PO DAILY 02/10/17 Nystatin Cream [Mycostatin] 1 applic TP BID 02/10/17 Sertraline HCl [Zoloft] 25 mg PO DAILY 02/10/17 Topiramate [Topamax] 25 mg PO BID 02/10/17 Vancomycin [Vancocin] 500 mg IV DAILY 02/10/17 Problem List - Problems (1) Chronic congestive heart failure Code(s): I50.9 - HEART FAILURE, UNSPECIFIED Qualifiers: Congestive heart failure type: unspecified congestive heart failure type Qualified Code(s): I50.9 - Heart failure, unspecified (2) Hypertension Code(s): I10 - ESSENTIAL (PRIMARY) HYPERTENSION Qualifiers: Hypertension type: essential hypertension Qualified Code(s): I10 - Essential (primary) hypertension (3) Schizophrenia, paranoid, chronic Code(s): F20.0 - PARANOID SCHIZOPHRENIA (4) Seizure Code(s): R56.9 - UNSPECIFIED CONVULSIONS (5) Rash Code(s): R21 - RASH AND OTHER NONSPECIFIC SKIN ERUPTION (6) Peripheral arterial disease Code(s): I73.9 - PERIPHERAL VASCULAR DISEASE, UNSPECIFIED This patient is new to me today: No Emergency Visit: Yes ED Registration Date: 02/10/17 Care time: The patient presented to the Emergency Department on the above date and was hospitalized for further evaluation of their emergent condition. Critical Care patient: Yes Total Critical Care Time (in minutes): 60 Critical Care Statement: The care of this patient involved high complexity decision making to prevent further life threatening deterioration of the patient 's condition and/or to evaluate & treat vital organ system(s) failure or risk of failure. - Discharge Referral Referred to [facility] No
== END 2017-02-25 19:35 | disposition expired | DRG 197 ==
LOC: JER 16:01 → JERBED 23:31 → J7W 02-11 02:02 → J2W 02-11 03:40 → JICU 02-11 04:30
PROVIDERS: ADMIT Internal Medicine; ATTEND Internal Medicine
PROC: 0CHY7BZ Insertion of Airway into Mouth and Throat, Via Natural or Artificial Opening (ICD-10-PCS; principal; 2017-02-10)
PROC: 5A1955Z Respiratory Ventilation, Greater than 96 Consecutive Hours (ICD-10-PCS; 2017-02-10)
PROC: 05HM33Z Insertion of Infusion Device into Right Internal Jugular Vein, Percutaneous Approach (ICD-10-PCS; 2017-02-10)
DX: I77.1 Stricture of artery (principal); B37.7 Candidal sepsis; I50.33 Acute on chronic diastolic (congestive) heart failure; J96.02 Acute respiratory failure with hypercapnia; J96.01 Acute respiratory failure with hypoxia; I48.91 Unspecified atrial fibrillation; E87.2 Acidosis; K72.00 Acute and subacute hepatic failure without coma; N17.0 Acute kidney failure with tubular necrosis; E87.1 Hypo-osmolality and hyponatremia; R57.0 Cardiogenic shock; G40.409 Other generalized epilepsy and epileptic syndromes, not intractable, without status epilepticus; Z68.41 Body mass index [BMI] 40.0-44.9, adult; E83.42 Hypomagnesemia; E87.6 Hypokalemia; I10 Essential (primary) hypertension; Z95.810 Presence of automatic (implantable) cardiac defibrillator; E03.9 Hypothyroidism, unspecified; K21.9 Gastro-esophageal reflux disease without esophagitis; F20.9 Schizophrenia, unspecified; F31.9 Bipolar disorder, unspecified; Z87.891 Personal history of nicotine dependence; I42.0 Dilated cardiomyopathy; I73.9 Peripheral vascular disease, unspecified; R74.0 Nonspecific elevation of levels of transaminase and lactic acid dehydrogenase [LDH]; L30.8 Other specified dermatitis; I95.9 Hypotension, unspecified; E83.39 Other disorders of phosphorus metabolism; D65 Disseminated intravascular coagulation [defibrination syndrome]; I49.9 Cardiac arrhythmia, unspecified; E66.9 Obesity, unspecified
CPT/HCPCS: 31500; 36415; 36600; 70450-TC; 71010-TC; 74000-TC; 75635-TC; 76705-TC; 80048; 80053; 80076; 80164; 80307; 81003; 81015; 82140; 82150; 82533; 82803; 83605; 83735; 83880; 84100; 84439; 84443; 84480; 84481; 84484; 84703; 85025; 85027; 85362; 85384; 85610; 85730; 86022; 87040; 87070; 87077; 87086; 87186; 87205; 93005; 93010; 93306-TC; 93970-TC; 94002; 95816; 95953; 95957; 99282-25; J0637; J1250; J1644